=== PATIENT | female | born 1935 | race Caucasian/White ===

== ENCOUNTER 2017-01-16 12:17 | Inpatient (IN) | payer MEDICARE, BC ==
[2017-01-16] MEDS ORDERED: Ondansetron 4 MG/2 ML SDV IV PRN (15:19)
[2017-01-16] MEDS ORDERED: Magnesium Hydroxide 400 MG/5 ML Susp 30 ML Cup PO PRN (15:19)
[2017-01-16] MEDS ORDERED: Sennosides 8.6 MG Tab PO PRN (15:41)
[2017-01-16] MEDS ORDERED: Polyethylene Glycol 3350 Powder 17 GM Packet PO PRN (15:41)
[2017-01-16] MEDS ORDERED: Bisacodyl 10 MG Supp RECTAL PRN (16:02)
[2017-01-16] MEDS: Insulin Aspart 100 Units/ML 3 ML Pen SUBCUT SCH ×2 (17:37→20:25)
[2017-01-16] MEDS: Gabapentin 300 MG Cap PO SCH (17:37)
[2017-01-16] MEDS: Brimonidine 0.2% Ophth Soln 5 ML Bottle EYERT SCH (19:58)
[2017-01-16] MEDS: Metoprolol Tartrate 50 MG Tab PO SCH (19:59)
[2017-01-16] MEDS: Pantoprazole 40 MG Tab.CR PO SCH (19:59)
[2017-01-16] MEDS: atorvaSTATin 10 MG Tab PO SCH (20:00)
[2017-01-16] MEDS: amLODIPine 2.5 MG Tab PO SCH (20:00)
[2017-01-16] MEDS: Sertraline 25 MG Tab PO SCH (20:00)
[2017-01-16] MEDS: Latanoprost 0.005% Ophth Soln 2.5 ML Bottle EYEBOTH SCH (20:03)
[2017-01-16] MEDS: Acetaminophen 325 MG Tab PO PRN (20:34)
--- NOTE | 2017-01-16 20:50 | PCM.HP ---
H&P History of Present Illness - General Date of Service: 01/16/17 Admit Problem/Dx: Admission Diagnosis/Problem Admission Diagnosis/Problem Community acquired pneumonia Source of Information: Patient, Old records History Limitations: Reports: No limitations - History of Present Illness Initial Comments - Free Text/Narative: Patient presents swing bed from [facility] after having issues with bilateral pneumonia and pulmonary edema. She did meet criteria for sepsis. Patient did have somnolence and required high doses of oxygen initially in [facility] before being transferred to [place]. She did have confusion and left sided tremor and an MRI was done to rule out an acute stroke. Her ProB[place] 7000 [place] [address]77 before transfer. Also noted to have acute renal failure. She did respond well to diuresis with significant improvement in her renal function . She was on IV Rocephin and Zithromax for CAP. She was able to be transitioned to oral diuretics and was off oxygen but eventually did require it again prior to discharge/transfer here. Was taken off Metformin and started on insulin due to kidney function. Return here to swing bed for strengthening and mobility training. Duration of Symptoms: Reports: Week(s): Location: Reports: head, chest - Related Data Allergies/Adverse Reactions: Allergies Allergy/AdvReac Type Severity Reaction Status Date / Time codeine Allergy Severe Anaphylactic Verified 01/16/17 13:03 Shock Home Medications: Home Meds Calcium Carb &Cit/Magnesium Ox [Calmag Thins Tablet] 1 tab PO DAILY 02/13/15 [ History] Furosemide 80 mg PO DAILY 02/13/15 [History] Gabapentin [Neurontin] 900 mg PO 08,12,1730 02/13/15 [History] Insulin Detemir [Levemir] 15 unit SUBCUT DAILY 02/13/15 [History] Latanoprost [Xalatan 0.005% Ophth Soln] 1 drop EYEBOTH BEDTIME 02/13/15 [History ] Losartan [Cozaar] 100 mg PO DAILY 02/13/15 [History] Metoprolol Tartrate 50 mg PO BIDMEALS 02/13/15 [History] Multivitamin with Minerals [Multiple Vitamin] 1 tab PO DAILY 02/13/15 [History] Omeprazole 20 mg PO BEDTIME 02/13/15 [History] Timolol Maleate [Timoptic-XE 0.5% Ophth Gel] 1 drop EYEBOTH DAILY 02/13/15 [ History] amLODIPine [Norvasc] 5 mg PO BEDTIME 02/13/15 [History] Allopurinol [Zyloprim] 300 mg PO DAILY tablet 02/17/15 [Rx] Aspirin [Halfprin] 81 mg PO DAILY 09/22/15 [History] Warfarin [Coumadin] 4 mg PO DAILY 09/22/15 [History] Brimonidine [Alphagan P 0.15% Ophth Soln] 1 drop EYERT BID 02/09/16 [History] Sertraline [Zoloft] 50 mg PO BEDTIME 12/07/16 [History] Acetaminophen [Tylenol] 650 mg PO Q4H PRN 01/16/17 [History] Azithromycin 500 mg PO DAILY 01/16/17 [History] Bisacodyl 10 mg RECTAL DAILY PRN 01/16/17 [History] Insulin Aspart [NovoLOG] 3 - 11 units SQ QID 01/16/17 [History] Polyethylene Glycol 8000 [Polyethylene Glycol] 1 packet PO DAILY PRN 01/16/17 [ History] Sennosides [Senna] 1 tab PO BID PRN 01/16/17 [History] atorvaSTATin [Lipitor] 10 mg PO BEDTIME 01/16/17 [History] Past Medical History HEENT History: Reports: Cataract, Impaired vision Other HEENT History: Vertigo, recent hearing loss L ear started October 2016 Cardiovascular History: Reports: Heart Failure, Hypertension, PTCA, Stents Respiratory History: Reports: Pneumonia, recurrent Genitourinary History: Reports: Other (see below) Other Genitourinary History: kidney stent and hematoma to kidney. Musculoskeletal History: Reports: Arthritis Neurological History: Reports: Other (see below) Other Neuro History: tremors Psychiatric History: Reports: Depression Endocrine/Metabolic History: Reports: Diabetes, type II Hematologic History: Reports: Anticoagulation therapy Oncologic (Cancer) History: Reports: Colon - Past Surgical History HEENT Surgical History: Reports: Cataract surgery, Tonsillectomy GI Surgical History: Reports: Colonoscopy Female Surgical History: Reports: Oophorectomy Other Female Surgeries/Procedures: one ovary removed Social & Family History - Family History Family Medical History: Noncontributory - Tobacco Use Smoking Status *Q: Former Smoker Second Hand Smoke Exposure: No - Caffeine Use Caffeine Use: Reports: Coffee - Alcohol Use Days Per Week of Alcohol Use: 0 - Recreational Drug Use Recreational Drug Use: No - Living Situation & Occupation Living situation: Reports: , alone (Daughter lives in area), other Occupation: retired H&P Review of Systems - Review of Systems: Review Of Systems: See Below General: Reports: malaise, weakness, fatigue HEENT: Denies: ear pain, rhinitis, sinus congestion Pulmonary: Reports: shortness of breath, cough. Denies: wheezing Cardiovascular: Reports: edema. Denies: chest pain, lightheadedness Gastrointestinal: Denies: Abdominal pain, Nausea, Vomiting Genitourinary: Reports: frequency Musculoskeletal: Reports: no symptoms Skin: Reports: no symptoms Psychiatric: Reports: no symptoms Neurological: Reports: headache Exam - Exam Exam: See Below - Vital Signs Vital Signs: Last Vital Signs Temp 98.7 F 01/16/17 19:38 Pulse 82 01/16/17 19:59 Resp 18 01/16/17 19:38 BP 149/74 H 01/16/17 19:59 Pulse Ox 94 L 01/16/17 19:38 Weight: 177 lb 3.2 oz - Exam Quality Assessment: supplemental oxygen General: alert, oriented HEENT: Conjunctiva clear, Posterior pharynx clear, Rhinitis Neck: supple Lungs: Crackles (bilateral bases) Cardiovascular: irregular rhythm Abdomen: normal bowel sounds, soft. No: tenderness Extremities: edema Skin: warm, dry Neuro Extensive - Mental Status: alert, oriented x3 Psychiatric: normal affect, normal mood - Patient Data Lab Results last 24 hrs: Laboratory Results - last 24 hr 01/16/17 01/16/17 Range/Units 17:28 20:20 POC Glucose 210 H 138 H (75-105) mg/dl *Q Meaningful Use (ADM) - VTE *Q VTE Criteria *Q: - Stroke *Q Stroke Criteria *Q: - AMI *Q AMI Criteria *Q: - Problem List (1) Diabetes SNOMED Code(s): 54323423 ICD Code: E11.9 - TYPE 2 DIABETES MELLITUS WITHOUT COMPLICATIONS Status: Acute Current Visit: Yes Qualifiers: Diabetes mellitus type: type 2 Diabetes mellitus complication status: with kidney complications Diabetes mellitus complication detail: with other kidney complication (2) Comfort measures only status SNOMED Code(s): 88578103852222 ICD Code: Z51.5 - ENCOUNTER FOR PALLIATIVE CARE Status: Acute Priority: High Current Visit: Yes (3) Headache SNOMED Code(s): 88532723 ICD Code: R51 - HEADACHE Status: Acute Priority: High Current Visit: No Qualifiers: Headache type: unspecified Headache chronicity pattern: acute headache Intractability: not intractable Qualified Code(s): R51 - Headache (4) Pneumonia SNOMED Code(s): 689154178 ICD Code: J18.9 - PNEUMONIA, UNSPECIFIED ORGANISM Status: Acute Priority : High Current Visit: No Qualifiers: Pneumonia type: due to unspecified organism Laterality: bilateral Lung location: lower lobe of lung Qualified Code(s): J18.9 - Pneumonia, unspecified organism (5) Anticoagulation adequate with anticoagulant therapy SNOMED Code(s): 094094796, 109627924 ICD Code: Z79.01 - CMM TECHNICIAN (CURRENT) USE OF ANTICOAGULANTS Status: Chronic Current Visit: No Problem List Initiated/Reviewed/Updated: Yes Orders Last 24hrs: Active Orders 24 hr Category Date Time Status Patient Status [ADT] Routine ADT 01/16/17 15:19 Active Blood Glucose Check, Bedside [RC] 0730,1130,1700,2030 Care 01/16/17 15:19 Active Oxygen Therapy [RC] .PRN Care 01/16/17 15:19 Active Up With Assistance [RC] .PRN Care 01/16/17 15:19 Active Vital Signs [RC] 0800,2000 Care 01/16/17 15:19 Active Consult to Talent Consultant [CONS] Routine Cons 01/16/17 15:19 Active OT Evaluation and Treatment [CONS] Routine Cons 01/16/17 15:19 Active PT Evaluation and Treatment [CONS] Routine Cons 01/16/17 15:19 Active Consistent Carbohydrate Diet [DIET] Diet 01/16/17 Dinner Active INR,PT,PROTHROMBIN TIME [COAG] AM Lab 01/17/17 05:11 Ordered Acetaminophen [Tylenol] Med 01/16/17 15:19 Active 650 mg PO Q4H PRN Allopurinol [Zyloprim] Med 01/17/17 08:00 Active 300 mg PO DAILY Aspirin [Halfprin] Med 01/17/17 08:00 Active 81 mg PO DAILY Azithromycin [Zithromax] Med 01/17/17 08:00 Active 500 mg PO DAILY Bisacodyl [Dulcolax] Med 01/16/17 16:02 Active 10 mg RECTAL DAILY PRN Brimonidine [Alphagan 0.2% Ophth Soln] Med 01/16/17 20:00 Active 0 ml EYERT BID Calcium/Magnesium/Zinc [Calcium & Magnesium plus Zinc] Med 01/17/17 08:00 Active 1 tab PO DAILY Furosemide [Lasix] Med 01/17/17 08:00 Active 80 mg PO DAILY Gabapentin [Neurontin] Med 01/16/17 17:30 Active 900 mg PO Insulin Aspart [NovoLOG] Med 01/16/17 17:30 Active See Protocol SUBCUT WITHMEALSANDBED Insulin Detemir [Levemir] Med 01/17/17 08:00 Active 15 unit SUBCUT DAILY Latanoprost [Xalatan 0.005% Ophth Soln] Med 01/16/17 20:00 Active 0 ml EYEBOTH BEDTIME Losartan [Cozaar] Med 01/17/17 08:00 Active 100 mg PO DAILY Magnesium Hydroxide [Milk of Magnesia] Med 01/16/17 15:19 Active 30 ml PO Q12H PRN Metoprolol Tartrate [Lopressor] Med 01/16/17 20:00 Active 50 mg PO BID Multivitamins [Tab-A-Laquita] Med 01/17/17 08:00 Active 1 tab PO DAILY Ondansetron [Zofran ODT] Med 01/16/17 15:19 Active 4 mg PO Q4H PRN Ondansetron [Zofran] Med 01/16/17 15:19 Active 4 mg IV Q4H PRN Pantoprazole [Protonix] Med 01/16/17 20:00 Active 40 mg PO BEDTIME Polyethylene Glycol 3350 [MiraLAX] Med 01/16/17 15:41 Active 17 gm PO DAILY PRN Sennosides [Senna] Med 01/16/17 15:41 Active 8.6 mg PO BID PRN Sertraline [Zoloft] Med 01/16/17 20:00 Active 50 mg PO BEDTIME Temazepam [Restoril] Med 01/16/17 15:19 Active 15 mg PO BEDTIME PRN Timolol Maleate [Timoptic 0.5% Ophth Soln] Med 01/17/17 08:00 Active 0 ml EYEBOTH DAILY Warfarin [Coumadin] Med 01/17/17 12:00 Active 4 mg PO 1200 amLODIPine [Norvasc] Med 01/16/17 20:00 Active 5 mg PO BEDTIME atorvaSTATin [Lipitor] Med 01/16/17 20:00 Active 10 mg PO BEDTIME Resuscitation Status Routine Resus Stat 01/16/17 15:19 Ordered Medication Orders Acetaminophen (Tylenol) 650 mg PO Q4H PRN PRN Reason: Pain (Mild 1-3)/fever Last Admin: 01/16/17 20:34 Dose: 650 mg Allopurinol (Zyloprim) 300 mg PO DAILY [facility] Amlodipine Besylate (Norvasc) 5 mg PO BEDTIME [facility] Last Admin: 01/16/17 20:00 Dose: 5 mg Aspirin (Halfprin) 81 mg PO DAILY [facility] Atorvastatin Calcium (Lipitor) 10 mg PO BEDTIME [facility] Last Admin: 01/16/17 20:00 Dose: 10 mg Azithromycin (Zithromax) 500 mg PO DAILY [facility] Bisacodyl (Dulcolax) 10 mg RECTAL DAILY PRN PRN Reason: Constipation Brimonidine Tartrate (Alphagan 0.2% Ophth Soln) 0 ml EYERT BID [facility] Last Admin: 01/16/17 19:58 Dose: 1 drop Calcium/Magnesium/Zinc (Calcium & Magnesium Plus Zinc) 1 tab PO DAILY [facility] Furosemide (Lasix) 80 mg PO DAILY [facility] Gabapentin (Neurontin) 900 mg PO 08,12,1730 [facility] Last Admin: 01/16/17 17:37 Dose: 900 mg Insulin Aspart (Novolog) 0 unit SUBCUT WITHMEALSANDBED [facility] PRN Reason: Protocol Last Admin: 01/16/17 20:25 Dose: Admin: 01/16/17 17:37 Dose: 4 units Insulin Detemir (Levemir) 15 unit SUBCUT DAILY [facility] Latanoprost (Xalatan 0.005% Ophth Soln) 0 ml EYEBOTH BEDTIME [facility] Last Admin: 01/16/17 20:03 Dose: 1 drop Losartan Potassium (Cozaar) 100 mg PO DAILY [facility] Magnesium Hydroxide (Milk Of Magnesia) 30 ml PO Q12H PRN PRN Reason: Constipation Metoprolol Tartrate (Lopressor) 50 mg PO BID [facility] Last Admin: 01/16/17 19:59 Dose: 50 mg Multivitamins/Minerals/Vitamin C (Tab-A-Laquita) 1 tab PO DAILY [facility] Ondansetron HCl (Zofran) 4 mg IV Q4H PRN PRN Reason: Nausea/Vomiting Ondansetron HCl (Zofran Odt) 4 mg PO Q4H PRN PRN Reason: nausea, able to take PO Pantoprazole Sodium (Protonix) 40 mg PO BEDTIME [facility] Last Admin: 01/16/17 19:59 Dose: 40 mg Polyethylene Glycol (Miralax) 17 gm PO DAILY PRN PRN Reason: Constipation Senna (Senna) 8.6 mg PO BID PRN PRN Reason: Constipation Sertraline HCl (Zoloft) 50 mg PO BEDTIME [facility] Last Admin: 01/16/17 20:00 Dose: 50 mg Temazepam (Restoril) 15 mg PO BEDTIME PRN PRN Reason: Sleep Timolol Maleate (Timoptic 0.5% Ophth Soln) 0 ml EYEBOTH DAILY [facility] Warfarin Sodium (Coumadin) 4 mg PO 1200 [facility] Assessment/Plan Comment:: Admit for oxygen, strengthening with PT and OT. Will obtain an INR and a BMP in the am. Finish course of zithromax over next [address] Dukes aware of swing bed admission and agrees with plan.
[2017-01-17] MEDS: Brimonidine 0.2% Ophth Soln 5 ML Bottle EYERT SCH ×2 (07:39→20:05)
[2017-01-17] MEDS: Timolol Maleate 0.5% Ophth Soln 5 ML Bottle EYEBOTH SCH (07:41)
[2017-01-17] MEDS: Losartan 100 MG Tab PO SCH (07:42)
[2017-01-17] MEDS: Aspirin 81 MG Tab.EC PO SCH (07:42)
[2017-01-17] MEDS: Calcium Carbonate/Magnesium Oxide/Zinc Oxide Tab PO SCH (07:42)
[2017-01-17] MEDS: Metoprolol Tartrate 50 MG Tab PO SCH ×2 (07:42→20:08)
[2017-01-17] MEDS: Multivitamin Tab PO SCH (07:42)
[2017-01-17] MEDS: Furosemide 80 MG Tab PO SCH (07:42)
[2017-01-17] MEDS: Gabapentin 300 MG Cap PO SCH ×3 (07:49→18:10)
[2017-01-17] MEDS: Insulin Detemir 100 Units/ML 3 ML Pen SUBCUT SCH (07:52)
[2017-01-17] MEDS: Insulin Aspart 100 Units/ML 3 ML Pen SUBCUT SCH ×4 (07:54→20:13)
[2017-01-17] MEDS: Ondansetron 4 MG Tab.DIS PO PRN (07:59)
[2017-01-17] MEDS ORDERED: Allopurinol 300 MG Tab PO SCH (08:00)
[2017-01-17] MEDS ORDERED: Allopurinol 100 MG Tab PO SCH (08:00)
[2017-01-17] MEDS: Azithromycin 250 MG Tab PO SCH (08:37)
[2017-01-17] MEDS: Warfarin 2 MG Tab PO SCH (12:38)
[2017-01-17] MEDS: Latanoprost 0.005% Ophth Soln 2.5 ML Bottle EYEBOTH SCH (20:06)
[2017-01-17] MEDS: amLODIPine 2.5 MG Tab PO SCH (20:07)
[2017-01-17] MEDS: Sertraline 25 MG Tab PO SCH (20:07)
[2017-01-17] MEDS: atorvaSTATin 10 MG Tab PO SCH (20:07)
[2017-01-17] MEDS: Pantoprazole 40 MG Tab.CR PO SCH (20:08)
[2017-01-18] MEDS: Allopurinol 300 MG Tab PO SCH (08:22)
[2017-01-18] MEDS: Furosemide 80 MG Tab PO SCH (08:22)
[2017-01-18] MEDS: Losartan 100 MG Tab PO SCH (08:22)
[2017-01-18] MEDS: Calcium Carbonate/Magnesium Oxide/Zinc Oxide Tab PO SCH (08:22)
[2017-01-18] MEDS: Azithromycin 250 MG Tab PO SCH (08:22)
[2017-01-18] MEDS: Aspirin 81 MG Tab.EC PO SCH (08:22)
[2017-01-18] MEDS: Multivitamin Tab PO SCH (08:22)
[2017-01-18] MEDS: Brimonidine 0.2% Ophth Soln 5 ML Bottle EYERT SCH ×2 (08:23→20:19)
[2017-01-18] MEDS: Metoprolol Tartrate 50 MG Tab PO SCH ×2 (08:23→20:22)
[2017-01-18] MEDS: Insulin Detemir 100 Units/ML 3 ML Pen SUBCUT SCH (08:24)
[2017-01-18] MEDS: Timolol Maleate 0.5% Ophth Soln 5 ML Bottle EYEBOTH SCH (08:24)
[2017-01-18] MEDS: Insulin Aspart 100 Units/ML 3 ML Pen SUBCUT SCH ×4 (08:24→20:23)
[2017-01-18] MEDS: Gabapentin 300 MG Cap PO SCH ×3 (08:27→18:09)
[2017-01-18] MEDS: Warfarin 2 MG Tab PO SCH (12:07)
[2017-01-18] MEDS: atorvaSTATin 10 MG Tab PO SCH (20:22)
[2017-01-18] MEDS: amLODIPine 2.5 MG Tab PO SCH (20:22)
[2017-01-18] MEDS: Sertraline 25 MG Tab PO SCH (20:22)
[2017-01-18] MEDS: Pantoprazole 40 MG Tab.CR PO SCH (20:22)
[2017-01-18] MEDS: Latanoprost 0.005% Ophth Soln 2.5 ML Bottle EYEBOTH SCH (20:23)
[2017-01-18] MEDS: Acetaminophen 325 MG Tab PO PRN (22:21)
[2017-01-19] MEDS: Aspirin 81 MG Tab.EC PO SCH (08:41)
[2017-01-19] MEDS: Azithromycin 250 MG Tab PO SCH (08:42)
[2017-01-19] MEDS: Metoprolol Tartrate 50 MG Tab PO SCH ×2 (08:42→19:41)
[2017-01-19] MEDS: Calcium Carbonate/Magnesium Oxide/Zinc Oxide Tab PO SCH (08:43)
[2017-01-19] MEDS: Losartan 100 MG Tab PO SCH (08:43)
[2017-01-19] MEDS: Allopurinol 300 MG Tab PO SCH (08:43)
[2017-01-19] MEDS: Multivitamin Tab PO SCH (08:43)
[2017-01-19] MEDS: Furosemide 80 MG Tab PO SCH (08:43)
[2017-01-19] MEDS: Brimonidine 0.2% Ophth Soln 5 ML Bottle EYERT SCH ×2 (08:44→19:41)
[2017-01-19] MEDS: Insulin Aspart 100 Units/ML 3 ML Pen SUBCUT SCH ×5 (08:46→20:57)
[2017-01-19] MEDS: Timolol Maleate 0.5% Ophth Soln 5 ML Bottle EYEBOTH SCH (08:46)
[2017-01-19] MEDS: Insulin Detemir 100 Units/ML 3 ML Pen SUBCUT SCH (08:47)
[2017-01-19] MEDS: Gabapentin 300 MG Cap PO SCH ×3 (08:51→17:39)
[2017-01-19] MEDS: Warfarin 2 MG Tab PO SCH (11:31)
[2017-01-19] MEDS: Latanoprost 0.005% Ophth Soln 2.5 ML Bottle EYEBOTH SCH (19:41)
[2017-01-19] MEDS: Pantoprazole 40 MG Tab.CR PO SCH (19:41)
[2017-01-19] MEDS: atorvaSTATin 10 MG Tab PO SCH (19:41)
[2017-01-19] MEDS: Sertraline 25 MG Tab PO SCH (19:42)
[2017-01-19] MEDS: amLODIPine 2.5 MG Tab PO SCH (19:42)
[2017-01-20] MEDS: Allopurinol 300 MG Tab PO SCH (08:23)
[2017-01-20] MEDS: Azithromycin 250 MG Tab PO SCH (08:23)
[2017-01-20] MEDS: Calcium Carbonate/Magnesium Oxide/Zinc Oxide Tab PO SCH (08:23)
[2017-01-20] MEDS: Multivitamin Tab PO SCH (08:24)
[2017-01-20] MEDS: Furosemide 80 MG Tab PO SCH (08:24)
[2017-01-20] MEDS: Aspirin 81 MG Tab.EC PO SCH (08:24)
[2017-01-20] MEDS: Metoprolol Tartrate 50 MG Tab PO SCH ×2 (08:24→20:00)
[2017-01-20] MEDS: Losartan 100 MG Tab PO SCH (08:25)
[2017-01-20] MEDS: Brimonidine 0.2% Ophth Soln 5 ML Bottle EYERT SCH ×2 (08:26→19:59)
[2017-01-20] MEDS: Insulin Detemir 100 Units/ML 3 ML Pen SUBCUT SCH (08:27)
[2017-01-20] MEDS: Timolol Maleate 0.5% Ophth Soln 5 ML Bottle EYEBOTH SCH (08:27)
[2017-01-20] MEDS: Insulin Aspart 100 Units/ML 3 ML Pen SUBCUT SCH ×4 (08:29→20:54)
[2017-01-20] MEDS: Gabapentin 300 MG Cap PO SCH ×3 (08:33→17:36)
[2017-01-20] MEDS: Warfarin 2 MG Tab PO SCH (12:03)
[2017-01-20] MEDS: amLODIPine 2.5 MG Tab PO SCH (20:00)
[2017-01-20] MEDS: Sertraline 25 MG Tab PO SCH (20:00)
[2017-01-20] MEDS: atorvaSTATin 10 MG Tab PO SCH (20:00)
[2017-01-20] MEDS: Pantoprazole 40 MG Tab.CR PO SCH (20:00)
[2017-01-20] MEDS: Latanoprost 0.005% Ophth Soln 2.5 ML Bottle EYEBOTH SCH (20:01)
[2017-01-21] MEDS: Acetaminophen 325 MG Tab PO PRN (05:17)
[2017-01-21] MEDS: Ondansetron 4 MG Tab.DIS PO PRN (05:18)
[2017-01-21] MEDS: Azithromycin 250 MG Tab PO SCH (07:50)
[2017-01-21] MEDS: Calcium Carbonate/Magnesium Oxide/Zinc Oxide Tab PO SCH (07:50)
[2017-01-21] MEDS: Losartan 100 MG Tab PO SCH (07:51)
[2017-01-21] MEDS: Metoprolol Tartrate 50 MG Tab PO SCH ×2 (07:51→20:28)
[2017-01-21] MEDS: Multivitamin Tab PO SCH (07:51)
[2017-01-21] MEDS: Allopurinol 300 MG Tab PO SCH (07:51)
[2017-01-21] MEDS: Furosemide 80 MG Tab PO SCH (07:51)
[2017-01-21] MEDS: Aspirin 81 MG Tab.EC PO SCH (07:51)
[2017-01-21] MEDS: Insulin Aspart 100 Units/ML 3 ML Pen SUBCUT SCH ×4 (07:52→20:29)
[2017-01-21] MEDS: Insulin Detemir 100 Units/ML 3 ML Pen SUBCUT SCH (07:54)
[2017-01-21] MEDS: Brimonidine 0.2% Ophth Soln 5 ML Bottle EYERT SCH ×2 (07:55→20:26)
[2017-01-21] MEDS: Timolol Maleate 0.5% Ophth Soln 5 ML Bottle EYEBOTH SCH (07:55)
[2017-01-21] MEDS: Pantoprazole 40 MG Tab.CR PO SCH (09:44)
[2017-01-21] MEDS: Gabapentin 300 MG Cap PO SCH ×3 (09:44→17:20)
[2017-01-21] MEDS: Warfarin 2 MG Tab PO SCH (12:07)
[2017-01-21] MEDS: Latanoprost 0.005% Ophth Soln 2.5 ML Bottle EYEBOTH SCH (20:25)
[2017-01-21] MEDS: amLODIPine 2.5 MG Tab PO SCH (20:27)
[2017-01-21] MEDS: Sertraline 25 MG Tab PO SCH (20:28)
[2017-01-21] MEDS: atorvaSTATin 10 MG Tab PO SCH (20:29)
[2017-01-21] MEDS: Temazepam 15 MG Cap PO PRN (20:36)
[2017-01-22] MEDS: Pantoprazole 40 MG Tab.CR PO SCH (08:02)
[2017-01-22] MEDS: Aspirin 81 MG Tab.EC PO SCH (08:02)
[2017-01-22] MEDS: Furosemide 80 MG Tab PO SCH (08:02)
[2017-01-22] MEDS: Azithromycin 250 MG Tab PO SCH (08:02)
[2017-01-22] MEDS: Calcium Carbonate/Magnesium Oxide/Zinc Oxide Tab PO SCH (08:02)
[2017-01-22] MEDS: Multivitamin Tab PO SCH (08:03)
[2017-01-22] MEDS: Allopurinol 300 MG Tab PO SCH (08:03)
[2017-01-22] MEDS: Losartan 100 MG Tab PO SCH (08:03)
[2017-01-22] MEDS: Insulin Aspart 100 Units/ML 3 ML Pen SUBCUT SCH ×4 (08:03→20:54)
[2017-01-22] MEDS: Metoprolol Tartrate 50 MG Tab PO SCH ×2 (08:03→20:50)
[2017-01-22] MEDS: Insulin Detemir 100 Units/ML 3 ML Pen SUBCUT SCH (08:04)
[2017-01-22] MEDS: Timolol Maleate 0.5% Ophth Soln 5 ML Bottle EYEBOTH SCH (08:04)
[2017-01-22] MEDS: Brimonidine 0.2% Ophth Soln 5 ML Bottle EYERT SCH ×2 (08:04→20:52)
[2017-01-22] MEDS: Gabapentin 300 MG Cap PO SCH ×3 (08:06→17:41)
[2017-01-22] MEDS: Warfarin 2 MG Tab PO SCH (11:46)
[2017-01-22] MEDS: Sertraline 25 MG Tab PO SCH (20:49)
[2017-01-22] MEDS: amLODIPine 2.5 MG Tab PO SCH (20:50)
[2017-01-22] MEDS: Latanoprost 0.005% Ophth Soln 2.5 ML Bottle EYEBOTH SCH (20:51)
[2017-01-22] MEDS: atorvaSTATin 10 MG Tab PO SCH (20:51)
[2017-01-22] MEDS: Temazepam 15 MG Cap PO PRN (21:41)
[2017-01-23] MEDS: Pantoprazole 40 MG Tab.CR PO SCH (06:41)
[2017-01-23] MEDS: Calcium Carbonate/Magnesium Oxide/Zinc Oxide Tab PO SCH (08:07)
[2017-01-23] MEDS: Azithromycin 250 MG Tab PO SCH (08:07)
[2017-01-23] MEDS: Metoprolol Tartrate 50 MG Tab PO SCH ×2 (08:08→19:36)
[2017-01-23] MEDS: Multivitamin Tab PO SCH (08:08)
[2017-01-23] MEDS: Losartan 100 MG Tab PO SCH (08:08)
[2017-01-23] MEDS: Allopurinol 300 MG Tab PO SCH (08:09)
[2017-01-23] MEDS: Aspirin 81 MG Tab.EC PO SCH (08:09)
[2017-01-23] MEDS: Furosemide 80 MG Tab PO SCH (08:09)
[2017-01-23] MEDS: Brimonidine 0.2% Ophth Soln 5 ML Bottle EYERT SCH ×2 (08:10→19:37)
[2017-01-23] MEDS: Insulin Detemir 100 Units/ML 3 ML Pen SUBCUT SCH (08:11)
[2017-01-23] MEDS: Insulin Aspart 100 Units/ML 3 ML Pen SUBCUT SCH ×4 (08:14→21:36)
[2017-01-23] MEDS: Timolol Maleate 0.5% Ophth Soln 5 ML Bottle EYEBOTH SCH (08:19)
[2017-01-23] MEDS: Gabapentin 300 MG Cap PO SCH ×3 (08:19→17:40)
[2017-01-23] MEDS: Warfarin 2 MG Tab PO SCH (11:57)
[2017-01-23] MEDS: amLODIPine 2.5 MG Tab PO SCH (19:27)
[2017-01-23] MEDS: Sertraline 25 MG Tab PO SCH (19:36)
[2017-01-23] MEDS: atorvaSTATin 10 MG Tab PO SCH (19:36)
[2017-01-23] MEDS: Latanoprost 0.005% Ophth Soln 2.5 ML Bottle EYEBOTH SCH (19:38)
[2017-01-24] MEDS: Insulin Aspart 100 Units/ML 3 ML Pen SUBCUT SCH ×4 (08:30→20:00)
[2017-01-24] MEDS: Insulin Detemir 100 Units/ML 3 ML Pen SUBCUT SCH (08:32)
[2017-01-24] MEDS: Metoprolol Tartrate 50 MG Tab PO SCH ×2 (08:33→19:28)
[2017-01-24] MEDS: Multivitamin Tab PO SCH (08:33)
[2017-01-24] MEDS: Pantoprazole 40 MG Tab.CR PO SCH (08:33)
[2017-01-24] MEDS: Azithromycin 250 MG Tab PO SCH (08:33)
[2017-01-24] MEDS: Aspirin 81 MG Tab.EC PO SCH (08:33)
[2017-01-24] MEDS: Calcium Carbonate/Magnesium Oxide/Zinc Oxide Tab PO SCH (08:33)
[2017-01-24] MEDS: Furosemide 80 MG Tab PO SCH (08:33)
[2017-01-24] MEDS: Allopurinol 300 MG Tab PO SCH (08:33)
[2017-01-24] MEDS: Losartan 100 MG Tab PO SCH (08:34)
[2017-01-24] MEDS: Brimonidine 0.2% Ophth Soln 5 ML Bottle EYERT SCH ×2 (08:37→19:28)
[2017-01-24] MEDS: Timolol Maleate 0.5% Ophth Soln 5 ML Bottle EYEBOTH SCH (08:37)
[2017-01-24] MEDS: Gabapentin 300 MG Cap PO SCH ×3 (08:40→17:15)
[2017-01-24] MEDS: Warfarin 2 MG Tab PO SCH (11:36)
[2017-01-24] MEDS: atorvaSTATin 10 MG Tab PO SCH (19:28)
[2017-01-24] MEDS: Latanoprost 0.005% Ophth Soln 2.5 ML Bottle EYEBOTH SCH (19:28)
[2017-01-24] MEDS: amLODIPine 2.5 MG Tab PO SCH (19:29)
[2017-01-24] MEDS: Sertraline 25 MG Tab PO SCH (19:29)
[2017-01-24] MEDS: Acetaminophen 325 MG Tab PO PRN (23:50)
[2017-01-25] MEDS: Furosemide 80 MG Tab PO SCH (07:57)
[2017-01-25] MEDS: Losartan 100 MG Tab PO SCH (07:57)
[2017-01-25] MEDS: Multivitamin Tab PO SCH (07:58)
[2017-01-25] MEDS: Pantoprazole 40 MG Tab.CR PO SCH (07:58)
[2017-01-25] MEDS: Aspirin 81 MG Tab.EC PO SCH (07:58)
[2017-01-25] MEDS: Allopurinol 300 MG Tab PO SCH (07:58)
[2017-01-25] MEDS: Metoprolol Tartrate 50 MG Tab PO SCH ×2 (07:58→20:07)
[2017-01-25] MEDS: Calcium Carbonate/Magnesium Oxide/Zinc Oxide Tab PO SCH (07:58)
[2017-01-25] MEDS: Timolol Maleate 0.5% Ophth Soln 5 ML Bottle EYEBOTH SCH (08:00)
[2017-01-25] MEDS: Insulin Aspart 100 Units/ML 3 ML Pen SUBCUT SCH ×4 (08:01→20:11)
[2017-01-25] MEDS: Insulin Detemir 100 Units/ML 3 ML Pen SUBCUT SCH (08:01)
[2017-01-25] MEDS: Brimonidine 0.2% Ophth Soln 5 ML Bottle EYERT SCH ×2 (08:03→20:07)
[2017-01-25] MEDS: Gabapentin 300 MG Cap PO SCH ×3 (08:08→17:18)
[2017-01-25] MEDS: Azithromycin 250 MG Tab PO SCH (08:08)
[2017-01-25] MEDS: Warfarin 2 MG Tab PO SCH (11:27)
[2017-01-25] MEDS: Latanoprost 0.005% Ophth Soln 2.5 ML Bottle EYEBOTH SCH (20:07)
[2017-01-25] MEDS: Sertraline 25 MG Tab PO SCH (20:07)
[2017-01-25] MEDS: atorvaSTATin 10 MG Tab PO SCH (20:08)
[2017-01-25] MEDS: amLODIPine 2.5 MG Tab PO SCH (20:08)
[2017-01-25] MEDS: Acetaminophen 325 MG Tab PO PRN (22:05)
[2017-01-26] MEDS: Pantoprazole 40 MG Tab.CR PO SCH (08:11)
[2017-01-26] MEDS: Aspirin 81 MG Tab.EC PO SCH (08:12)
[2017-01-26] MEDS: Losartan 100 MG Tab PO SCH (08:12)
[2017-01-26] MEDS: Calcium Carbonate/Magnesium Oxide/Zinc Oxide Tab PO SCH (08:12)
[2017-01-26] MEDS: Metoprolol Tartrate 50 MG Tab PO SCH ×2 (08:13→19:36)
[2017-01-26] MEDS: Furosemide 80 MG Tab PO SCH (08:13)
[2017-01-26] MEDS: Multivitamin Tab PO SCH (08:13)
[2017-01-26] MEDS: Azithromycin 250 MG Tab PO SCH (08:14)
[2017-01-26] MEDS: Allopurinol 300 MG Tab PO SCH (08:14)
[2017-01-26] MEDS: Insulin Aspart 100 Units/ML 3 ML Pen SUBCUT SCH ×4 (08:14→20:46)
[2017-01-26] MEDS: Timolol Maleate 0.5% Ophth Soln 5 ML Bottle EYEBOTH SCH (08:15)
[2017-01-26] MEDS: Brimonidine 0.2% Ophth Soln 5 ML Bottle EYERT SCH ×2 (08:15→19:37)
[2017-01-26] MEDS: Insulin Detemir 100 Units/ML 3 ML Pen SUBCUT SCH (08:16)
[2017-01-26 08:18] LABS: CHLORIDE,CL 103 mEq/L (98-106); SODIUM,NA 144 mEq/L (136-145)
[2017-01-26] MEDS: Gabapentin 300 MG Cap PO SCH ×3 (08:21→17:51)
--- NOTE | 2017-01-26 08:43 | PCM.SN ---
- Free Text/Narrative Note: ESTHELA Quick informed me this morning patient had mild crackels lower lung base on exam. Patient did not complain of any shortness of breath or any other concerns. She does not have fever. I ordered labs and CXR. CXR is improved from previous 2 weeks ago. There is cardiac enlargement, no pulmonary edema, no infiltrates. Labs are unremarkable. BNP is over 5,000. This is improved from previous BNPs.
[2017-01-26] MEDS: Warfarin 2 MG Tab PO SCH (12:46)
[2017-01-26] MEDS: atorvaSTATin 10 MG Tab PO SCH (19:35)
[2017-01-26] MEDS: amLODIPine 2.5 MG Tab PO SCH (19:35)
[2017-01-26] MEDS: Sertraline 25 MG Tab PO SCH (19:36)
[2017-01-26] MEDS: Latanoprost 0.005% Ophth Soln 2.5 ML Bottle EYEBOTH SCH (19:38)
[2017-01-27] MEDS: Pantoprazole 40 MG Tab.CR PO SCH (07:09)
[2017-01-27] MEDS: Azithromycin 250 MG Tab PO SCH (07:47)
[2017-01-27] MEDS: Losartan 100 MG Tab PO SCH (07:48)
[2017-01-27] MEDS: Multivitamin Tab PO SCH (07:48)
[2017-01-27] MEDS: Calcium Carbonate/Magnesium Oxide/Zinc Oxide Tab PO SCH (07:49)
[2017-01-27] MEDS: Aspirin 81 MG Tab.EC PO SCH (07:49)
[2017-01-27] MEDS: Metoprolol Tartrate 50 MG Tab PO SCH ×2 (07:49→19:31)
[2017-01-27] MEDS: Furosemide 80 MG Tab PO SCH (07:50)
[2017-01-27] MEDS: Allopurinol 300 MG Tab PO SCH (07:50)
[2017-01-27] MEDS: Brimonidine 0.2% Ophth Soln 5 ML Bottle EYERT SCH ×2 (07:51→19:30)
[2017-01-27] MEDS: Insulin Detemir 100 Units/ML 3 ML Pen SUBCUT SCH (07:52)
[2017-01-27] MEDS: Timolol Maleate 0.5% Ophth Soln 5 ML Bottle EYEBOTH SCH (07:53)
[2017-01-27] MEDS: Insulin Aspart 100 Units/ML 3 ML Pen SUBCUT SCH ×4 (07:54→20:03)
[2017-01-27] MEDS: Gabapentin 300 MG Cap PO SCH ×3 (07:59→17:57)
[2017-01-27] MEDS: Warfarin 2 MG Tab PO SCH (11:59)
[2017-01-27] MEDS: atorvaSTATin 10 MG Tab PO SCH (19:30)
[2017-01-27] MEDS: Sertraline 25 MG Tab PO SCH (19:31)
[2017-01-27] MEDS: amLODIPine 2.5 MG Tab PO SCH (19:31)
[2017-01-27] MEDS: Latanoprost 0.005% Ophth Soln 2.5 ML Bottle EYEBOTH SCH (20:03)
[2017-01-27] MEDS: Acetaminophen 325 MG Tab PO PRN (22:12)
[2017-01-28] MEDS: Pantoprazole 40 MG Tab.CR PO SCH (07:00)
[2017-01-28] MEDS: Insulin Aspart 100 Units/ML 3 ML Pen SUBCUT SCH ×4 (07:47→20:28)
[2017-01-28] MEDS: Brimonidine 0.2% Ophth Soln 5 ML Bottle EYERT SCH ×2 (07:48→20:01)
[2017-01-28] MEDS: Furosemide 80 MG Tab PO SCH (07:49)
[2017-01-28] MEDS: Calcium Carbonate/Magnesium Oxide/Zinc Oxide Tab PO SCH (07:49)
[2017-01-28] MEDS: Aspirin 81 MG Tab.EC PO SCH (07:49)
[2017-01-28] MEDS: Metoprolol Tartrate 50 MG Tab PO SCH ×2 (07:49→20:02)
[2017-01-28] MEDS: Azithromycin 250 MG Tab PO SCH (07:49)
[2017-01-28] MEDS: Allopurinol 300 MG Tab PO SCH (07:49)
[2017-01-28] MEDS: Losartan 100 MG Tab PO SCH (07:50)
[2017-01-28] MEDS: Multivitamin Tab PO SCH (07:50)
[2017-01-28] MEDS: Timolol Maleate 0.5% Ophth Soln 5 ML Bottle EYEBOTH SCH (07:51)
[2017-01-28] MEDS: Insulin Detemir 100 Units/ML 3 ML Pen SUBCUT SCH (07:52)
[2017-01-28] MEDS: Gabapentin 300 MG Cap PO SCH ×3 (08:02→17:49)
[2017-01-28] MEDS: Warfarin 2 MG Tab PO SCH (12:27)
[2017-01-28] MEDS: amLODIPine 2.5 MG Tab PO SCH (20:02)
[2017-01-28] MEDS: Sertraline 25 MG Tab PO SCH (20:02)
[2017-01-28] MEDS: atorvaSTATin 10 MG Tab PO SCH (20:02)
[2017-01-28] MEDS: Latanoprost 0.005% Ophth Soln 2.5 ML Bottle EYEBOTH SCH (20:30)
[2017-01-29] MEDS: Pantoprazole 40 MG Tab.CR PO SCH (07:02)
[2017-01-29] MEDS: Brimonidine 0.2% Ophth Soln 5 ML Bottle EYERT SCH ×2 (07:28→20:21)
[2017-01-29] MEDS: Timolol Maleate 0.5% Ophth Soln 5 ML Bottle EYEBOTH SCH (07:28)
[2017-01-29] MEDS: Allopurinol 300 MG Tab PO SCH (07:29)
[2017-01-29] MEDS: Losartan 100 MG Tab PO SCH (07:29)
[2017-01-29] MEDS: Aspirin 81 MG Tab.EC PO SCH (07:29)
[2017-01-29] MEDS: Gabapentin 300 MG Cap PO SCH ×3 (07:29→17:07)
[2017-01-29] MEDS: Multivitamin Tab PO SCH (07:29)
[2017-01-29] MEDS: Calcium Carbonate/Magnesium Oxide/Zinc Oxide Tab PO SCH (07:29)
[2017-01-29] MEDS: Azithromycin 250 MG Tab PO SCH (07:29)
[2017-01-29] MEDS: Furosemide 80 MG Tab PO SCH (07:30)
[2017-01-29] MEDS: Metoprolol Tartrate 50 MG Tab PO SCH ×2 (07:30→20:24)
[2017-01-29] MEDS: Insulin Aspart 100 Units/ML 3 ML Pen SUBCUT SCH ×4 (07:35→20:25)
[2017-01-29] MEDS: Insulin Detemir 100 Units/ML 3 ML Pen SUBCUT SCH (07:36)
[2017-01-29] MEDS: Warfarin 2 MG Tab PO SCH (11:55)
[2017-01-29] MEDS: Sertraline 25 MG Tab PO SCH (20:22)
[2017-01-29] MEDS: amLODIPine 2.5 MG Tab PO SCH (20:22)
[2017-01-29] MEDS: Latanoprost 0.005% Ophth Soln 2.5 ML Bottle EYEBOTH SCH (20:24)
[2017-01-29] MEDS: atorvaSTATin 10 MG Tab PO SCH (20:24)
[2017-01-30 07:32] VITALS: BP 195/89
[2017-01-30] MEDS: Pantoprazole 40 MG Tab.CR PO SCH (08:28)
[2017-01-30] MEDS: Furosemide 80 MG Tab PO SCH (08:28)
[2017-01-30] MEDS: Azithromycin 250 MG Tab PO SCH (08:28)
[2017-01-30] MEDS: Losartan 100 MG Tab PO SCH (08:28)
[2017-01-30] MEDS: Metoprolol Tartrate 50 MG Tab PO SCH (08:28)
[2017-01-30] MEDS: Allopurinol 300 MG Tab PO SCH (08:29)
[2017-01-30] MEDS: Insulin Detemir 100 Units/ML 3 ML Pen SUBCUT SCH (08:29)
[2017-01-30] MEDS: Multivitamin Tab PO SCH (08:29)
[2017-01-30] MEDS: Gabapentin 300 MG Cap PO SCH ×2 (08:29→11:36)
[2017-01-30] MEDS: Calcium Carbonate/Magnesium Oxide/Zinc Oxide Tab PO SCH (08:29)
[2017-01-30] MEDS: Aspirin 81 MG Tab.EC PO SCH (08:29)
[2017-01-30] MEDS: Brimonidine 0.2% Ophth Soln 5 ML Bottle EYERT SCH (08:30)
[2017-01-30] MEDS: Timolol Maleate 0.5% Ophth Soln 5 ML Bottle EYEBOTH SCH (08:30)
[2017-01-30] MEDS: Insulin Aspart 100 Units/ML 3 ML Pen SUBCUT SCH ×2 (08:31→12:03)
[2017-01-30] MEDS: Warfarin 2 MG Tab PO SCH (11:36)
--- NOTE | 2017-01-30 11:59 | PCM.DCSUM1 ---
Discharge Summary - Hospital Course Free Text/Narrative:: Patient admitted to swing bed on the 26 of January after a stay in [place] for pneumonia with pulmonary edema. She had criteria for being septic. Initially required high doses of oxygen. Was having issues with confusion and a tremor and MRI was done to rule out an acute stroke. [place] [address] and was diuresed in [place]. She did receive Rocephin and Zithromax for CAP and was able to be weaned off oxygen and switched to oral diuretics. Was taken off Metformin and started on insulin due to kidney infection. Patient returned here for strengthening and mobility training. - Discharge Data Discharge Date: 01/30/17 Discharge Disposition: Home, Home Health Agency 06 Condition: Fair - Discharge Diagnosis/Problem(s) (1) Diabetes SNOMED Code(s): 24182570 ICD Code: E11.9 - TYPE 2 DIABETES MELLITUS WITHOUT COMPLICATIONS Status: Acute Current Visit: Yes Qualifiers: Diabetes mellitus type: type 2 Diabetes mellitus complication status: with kidney complications Diabetes mellitus complication detail: with other kidney complication (2) Comfort measures only status SNOMED Code(s): 40507808989334 ICD Code: Z51.5 - ENCOUNTER FOR PALLIATIVE CARE Status: Acute Priority: High Current Visit: Yes (3) Headache SNOMED Code(s): 56278254 ICD Code: R51 - HEADACHE Status: Acute Priority: High Current Visit: No Qualifiers: Headache type: unspecified Headache chronicity pattern: acute headache Intractability: not intractable Qualified Code(s): R51 - Headache (4) Pneumonia SNOMED Code(s): 111159888 ICD Code: J18.9 - PNEUMONIA, UNSPECIFIED ORGANISM Status: Acute Priority : High Current Visit: No Qualifiers: Pneumonia type: due to unspecified organism Laterality: bilateral Lung location: lower lobe of lung Qualified Code(s): J18.9 - Pneumonia, unspecified organism (5) Anticoagulation adequate with anticoagulant therapy SNOMED Code(s): 322672729, 366635827 ICD Code: Z79.01 - JAIL (CURRENT) USE OF ANTICOAGULANTS Status: Chronic Current Visit: No - Patient Summary/Data Complications: none Consults: Consultations 01/16/17 15:19 Consult to Fashion Consultant Sales [CONS] Routine OT Evaluation and Treatment [CONS] Routine PT Evaluation and Treatment [CONS] Routine Hospital Course: Patient has slowly improved with PT and OT. Not on oxygen. Mobility has improved. Is ambulating in the halls with her walker. Tolerating her diet. Less cough. Patient doing well. Family has decided patient unable to further live alone in her big house as she was struggling with this even prior to this admission. [facility] and will have home health for PT and OT for ongoing strengthening. Will increase her Levemir to 20 units and stop her Novolog. Stop the daily Zithromax. - Patient Instructions Diet: Usual Diet as Tolerated Activity: As Tolerated Other/Special Instructions: Home Health for PT/OT - Discharge Plan Prescriptions/Med Rec: Insulin Detemir [Levemir] 20 unit SUBCUT DAILY #1 pen Home Medications: Home Meds Calcium Carb &Cit/Magnesium Ox [Calmag Thins Tablet] 1 tab PO DAILY 02/13/15 [ History] Furosemide 80 mg PO DAILY 02/13/15 [History] Gabapentin [Neurontin] 900 mg PO 08,12,1730 02/13/15 [History] Latanoprost [Xalatan 0.005% Ophth Soln] 1 drop EYEBOTH BEDTIME 02/13/15 [History ] Losartan [Cozaar] 100 mg PO DAILY 02/13/15 [History] Metoprolol Tartrate 50 mg PO BIDMEALS 02/13/15 [History] Multivitamin with Minerals [Multiple Vitamin] 1 tab PO DAILY 02/13/15 [History] Omeprazole 20 mg PO BEDTIME 02/13/15 [History] Timolol Maleate [Timoptic-XE 0.5% Ophth Gel] 1 drop EYEBOTH DAILY 02/13/15 [ History] amLODIPine [Norvasc] 5 mg PO BEDTIME 02/13/15 [History] Allopurinol [Zyloprim] 300 mg PO DAILY tablet 02/17/15 [Rx] Aspirin [Halfprin] 81 mg PO DAILY 09/22/15 [History] Warfarin [Coumadin] 4 mg PO DAILY 09/22/15 [History] Brimonidine [Alphagan P 0.15% Ophth Soln] 1 drop EYERT BID 02/09/16 [History] Sertraline [Zoloft] 50 mg PO BEDTIME 12/07/16 [History] Acetaminophen [Tylenol] 650 mg PO Q4H PRN 01/16/17 [History] Azithromycin 500 mg PO DAILY 01/16/17 [History] Bisacodyl 10 mg RECTAL DAILY PRN 01/16/17 [History] Insulin Aspart [NovoLOG] 3 - 11 units SQ QID 01/16/17 [History] Polyethylene Glycol 8000 [Polyethylene Glycol] 1 packet PO DAILY PRN 01/16/17 [ History] Sennosides [Senna] 1 tab PO BID PRN 01/16/17 [History] atorvaSTATin [Lipitor] 10 mg PO BEDTIME 01/16/17 [History] Insulin Detemir [Levemir] 20 unit SUBCUT DAILY #1 pen 01/30/17 [Rx] - Discharge Summary/Plan Comment DC Time >30 min.: No Discharge Summary/Plan Comment: [facility] Increase her Levemir to 20 units to replace extra need here per sliding scale. She Will have PT and OT per home health for ongoing strengthening. Dr. Dukes will oversee this care. - General Info Date of Service: 01/30/17 Admission Dx/Problem (Free Text: Admission Diagnosis/Problem Admission Diagnosis/Problem Community acquired pneumonia Functional Status: Reports: pain controlled, tolerating diet, ambulating - Review of Systems General: Reports: weakness. Denies: fever, fatigue, malaise HEENT: Denies: ear pain, sinus congestion, rhinitis Pulmonary: Denies: shortness of breath, cough, wheezing Cardiovascular: Denies: chest pain, palpitations, orthopnea, edema Gastrointestinal: Denies: Abdominal pain, Diarrhea, Nausea, Vomiting Genitourinary: Reports: no symptoms Musculoskeletal: Reports: no symptoms Skin: Reports: no symptoms Neurological: Reports: no symptoms - Patient Data Vitals - Most Recent: Last Vital Signs Temp 98.9 F 01/30/17 07:31 Pulse 68 01/30/17 08:28 Resp 18 01/30/17 07:31 BP 195/89 H 01/30/17 08:28 Pulse Ox 92 L 01/30/17 07:31 Weight - Most Recent: 174 lb 8 oz I&O - Last 24 hours: Intake & Output 01/29/17 01/30/17 01/30/17 22:59 06:59 14:59 Output Total 1 Balance -1 Lab Results - Last 24 hrs: Laboratory Results - last 24 hr 01/29/17 01/29/1701/29/17 Range/Units 11:50 17:10 19:49 POC Glucose 210 H 152 H 223 H (75-105) mg/dl 01/30/17 Range/Units 07:30 POC Glucose 122 H (75-105) mg/dl Med Orders - Current: Current Medications Acetaminophen (Tylenol) 650 mg PO Q4H PRN PRN Reason: Pain (Mild 1-3)/fever Last Admin: 01/27/17 22:12 Dose: 650 mg Allopurinol (Zyloprim) 300 mg PO DAILY [facility] Last Admin: 01/30/17 08:29 Dose: 300 mg Amlodipine Besylate (Norvasc) 5 mg PO BEDTIME [facility] Last Admin: 01/29/17 20:22 Dose: 5 mg Aspirin (Halfprin) 81 mg PO DAILY [facility] Last Admin: 01/30/17 08:29 Dose: 81 mg Atorvastatin Calcium (Lipitor) 10 mg PO BEDTIME [facility] Last Admin: 01/29/17 20:24 Dose: 10 mg Azithromycin (Zithromax) 500 mg PO DAILY [facility] Last Admin: 01/30/17 08:28 Dose: 500 mg Bisacodyl (Dulcolax) 10 mg RECTAL DAILY PRN PRN Reason: Constipation Brimonidine Tartrate (Alphagan 0.2% Ophth Soln) 0 ml EYERT BID [facility] Last Admin: 01/30/17 08:30 Dose: 1 drop Calcium/Magnesium/Zinc (Calcium & Magnesium Plus Zinc) 1 tab PO DAILY [facility] Last Admin: 01/30/17 08:29 Dose: 1 tab Furosemide (Lasix) 80 mg PO DAILY [facility] Last Admin: 01/30/17 08:28 Dose: 80 mg Gabapentin (Neurontin) 900 mg PO 08 [facility] Last Admin: 01/30/17 11:36 Dose: 900 mg Insulin Aspart (Novolog) 0 unit SUBCUT WITHMEALSANDBED [facility] PRN Reason: Protocol Last Admin: 01/30/17 08:31 Dose: Not Given Insulin Detemir (Levemir) 15 unit SUBCUT DAILY [facility] Last Admin: 01/30/17 08:29 Dose: 15 units Latanoprost (Xalatan 0.005% Ophth Soln) 0 ml EYEBOTH BEDTIME [facility] Last Admin: 01/29/17 20:24 Dose: 1 drop Losartan Potassium (Cozaar) 100 mg PO DAILY [facility] Last Admin: 01/30/17 08:28 Dose: 100 mg Magnesium Hydroxide (Milk Of Magnesia) 30 ml PO Q12H PRN PRN Reason: Constipation Metoprolol Tartrate (Lopressor) 50 mg PO BID [facility] Last Admin: 01/30/17 08:28 Dose: 50 mg Multivitamins/Minerals/Vitamin C (Tab-A-Laquita) 1 tab PO DAILY [facility] Last Admin: 01/30/17 08:29 Dose: 1 tab Ondansetron HCl (Zofran Odt) 4 mg PO Q4H PRN PRN Reason: nausea, able to take PO Last Admin: 01/21/17 05:18 Dose: 4 mg Pantoprazole Sodium (Protonix) 40 mg PO DAILY@0700 [facility] Last Admin: 01/30/17 08:28 Dose: 40 mg Polyethylene Glycol (Miralax) 17 gm PO DAILY PRN PRN Reason: Constipation Senna (Senna) 8.6 mg PO BID PRN PRN Reason: Constipation Sertraline HCl (Zoloft) 50 mg PO BEDTIME [facility] Last Admin: 01/29/17 20:22 Dose: 50 mg Temazepam (Restoril) 15 mg PO BEDTIME PRN PRN Reason: Sleep Last Admin: 01/22/17 21:41 Dose: 15 mg Timolol Maleate (Timoptic 0.5% Ophth Soln) 0 ml EYEBOTH DAILY [facility] Last Admin: 01/30/17 08:30 Dose: 1 drop Warfarin Sodium (Coumadin) 4 mg PO 1200 [facility] Last Admin: 01/30/17 11:36 Dose: 4 mg Discontinued Medications Allopurinol (Zyloprim) 300 mg PO DAILY [facility] Last Admin: 01/17/17 07:43 Dose: 300 mg Ondansetron HCl (Zofran) 4 mg IV Q4H PRN PRN Reason: Nausea/Vomiting Stop: 01/16/17 20:30 Pantoprazole Sodium (Protonix) 40 mg PO BEDTIME [facility] Last Admin: 01/20/17 20:00 Dose: 40 mg - Exam General: Reports: alert, oriented HEENT: Reports: Mucous membr. moist/pink Neck: Reports: supple Lungs: Reports: Decreased breath sounds Cardiovascular: Reports: regular rate, regular rhythm Abdomen: Reports: bowel sounds present, soft, no tenderness *Q Meaningful Use (DIS) - VTE *Q VTE Criteria *Q: - Stroke *Q Stroke Criteria *Q: - AMI *Q AMI Criteria *Q:
== END 2017-01-30 12:05 | disposition home health service (06) | DRG 195 ==
LOC: CC.MS 15:19
PROVIDERS: ADMIT Family Medicine; ATTEND Family Medicine
DX: J18.9 Pneumonia, unspecified organism (principal); I50.9 Heart failure, unspecified; I10 Essential (primary) hypertension; M19.90 Unspecified osteoarthritis, unspecified site; Z79.82 Long term (current) use of aspirin; Z79.01 Long term (current) use of anticoagulants; F32.9 Major depressive disorder, single episode, unspecified; Z87.891 Personal history of nicotine dependence; Z51.5 Encounter for palliative care; R51 Headache; Z79.4 Long term (current) use of insulin; E11.29 Type 2 diabetes mellitus with other diabetic kidney complication
CPT/HCPCS: 36415; 71020; 80048; 80053; 82962; 83880; 85025; 85610; 94760; 97110-GO; 97110-GP; 97112-GP; 97162-GP; 97165-GO; A9270-GY; J1815-GY

== ENCOUNTER 2017-03-03 13:46 | Observation (INO) | payer MEDICARE, BC ==
[2017-03-03] MEDS ORDERED: Sodium Chloride 0.9% 10 ML Syringe FLUSH PRN (14:23)
[2017-03-03] MEDS: Isosorbide Mononitrate 30 MG Tab.ER PO SCH (15:41)
[2017-03-03] MEDS: Acetaminophen 325 MG Tab PO PRN (16:08)
[2017-03-03] MEDS ORDERED: Acetaminophen 325 MG Tab PO PRN (17:22)
[2017-03-03] MEDS ORDERED: Polyethylene Glycol 3350 Powder 17 GM Packet PO PRN (17:22)
[2017-03-03] MEDS ORDERED: Bisacodyl 10 MG Supp RECTAL PRN (17:22)
[2017-03-03] MEDS ORDERED: Sennosides 8.6 MG Tab PO PRN (17:22)
[2017-03-03] MEDS: PTOM-Metoprolol Tartrate 50 MG Tab PO SCH (17:54)
[2017-03-03] MEDS: Gabapentin 300 MG Cap PO SCH (17:55)
[2017-03-03] MEDS ORDERED: Warfarin 2 MG Tab PO SCH (19:00)
[2017-03-03] MEDS: BRIMONIDINE 0.2% EYERT SCH (19:34)
[2017-03-03] MEDS: CEFUROXIME 250 MG PO SCH (19:35)
[2017-03-03] MEDS: LATANOPROST 0.005% EYEBOTH SCH (19:36)
[2017-03-03] MEDS: atorvaSTATin 10 MG Tab PO SCH (19:51)
[2017-03-03] MEDS ORDERED: Pantoprazole 40 MG Tab.CR PO SCH (20:00)
[2017-03-03] MEDS ORDERED: Furosemide 40 MG Tab PO SCH (20:00)
[2017-03-03] MEDS ORDERED: Furosemide 40 MG/4 ML VIAL IVPUSH SCH (20:00)
[2017-03-03] MEDS ORDERED: Insulin Aspart 100 Units/ML 3 ML Pen SUBCUT SCH ×2 (20:00→20:30)
[2017-03-03] MEDS ORDERED: Sertraline 25 MG Tab PO SCH (20:00)
[2017-03-03] MEDS ORDERED: AMLODIPINE 2.5 MG PO SCH (20:00)
[2017-03-03] MEDS: Insulin Aspart 100 Units/ML 3 ML Pen SUBCUT SCH (20:57)
[2017-03-04] MEDS ORDERED: Insulin Aspart 100 Units/ML 3 ML Pen SUBCUT SCH (07:30)
[2017-03-04] MEDS: Insulin Aspart 100 Units/ML 3 ML Pen SUBCUT SCH ×4 (08:04→20:47)
[2017-03-04] MEDS: LOSARTAN 100 MG PO SCH (08:33)
[2017-03-04] MEDS: PTOM-Metoprolol Tartrate 50 MG Tab PO SCH ×2 (08:33→17:34)
[2017-03-04] MEDS: CEFUROXIME 250 MG PO SCH ×2 (08:34→19:34)
[2017-03-04] MEDS: GABAPENTIN 600 MG PO SCH ×3 (08:34→17:34)
[2017-03-04] MEDS: ALLOPURINOL 300 MG PO SCH (08:34)
[2017-03-04] MEDS: BRIMONIDINE 0.2% EYERT SCH ×2 (08:36→19:32)
[2017-03-04] MEDS: TIMOLOL MALEATE 0.5% EYEBOTH SCH (08:36)
[2017-03-04] MEDS: Insulin Detemir 100 Units/ML 3 ML Pen SUBCUT SCH (08:36)
[2017-03-04] MEDS: Aspirin 81 MG Tab.EC PO SCH (08:37)
[2017-03-04] MEDS: Furosemide 40 MG/4 ML VIAL IVPUSH SCH ×2 (08:39→15:43)
[2017-03-04] MEDS: Isosorbide Mononitrate 30 MG Tab.ER PO SCH (08:39)
[2017-03-04] MEDS: Gabapentin 300 MG Cap PO SCH (08:54)
--- NOTE | 2017-03-04 09:25 | PCM.PN ---
- General Info Date of Service: 03/04/17 Admission Dx/Problem (Free Text): Hypertension Dizziness Functional Status: Reports: pain controlled, tolerating diet, ambulating (with walker) - Review of Systems General: Reports: Weakness, Fatigue. Denies: Fever HEENT: Denies: ear pain, sinus congestion, rhinitis, visual changes Pulmonary: Denies: shortness of breath, cough, wheezing Cardiovascular: Denies: Chest Pain, Edema, Lightheadedness Gastrointestinal: Denies: Abdominal pain, Nausea, Vomiting Genitourinary: Reports: frequency Musculoskeletal: Reports: no symptoms Neurological: Reports: Dizziness (No dizziness this am but did much of the day yesterday with getting up from the chair and ambulating) Psychiatric: Reports: anxiety - Patient Data Vitals - most recent: Last Vital Signs Temp 99.0 F 03/04/17 07:44 Pulse 68 03/04/17 08:33 Resp 18 03/04/17 07:44 BP 142/75 H 03/04/17 08:39 Pulse Ox 91 L 03/04/17 07:44 Weight - most recent: 175 lb 9.6 oz I&O - last 24 hours: Intake & Output 03/03/17 03/04/17 03/04/17 22:59 06:59 14:59 Intake Total 400 Balance 400 Lab Results last 24 hrs: Laboratory Results - last 24 hr 03/03/17 03/03/17 03/03/17 Range/Units 14:23 14:23 14:26 WBC 8.8 (5.0-10.0) 10^3/uL RBC 4.79 (4.00-5.50) 10^6/uL Hgb 12.5 (12.0-16.0) g/dL Hct 39.8 (37.0-47.0) % MCV 83.1 (82.0-94.0) fL MCH 26.1 L (27.0-32.0) pg MCHC 31.4 L (33.0-38.0) g/dL RDW Coeff of Shahzad 17.2 H (11.0-15.0) % Plt Count 540 H (150-400) 10^3/uL Neut % (Auto) 70.6 (35-85) % Lymph % (Auto) 18.3 (10-55) % [place] % (Auto) 9.4 (0-16) % Eos % (Auto) 1.4 (0-5) % Baso % (Auto) 0.3 (0-3) % Neut # (Auto) 6.19 (1.80-7.00) 10^3/uL Lymph # (Auto) 1.60 (1.00-4.80) 10^3/uL [place] # (Auto) 0.82 H (0.00-0.80) 10^3/uL Eos # (Auto) 0.12 (0.00-0.45) 10^3/uL Baso # (Auto) 0.03 10^3/uL PT 30.1 H (9.7-12.3) SEC INR 2.70 H (0.92-1.18) Sodium 141 (136-145) mEq/L Potassium 3.5 (3.5-5.0) mEq/L Chloride 101 (98-106) mEq/L Carbon Dioxide 32 (21-32) mmol/L BUN 17 (7-18) mg/dL Creatinine 1.0 (0.6-1.0) mg/dL Est Cr Clr Drug Dosing 37.12 mL/min Estimated GFR (MDRD) 53 L (>=60) mL/min Glucose 187 H (75-99) mg/dL POC Glucose (75-105) mg/dl Calcium 8.7 (8.4-10.1) mg/dL Urr-S-Llzyfdjqtru Pept 6765 H (0-1000) pg/nL 03/03/17 03/03/17 03/04/17 Range/Units 17:42 20:41 07:40 WBC (5.0-10.0) 10^3/uL RBC (4.00-5.50) 10^6/uL Hgb (12.0-16.0) g/dL Hct (37.0-47.0) % MCV (82.0-94.0) fL MCH (27.0-32.0) pg MCHC (33.0-38.0) g/dL RDW Coeff of Shahzad (11.0-15.0) % Plt Count (150-400) 10^3/uL Neut % (Auto) (35-85) % Lymph % (Auto) (10-55) % [place] % (Auto) (0-16) % Eos % (Auto) (0-5) % Baso % (Auto) (0-3) % Neut # (Auto) (1.80-7.00) 10^3/uL Lymph # (Auto) (1.00-4.80) 10^3/uL [place] # (Auto) (0.00-0.80) 10^3/uL Eos # (Auto) (0.00-0.45) 10^3/uL Baso # (Auto) 10^3/uL PT (9.7-12.3) SEC INR (0.92-1.18) Sodium (136-145) mEq/L Potassium (3.5-5.0) mEq/L Chloride (98-106) mEq/L Carbon Dioxide (21-32) mmol/L BUN (7-18) mg/dL Creatinine (0.6-1.0) mg/dL Est Cr Clr Drug Dosing mL/min Estimated GFR (MDRD) (>=60) mL/min Glucose (75-99) mg/dL POC Glucose 220 H 250 H 181 H (75-105) mg/dl Calcium (8.4-10.1) mg/dL Dmg-H-Nzugvjcgrfq Pept (0-1000) pg/nL Med Orders - Current: Current Medications Acetaminophen (Tylenol) 650 mg PO Q4H PRN PRN Reason: Pain (Mild 1-3)/fever Last Admin: 03/03/17 16:08 Dose: 650 mg Allopurinol (Zyloprim) 300 mg PO DAILY [facility] Last Admin: 03/04/17 08:34 Dose: 300 mg Aspirin (Halfprin) 81 mg PO DAILY [facility] Last Admin: 03/04/17 08:37 Dose: 81 mg Atorvastatin Calcium (Lipitor) 10 mg PO BEDTIME [facility] Last Admin: 03/03/17 19:51 Dose: Not Given Bisacodyl (Dulcolax) 10 mg RECTAL DAILY PRN PRN Reason: Constipation Brimonidine Tartrate (Alphagan 0.2% Ophth Soln) 0 ml EYERT BID [facility] Last Admin: 03/04/17 08:36 Dose: 1 drop Cefuroxime Axetil (Ceftin) 250 mg PO BID [facility] Last Admin: 03/04/17 08:34 Dose: 250 mg Furosemide (Lasix) 40 mg IVPUSH BIDDIURETIC [facility] Last Admin: 03/04/17 08:39 Dose: 40 mg Insulin Aspart (Novolog) 0 unit SUBCUT WITHMEALSANDBED [facility] PRN Reason: Protocol Last Admin: 03/04/17 08:04 Dose: 1 units Insulin Detemir (Levemir) 20 unit SUBCUT DAILY [facility] Last Admin: 03/04/17 08:36 Dose: 20 units Isosorbide Mononitrate (Imdur) 30 mg PO DAILY [facility] Last Admin: 03/04/17 08:39 Dose: 30 mg Latanoprost (Xalatan 0.005% Ophth Soln) 0 ml EYEBOTH BEDTIME [facility] Last Admin: 03/03/17 19:36 Dose: 1 drop Losartan Potassium (Cozaar) 100 mg PO DAILY [facility] Last Admin: 03/04/17 08:33 Dose: 100 mg Metoprolol Tartrate (Lopressor) 50 mg PO BIDMEALS [facility] Last Admin: 03/04/17 08:33 Dose: 50 mg Ptom-Warfarin 4mg (Tab) 1 each PO 1200 ROG[facility] Ptom-Omeprazole 20mg 1 each PO BEDTIME [facility] Ptom-Sertraline 50mg (Tab) 1 each PO BEDTIME [facility] Ptom--Gabapentin (600mg Tab) 1.5 each PO 0800,1200,1730 [facility] Last Admin: 03/04/17 08:34 Dose: 1.5 each Ptom-Amlodipine 5mg (Tab) 1 each PO BEDTIME [facility] Polyethylene Glycol (Miralax) 17 gm PO DAILY PRN PRN Reason: Constipation Senna (Senna) 8.6 mg PO BID PRN PRN Reason: Constipation Sodium Chloride (Saline Flush) 10 ml FLUSH ASDIRECTED PRN PRN Reason: Keep Vein Open Timolol Maleate (Timoptic 0.5% Ophth Soln) 0 ml EYEBOTH DAILY [facility] Last Admin: 03/04/17 08:36 Dose: 1 drop Discontinued Medications Acetaminophen (Tylenol) 650 mg PO Q4H PRN PRN Reason: Pain/Fever Amlodipine Besylate (Norvasc) 5 mg PO BEDTIME [facility] Last Admin: 03/03/17 19:51 Dose: 5 mg Furosemide (Lasix) 80 mg PO BID [facility] Furosemide (Lasix) 40 mg IVPUSH BID [facility] Last Admin: 03/03/17 19:52 Dose: 40 mg Gabapentin (Neurontin) 900 mg PO DAILY@0800,1200,1730 [facility] Last Admin: 03/04/17 08:54 Dose: Not Given Insulin Aspart (Novolog) 3 - 11 unit SUBCUT QID [facility] Insulin Aspart (Novolog) 3 - 11 unit SUBCUT DAILY@0730,1130,1700 [facility] Insulin Aspart (Novolog) 3 - 11 unit SUBCUT DAILY@2030 [facility] Pantoprazole Sodium (Protonix) 40 mg PO BEDTIME [facility] Last Admin: 03/03/17 19:51 Dose: Not Given Sertraline HCl (Zoloft) 50 mg PO BEDTIME [facility] Last Admin: 03/03/17 19:51 Dose: 50 mg Warfarin Sodium (Coumadin) 4 mg PO DAILY@1200 [facility] Warfarin Sodium (Coumadin) 4 mg PO DAILY@1200 [facility] Last Admin: 03/03/17 19:13 Dose: 4 mg - Exam General: alert, oriented HEENT: Mucous membr. moist/pink Neck: supple Lungs: Clear to auscultation, Normal respiratory effort Cardiovascular: Regular Rate, Regular Rhythm, Murmurs Abdomen: bowel sounds present, soft, no tenderness Skin: warm, dry Neurological: no new focal deficit - Problem List & Annotations (1) Dizziness SNOMED Code(s): 524100315, 341925989 Code(s): R42 - DIZZINESS AND GIDDINESS Status: Acute Current Visit: Yes (2) Hypertension SNOMED Code(s): 21488679 Code(s): I10 - ESSENTIAL (PRIMARY) HYPERTENSION Status: Acute Current Visit: No - Problem List Review Problem List Initiated/Reviewed/Updated: Yes - Assessment Assessment:: hypertension Dizziness - Plan Plan:: Patient doing well today. Not having any dizziness yet today but admits that it usually occurs about 11 or so every day after she takes her meds. She mostly notices it after she gets up from a chair or bends over. Patient's blood pressure is improved today. Did start ImDur yesterday on admit. Patient tolerating well. Ambulating short distances with walker and staff. Does express concerns about falling and being unstable. Will reevaluate discharge potential in am. Continue to monitor blood pressure. PT and OT eval.
[2017-03-04] MEDS ORDERED: Warfarin 2 MG Tab PO SCH (12:00)
[2017-03-04] MEDS: WARFARIN 4 MG PO SCH (12:25)
[2017-03-04] MEDS: Acetaminophen 325 MG Tab PO PRN (15:42)
[2017-03-04] MEDS: atorvaSTATin 10 MG Tab PO SCH (19:34)
[2017-03-04] MEDS: LATANOPROST 0.005% EYEBOTH SCH (19:34)
[2017-03-04] MEDS ORDERED: SERTRALINE 50 MG PO SCH (20:00)
[2017-03-04] MEDS ORDERED: PTOM-AMLODIPINE 5MG TAB PO SCH (20:00)
[2017-03-04] MEDS ORDERED: OMEPRAZOLE 20 MG PO SCH (20:00)
[2017-03-05] MEDS: Furosemide 40 MG/4 ML VIAL IVPUSH SCH (07:32)
[2017-03-05] MEDS: Insulin Detemir 100 Units/ML 3 ML Pen SUBCUT SCH (07:32)
[2017-03-05] MEDS: Aspirin 81 MG Tab.EC PO SCH (07:32)
[2017-03-05] MEDS: Isosorbide Mononitrate 30 MG Tab.ER PO SCH (07:32)
[2017-03-05] MEDS: Insulin Aspart 100 Units/ML 3 ML Pen SUBCUT SCH ×2 (07:33→11:54)
[2017-03-05] MEDS: TIMOLOL MALEATE 0.5% EYEBOTH SCH (07:33)
[2017-03-05] MEDS: BRIMONIDINE 0.2% EYERT SCH (07:33)
[2017-03-05] MEDS: CEFUROXIME 250 MG PO SCH (07:38)
[2017-03-05] MEDS: LOSARTAN 100 MG PO SCH (08:02)
[2017-03-05] MEDS: PTOM-Metoprolol Tartrate 50 MG Tab PO SCH (08:02)
[2017-03-05] MEDS: ALLOPURINOL 300 MG PO SCH (08:02)
[2017-03-05] MEDS: GABAPENTIN 600 MG PO SCH ×2 (08:03→11:38)
[2017-03-05] MEDS: WARFARIN 4 MG PO SCH (11:38)
[2017-03-05 12:54] VITALS: BP 124/59
--- NOTE | 2017-03-06 08:59 | DISCH ---
ADMISSION DIAGNOSES: 1. Hypertension. 2. Dizziness. 3. Congestive heart failure. DISCHARGE DIAGNOSIS: 1. HYPERTENSION. 2. DIZZINESS. 3. CONGESTIVE HEART FAILURE. HISTORY: The patient is an 81-year-old female, very fragile, she has had multiple chronic issues, exacerbated over the last month. She has recently been having elevated blood pressures, headaches, and some increased shortness of breath and peripheral edema. Santi Arnold evaluated, her blood pressure was rough, and she was in some degree of heart failure, elected to put her in the hospital for diuresis and initiation of treatment for her blood pressure. HOSPITAL COURSE: The patient has done fine since here. She has been afebrile. Her blood pressures have been markedly improved with the addition of Imdur. She is diuresed with Lasix and is having marked improvement in her peripheral edema. I do not have a weight in front of me. She is feeling better, less dizzy, no headaches and her blood pressures are improved. We are going to send her back to [facility] with the addition of Imdur to her regimen and a slightly increased dose of her diuretic. I will see her back next week in the clinic for followup. COMPLICATIONS: During her stay were none. CONSULTATIONS: None. DISPOSITION: Discharged home. UMAIR /[id number]
== END 2017-03-05 15:30 | disposition home or self-care (01) ==
LOC: CC.MS 13:46 → UNDOADMOB 13:46 → CC.MS 14:23
PROVIDERS: ADMIT Physician Assistant Medical; ATTEND Family Medicine
DX: I10 Essential (primary) hypertension (principal); R42 Dizziness and giddiness; I50.9 Heart failure, unspecified; F41.8 Other specified anxiety disorders; E11.9 Type 2 diabetes mellitus without complications; Z88.8 Allergy status to other drugs, medicaments and biological substances; Z79.82 Long term (current) use of aspirin; Z79.01 Long term (current) use of anticoagulants; Z79.899 Other long term (current) drug therapy; Z79.4 Long term (current) use of insulin; Z90.721 Acquired absence of ovaries, unilateral; Z98.890 Other specified postprocedural states
CPT/HCPCS: 36415; 80048; 82962; 83880; 85025; 85610; 96374; 96376; A9270; G0378; J1815; J1940; 99217; 99220; 99225

== ENCOUNTER 2017-04-04 13:46 | Inpatient (IN) | payer MEDICARE, BC ==
[2017-04-04] MEDS ORDERED: Temazepam 15 MG Cap PO PRN (13:48)
[2017-04-04] MEDS ORDERED: Sodium Chloride 0.9% 10 ML Syringe FLUSH PRN (13:48)
[2017-04-04] MEDS ORDERED: Docusate Sodium 100 MG Cap PO PRN (13:48)
[2017-04-04] MEDS: Furosemide 100 MG/10 ML SDV IVPUSH SCH (15:24)
[2017-04-04] MEDS ORDERED: Polyethylene Glycol 3350 Powder 17 GM Packet PO PRN (18:30)
[2017-04-04] MEDS ORDERED: Bisacodyl 10 MG Supp RECTAL PRN (18:30)
[2017-04-04] MEDS ORDERED: Sennosides 8.6 MG Tab PO PRN (18:30)
[2017-04-04] MEDS: Sertraline 25 MG Tab PO SCH (20:12)
[2017-04-04] MEDS: Pantoprazole 40 MG Tab.CR PO SCH (20:12)
[2017-04-04] MEDS: Metoprolol Tartrate 50 MG Tab PO SCH (20:13)
[2017-04-04] MEDS: Furosemide 80 MG Tab PO SCH (20:13)
[2017-04-04] MEDS: amLODIPine 2.5 MG Tab PO SCH (20:13)
[2017-04-04] MEDS: Brimonidine 0.2% Ophth Soln 5 ML Bottle EYERT SCH (20:14)
[2017-04-04] MEDS: Latanoprost 0.005% Ophth Soln 2.5 ML Bottle EYEBOTH SCH (20:15)
[2017-04-05] MEDS: Acetaminophen 325 MG Tab PO PRN ×2 (00:13→19:50)
[2017-04-05] MEDS: Aspirin 81 MG Tab.EC PO SCH (08:16)
[2017-04-05] MEDS: Multivitamin Tab PO SCH (08:16)
[2017-04-05] MEDS: Isosorbide Mononitrate 30 MG Tab.ER PO SCH (08:17)
[2017-04-05] MEDS: Allopurinol 300 MG Tab PO SCH (08:17)
[2017-04-05] MEDS: Gabapentin 300 MG Cap PO SCH ×3 (08:17→16:34)
[2017-04-05] MEDS: Losartan 100 MG Tab PO SCH (08:18)
[2017-04-05] MEDS: Furosemide 100 MG/10 ML SDV IVPUSH SCH ×2 (08:18→16:37)
[2017-04-05] MEDS: Metoprolol Tartrate 50 MG Tab PO SCH ×2 (08:18→19:51)
[2017-04-05] MEDS: Brimonidine 0.2% Ophth Soln 5 ML Bottle EYERT SCH ×2 (08:21→19:51)
[2017-04-05] MEDS: Furosemide 80 MG Tab PO SCH (08:21)
[2017-04-05] MEDS: Timolol Maleate 0.5% Ophth Soln 5 ML Bottle EYEBOTH SCH (08:22)
[2017-04-05] MEDS: Insulin Detemir 100 Units/ML 3 ML Pen SUBCUT SCH (08:40)
--- NOTE | 2017-04-05 09:00 | PCM.PN ---
- General Info Date of Service: 04/05/17 Functional Status: Reports: pain controlled - Review of Systems General: Reports: Weakness (general) HEENT: Reports: no symptoms Pulmonary: Reports: shortness of breath (mild, improving.) Cardiovascular: Reports: Edema (BLE) Gastrointestinal: Reports: No symptoms Genitourinary: Reports: no symptoms Musculoskeletal: Reports: no symptoms Skin: Reports: no symptoms Neurological: Reports: No Symptoms Psychiatric: Reports: no symptoms - Patient Data Vitals - most recent: Last Vital Signs Temp 97.9 F 04/05/17 07:41 Pulse 61 04/05/17 08:18 Resp 20 04/05/17 07:41 BP 166/69 H 04/05/17 08:18 Pulse Ox 93 L 04/05/17 07:41 Weight - most recent: 182 lb 14.4 oz I&O - last 24 hours: Intake & Output 04/04/17 04/05/17 04/05/17 22:59 06:59 14:59 Intake Total 200 350 Output Total 700 1150 200 Balance -500 -800 -200 Lab Results last 24 hrs: Laboratory Results - last 24 hr 04/04/17 04/04/17 04/04/17 Range/Units 14:05 14:05 17:27 WBC 10.9 H (5.0-10.0) 10^3/uL RBC 4.93 (4.00-5.50) 10^6/uL Hgb 12.4 (12.0-16.0) g/dL Hct 39.5 (37.0-47.0) % MCV 80.1 L (82.0-94.0) fL MCH 25.2 L (27.0-32.0) pg MCHC 31.4 L (33.0-38.0) g/dL RDW Coeff of Shahzad 17.3 H (11.0-15.0) % Plt Count 562 H (150-400) 10^3/uL Neut % (Auto) 73.8 (35-85) % Lymph % (Auto) 16.3 (10-55) % [place] % (Auto) 8.1 (0-16) % Eos % (Auto) 1.5 (0-5) % Baso % (Auto) 0.3 (0-3) % Neut # (Auto) 8.02 H (1.80-7.00) 10^3/uL Lymph # (Auto) 1.77 (1.00-4.80) 10^3/uL [place] # (Auto) 0.88 H (0.00-0.80) 10^3/uL Eos # (Auto) 0.16 (0.00-0.45) 10^3/uL Baso # (Auto) 0.03 10^3/uL Sodium 140 (136-145) mEq/L Potassium 3.8 (3.5-5.0) mEq/L Chloride 101 (98-106) mEq/L Carbon Dioxide 30 (21-32) mmol/L BUN 22 H (7-18) mg/dL Creatinine 1.3 H (0.6-1.0) mg/dL Est Cr Clr Drug Dosing 28.07 mL/min Estimated GFR (MDRD) 39 L (>=60) mL/min Glucose 302 H* (75-99) mg/dL POC Glucose 184 H (75-105) mg/dl Calcium 8.1 L (8.4-10.1) mg/dL Total Bilirubin 0.4 (0.0-1.0) mg/dL AST 19 (15-37) U/L ALT 24 (12-78) U/L Alkaline Phosphatase 112 (46-116) U/L Fnh-O-Nfdxtahxpri Pept 3944 H (0-1000) pg/nL Total Protein 7.2 (6.4-8.2) g/dL Albumin 3.0 L (3.4-5.0) g/dL 04/04/17 04/05/17 Range/Units 20:30 07:38 WBC (5.0-10.0) 10^3/uL RBC (4.00-5.50) 10^6/uL Hgb (12.0-16.0) g/dL Hct (37.0-47.0) % MCV (82.0-94.0) fL MCH (27.0-32.0) pg MCHC (33.0-38.0) g/dL RDW Coeff of Shahzad (11.0-15.0) % Plt Count (150-400) 10^3/uL Neut % (Auto) (35-85) % Lymph % (Auto) (10-55) % [place] % (Auto) (0-16) % Eos % (Auto) (0-5) % Baso % (Auto) (0-3) % Neut # (Auto) (1.80-7.00) 10^3/uL Lymph # (Auto) (1.00-4.80) 10^3/uL [place] # (Auto) (0.00-0.80) 10^3/uL Eos # (Auto) (0.00-0.45) 10^3/uL Baso # (Auto) 10^3/uL Sodium (136-145) mEq/L Potassium (3.5-5.0) mEq/L Chloride (98-106) mEq/L Carbon Dioxide (21-32) mmol/L BUN (7-18) mg/dL Creatinine (0.6-1.0) mg/dL Est Cr Clr Drug Dosing mL/min Estimated GFR (MDRD) (>=60) mL/min Glucose (75-99) mg/dL POC Glucose 184 H 188 H (75-105) mg/dl Calcium (8.4-10.1) mg/dL Total Bilirubin (0.0-1.0) mg/dL AST (15-37) U/L ALT (12-78) U/L Alkaline Phosphatase (46-116) U/L [id number]-Z-Fomkbccxqme Pept (0-1000) pg/nL Total Protein (6.4-8.2) g/dL Albumin (3.4-5.0) g/dL Med Orders - Current: Current Medications Acetaminophen (Tylenol) 650 mg PO Q4H PRN PRN Reason: Pain/Fever Last Admin: 04/05/17 00:13 Dose: 650 mg Allopurinol (Zyloprim) 300 mg PO DAILY [facility] Last Admin: 04/05/17 08:17 Dose: 300 mg Amlodipine Besylate (Norvasc) 5 mg PO BEDTIME [facility] Last Admin: 04/04/17 20:13 Dose: 5 mg Aspirin (Halfprin) 81 mg PO DAILY [facility] Last Admin: 04/05/17 08:16 Dose: 81 mg Bisacodyl (Dulcolax) 10 mg RECTAL DAILY PRN PRN Reason: Constipation Brimonidine Tartrate (Alphagan 0.2% Ophth Soln) 0 ml EYERT BID [facility] Last Admin: 04/05/17 08:21 Dose: 1 drop Docusate Sodium (Colace) 100 mg PO BID PRN PRN Reason: Constipation Furosemide (Lasix) 60 mg IVPUSH BIDDIURETIC [facility] Last Admin: 04/05/17 08:18 Dose: 60 mg Furosemide (Lasix) 80 mg PO BIDDIURETIC [facility] Last Admin: 04/05/17 08:21 Dose: Not Given Gabapentin (Neurontin) 900 mg PO TID@0800,1200,1730 [facility] Last Admin: 04/05/17 08:17 Dose: 900 mg Insulin Detemir (Levemir) 20 unit SUBCUT QAM [facility] Last Admin: 04/05/17 08:40 Dose: 20 units Isosorbide Mononitrate (Imdur) 30 mg PO DAILY [facility] Last Admin: 04/05/17 08:17 Dose: 30 mg Latanoprost (Xalatan 0.005% Ophth Soln) 0 ml EYEBOTH BEDTIME [facility] Last Admin: 04/04/17 20:15 Dose: 1 drop Losartan Potassium (Cozaar) 100 mg PO DAILY [facility] Last Admin: 04/05/17 08:18 Dose: 100 mg Metoprolol Tartrate (Lopressor) 50 mg PO BID [facility] Last Admin: 04/05/17 08:18 Dose: 50 mg Multivitamins/Minerals/Vitamin C (Tab-A-Laquita) 1 tab PO DAILY [facility] Last Admin: 04/05/17 08:16 Dose: 1 tab Pantoprazole Sodium (Protonix) 40 mg PO BEDTIME [facility] Last Admin: 04/04/17 20:12 Dose: 40 mg Polyethylene Glycol (Miralax) 17 gm PO DAILY PRN PRN Reason: Constipation Senna (Senna) 8.6 mg PO BID PRN PRN Reason: Constipation Sertraline HCl (Zoloft) 50 mg PO BEDTIME [facility] Last Admin: 04/04/17 20:12 Dose: 50 mg Sodium Chloride (Saline Flush) 10 ml FLUSH ASDIRECTED PRN PRN Reason: Keep Vein Open Temazepam (Restoril) 15 mg PO BEDTIME PRN PRN Reason: Sleep Timolol Maleate (Timoptic 0.5% Ophth Soln) 0 ml EYEBOTH DAILY [facility] Last Admin: 04/05/17 08:22 Dose: 1 drop Warfarin Sodium (Coumadin) 4 mg PO DAILY@1200 ROGELIO - Exam General: alert, oriented, cooperative, no acute distress HEENT: Pupils equal, Pupils reactive Neck: supple Lungs: Clear to auscultation, Normal respiratory effort Cardiovascular: Regular Rate, Regular Rhythm Abdomen: soft, no tenderness Back Exam: normal inspection, full range of motion Extremities: normal pulses, no clubbing, no cyanosis, edema (+2 BLE) Peripheral Pulses: 2+: radial (L), radial (R), posterior tibial (L), posterior tibial (R), dorsalis pedis (L), dorsalis pedis (R) Skin: warm, dry, intact Neurological: no new focal deficit Psy/Mental Status: alert, normal affect, normal mood - Problem List Review Problem List Initiated/Reviewed/Updated: Yes - My Orders Last 24 Hours: My Active Orders 04/04/17 18:30 Acetaminophen [Tylenol] 650 mg PO Q4H PRN Bisacodyl [Dulcolax] 10 mg RECTAL DAILY PRN Polyethylene Glycol 3350 [MiraLAX] 17 gm PO DAILY PRN Sennosides [Senna] 8.6 mg PO BID PRN 04/04/17 20:00 Brimonidine [Alphagan 0.2% Ophth Soln] 0 ml EYERT BID Furosemide [Lasix] 80 mg PO BIDDIURETIC Latanoprost [Xalatan 0.005% Ophth Soln] 0 ml EYEBOTH BEDTIME Metoprolol Tartrate [Lopressor] 50 mg PO BID Pantoprazole [ProTONIX] 40 mg PO BEDTIME Sertraline [Zoloft] 50 mg PO BEDTIME amLODIPine [Norvasc] 5 mg PO BEDTIME 04/05/17 05:00 BASIC METABOLIC PANEL,BMP [CHEM] DAILY CBC WITH AUTO DIFF [HEME] DAILY PRO B-TYPE NATRIUR PEPT,BNPPRO [CHEM] DAILY 04/05/17 08:00 Allopurinol [Zyloprim] 300 mg PO DAILY Aspirin [Halfprin] 81 mg PO DAILY Gabapentin [Neurontin] 900 mg PO TID@0800,1200,1730 Insulin Detemir [Levemir] 20 unit SUBCUT QAM Isosorbide Mononitrate [Imdur] 30 mg PO DAILY Losartan [Cozaar] 100 mg PO DAILY Multivitamins [Tab-A-Laquita] 1 tab PO DAILY Timolol Maleate [Timoptic 0.5% Ophth Soln] 0 ml EYEBOTH DAILY 04/05/17 12:00 Warfarin [Coumadin] 4 mg PO DAILY@1200 04/06/17 05:00 BASIC METABOLIC PANEL,BMP [CHEM] DAILY CBC WITH AUTO DIFF [HEME] DAILY PRO B-TYPE NATRIUR PEPT,BNPPRO [CHEM] DAILY 04/07/17 06:00 [facility] [employer] [US] Routine - Plan Plan:: This patient was admitted yesterday for her CHF exacerbation. Patient reports that she has a history of CHF. Patient reports that she gained about 8lbs at home over th past 1 week and had some mild shortness of breath. The patient reports that today she is feeling less short of breath. She is down 3lbs today. Patient is alert and oriented and sitting on the edge of the bed. Patient had not had labs drawn yet this morning, I ordered them and will review tomorrow at rounding. Patient does not appear to be in any acute distress.
[2017-04-05] MEDS: Warfarin 2 MG Tab PO SCH (12:29)
--- NOTE | 2017-04-05 19:50 | PCM.SN ---
- Free Text/Narrative Note: I was informed by RN that she just noticed redness to the right anterior goldsmith of patient with heat. This was not there this morning during evaluation. Patient reports she just noticed about 6pm tonight. Patient denies n, v, d, f. There is not circumferential. No streaking. About [id number] circular. warm to touch. No open wound is seen. Will start on Rocephin.
[2017-04-05] MEDS: Sertraline 25 MG Tab PO SCH (19:51)
[2017-04-05] MEDS: Pantoprazole 40 MG Tab.CR PO SCH (19:51)
[2017-04-05] MEDS: amLODIPine 2.5 MG Tab PO SCH (19:51)
[2017-04-05] MEDS: Latanoprost 0.005% Ophth Soln 2.5 ML Bottle EYEBOTH SCH (19:52)
[2017-04-05] MEDS: cefTRIAXone 1 GM Vial IVPUSH SCH (20:31)
[2017-04-06] MEDS: Furosemide 100 MG/10 ML SDV IVPUSH SCH ×2 (07:47→16:20)
[2017-04-06] MEDS: Metoprolol Tartrate 50 MG Tab PO SCH ×2 (07:48→19:53)
[2017-04-06] MEDS: Isosorbide Mononitrate 30 MG Tab.ER PO SCH (07:48)
[2017-04-06] MEDS: Multivitamin Tab PO SCH (07:48)
[2017-04-06] MEDS: Aspirin 81 MG Tab.EC PO SCH (07:48)
[2017-04-06] MEDS: Losartan 100 MG Tab PO SCH (07:49)
[2017-04-06] MEDS: Gabapentin 300 MG Cap PO SCH ×3 (07:49→17:33)
[2017-04-06] MEDS: Allopurinol 300 MG Tab PO SCH (07:49)
[2017-04-06] MEDS: Timolol Maleate 0.5% Ophth Soln 5 ML Bottle EYEBOTH SCH (07:50)
[2017-04-06] MEDS: Brimonidine 0.2% Ophth Soln 5 ML Bottle EYERT SCH ×2 (07:50→19:51)
[2017-04-06] MEDS: Insulin Detemir 100 Units/ML 3 ML Pen SUBCUT SCH (07:53)
[2017-04-06] MEDS ORDERED: Magnesium Citrate Solution 296 ML Bottle PO ONE (10:55)
--- NOTE | 2017-04-06 11:06 | PCM.PN ---
- General Info Date of Service: 04/06/17 Functional Status: Reports: pain controlled - Review of Systems General: Reports: No Symptoms HEENT: Reports: no symptoms Pulmonary: Reports: no symptoms Cardiovascular: Reports: Edema (BLE) Gastrointestinal: Reports: No symptoms Genitourinary: Reports: no symptoms Musculoskeletal: Reports: no symptoms Skin: Reports: other (Redness right goldsmith) Neurological: Reports: No Symptoms Psychiatric: Reports: no symptoms - Patient Data Vitals - most recent: Last Vital Signs Temp 97.2 F 04/06/17 07:42 Pulse 64 04/06/17 07:48 Resp 20 04/06/17 07:42 BP 190/72 H 04/06/17 07:49 Pulse Ox 93 L 04/06/17 07:42 Weight - most recent: 178 lb 6.4 oz I&O - last 24 hours: Intake & Output 04/05/17 04/06/17 04/06/17 22:59 06:59 14:59 Intake Total 550 400 Output Total 300 1500 Balance 250 -1100 Lab Results last 24 hrs: Laboratory Results - last 24 hr 04/05/17 04/05/17 04/05/17 Range/Units 11:47 17:19 20:25 WBC (5.0-10.0) 10^3/uL RBC (4.00-5.50) 10^6/uL Hgb (12.0-16.0) g/dL Hct (37.0-47.0) % MCV (82.0-94.0) fL MCH (27.0-32.0) pg MCHC (33.0-38.0) g/dL RDW Coeff of Shahzad (11.0-15.0) % Plt Count (150-400) 10^3/uL Neut % (Auto) (35-85) % Lymph % (Auto) (10-55) % Roberts % (Auto) (0-16) % Eos % (Auto) (0-5) % Baso % (Auto) (0-3) % Neut # (Auto) (1.80-7.00) 10^3/uL Lymph # (Auto) (1.00-4.80) 10^3/uL Roberts # (Auto) (0.00-0.80) 10^3/uL Eos # (Auto) (0.00-0.45) 10^3/uL Baso # (Auto) 10^3/uL PT (9.7-12.3) SEC INR (0.92-1.18) Sodium (136-145) mEq/L Potassium (3.5-5.0) mEq/L Chloride (98-106) mEq/L Carbon Dioxide (21-32) mmol/L BUN (7-18) mg/dL Creatinine (0.6-1.0) mg/dL Est Cr Clr Drug Dosing mL/min Estimated GFR (MDRD) (>=60) mL/min Glucose (75-99) mg/dL POC Glucose 265 H 222 H 275 H (75-105) mg/dl Calcium (8.4-10.1) mg/dL Rbi-S-Apyuvizibhe Pept (0-1000) pg/nL 04/06/17 04/06/17 04/06/17 Range/Units 07:20 07:20 07:20 WBC 8.2 (5.0-10.0) 10^3/uL RBC 4.97 (4.00-5.50) 10^6/uL Hgb 12.2 (12.0-16.0) g/dL Hct 39.6 (37.0-47.0) % MCV 79.7 L (82.0-94.0) fL MCH 24.5 L (27.0-32.0) pg MCHC 30.8 L (33.0-38.0) g/dL RDW Coeff of Shahzad 17.3 H (11.0-15.0) % Plt Count 499 H (150-400) 10^3/uL Neut % (Auto) 67.2 (35-85) % Lymph % (Auto) 21.6 (10-55) % Roberts % (Auto) 9.5 (0-16) % Eos % (Auto) 1.5 (0-5) % Baso % (Auto) 0.2 (0-3) % Neut # (Auto) 5.53 (1.80-7.00) 10^3/uL Lymph # (Auto) 1.78 (1.00-4.80) 10^3/uL Roberts # (Auto) 0.78 (0.00-0.80) 10^3/uL Eos # (Auto) 0.12 (0.00-0.45) 10^3/uL Baso # (Auto) 0.02 10^3/uL PT 24.9 H (9.7-12.3) SEC INR 2.25 H (0.92-1.18) Sodium 143 (136-145) mEq/L Potassium 3.6 (3.5-5.0) mEq/L Chloride 105 (98-106) mEq/L Carbon Dioxide 33 H (21-32) mmol/L BUN 19 H (7-18) mg/dL Creatinine 1.1 H (0.6-1.0) mg/dL Est Cr Clr Drug Dosing 33.18 mL/min Estimated GFR (MDRD) 48 L (>=60) mL/min Glucose 166 H D (75-99) mg/dL POC Glucose (75-105) mg/dl Calcium 8.4 (8.4-10.1) mg/dL Ejg-[id number]-[id number] Pept 4117 H (0-1000) pg/nL 04/06/17 Range/Units 07:36 WBC (5.0-10.0) 10^3/uL RBC (4.00-5.50) 10^6/uL Hgb (12.0-16.0) g/dL Hct (37.0-47.0) % MCV (82.0-94.0) fL MCH (27.0-32.0) pg MCHC (33.0-38.0) g/dL RDW Coeff of Shahzad (11.0-15.0) % Plt Count (150-400) 10^3/uL Neut % (Auto) (35-85) % Lymph % (Auto) (10-55) % Roberts % (Auto) (0-16) % Eos % (Auto) (0-5) % Baso % (Auto) (0-3) % Neut # (Auto) (1.80-7.00) 10^3/uL Lymph # (Auto) (1.00-4.80) 10^3/uL Roberts # (Auto) (0.00-0.80) 10^3/uL Eos # (Auto) (0.00-0.45) 10^3/uL Baso # (Auto) 10^3/uL PT (9.7-12.3) SEC INR (0.92-1.18) Sodium (136-145) mEq/L Potassium (3.5-5.0) mEq/L Chloride (98-106) mEq/L Carbon Dioxide (21-32) mmol/L BUN (7-18) mg/dL Creatinine (0.6-1.0) mg/dL Est Cr Clr Drug Dosing mL/min Estimated GFR (MDRD) (>=60) mL/min Glucose (75-99) mg/dL POC Glucose 169 H (75-105) mg/dl Calcium (8.4-10.1) mg/dL [id number]-[id number] Pept (0-1000) pg/nL Med Orders - Current: Current Medications Acetaminophen (Tylenol) 650 mg PO Q4H PRN PRN Reason: Pain/Fever Last Admin: 04/05/17 19:50 Dose: 650 mg Allopurinol (Zyloprim) 300 mg PO DAILY [facility] Last Admin: 04/06/17 07:49 Dose: 300 mg Amlodipine Besylate (Norvasc) 5 mg PO BEDTIME [facility] Last Admin: 04/05/17 19:51 Dose: 5 mg Aspirin (Halfprin) 81 mg PO DAILY [facility] Last Admin: 04/06/17 07:48 Dose: 81 mg Bisacodyl (Dulcolax) 10 mg RECTAL DAILY PRN PRN Reason: Constipation Brimonidine Tartrate (Alphagan 0.2% Ophth Soln) 0 ml EYERT BID [facility] Last Admin: 04/06/17 07:50 Dose: 1 drop Ceftriaxone Sodium (Rocephin) 1 gm IVPUSH Q24H [facility] Last Admin: 04/05/17 20:31 Dose: 1 gm Docusate Sodium (Colace) 100 mg PO BID PRN PRN Reason: Constipation Furosemide (Lasix) 60 mg IVPUSH BIDDIURETIC [facility] Last Admin: 04/06/17 07:47 Dose: 60 mg Furosemide (Lasix) 80 mg PO BIDDIURETIC [facility] Last Admin: 04/05/17 08:21 Dose: Not Given Gabapentin (Neurontin) 900 mg PO TID@0800,1200,1730 [facility] Last Admin: 04/06/17 07:49 Dose: 900 mg Insulin Detemir (Levemir) 20 unit SUBCUT QAM [facility] Last Admin: 04/06/17 07:53 Dose: 20 units Isosorbide Mononitrate (Imdur) 30 mg PO DAILY [facility] Last Admin: 04/06/17 07:48 Dose: 30 mg Latanoprost (Xalatan 0.005% Ophth Soln) 0 ml EYEBOTH BEDTIME [facility] Last Admin: 04/05/17 19:52 Dose: 1 drop Losartan Potassium (Cozaar) 100 mg PO DAILY [facility] Last Admin: 04/06/17 07:49 Dose: 100 mg Metoprolol Tartrate (Lopressor) 50 mg PO BID [facility] Last Admin: 04/06/17 07:48 Dose: 50 mg Multivitamins/Minerals/Vitamin C (Tab-A-Laquita) 1 tab PO DAILY [facility] Last Admin: 04/06/17 07:48 Dose: 1 tab Pantoprazole Sodium (Protonix) 40 mg PO BEDTIME [facility] Last Admin: 04/05/17 19:51 Dose: 40 mg Polyethylene Glycol (Miralax) 17 gm PO DAILY PRN PRN Reason: Constipation Senna (Senna) 8.6 mg PO BID PRN PRN Reason: Constipation Sertraline HCl (Zoloft) 50 mg PO BEDTIME [facility] Last Admin: 04/05/17 19:51 Dose: 50 mg Sodium Chloride (Saline Flush) 10 ml FLUSH ASDIRECTED PRN PRN Reason: Keep Vein Open Temazepam (Restoril) 15 mg PO BEDTIME PRN PRN Reason: Sleep Timolol Maleate (Timoptic 0.5% Oph Soln) 0 ml EYEBOTH DAILY [facility] Last Admin: 04/06/17 07:50 Dose: 1 drop Warfarin Sodium (Coumadin) 4 mg PO DAILY@1200 [facility] Discontinued Medications Magnesium Citrate (Citrate Of Magnesia) 150 ml PO ONETIME ONE Stop: 04/06/17 10:56 - Exam General: alert, oriented, cooperative, no acute distress HEENT: Pupils equal, Pupils reactive, Mucous membr. moist/pink Neck: supple Lungs: Clear to auscultation, Normal respiratory effort Cardiovascular: Regular Rate, Regular Rhythm Back Exam: normal inspection, full range of motion Extremities: normal pulses, no cyanosis, no calf tenderness, edema (+2 BLE), other (redness, swelling, heat to the anterior goldsmith, same as last night size. ) Peripheral Pulses: 2+: radial (L), radial (R), posterior tibial (L), posterior tibial (R), dorsalis pedis (L), dorsalis pedis (R) Skin: warm, dry, intact Neurological: no new focal deficit Psy/Mental Status: alert, normal affect, normal mood - Problem List Review Problem List Initiated/Reviewed/Updated: Yes - My Orders Last 24 Hours: My Active Orders 04/05/17 12:00 Warfarin [Coumadin] 4 mg PO DAILY@1200 04/05/17 20:00 cefTRIAXone [Rocephin] 1 gm IVPUSH Q24H 04/07/17 06:00 [employer] [[place]] Routine - Plan Plan:: This patient was admitted yesterday for her CHF exacerbation. Patient reports that she has a history of CHF. Patient reports that she gained about 8lbs at home over th past 1 week and had some mild shortness of breath. The patient reports that today she is feeling less short of breath. She is down 3lbs today. Patient is alert and oriented and sitting on the edge of the bed. Patient had not had labs drawn yet this morning, I ordered them and will review tomorrow at rounding. Patient does not appear to be in any acute distress. 04/06/17 Patent today reports she has no shortness of breath. Patient reports she has mild tenderness to the RLE anterior at cellulitis site. Patient labs yesterday were BNP 3646, bun 19, cr 1.2. Today are BNP 4117, bun 19, CR 1.1, and INR 2.25. I will continue current abx and planed treatment to remove fluid. Stable.
[2017-04-06] MEDS: Warfarin 2 MG Tab PO SCH (12:10)
[2017-04-06] MEDS: Acetaminophen 325 MG Tab PO PRN (18:30)
[2017-04-06] MEDS: amLODIPine 2.5 MG Tab PO SCH (19:52)
[2017-04-06] MEDS: Sertraline 25 MG Tab PO SCH (19:52)
[2017-04-06] MEDS: Pantoprazole 40 MG Tab.CR PO SCH (19:52)
[2017-04-06] MEDS: Latanoprost 0.005% Ophth Soln 2.5 ML Bottle EYEBOTH SCH (19:56)
[2017-04-06] MEDS: cefTRIAXone 1 GM Vial IVPUSH SCH (19:56)
[2017-04-07] MEDS: Furosemide 100 MG/10 ML SDV IVPUSH SCH ×2 (07:33→16:26)
[2017-04-07] MEDS: Insulin Detemir 100 Units/ML 3 ML Pen SUBCUT SCH (07:34)
[2017-04-07] MEDS: Brimonidine 0.2% Ophth Soln 5 ML Bottle EYERT SCH (07:37)
[2017-04-07] MEDS: Isosorbide Mononitrate 30 MG Tab.ER PO SCH (07:38)
[2017-04-07] MEDS: Losartan 100 MG Tab PO SCH (07:39)
[2017-04-07] MEDS: Metoprolol Tartrate 50 MG Tab PO SCH ×2 (07:39→20:48)
[2017-04-07] MEDS: Aspirin 81 MG Tab.EC PO SCH (07:39)
[2017-04-07] MEDS: Multivitamin Tab PO SCH (07:40)
[2017-04-07] MEDS: Timolol Maleate 0.5% Ophth Soln 5 ML Bottle EYEBOTH SCH (07:40)
[2017-04-07] MEDS: Allopurinol 300 MG Tab PO SCH (07:40)
[2017-04-07] MEDS: Gabapentin 300 MG Cap PO SCH ×3 (07:41→17:36)
--- NOTE | 2017-04-07 09:24 | PCM.PN ---
- General Info Date of Service: 04/07/17 Functional Status: Reports: pain controlled, tolerating diet, ambulating - Review of Systems General: Reports: Weakness, Fatigue. Denies: Fever HEENT: Denies: ear pain, sinus congestion, rhinitis Pulmonary: Reports: shortness of breath. Denies: cough, wheezing Cardiovascular: Reports: Edema. Denies: Chest Pain, Lightheadedness Gastrointestinal: Denies: Abdominal pain, Nausea, Vomiting Genitourinary: Reports: no symptoms Musculoskeletal: Reports: leg pain Skin: Reports: other (redness to right leg) Neurological: Reports: No Symptoms Psychiatric: Reports: no symptoms - Patient Data Vitals - most recent: Last Vital Signs Temp 97.1 F 04/07/17 07:38 Pulse 60 04/07/17 07:39 Resp 16 04/07/17 07:38 BP 158/74 H 04/07/17 07:39 Pulse Ox 95 04/07/17 07:38 Weight - most recent: 175 lb I&O - last 24 hours: Intake & Output 04/06/17 04/07/17 04/07/17 22:59 06:59 14:59 Intake Total 1000 400 240 Output Total 900 300 Balance 100 100 240 Lab Results last 24 hrs: Laboratory Results - last 24 hr 04/06/17 04/06/17 04/06/17 Range/Units 11:55 17:28 20:31 POC Glucose 255 H 188 H 278 H (75-105) mg/dl 04/07/17 Range/Units 07:13 POC Glucose 201 H (75-105) mg/dl Med Orders - Current: Current Medications Acetaminophen (Tylenol) 650 mg PO Q4H PRN PRN Reason: Pain/Fever Last Admin: 04/06/17 18:30 Dose: 650 mg Allopurinol (Zyloprim) 300 mg PO DAILY [facility] Last Admin: 04/07/17 07:40 Dose: 300 mg Amlodipine Besylate (Norvasc) 5 mg PO BEDTIME [facility] Last Admin: 04/06/17 19:52 Dose: 5 mg Aspirin (Halfprin) 81 mg PO DAILY [facility] Last Admin: 04/07/17 07:39 Dose: 81 mg Bisacodyl (Dulcolax) 10 mg RECTAL DAILY PRN PRN Reason: Constipation Brimonidine Tartrate (Alphagan 0.2% Ophth Soln) 0 ml EYERT BID [facility] Last Admin: 04/07/17 07:37 Dose: 1 drop Ceftriaxone Sodium (Rocephin) 1 gm IVPUSH Q24H [facility] Last Admin: 04/06/17 19:56 Dose: 1 gm Docusate Sodium (Colace) 100 mg PO BID PRN PRN Reason: Constipation Furosemide (Lasix) 60 mg IVPUSH BIDDIURETIC [facility] Last Admin: 04/07/17 07:33 Dose: 60 mg Furosemide (Lasix) 80 mg PO BIDDIURETIC [facility] Last Admin: 04/05/17 08:21 Dose: Not Given Gabapentin (Neurontin) 900 mg PO TID@0800,1200,1730 [facility] Last Admin: 04/07/17 07:41 Dose: 900 mg Insulin Detemir (Levemir) 20 unit SUBCUT QAM [facility] Last Admin: 04/07/17 07:34 Dose: 20 units Isosorbide Mononitrate (Imdur) 30 mg PO DAILY [facility] Last Admin: 04/07/17 07:38 Dose: 30 mg Latanoprost (Xalatan 0.005% Ophth Soln) 0 ml EYEBOTH BEDTIME [facility] Last Admin: 04/06/17 19:56 Dose: 1 drop Losartan Potassium (Cozaar) 100 mg PO DAILY [facility] Last Admin: 04/07/17 07:39 Dose: 100 mg Metoprolol Tartrate (Lopressor) 50 mg PO BID [facility] Last Admin: 04/07/17 07:39 Dose: 50 mg Multivitamins/Minerals/Vitamin C (Tab-A-Laquita) 1 tab PO DAILY [facility] Last Admin: 04/07/17 07:40 Dose: 1 tab Pantoprazole Sodium (Protonix) 40 mg PO BEDTIME [facility] Last Admin: 04/06/17 19:52 Dose: 40 mg Polyethylene Glycol (Miralax) 17 gm PO DAILY PRN PRN Reason: Constipation Senna (Senna) 8.6 mg PO BID PRN PRN Reason: Constipation Sertraline HCl (Zoloft) 50 mg PO BEDTIME [facility] Last Admin: 04/06/17 19:52 Dose: 50 mg Sodium Chloride (Saline Flush) 10 ml FLUSH ASDIRECTED PRN PRN Reason: Keep Vein Open Temazepam (Restoril) 15 mg PO BEDTIME PRN PRN Reason: Sleep Timolol Maleate (Timoptic 0.5% Ophth Soln) 0 ml EYEBOTH DAILY [facility] Last Admin: 04/07/17 07:40 Dose: 1 drop Warfarin Sodium (Coumadin) 4 mg PO DAILY@1200 [facility] Last Admin: 04/06/17 12:10 Dose: 4 mg - Exam General: alert, oriented HEENT: Mucous membr. moist/pink Neck: supple Lungs: Decreased breath sounds, Crackles (right lower lobe) Cardiovascular: Regular Rate, Regular Rhythm Abdomen: bowel sounds present, soft, no tenderness Extremities: edema Skin: warm, dry, other (mild redness noted to right lower extremity, no warmth, mild swelling) Neurological: no new focal deficit Psy/Mental Status: alert, normal affect, normal mood - Problem List & Annotations (1) CHF (congestive heart failure) SNOMED Code(s): 04249140 Code(s): I50.9 - HEART FAILURE, UNSPECIFIED Status: Acute Priority: High Current Visit: Yes Qualifiers: Congestive heart failure chronicity: acute on chronic - Problem List Review Problem List Initiated/Reviewed/Updated: Yes - My Orders Last 24 Hours: My Active Orders 04/07/17 09:00 Chest 2V [CR] Stat 04/08/17 05:11 BASIC METABOLIC PANEL,BMP [CHEM] AM C-REACTIVE PROTEIN [CHEM] AM CBC WITH AUTO DIFF [HEME] AM - Plan Plan:: This patient was admitted yesterday for her CHF exacerbation. Patient reports that she has a history of CHF. Patient reports that she gained about 8lbs at home over th past 1 week and had some mild shortness of breath. The patient reports that today she is feeling less short of breath. She is down 3lbs today. Patient is alert and oriented and sitting on the edge of the bed. Patient had not had labs drawn yet this morning, I ordered them [facility] Patient does not appear to be in any acute distress. 04/06/17 Patent today reports she has no shortness of breath. Patient reports she has mild tenderness to the RLE anterior at cellulitis site. Patient labs yesterday were BNP 3646, bun 19, cr 1.2. Today are BNP 4117, bun 19, CR 1.1, and INR 2.25. I will continue current abx and planed treatment to remove fluid. Stable. 04-07-2017 Patient stable. Less tenderness in leg, redness improved per patient. She does have mild shortness of breath with ambulation but states was able to go a fair distance last night. Lung sounds noted to have crackles in Right base so will obtain chest xray this am to rule out any infiltrate. Vital signs stable Will continue with IV antibiotics, reevaluate lab in the am. Consider either swing bed or [place] [facility] [place] pending status.
[2017-04-07] MEDS: Warfarin 2 MG Tab PO SCH (11:17)
[2017-04-07] MEDS: Insulin Aspart 100 Units/ML 3 ML Pen SUBCUT SCH ×2 (17:35→20:49)
[2017-04-07] MEDS: amLODIPine 2.5 MG Tab PO SCH (20:48)
[2017-04-07] MEDS: Pantoprazole 40 MG Tab.CR PO SCH (20:48)
[2017-04-07] MEDS: Sertraline 25 MG Tab PO SCH (20:48)
[2017-04-07] MEDS: cefTRIAXone 1 GM Vial IVPUSH SCH (20:48)
[2017-04-07] MEDS: ALPHAGAN P 0.1% EYERT SCH (20:49)
[2017-04-07] MEDS: Latanoprost 0.005% Ophth Soln 2.5 ML Bottle EYEBOTH SCH (20:49)
[2017-04-08 07:25] LABS: CHLORIDE,CL 105 mEq/L (98-106); SODIUM,NA 143 mEq/L (136-145)
[2017-04-08] MEDS: Gabapentin 300 MG Cap PO SCH ×2 (07:37→11:33)
[2017-04-08] MEDS: Aspirin 81 MG Tab.EC PO SCH (07:37)
[2017-04-08] MEDS: Isosorbide Mononitrate 30 MG Tab.ER PO SCH (07:39)
[2017-04-08] MEDS: Losartan 100 MG Tab PO SCH (07:39)
[2017-04-08] MEDS: Metoprolol Tartrate 50 MG Tab PO SCH (07:39)
[2017-04-08] MEDS: Allopurinol 300 MG Tab PO SCH (07:40)
[2017-04-08] MEDS: Multivitamin Tab PO SCH (07:40)
[2017-04-08] MEDS: ALPHAGAN P 0.1% EYERT SCH (07:42)
[2017-04-08] MEDS: Timolol Maleate 0.5% Ophth Soln 5 ML Bottle EYEBOTH SCH (07:43)
[2017-04-08] MEDS: Insulin Detemir 100 Units/ML 3 ML Pen SUBCUT SCH (08:10)
[2017-04-08] MEDS: Insulin Aspart 100 Units/ML 3 ML Pen SUBCUT SCH ×2 (08:11→11:59)
[2017-04-08] MEDS: Furosemide 80 MG Tab PO SCH (10:23)
[2017-04-08] MEDS: Furosemide 100 MG/10 ML SDV IVPUSH SCH (10:23)
[2017-04-08] MEDS: Warfarin 2 MG Tab PO SCH (11:32)
[2017-04-08 13:00] VITALS: BP 160/78
--- NOTE | 2017-04-08 19:18 | PCM.DCSUM1 ---
Discharge Summary - Hospital Course Free Text/Narrative:: Patient admitted to acute care per Brandon Arnold on Friday with concerns that she had gained 5# over 8 days, increased shortness of breath and edema. Patient had been compliant with her meds. Admitted for work up for CHF. ProBNP 4117. WBC 8.2. INR was therapeutic at 2.25. Was admitted and started on IV Lasix 60 mg BID. Oxygen as needed. - Discharge Data Discharge Date: 04/08/17 Discharge Disposition: Home, Self-Care 01 Condition: Fair - Discharge Diagnosis/Problem(s) (1) CHF (congestive heart failure) SNOMED Code(s): 24334664 ICD Code: I50.9 - HEART FAILURE, UNSPECIFIED Status: Acute Priority: High Qualifiers: Congestive heart failure chronicity: acute on chronic - Patient Summary/Data Complications: none Hospital Course: Patient has had slow improvement of her shortness of breath and edema during stay. She is down 2# from admission with IV Lasix. States only winded after exertion. Ambulating in the halls without oxygen. Sats 93% on room air. Lung sounds do have mild crackles in right base but chest xray repeated yesterday did not show any increased effusion or infiltrate. RLE did have a fair amount of redness and swelling so was treated with IV Rocephin and leg much improved by discharge. Blood sugars were elevated to high 200/300 at times so did increase her Lantus to 25 units. Labs stable. WBC remains 8.4. CRP negative. Creatinine 1.3. Patient feels she is at her normal state. Will continue with Home Health on discharge. Continue Ceftin. Follow up with Dr. Dukes in one week. - Patient Instructions Diet: Usual Diet as Tolerated Activity: As Tolerated - Discharge Plan Prescriptions/Med Rec: Cefuroxime [Ceftin] 250 mg PO BID #14 tablet Home Medications: Home Meds Furosemide 80 mg PO BID 02/13/15 [History] Gabapentin [Neurontin] 900 mg PO 1730 02/13/15 [History] Latanoprost [Xalatan 0.005% Ophth Soln] 1 drop EYEBOTH BEDTIME 02/13/15 [History ] Losartan [Cozaar] 100 mg PO DAILY 02/13/15 [History] Metoprolol Tartrate 50 mg PO BID 02/13/15 [History] Multivitamin with Minerals [Multiple Vitamin] 1 tab PO DAILY 02/13/15 [History] Omeprazole 20 mg PO BEDTIME 02/13/15 [History] amLODIPine [Norvasc] 5 mg PO BEDTIME 02/13/15 [History] Allopurinol [Zyloprim] 300 mg PO DAILY tablet 02/17/15 [Rx] Aspirin [Halfprin] 81 mg PO DAILY 09/22/15 [History] Warfarin [Coumadin] 4 mg PO DAILY 09/22/15 [History] Sertraline [Zoloft] 50 mg PO BEDTIME 12/07/16 [History] Acetaminophen [Tylenol] 650 mg PO Q4H PRN 01/16/17 [History] Bisacodyl 10 mg RECTAL DAILY PRN 01/16/17 [History] Polyethylene Glycol 8000 [Polyethylene Glycol] 1 packet PO DAILY PRN 01/16/17 [ History] Sennosides [Senna] 1 tab PO BID PRN 01/16/17 [History] Isosorbide Mononitrate [Imdur] 30 mg PO DAILY #30 tab.er 03/05/17 [Rx] Brimonidine Tartrate [Alphagan P 0.1% Ophth Soln] 1 drop EYERT BID 04/04/17 [ History] Timolol Maleate [Timoptic 0.5% Ophth Soln] 1 drop EYEBOTH DAILY 04/04/17 [ History] Cefuroxime [Ceftin] 250 mg PO BID #14 tablet 04/08/17 [Rx] Insulin Detemir [Levemir] 25 unit SUBCUT QAM #0 04/08/17 [Rx] Referrals: Samuel Dukes MD [Primary Care Provider] - (Follow up with Dr. Dukes on Friday for recheck and labs.) - Discharge Summary/Plan Comment DC Time >30 min.: No Discharge Summary/Plan Comment: Discharge home. Continue Ceftin for 7 days for RLE. Home Health. See Dr. Dukes next week. - General Info Date of Service: 04/08/17 Admission Dx/Problem (Free Text: CHF Functional Status: Reports: pain controlled, tolerating diet, ambulating - Review of Systems General: Reports: Fatigue, Malaise. Denies: Fever, Weakness HEENT: Reports: no symptoms Pulmonary: Reports: shortness of breath. Denies: cough, wheezing Cardiovascular: Reports: Edema. Denies: Chest Pain, Lightheadedness Gastrointestinal: Denies: Abdominal pain, Nausea, Vomiting Genitourinary: Reports: no symptoms Musculoskeletal: Reports: no symptoms Skin: Reports: other (mild redness to RLE) Neurological: Reports: No Symptoms - Patient Data Vitals - Most Recent: Last Vital Signs Temp 97.2 F 04/08/17 12:00 Pulse 66 04/08/17 12:00 Resp 20 04/08/17 12:00 BP 160/78 H 04/08/17 12:00 Pulse Ox 93 L 04/08/17 12:00 Weight - Most Recent: 175 lb I&O - Last 24 hours: Intake & Output 04/08/17 04/08/17 04/08/17 06:59 14:59 22:59 Intake Total 200 565 Output Total 600 800 Balance -400 -235 Lab Results - Last 24 hrs: Laboratory Results - last 24 hr 04/07/17 04/08/17 04/08/17 Range/Units 20:20 06:50 06:50 WBC 8.4 (5.0-10.0) 10^3/uL RBC 4.89 (4.00-5.50) 10^6/uL Hgb 12.2 (12.0-16.0) g/dL Hct 39.6 (37.0-47.0) % MCV 81.0 L (82.0-94.0) fL MCH 24.9 L (27.0-32.0) pg MCHC 30.8 L (33.0-38.0) g/dL RDW Coeff of Shahzad 17.7 H (11.0-15.0) % Plt Count 517 H (150-400) 10^3/uL Neut % (Auto) 69.3 (35-85) % Lymph % (Auto) 19.7 (10-55) % Dawes % (Auto) 8.7 (0-16) % Eos % (Auto) 1.9 (0-5) % Baso % (Auto) 0.4 (0-3) % Neut # (Auto) 5.82 (1.80-7.00) 10^3/uL Lymph # (Auto) 1.65 (1.00-4.80) 10^3/uL Dawes # (Auto) 0.73 (0.00-0.80) 10^3/uL Eos # (Auto) 0.16 (0.00-0.45) 10^3/uL Baso # (Auto) 0.03 10^3/uL Sodium 143 (136-145) mEq/L Potassium 3.5 (3.5-5.0) mEq/L Chloride 105 (98-106) mEq/L Carbon Dioxide 32 (21-32) mmol/L BUN 26 H (7-18) mg/dL Creatinine 1.3 H (0.6-1.0) mg/dL Est Cr Clr Drug Dosing 28.07 mL/min Estimated GFR (MDRD) 39 L (>=60) mL/min Glucose 171 H (75-99) mg/dL POC Glucose 229 H (75-105) mg/dl Calcium 8.2 L (8.4-10.1) mg/dL C-Reactive Protein < 0.2 L (0.2-0.8) mg/dL 04/08/17 Range/Units 07:41 WBC (5.0-10.0) 10^3/uL RBC (4.00-5.50) 10^6/uL Hgb (12.0-16.0) g/dL Hct (37.0-47.0) % MCV (82.0-94.0) fL MCH (27.0-32.0) pg MCHC (33.0-38.0) g/dL RDW Coeff of Shahzad (11.0-15.0) % Plt Count (150-400) 10^3/uL Neut % (Auto) (35-85) % Lymph % (Auto) (10-55) % Dawes % (Auto) (0-16) % Eos % (Auto) (0-5) % Baso % (Auto) (0-3) % Neut # (Auto) (1.80-7.00) 10^3/uL Lymph # (Auto) (1.00-4.80) 10^3/uL Dawes # (Auto) (0.00-0.80) 10^3/uL Eos # (Auto) (0.00-0.45) 10^3/uL Baso # (Auto) 10^3/uL Sodium (136-145) mEq/L Potassium (3.5-5.0) mEq/L Chloride (98-106) mEq/L Carbon Dioxide (21-32) mmol/L BUN (7-18) mg/dL Creatinine (0.6-1.0) mg/dL Est Cr Clr Drug Dosing mL/min Estimated GFR (MDRD) (>=60) mL/min Glucose (75-99) mg/dL POC Glucose 182 H (75-105) mg/dl Calcium (8.4-10.1) mg/dL C-Reactive Protein (0.2-0.8) mg/dL Med Orders - Current: Current Medications Discontinued Medications Acetaminophen (Tylenol) 650 mg PO Q4H PRN PRN Reason: Pain/Fever Last Admin: 04/06/17 18:30 Dose: 650 mg Allopurinol (Zyloprim) 300 mg PO DAILY [facility] Last Admin: 04/08/17 07:40 Dose: 300 mg Amlodipine Besylate (Norvasc) 5 mg PO BEDTIME [facility] Last Admin: 04/07/17 20:48 Dose: 5 mg Aspirin (Halfprin) 81 mg PO DAILY [facility] Last Admin: 04/08/17 07:37 Dose: 81 mg Bisacodyl (Dulcolax) 10 mg RECTAL DAILY PRN PRN Reason: Constipation Brimonidine Tartrate (Alphagan 0.2% [facility] Sol) 0 ml EYERT BID [facility] Last Admin: 04/07/17 07:37 Dose: 1 drop Ceftriaxone Sodium (Rocephin) 1 gm IVPUSH Q24H [facility] Last Admin: 04/07/17 20:48 Dose: 1 gm Docusate Sodium (Colace) 100 mg PO BID PRN PRN Reason: Constipation Furosemide (Lasix) 60 mg IVPUSH BIDDIURETIC [facility] Last Admin: 04/08/17 10:23 Dose: 60 mg Furosemide (Lasix) 80 mg PO BIDDIURETIC [facility] Last Admin: 04/08/17 10:23 Dose: Not Given Gabapentin (Neurontin) 900 mg PO TID@0800,1200,1730 [facility] Last Admin: 04/08/17 11:33 Dose: 900 mg Insulin Aspart (Novolog) 0 unit SUBCUT WITHMEALSANDBED [facility] PRN Reason: Protocol Last Admin: 04/08/17 11:59 Dose: 3 unit [facility]ulin [facility]) [facility] [place] [place] Admin: 04/08/17 08:10 Dose: 20 units Insulin Detemir (Levemir) [facility] [place] Isosorbide Mononitrate (Imdur) 30 mg PO DAILY [facility] Last Admin: 04/08/17 07:39 Dose: 30 mg Latanoprost (Xalatan 0.005% Ophth Soln) 0 ml EYEBOTH BEDTIME [facility] Last Admin: 04/07/17 20:49 Dose: 1 drop Losartan Potassium (Cozaar) 100 mg PO DAILY [facility] Last Admin: 04/08/17 07:39 Dose: 100 mg Metoprolol Tartrate (Lopressor) 50 mg PO BID [facility] Last Admin: 04/08/17 07:39 Dose: 50 mg Multivitamins/Minerals/Vitamin C (Tab-A-Laquita) 1 tab PO DAILY [facility] Last Admin: 04/08/17 07:40 Dose: 1 tab Ptom-Alphagan P 0.1% 0 each EYERT BID [facility] Last Admin: 04/08/17 07:42 Dose: 1 each Pantoprazole Sodium (Protonix) 40 mg PO BEDTIME [facility] Last Admin: 04/07/17 20:48 Dose: 40 mg Polyethylene Glycol (Miralax) 17 gm PO DAILY PRN PRN Reason: Constipation Senna (Senna) 8.6 mg PO BID PRN PRN Reason: Constipation Sertraline HCl (Zoloft) 50 mg PO BEDTIME [facility] Last Admin: 04/07/17 20:48 Dose: 50 mg Sodium Chloride (Saline Flush) 10 ml FLUSH ASDIRECTED PRN PRN Reason: Keep Vein Open Temazepam (Restoril) 15 mg PO BEDTIME PRN PRN Reason: Sleep Timolol Maleate (Timoptic 0.5% Ophth Soln) 0 ml EYEBOTH DAILY [facility] Last Admin: 04/08/17 07:43 Dose: 1 drop Warfarin Sodium (Coumadin) 4 mg PO DAILY@1200 [facility] Last Admin: 04/08/17 11:32 Dose: 4 mg - Exam General: Reports: alert, oriented HEENT: Reports: Mucous membr. moist/pink Neck: Reports: supple Lungs: Reports: Crackles (RLE) Cardiovascular: Reports: Regular Rate, Regular Rhythm Abdomen: Reports: bowel sounds present, soft, no tenderness Extremities: Reports: edema (1+), other (mild erythema) Skin: Reports: warm, dry Neurological: Reports: no new focal deficit *Q Meaningful Use (DIS) - VTE *Q VTE Criteria *Q: - Stroke *Q Stroke Criteria *Q: - AMI *Q AMI Criteria *Q:
[2017-04-09] MEDS ORDERED: Insulin Detemir 100 Units/ML 3 ML Pen SUBCUT SCH (08:00)
== END 2017-04-08 15:30 | disposition home or self-care (01) | DRG 292 ==
LOC: UNDOADMIN 13:46 → CC.MS 13:46
PROVIDERS: ADMIT Physician Assistant Medical; ATTEND Family Medicine
DX: I50.9 Heart failure, unspecified (principal); L03.115 Cellulitis of right lower limb; I48.91 Unspecified atrial fibrillation; F41.8 Other specified anxiety disorders; K21.9 Gastro-esophageal reflux disease without esophagitis; Z86.711 Personal history of pulmonary embolism; E78.5 Hyperlipidemia, unspecified; I10 Essential (primary) hypertension; E11.9 Type 2 diabetes mellitus without complications; Z79.4 Long term (current) use of insulin; Z79.01 Long term (current) use of anticoagulants; Z79.899 Other long term (current) drug therapy; Z79.82 Long term (current) use of aspirin
CPT/HCPCS: 36415; 71020; 80048; 80053; 82962; 83880; 85025; 85610; 86140; A9270-GY; J0696; J1815-GY; J1940

== ENCOUNTER 2017-05-10 20:20 | Emergency (ER) | payer MEDICARE, BC ==
[2017-05-10 21:00] VITALS: BP 178/76
[2017-05-10] MEDS ORDERED: Ondansetron 4 MG Tab.DIS PO ONE (21:09)
[2017-05-10] MEDS ORDERED: HYDROmorphone 1 MG/ML Syringe IM ONE ×2 (21:09→22:11)
[2017-05-10] MEDS ORDERED: LORazepam 2 MG/ML Syringe IM ONE ×2 (21:09→22:11)
--- NOTE | 2017-05-10 21:22 | EDM.PDOC ---
ED HPI GENERAL MEDICAL PROBLEM - General Chief Complaint: General Stated Complaint: not feeling well Time Seen by Provider: 05/10/17 21:06 Source of Information: Reports: Patient History Limitations: Reports: No Limitations - History of Present Illness INITIAL COMMENTS - FREE TEXT/NARRATIVE: This patient is an 82 year old female that presents to the ER. Patient reports that for the last 1 week she has had neck pain. She reports the pain is worsening. Patient reports that she also has a frontal headache, but reports this is chronic unchanged and has had a headache for years. Patient denies any injury. Daughter is also at bedside and denies the patient having any injury. She does report that she has arthritis. Patient reports the pain is made worse with ROM of the neck or moving her shoulders makes her neck pain worse. When I palpate the neck the patient cries. Patient denies n, v, d, f, chest pain, shortness of breath, abd pain, urinary/bowel changes, rash, vision changes. She denies neck stiffness. She has full ROM of the neck with pain. No nuchal rigidity. Pain is easily manipulated with palpation and ROM of the neck. The patient also appears anxious. Pulses +2, cap refill <2 sec, sensory/motor function intact. Neurovascular intact. Onset Date: 05/03/17 Duration: Week(s): (1) Location: Reports: Neck Front/Back Body Image: 1 - pain, tednerness. Quality: Reports: Ache Severity: Moderate Improves with: Reports: Immobilization Worsens with: Reports: Movement Associated Symptoms: Reports: Headaches (chronic per patient. Had for years. ). Denies: Confusion, Chest Pain, Cough, cough w sputum, Diaphoresis, Fever/ Chills, Loss of Appetite, Malaise, Nausea/Vomiting, Rash, Seizure, Shortness of Breath, Syncope, Weakness Neck Pain Score (Numeric/FACES): 10 Bilateral Shoulder Pain Score (Numeric/FACES): 10 Headache Pain Score (Numeric/FACES): 10 - Related Data Allergies Allergy/AdvReac Type Severity Reaction Status Date / Time codeine Allergy Severe Anaphylactic Verified 05/12/17 14:35 Shock Home Meds: Home Meds Furosemide 80 mg PO BID 02/13/15 [History] Gabapentin [Neurontin] 900 mg PO 08,12,1730 02/13/15 [History] Latanoprost [Xalatan 0.005% Ophth Soln] 1 drop EYEBOTH BEDTIME 02/13/15 [History ] Losartan [Cozaar] 100 mg PO DAILY 02/13/15 [History] Metoprolol Tartrate 50 mg PO BID 02/13/15 [History] Multivitamin with Minerals [Multiple Vitamin] 1 tab PO DAILY 02/13/15 [History] Omeprazole 20 mg PO BEDTIME 02/13/15 [History] amLODIPine [Norvasc] 5 mg PO BEDTIME 02/13/15 [History] Allopurinol [Zyloprim] 300 mg PO DAILY tablet 02/17/15 [Rx] Aspirin [Halfprin] 81 mg PO DAILY 09/22/15 [History] Warfarin [Coumadin] 4 mg PO DAILY 09/22/15 [History] Sertraline [Zoloft] 50 mg PO BEDTIME 12/07/16 [History] Acetaminophen [Tylenol] 650 mg PO Q4H PRN 01/16/17 [History] Bisacodyl 10 mg RECTAL DAILY PRN 01/16/17 [History] Isosorbide Mononitrate [Imdur] 30 mg PO DAILY #30 tab.er 03/05/17 [Rx] Brimonidine Tartrate [Alphagan P 0.1% Ophth Soln] 1 drop EYERT BID 04/04/17 [ History] Timolol Maleate [Timoptic 0.5% Ophth Soln] 1 drop EYEBOTH DAILY 04/04/17 [ History] Insulin Detemir [Levemir] 30 unit SUBCUT QAM 05/12/17 [History] Past Medical History HEENT History: Reports: Cataract, Impaired Vision Other HEENT History: Vertigo, recent hearing loss L ear started October 2016 Cardiovascular History: Reports: Heart Failure, Hypertension, PTCA, Stents Respiratory History: Reports: Pneumonia, Recurrent Genitourinary History: Reports: Other (See Below) Other Genitourinary History: kidney stent and hematoma to kidney. Musculoskeletal History: Reports: Arthritis Neurological History: Reports: Other (See Below) Other Neuro History: tremors Psychiatric History: Reports: Depression Endocrine/Metabolic History: Reports: Diabetes, Type II Hematologic History: Reports: Anticoagulation Therapy Oncologic (Cancer) History: Reports: Colon - Past Surgical History HEENT Surgical History: Reports: Cataract Surgery, Tonsillectomy GI Surgical History: Reports: Colonoscopy Social & Family History - Family History Family Medical History: Noncontributory - Tobacco Use Smoking Status *Q: Never Smoker Second Hand Smoke Exposure: No - Caffeine Use Caffeine Use: Reports: Coffee - Alcohol Use Days Per Week of Alcohol Use: 0 - Recreational Drug Use Recreational Drug Use: No - Living Situation & Occupation Living situation: Reports: , Alone, Other Occupation: Retired ED ROS GENERAL - Review of Systems Review Of Systems: See Below Constitutional: Reports: No Symptoms HEENT: Reports: No Symptoms Respiratory: Reports: No Symptoms Cardiovascular: Reports: No Symptoms Endocrine: Reports: No Symptoms GI/Abdominal: Reports: No Symptoms : Reports: No Symptoms Musculoskeletal: Reports: Neck Pain. Denies: Shoulder Pain, Arm Pain, Back Pain , Hand Pain, Leg Pain, Foot Pain, Joint Pain, Joint Swelling, Muscle Stiffness Skin: Reports: No Symptoms Neurological: Reports: Headache. Denies: Confusion, Dizziness, Numbness, Pre- Existing Deficit, Seizure, Syncope, Tingling, Tremors, Difficulty Walking, Weakness, Change in Speech, Gait Disturbance Psychiatric: Reports: Anxiety Hematologic/Lymphatic: Reports: No Symptoms Immunologic: Reports: No Symptoms ED EXAM, GENERAL - Physical Exam Exam: See Below Exam Limited By: No Limitations General Appearance: Alert, WD/WN, No Apparent Distress, Anxious Eye Exam: Bilateral Eye: Normal Inspection, PERRL Ears: Normal External Exam, Normal Canal, Hearing Grossly Normal, Normal TMs Ear Exam: Bilateral Ear: Auricle Normal, Canal Normal, TM normal Nose: Normal Inspection, Normal Mucosa, No Blood Throat/Mouth: Normal Inspection, Normal Lips, Normal Gums, Normal Oropharynx, Normal Voice, No Airway Compromise Head: Atraumatic, Normocephalic Neck: Normal Inspection, Supple, Full Range of Motion (with pain), Tender Lateral (bialteral), Tender Midline. No: Lymphadenopathy (L), Lymphadenopathy ( R) Respiratory/Chest: No Respiratory Distress, Lungs Clear, Normal Breath Sounds, No Accessory Muscle Use, Chest Non-Tender Cardiovascular: Normal Peripheral Pulses, Regular Rate, Rhythm, No Edema, No Gallop, No JVD, No Murmur, No Rub Peripheral Pulses: 2+: Carotid (L), Carotid (R), Radial (L), Radial (R), Posterior Tibial (L), Posterior Tibial (R) GI/Abdominal: Soft, Non-Tender Back Exam: Normal Inspection, Full Range of Motion. No: CVA Tenderness (L), CVA Tenderness (R), Decreased Range of Motion, Muscle Spasm, Paraspinal Tenderness, Vertebral Tenderness Extremities: Normal Inspection, Normal Range of Motion, Non-Tender, No Pedal Edema, Normal Capillary Refill Neurological: Alert, Oriented, No Motor/Sensory Deficits Psychiatric: Anxious, Tearful Skin Exam: Warm, Dry, Intact, Normal Color, No Rash Lymphatic: No Adenopathy Course - Vital Signs Last Recorded V/S: Last Vital Signs Temp 99.2 F 05/10/17 20:43 Pulse 72 05/10/17 20:57 Resp 20 05/10/17 20:43 BP 178/76 H 05/10/17 20:57 Pulse Ox 96 05/10/17 20:43 - Orders/Labs/Meds Meds: Medications Discontinued Medications Generic Name Dose Route Start Last Admin Trade Name Freq PRN Reason Stop Dose Admin Hydromorphone HCl 1 mg 05/10/17 21:09 05/10/17 21:22 Dilaudid IM 05/10/17 21:10 1 mg ONETIME ONE Administration Hydromorphone HCl 1 mg 05/10/17 22:11 05/10/17 22:21 Dilaudid IM 05/10/17 22:12 1 mg ONETIME ONE Administration Lorazepam 1 mg 05/10/17 21:09 05/10/17 21:22 Ativan IM 05/10/17 21:10 1 mg ONETIME ONE Administration Lorazepam 1 mg 05/10/17 22:11 05/10/17 22:21 Ativan IM 05/10/17 22:12 1 mg ONETIME ONE Administration Ondansetron HCl 4 mg 05/10/17 21:09 05/10/17 21:16 Zofran Odt PO 05/10/17 21:10 4 mg ONETIME ONE Administration - Radiology Interpretation Free Text/Narrative:: Cervical: OA, no fx. - Re-Assessments/Exams Free Text/Narrative Re-Assessment/Exam: 05/11/17 11:59 ESTHELA Atkins informed me the daughter Grecia called about this patient. She reported the patient is still sleeping this morning. She reports the patient is able to be aroused, she opens her eyes and responds, then goes back to sleep. Milly had Grecia check a sugar on the patient, it is 190. RN informed Grecia that the sleeping this morning is more than likely due to the Ativan and Dilaudid that was given in the ER. Milly informed the daughter the patient is welcome to return to the ER if needed or if daughter is unable to arouse patient, or for a recheck. Milly reported to me that she asked the daughter to get a nurse since patient is in assited living to assess the patient. Milly reports at this time daughter will let her sleep. Milly informed me of the conversation. I informed her that if the patient has had a change in status and is difficulty to arouse, she should be evaluated in the ER again. 05/11/17 15:49 Milly PROCTOR called me about this patient. She reports that patient daughter Grecia has called back to report the patient is still resting quietly at home. She reports the patient is able to be aroused, opens her eyes, sits up, and drinks water, then goes back to sleep. I have instructed Milly that if the patient continues to be drowsy, she may need ER evaluation for other evaluation. As last night the patient left the ER stable, drowsy, but aroused. She left in a wheelchair awake with the assistance to vehicle by ESTHELA Solomon. The patient was alert, awake, oriented. Milly reports she instructed daughter to again get a nurse to assess at [facility] facility and come to the ER, but she does not know if she will have the patient come in to the ER. Milly informed me of this conversation, I informed Milly to have patient come to the ER for evaluation if she has had a change in status. 05/11/17 20:17 Milly PROCTOR has reported to me the patient daughter has again called back saying the patient is able to be aroused, but now has some slurred speech. I again, informed Milly PROCTRO to have the patient come to the ER to be seen and evaluated again. As, this is a change in condition from when patient was seen and discharged from our facility last night. The daughter reports to Milly that she may bring her to the ER. I again informed Milly to tell daughter to have patient come to the ER. 05/11/17 21:14 This patient still has not shown back up in the ER. Neha PROCTOR called the jail/assisted living to check on this patient. Neha reported to me that she spoke with nurse Kourtney. Neha reported to me that Kourtney said that this patient has been out in the common area and and still is in that area listening to music and is awake and alert. I informed Neha that if the patient has altered mental status, changes in her condition that she shoulder return to the ER. 05/12/17 11:01 I am in clinic today, Jackie informed the jail sent a fax over on this patient. The fax note reports that the patient had a fall on Friday, this was not reported to me by patient or daughter. The reported that there was no known injury. They report on the fax that the patient has been sleeping for several hours. I had Jackie call the jail. It is reported that the nurse that took the call last night was a travel nurse and may not have checked on the right patient. Jackie asked the nurse to check on the patient. The nurse at jail reports she has had the patient up and about today and she is awake. I again, now several times, informed Jackie ton inform the family of the patient and jail that the patient needs to be evaluated again if she has altered mental status or has been drowsy. Especially, now knowing the patient had a fall. As she may need head ct to check for bleed and further workup with labs. The patient Friday did report a mild frontal headache, but reports that this was chronic, no changes from chronic headache for years. She had no unilateral weaknesses, fully alert and oriented. No complaints of AMS, or neurological complaints while in ER, or at discharge from ER. During her visit, patient and family denied any injuries, all neck pain was easily manipulated. 05/12/17 11:55 I had Jackie nurse in clinic call back and talk to Heidi the nurse at the jail. Heidi has reported she checked on this patient and that the patient is up and about. She reports that the patient is awake, alert, oriented, and has no neurological deficits. She reports she is acting how the patient normally acts. I will discuss this patient case with Dr. Dukes this afternoon when he arrives at the facility because he is the patient PCP. Departure - Departure Time of Disposition: 22:23 Disposition: Home, Self-Care 01 Condition: good Clinical Impression: Neck pain - Discharge Information Instructions: Cervical Sprain, [id number], Osteoarthritis Referrals: Samuel Dukes MD [Primary Care Provider] - Forms: ED Department Discharge Additional Instructions: Followup with your primary care provider Return to the ER for worsening of condition or any emergent concerns Ice or heat to the area for pain - Assessment/Plan Plan: PLEASE SEE RN NOTE FOR PFSH. At discharge, patient sitting up in wheelchair, reports she still has pain, but has improved. I have given her some more pain medication and Ativan as she still appears mildly anxious. The daughter and patient are aware when to return to the ER. Daughter feels comfortable taking her home and reports that she will stay with her tonight. Patient is fully alert and oriented.
== END 2017-05-10 22:30 | disposition home or self-care (01) ==
LOC: CC.ED 20:20
DX: M54.2 Cervicalgia (principal); H54.7 Unspecified visual loss; E11.9 Type 2 diabetes mellitus without complications; Z98.49 Cataract extraction status, unspecified eye; I11.0 Hypertensive heart disease with heart failure; I50.9 Heart failure, unspecified; Z95.5 Presence of coronary angioplasty implant and graft; Z88.5 Allergy status to narcotic agent; Z79.899 Other long term (current) drug therapy; Z79.82 Long term (current) use of aspirin; Z79.01 Long term (current) use of anticoagulants
CPT/HCPCS: 72040; 96372; 99283; A9270; J1170; J2060

== ENCOUNTER 2017-05-12 14:15 | Emergency (ER) | payer MEDICARE, BC ==
[2017-05-12] MEDS ORDERED: Sodium Chloride 0.45% 1,000 ML IV SCH (15:00)
[2017-05-12 15:32] LABS: CHLORIDE,CL 101 mEq/L (98-106); SODIUM,NA 139 mEq/L (136-145)
--- NOTE | 2017-05-12 16:20 | EDM.PDOC ---
ED HPI GENERAL MEDICAL PROBLEM - General Chief Complaint: General Stated Complaint: OUT OF IT Time Seen by Provider: 05/12/17 14:50 Source of Information: Reports: Family History Limitations: Reports: Altered Mental Status - History of Present Illness INITIAL COMMENTS - FREE TEXT/NARRATIVE: Patient presents today per EMS with concerns of lethargy. Family that is present relate that the patient was in the ER on Friday evening with complaints of severe neck pain. Had xrays of her neck, was given Dilaudid and Ativan due to her anxiety. She was lethargic yesterday but felt it was related to the medications. They relate that she has not been drinking or eating well since that time. Started to drink some last evening with much encouragement. Per them, she has only voided x1 since Friday. Today she continued to be so sleepy that transfers are difficult. Remains lethargic. Has not voiced any further concerns of neck pain, no chest pain, shortness of breath, dysuria, abdominal pain or nausea or vomiting. Has not had a fever until today Onset: Gradual Duration: Day(s): Location: Reports: Generalized Severity: Moderate Associated Symptoms: Reports: Fever/Chills, Headaches, Malaise, Weakness. 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 - Related Data Allergies Allergy/AdvReac Type Severity Reaction Status Date / Time codeine Allergy Severe Anaphylactic Verified 05/12/17 14:35 Shock Home Meds: Home Meds Furosemide 80 mg PO BID 02/13/15 [History] Gabapentin [Neurontin] 900 mg PO [id number] 02/13/15 [History] Latanoprost [Xalatan 0.005% Ophth Soln] 1 drop EYEBOTH BEDTIME 02/13/15 [History ] Losartan [Cozaar] 100 mg PO DAILY 02/13/15 [History] Metoprolol Tartrate 50 mg PO BID 02/13/15 [History] Multivitamin with Minerals [Multiple Vitamin] 1 tab PO DAILY 02/13/15 [History] Omeprazole 20 mg PO BEDTIME 02/13/15 [History] amLODIPine [Norvasc] 5 mg PO BEDTIME 02/13/15 [History] Allopurinol [Zyloprim] 300 mg PO DAILY tablet 02/17/15 [Rx] Aspirin [Halfprin] 81 mg PO DAILY 09/22/15 [History] Warfarin [Coumadin] 4 mg PO DAILY 09/22/15 [History] Sertraline [Zoloft] 50 mg PO BEDTIME 12/07/16 [History] Acetaminophen [Tylenol] 650 mg PO Q4H PRN 01/16/17 [History] Bisacodyl 10 mg RECTAL DAILY PRN 01/16/17 [History] Isosorbide Mononitrate [Imdur] 30 mg PO DAILY #30 tab.er 03/05/17 [Rx] Brimonidine Tartrate [Alphagan P 0.1% Ophth Soln] 1 drop EYERT BID 04/04/17 [ History] Timolol Maleate [Timoptic 0.5% Ophth Soln] 1 drop EYEBOTH DAILY 04/04/17 [ History] Insulin Detemir [Levemir] 30 unit SUBCUT QAM 05/12/17 [History] Past Medical History HEENT History: Reports: Cataract, Impaired Vision Other HEENT History: Vertigo, recent hearing loss L ear started October 2016 Cardiovascular History: Reports: Heart Failure, Hypertension, PTCA, Stents Respiratory History: Reports: Pneumonia, Recurrent Genitourinary History: Reports: Other (See Below) Other Genitourinary History: kidney stent and hematoma to kidney. Musculoskeletal History: Reports: Arthritis Neurological History: Reports: Other (See Below) Other Neuro History: tremors Psychiatric History: Reports: Depression Endocrine/Metabolic History: Reports: Diabetes, Type II Hematologic History: Reports: Anticoagulation Therapy Oncologic (Cancer) History: Reports: Colon - Past Surgical History HEENT Surgical History: Reports: Cataract Surgery, Tonsillectomy GI Surgical History: Reports: Colonoscopy Social & Family History - Family History Family Medical History: Noncontributory - Tobacco Use Smoking Status *Q: Never Smoker Second Hand Smoke Exposure: No - Caffeine Use Caffeine Use: Reports: Coffee - Alcohol Use Days Per Week of Alcohol Use: 0 - Recreational Drug Use Recreational Drug Use: No - Living Situation & Occupation Living situation: Reports: , Alone, Other Occupation: Retired ED ROS GENERAL - Review of Systems Review Of Systems: See Below (obtained per family) Constitutional: Reports: Fever, Chills, Malaise, Weakness, Fatigue, Decreased Appetite HEENT: Reports: No Symptoms Respiratory: Denies: Shortness of Breath, Cough Cardiovascular: Reports: Edema. Denies: Chest Pain Endocrine: Reports: Fatigue GI/Abdominal: Reports: Anorexia, Decreased Appetite. Denies: Abdominal Pain, Nausea, Vomiting : Reports: Incontinence Musculoskeletal: Reports: Neck Pain Skin: Reports: No Symptoms Neurological: Reports: Weakness Psychiatric: Reports: No Symptoms ED EXAM, GENERAL - Physical Exam Exam: See Below General Appearance: Lethargic (opens eyes with verbal command but does not stay awake, responds to sternal rub by grimacing. offers no verbal response) Eye Exam: Bilateral Eye: Abnormal EOM (does not stay awake long enough to follow command), PERRL Ears: Normal External Exam, Normal TMs Nose: Normal Inspection, Normal Mucosa Throat/Mouth: Normal Inspection, Normal Oropharynx Head: Normocephalic Neck: Normal Inspection, Supple Respiratory/Chest: No Respiratory Distress, Decreased Breath Sounds Cardiovascular: Regular Rate, Rhythm, Systolic Murmur GI/Abdominal: Normal Bowel Sounds, Soft, Non-Tender Extremities: Pedal Edema Neurological: Slow to Respond (due to lethargy) Skin Exam: Warm, Dry Course - Vital Signs Last Recorded V/S: Last Vital Signs Temp 100.1 F 05/12/17 14:55 Pulse 74 05/12/17 14:55 Resp 18 05/12/17 14:55 BP 136/66 05/12/17 14:55 Pulse Ox 94 L 05/12/17 14:55 - Orders/Labs/Meds Orders: Active Orders 24 hr Category Date Time Status Chest 1V Frontal [CR] Stat Exams 05/12/17 14:54 Taken Head wo Cont [CT] Stat Exams 05/12/17 14:54 Taken CULTURE BLOOD [BC] Stat Lab 05/12/17 15:15 Received CULTURE BLOOD [BC] Stat Lab 05/12/17 15:15 Received CULTURE URINE [RM] Stat Lab 05/12/17 15:26 Received Sodium Chloride 0.45% 1,000 ml Med 05/12/17 15:00 Active IV ASDIRECTED cefTRIAXone [Rocephin] Med 05/12/17 18:00 Active 1 gm IVPUSH Q24H Blood Culture x2 Reflex Set [OM.PC] Stat Oth 05/12/17 14:56 Ordered Medication Orders Ceftriaxone Sodium (Rocephin) 1 gm IVPUSH Q24H [facility] Sodium Chloride (Sodium Chloride 0.45%) 1,000 mls @ 50 mls/hr IV ASDIRECTED [facility] Last Admin: 05/12/17 16:42 Dose: 50 mls/hr Labs: Laboratory Tests 05/12/17 05/12/17 05/12/17 Range/Units 15:15 15:15 15:15 WBC 16.4 H (5.0-10.0) 10^3/uL RBC 4.73 (4.00-5.50) 10^6/uL Hgb 11.3 L (12.0-16.0) g/dL Hct 36.8 L (37.0-47.0) % MCV 77.8 L (82.0-94.0) fL MCH 23.9 L (27.0-32.0) pg MCHC 30.7 L (33.0-38.0) g/dL RDW Coeff of Shahzad 18.7 H (11.0-15.0) % Plt Count 647 H (150-400) 10^3/uL Neut % (Auto) 86.0 H (35-85) % Lymph % (Auto) 7.0 L (10-55) % Real % (Auto) 6.8 (0-16) % Eos % (Auto) 0.1 (0-5) % Baso % (Auto) 0.1 (0-3) % Neut # (Auto) 14.06 H (1.80-7.00) 10^3/uL Lymph # (Auto) 1.15 (1.00-4.80) 10^3/uL Real # (Auto) 1.11 H (0.00-0.80) 10^3/uL Eos # (Auto) 0.01 (0.00-0.45) 10^3/uL Baso # (Auto) 0.02 10^3/uL PT 26.9 H (9.7-12.3) SEC INR 2.42 H (0.92-1.18) D-Dimer, Quantitative < 0.19 (0.00-0.50) Sodium 139 (136-145) mEq/L Potassium 4.1 (3.5-5.0) mEq/L Chloride 101 (98-106) mEq/L Carbon Dioxide 28 (21-32) mmol/L BUN 38 H (7-18) mg/dL Creatinine 1.4 H (0.6-1.0) mg/dL Est Cr Clr Drug Dosing TNP Estimated GFR (MDRD) 36 L (>=60) mL/min Glucose 209 H D (75-99) mg/dL Calcium 8.4 (8.4-10.1) mg/dL Total Bilirubin 0.7 (0.0-1.0) mg/dL AST 57 H (15-37) U/L ALT 39 (12-78) U/L Alkaline Phosphatase 79 (46-116) U/L Lactate Dehydrogenase 341 H (100-190) U/L Creatine Kinase 190 (21-215) U/L Troponin I 4.925 H* (0.00-0.06) ng/mL C-Reactive Protein 7.0 H (0.2-0.8) mg/dL Kel-Y-Yzsemavppjq Pept (0-1000) pg/nL Total Protein 6.9 (6.4-8.2) g/dL Albumin 2.8 L (3.4-5.0) g/dL Urine Color (YELLOW) Urine Appearance (CLEAR) Urine pH (4.5-8.0) Ur Specific [place] (1.003-1.020) Urine Protein (NEGATIVE) mg/dL Urine Glucose (UA) (NEGATIVE) mg/dL Urine Ketones (NEGATIVE) mg/dL Urine Occult Blood (NEGATIVE) Urine Nitrite (NEGATIVE) Urine Bilirubin (NEGATIVE) Urine Urobilinogen (0.2-1.0) EU/dL Ur Leukocyte Esterase (NEGATIVE) Urine RBC (0-5) /HPF Urine WBC (0-5) /HPF Urine WBC Clumps (NOT SEEN) /HPF Ur Squamous Epith Cells (NOT SEEN) /HPF Amorphous Sediment (NOT SEEN) /HPF Urine Bacteria (NOT SEEN) /HPF 05/12/17 05/12/17 Range/Units 15:26 16:21 WBC (5.0-10.0) 10^3/uL RBC (4.00-5.50) 10^6/uL Hgb (12.0-16.0) g/dL Hct (37.0-47.0) % MCV (82.0-94.0) fL MCH (27.0-32.0) pg MCHC (33.0-38.0) g/dL RDW Coeff of Shahzad (11.0-15.0) % Plt Count (150-400) 10^3/uL Neut % (Auto) (35-85) % Lymph % (Auto) (10-55) % Real % (Auto) (0-16) % Eos % (Auto) (0-5) % Baso % (Auto) (0-3) % Neut # (Auto) (1.80-7.00) 10^3/uL Lymph # (Auto) (1.00-4.80) 10^3/uL Real # (Auto) (0.00-0.80) 10^3/uL Eos # (Auto) (0.00-0.45) 10^3/uL Baso # (Auto) 10^3/uL PT (9.7-12.3) SEC INR (0.92-1.18) D-Dimer, Quantitative (0.00-0.50) Sodium (136-145) mEq/L Potassium (3.5-5.0) mEq/L Chloride (98-106) mEq/L Carbon Dioxide (21-32) mmol/L BUN (7-18) mg/dL Creatinine (0.6-1.0) mg/dL Est Cr Clr Drug Dosing Estimated GFR (MDRD) (>=60) mL/min Glucose (75-99) mg/dL Calcium (8.4-10.1) mg/dL Total Bilirubin (0.0-1.0) mg/dL AST (15-37) U/L ALT (12-78) U/L Alkaline Phosphatase (46-116) U/L Lactate Dehydrogenase (100-190) U/L Creatine Kinase (21-215) U/L Troponin I (0.00-0.06) ng/mL C-Reactive Protein (0.2-0.8) mg/dL Ult-W-Jttobwikwdh Pept 48550 H (0-1000) pg/nL Total Protein (6.4-8.2) g/dL Albumin (3.4-5.0) g/dL Urine Color Yellow (YELLOW) Urine Appearance Slightly cloudy (CLEAR) Urine pH 5.5 (4.5-8.0) Ur Specific [place] 1.009 (1.003-1.020) Urine Protein 100 H (NEGATIVE) mg/dL Urine Glucose (UA) Negative (NEGATIVE) mg/dL Urine Ketones Negative (NEGATIVE) mg/dL Urine Occult Blood Trace-intact H (NEGATIVE) Urine Nitrite Negative (NEGATIVE) Urine Bilirubin Negative (NEGATIVE) Urine Urobilinogen 0.2 (0.2-1.0) EU/dL Ur Leukocyte Esterase Moderate H (NEGATIVE) Urine RBC 0-5 (0-5) /HPF Urine WBC 40-50 H (0-5) /HPF Urine WBC Clumps Few H (NOT SEEN) /HPF Ur Squamous Epith Cells Occasional H (NOT SEEN) /HPF Amorphous Sediment Few H (NOT SEEN) /HPF Urine Bacteria Few H (NOT SEEN) /HPF Meds: Medications Generic Name Dose Route Start Last Admin Trade Name Freq PRN Reason Stop Dose Admin Ceftriaxone Sodium 1 gm 05/12/17 18:00 Rocephin IVPUSH Q24H [facility] Sodium Chloride 1,000 mls @ 50 mls/hr 05/12/17 15:00 05/12/17 16:42 Sodium Chloride 0.45% IV 50 mls/hr ASDIRECTED [facility] Administration - Re-Assessments/Exams Free Text/Narrative Re-Assessment/Exam: 05/12/17 1615- Lab results reviewed. Discussed with family and Dr. Dukes. Is a DNR but due to complexity of history, Dr. Dukes feels should be transferred and family agrees. Risks of transfer discussed with family, ie worsening status, vehicle crash, cardiac . Due want her to remain a DNR but would like treatment accordingly best offered at a tertiary care facility due to her hypoxia, heart failure, elevated troponin and most likely urosepsis. Benefit of nontransfer include keeping her at familiar environment. Agrees to transfer patient. 1645- [facility] and spoke with Dr. Hoff. Labs related. Agreed to accept the patient in transfer. 1730- Report received of CT scan as no acute changes 1740- did contact [facility] with CT report and ProBNP. Holding fluid bolus yet at this time. Awaiting any further orders from Dr. Hoff. Departure - Departure Time of Disposition: 18:06 Disposition: DC/Tfer to Acute Hospital 02 Condition: undetermined Clinical Impression: [place], Myocardial infarction, UTI, Urinary tract infectious disease CHF (congestive heart failure) Qualifiers: Congestive heart failure type: systolic Congestive heart failure chronicity: acute on chronic Qualified Code(s): I50.23 - Acute on chronic systolic ( congestive) heart failure Fever Qualifiers: Encounter type: initial encounter - Discharge Information Forms: ED Department Discharge Additional Instructions: Transfer to [facility] per [facility] services. - My Orders Last 24 Hours: My Active Orders 05/12/17 14:54 Chest 1V Frontal [CR] Stat Head wo Cont [CT] Stat 05/12/17 14:56 Blood Culture x2 Reflex Set [OM.PC] Stat 05/12/17 15:00 Sodium Chloride 0.45% 1,000 ml IV ASDIRECTED 05/12/17 15:15 CULTURE BLOOD [BC] Stat CULTURE BLOOD [BC] Stat 05/12/17 15:26 CULTURE URINE [RM] Stat 05/12/17 18:00 cefTRIAXone [Rocephin] 1 gm IVPUSH Q24H - Assessment/Plan Last 24 Hours: My Active Orders 05/12/17 14:54 Chest 1V Frontal [CR] Stat Head wo Cont [CT] Stat 05/12/17 14:56 Blood Culture x2 Reflex Set [OM.PC] Stat 05/12/17 15:00 Sodium Chloride 0.45% 1,000 ml IV ASDIRECTED 05/12/17 15:15 CULTURE BLOOD [BC] Stat CULTURE BLOOD [BC] Stat 05/12/17 15:26 CULTURE URINE [RM] Stat 05/12/17 18:00 cefTRIAXone [Rocephin] 1 gm IVPUSH Q24H
[2017-05-12] MEDS ORDERED: cefTRIAXone 1 GM Vial IVPUSH SCH (18:00)
[2017-05-12 18:08] VITALS: BP 118/66
== END 2017-05-12 18:40 ==
LOC: CC.ED 14:15
DX: I21.3 ST elevation (STEMI) myocardial infarction of unspecified site (principal); I11.0 Hypertensive heart disease with heart failure; I50.23 Acute on chronic systolic (congestive) heart failure; H54.7 Unspecified visual loss; M19.90 Unspecified osteoarthritis, unspecified site; F32.9 Major depressive disorder, single episode, unspecified; E11.9 Type 2 diabetes mellitus without complications; N39.0 Urinary tract infection, site not specified; Z88.5 Allergy status to narcotic agent; Z79.899 Other long term (current) drug therapy; Z79.01 Long term (current) use of anticoagulants; Z95.5 Presence of coronary angioplasty implant and graft; Z79.82 Long term (current) use of aspirin; Z79.4 Long term (current) use of insulin; Z87.01 Personal history of pneumonia (recurrent); Z98.49 Cataract extraction status, unspecified eye; Z98.890 Other specified postprocedural states; Z90.49 Acquired absence of other specified parts of digestive tract
CPT/HCPCS: 36415; 51702; 70450; 71010; 80053; 81001; 82550; 83615; 83880; 84484; 85025; 85379; 85610; 86140; 87040; 87086; 87088; 87186; 93005; 93010; 96361; 96374; 99285; J0696; J7030

== ENCOUNTER 2017-05-21 11:50 | Inpatient (IN) | payer MEDICARE, BC ==
--- NOTE | 2017-05-21 16:53 | PCM.HP ---
H&P History of Present Illness - General Date of Service: 05/21/17 Admit Problem/Dx: Admission Diagnosis/Problem Admission Diagnosis/Problem Sepsis due to urinary tract infection Source of Information: Patient, Family History Limitations: Reports: No Limitations - History of Present Illness Initial Comments - Free Text/Narative: Patient admitted from [facility] to swing bed after treatment for urosepsis, NonSTEMI, CHF. Patient was transferred to [place] after being seen here for lethargy, weakness and fever. Urine did test out positive for Pseudomonas. Was treated there with IV Vanco, Rocephin. Mental status has improved since admission there. 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 Did discuss using Ativan for that but thought once she was back in [place], that would improve. Daughter here and does agree with that. NonSTEMI was felt to be due to demand ischemia. Did only do medical intervention due to acute issues and felt that her ischemia work up could be addressed as an outpatient. Recommended continuing with ASA, Statin, Beta paige and ARB. Also is on ImDur and amlodipine. ImDur was increased due to hypertension as well as her amlodipine. Did add her Lasix back after being held due to increased crackles in her lungs. Patient returned here for ongoing PT and OT care for rehab with hopes to return back to her assisted living apartment. Duration of Symptoms: Reports: Day(s):, Improving Associated Symptoms: Reports: Loss of Appetite, Malaise, Nausea/Vomiting, Weakness. Denies: Confusion, Fever/Chills, Shortness of Breath - Related Data Allergies/Adverse Reactions: Allergies Allergy/AdvReac Type Severity Reaction Status Date / Time codeine Allergy Severe Anaphylactic Verified 05/21/17 11:52 Shock Home Medications: Home Meds Furosemide 40 mg PO DAILY 02/13/15 [History] Gabapentin [Neurontin] 900 mg PO [id number],[id number] 02/13/15 [History] Latanoprost [Xalatan 0.005% Ophth Soln] 1 drop EYEBOTH BEDTIME 02/13/15 [History ] Losartan [Cozaar] 100 mg PO DAILY 02/13/15 [History] Metoprolol Tartrate 50 mg PO BID 02/13/15 [History] Multivitamin with Minerals [Multiple Vitamin] 1 tab PO DAILY 02/13/15 [History] Omeprazole 20 mg PO BEDTIME 02/13/15 [History] amLODIPine [Norvasc] 10 mg PO BEDTIME 02/13/15 [History] Allopurinol [Zyloprim] 300 mg PO DAILY tablet 02/17/15 [Rx] Aspirin [Halfprin] 81 mg PO DAILY 09/22/15 [History] Warfarin [Coumadin] 4 mg PO DAILY 09/22/15 [History] Sertraline [Zoloft] 75 mg PO BEDTIME 12/07/16 [History] Acetaminophen [Tylenol] 650 mg PO Q6H PRN 01/16/17 [History] Brimonidine Tartrate [Alphagan P 0.1% Ophth Soln] 1 drop EYERT BID 04/04/17 [ History] Timolol Maleate [Timoptic 0.5% Ophth Soln] 1 drop EYEBOTH DAILY 04/04/17 [ History] Insulin Detemir [Levemir] 24 unit SUBCUT QAM 05/12/17 [History] Calcium/Magnesium/Zinc [Calcium & Magnesium plus Zinc] 1 tab PO DAILY 05/21/17 [ History] Insulin Aspart [NovoLOG] 4 - 8 unit SUBCUT QIDACANDBED 05/21/17 [History] Isosorbide Mononitrate [Imdur] 60 mg PO DAILY 05/21/17 [History] Polyethylene Glycol 3350 [MiraLAX] 17 gm PO DAILY PRN 05/21/17 [History] Promethazine [Phenergan] 25 mg TOP Q6H PRN 05/21/17 [History] Sennosides/Docusate Sodium [Senna-Docusate Sodium Tablet] 1 tab PO BID PRN 05/21 [History] Past Medical History HEENT History: Reports: Cataract, Impaired Vision Other HEENT History: Vertigo, recent hearing loss L ear started October 2016 Cardiovascular History: Reports: Heart Failure, Hypertension, NM, PTCA, Stents Respiratory History: Reports: Pneumonia, Recurrent Genitourinary History: Reports: Other (See Below) Other Genitourinary History: kidney stent and hematoma to kidney. Musculoskeletal History: Reports: Arthritis Neurological History: Reports: Other (See Below) Other Neuro History: tremors Psychiatric History: Reports: Depression Endocrine/Metabolic History: Reports: Diabetes, Type II Hematologic History: Reports: Anticoagulation Therapy Oncologic (Cancer) History: Reports: Colon - Past Surgical History HEENT Surgical History: Reports: Cataract Surgery, Tonsillectomy GI Surgical History: Reports: Colonoscopy Social & Family History - Family History Family Medical History: Noncontributory - Tobacco Use Smoking Status *Q: Never Smoker Second Hand Smoke Exposure: No - Caffeine Use Caffeine Use: Reports: Coffee - Alcohol Use Days Per Week of Alcohol Use: 0 - Recreational Drug Use Recreational Drug Use: No - Living Situation & Occupation Living situation: Reports: , Alone, Other Occupation: Retired H&P Review of Systems - Review of Systems: Review Of Systems: See Below General: Reports: Malaise, Weakness, Fatigue, Decreased Appetite. Denies: Fever , Chills HEENT: Reports: No Symptoms Pulmonary: Denies: Shortness of Breath, Wheezing, Cough Cardiovascular: Reports: Dyspnea on Exertion. Denies: Chest Pain, Lightheadedness Gastrointestinal: Reports: Nausea. Denies: Abdominal Pain, Constipation, Diarrhea Genitourinary: Reports: Incontinence Musculoskeletal: Reports: No Symptoms Skin: Reports: No Symptoms Psychiatric: Reports: Depression Neurological: Reports: Dizziness, Weakness Exam - Exam Exam: See Below - Vital Signs Vital Signs: Last Vital Signs Temp 97.4 F 05/21/17 13:43 Pulse 65 05/21/17 13:43 Resp 20 05/21/17 13:43 BP 135/71 05/21/17 13:43 Pulse Ox 94 L 05/21/17 13:43 Weight: 167 lb 11.2 oz - Exam General: Alert, Oriented Neck: Supple Lungs: Clear to Auscultation, Normal Respiratory Effort Cardiovascular: Irregular Rhythm Abdomen: Normal Bowel Sounds, Soft. No: Tenderness Extremities: No: Edema Skin: Warm, Dry Neuro Extensive - Mental Status: Alert, Oriented x3 *Q Meaningful Use (ADM) - VTE *Q VTE Criteria *Q: - Stroke *Q Stroke Criteria *Q: - AMI *Q AMI Criteria *Q: - Problem List (1) Sepsis due to urinary tract infection SNOMED Code(s): 824804713 ICD Code: A41.9 - SEPSIS, UNSPECIFIED ORGANISM; N39.0 - URINARY TRACT INFECTION, SITE NOT SPECIFIED Status: Acute Priority: High Current Visit: Yes (2) Palliative care patient SNOMED Code(s): 821527431 ICD Code: Z51.5 - ENCOUNTER FOR PALLIATIVE CARE Status: Acute Priority: High Current Visit: Yes (3) NM, Myocardial infarction SNOMED Code(s): 17338548 ICD Code: I21.3 - ST ELEVATION (STEMI) MYOCARDIAL INFARCTION OF [facility] SITE Status: Acute Priority: High Current Visit: Yes (4) CHF (congestive heart failure) SNOMED Code(s): 46509988 ICD Code: I50.9 - HEART FAILURE, UNSPECIFIED Status: Chronic Priority: High Current Visit: Yes Qualifiers: Congestive heart failure type: systolic Congestive heart failure chronicity : acute on chronic Qualified Code(s): I50.23 - Acute on chronic systolic ( congestive) heart failure (5) Diabetes SNOMED Code(s): 83952075 ICD Code: E11.9 - TYPE 2 DIABETES MELLITUS WITHOUT COMPLICATIONS Status: Chronic Priority: Medium Current Visit: Yes Qualifiers: Diabetes mellitus type: type 2 Diabetes mellitus complication status: with kidney complications Diabetes mellitus complication detail: with other kidney complication Diabetes mellitus intermediate frame tender insulin use: with intermediate frame tender use Qualified Code(s): E11.29 - Type 2 diabetes mellitus with other diabetic kidney complication; Z79.4 - long term care administrator (current) use of insulin Problem List Initiated/Reviewed/Updated: Yes Orders Last 24hrs: Active Orders 24 hr Category Date Time Status Patient Status [ADT] Routine ADT 05/21/17 14:15 Active Blood Glucose Check, Bedside [RC] WITHMEALSANDBED Care 05/21/17 14:15 Active Height and Weight [RC] Q7D Care 05/21/17 14:15 Active Oxygen Therapy [RC] .PRN Care 05/21/17 14:15 Active Up With Assistance [RC] .PRN Care 05/21/17 14:15 Active Vital Signs [RC] 0800,2000 Care 05/21/17 14:15 Active OT Evaluation and Treatment [CONS] Routine Cons 05/21/17 14:15 Active PT Evaluation and Treatment [CONS] Routine Cons 05/21/17 14:15 Active 2 Gram Sodium Diet [DIET] Diet 05/21/17 Dinner Active Consistent Carbohydrate Diet [DIET] Diet 05/21/17 Dinner Active BASIC METABOLIC PANEL,BMP [CHEM] Timed Lab 05/23/17 05:11 Ordered INR,PT,PROTHROMBIN TIME [COAG] Timed Lab 05/23/17 05:11 Ordered Acetaminophen [Tylenol] Med 05/21/17 14:21 Active 650 mg PO Q6H PRN Allopurinol [Zyloprim] Med 05/22/17 08:00 Active 300 mg PO DAILY Aspirin [Halfprin] Med 05/22/17 08:00 Active 81 mg PO DAILY Brimonidine [Alphagan 0.2% Ophth Soln] Med 05/21/17 20:00 Active 0 ml EYERT BID Calcium/Magnesium/Zinc [Calcium & Magnesium plus Zinc] Med 05/22/17 08:00 Active 1 tab PO DAILY Docusate Sodium/Sennosides [Senna Plus] Med 05/21/17 14:21 Active 1 tab PO BID PRN Furosemide [Lasix] Med 05/22/17 08:00 Active 40 mg PO DAILY Gabapentin [Neurontin] Med 05/21/17 17:30 Active 900 mg PO 08,12,1730 Insulin Aspart [NovoLOG] Med 05/21/17 17:30 Active See Protocol SUBCUT WITHMEALSANDBED Insulin Detemir [Levemir] Med 05/22/17 08:00 Active 24 unit SUBCUT QAM Isosorbide Mononitrate [Imdur] Med 05/22/17 08:00 Active 60 mg PO DAILY Latanoprost [Xalatan 0.005% Ophth Soln] Med 05/21/17 20:00 Active 0 ml EYEBOTH BEDTIME Losartan [Cozaar] Med 05/22/17 08:00 Active 100 mg PO DAILY Metoprolol Tartrate [Lopressor] Med 05/21/17 20:00 Active 50 mg PO BID Multivitamins [Tab-A-Laquita] Med 05/22/17 08:00 Active 1 tab PO DAILY Pantoprazole [ProTONIX] Med 05/21/17 20:00 Active 40 mg PO BEDTIME Polyethylene Glycol 3350 [MiraLAX] Med 05/21/17 14:21 Active 17 gm PO DAILY PRN Scopolamine [Transderm-Scop] Med 05/22/17 08:00 Active 1.5 mg TOP Q72H Sertraline [Zoloft] Med 05/21/17 20:00 Active 75 mg PO BEDTIME Timolol Maleate [Timoptic 0.5% Ophth Soln] Med 05/22/17 08:00 Active 0 ml EYEBOTH DAILY Warfarin [Coumadin] Med 05/22/17 12:00 Active 4 mg PO DAILY@1200 amLODIPine [Norvasc] Med 05/21/17 20:00 Active 10 mg PO BEDTIME Resuscitation Status Routine Resus Stat 05/21/17 14:15 Ordered Medication Orders Acetaminophen (Tylenol) 650 mg PO Q6H PRN PRN Reason: Pain/Fever Allopurinol (Zyloprim) 300 mg PO DAILY [facility] Amlodipine Besylate (Norvasc) 10 mg PO BEDTIME [facility] Aspirin (Halfprin) 81 mg PO DAILY [facility] Brimonidine Tartrate (Alphagan 0.2% Ophth Soln) 0 ml EYERT BID [facility] Calcium/Magnesium/Zinc (Calcium & Magnesium Plus Zinc) 1 tab PO DAILY [facility] Furosemide (Lasix) 40 mg PO DAILY [facility] Gabapentin (Neurontin) 900 mg PO [facility] Insulin Aspart (Novolog) 0 unit SUBCUT WITHMEALSANDBED [facility] PRN Reason: Protocol Insulin Detemir (Levemir) 24 unit SUBCUT QAM [facility] Isosorbide Mononitrate (Imdur) 60 mg PO DAILY [facility] Latanoprost (Xalatan 0.005% Ophth Soln) 0 ml EYEBOTH BEDTIME [facility] Losartan Potassium (Cozaar) 100 mg PO DAILY [facility] Metoprolol Tartrate (Lopressor) 50 mg PO BID [facility] Multivitamins/Minerals/Vitamin C (Tab-A-Laquita) 1 tab PO DAILY [facility] Pantoprazole Sodium (Protonix) 40 mg PO BEDTIME [facility] Polyethylene Glycol (Miralax) 17 gm PO DAILY PRN PRN Reason: Constipation Scopolamine (Transderm-Scop) 1.5 mg TOP Q72H [facility] Senna/Docusate Sodium (Senna Plus) 1 tab PO BID PRN PRN Reason: Constipation Sertraline HCl (Zoloft) 75 mg PO BEDTIME [facility] Timolol Maleate (Timoptic 0.5% Ophth Soln) 0 ml EYEBOTH DAILY [facility] Warfarin Sodium (Coumadin) 4 mg PO DAILY@1200 [facility] Assessment/Plan Comment:: Deconditioning due to Urosepsis with pseudomonas Palliative Care NSTEMI CHF DM Type 2 Patient admitted for strengthening related to recent hospitalization for sepsis , NSTEMI, CHF. Patient was treated with Rocephin and Vancomycin for the last week. Will continue with PT, OT. Recent changes in meds include increase in ImDur, decrease in Lasix, increase in Zoloft, decrease in Levemir.
[2017-05-21] MEDS ORDERED: Insulin Aspart 100 Units/ML 3 ML Pen SUBCUT SCH (17:00)
[2017-05-21] MEDS: Gabapentin 300 MG Cap PO SCH (17:14)
[2017-05-21] MEDS: Insulin Aspart 100 Units/ML 3 ML Pen SUBCUT SCH ×2 (17:17→20:54)
[2017-05-21] MEDS: Pantoprazole 40 MG Tab.CR PO SCH (20:01)
[2017-05-21] MEDS: Sertraline 25 MG Tab PO SCH (20:01)
[2017-05-21] MEDS: Metoprolol Tartrate 50 MG Tab PO SCH (20:01)
[2017-05-21] MEDS: amLODIPine 10 MG Tab PO SCH (20:02)
[2017-05-21] MEDS: Brimonidine 0.2% Ophth Soln 5 ML Bottle EYERT SCH (20:04)
[2017-05-21] MEDS: Latanoprost 0.005% Ophth Soln 2.5 ML Bottle EYEBOTH SCH (20:05)
[2017-05-22] MEDS: Brimonidine 0.2% Ophth Soln 5 ML Bottle EYERT SCH ×2 (07:42→19:40)
[2017-05-22] MEDS: Insulin Detemir 100 Units/ML 3 ML Pen SUBCUT SCH (07:50)
[2017-05-22] MEDS: Scopolamine 1.5 MG Transdermal Patch TOP SCH (07:52)
[2017-05-22] MEDS: Timolol Maleate 0.5% Ophth Soln 5 ML Bottle EYEBOTH SCH (07:53)
[2017-05-22] MEDS: Insulin Aspart 100 Units/ML 3 ML Pen SUBCUT SCH ×4 (07:54→20:10)
[2017-05-22] MEDS: Allopurinol 300 MG Tab PO SCH (08:00)
[2017-05-22] MEDS: Aspirin 81 MG Tab.EC PO SCH (08:00)
[2017-05-22] MEDS: Calcium Carbonate/Magnesium Oxide/Zinc Oxide Tab PO SCH (08:00)
[2017-05-22] MEDS: Furosemide 40 MG Tab PO SCH (08:00)
[2017-05-22] MEDS: Isosorbide Mononitrate 30 MG Tab.ER PO SCH (08:01)
[2017-05-22] MEDS: Metoprolol Tartrate 50 MG Tab PO SCH ×2 (08:01→19:38)
[2017-05-22] MEDS: Multivitamin Tab PO SCH (08:01)
[2017-05-22] MEDS: Losartan 100 MG Tab PO SCH (08:02)
[2017-05-22] MEDS: Gabapentin 300 MG Cap PO SCH ×3 (08:04→17:17)
[2017-05-22] MEDS: Potassium Chloride 10 MEQ Tab.ER PO SCH ×2 (09:56→17:17)
[2017-05-22] MEDS: Warfarin 2 MG Tab PO SCH (11:46)
[2017-05-22] MEDS: Sertraline 25 MG Tab PO SCH (19:37)
[2017-05-22] MEDS: Pantoprazole 40 MG Tab.CR PO SCH (19:38)
[2017-05-22] MEDS: amLODIPine 10 MG Tab PO SCH (19:38)
[2017-05-22] MEDS: Latanoprost 0.005% Ophth Soln 2.5 ML Bottle EYEBOTH SCH (19:39)
[2017-05-23] MEDS: Calcium Carbonate/Magnesium Oxide/Zinc Oxide Tab PO SCH (07:52)
[2017-05-23] MEDS: Losartan 100 MG Tab PO SCH (07:52)
[2017-05-23] MEDS: Brimonidine 0.2% Ophth Soln 5 ML Bottle EYERT SCH ×2 (07:52→19:25)
[2017-05-23] MEDS: Aspirin 81 MG Tab.EC PO SCH (07:52)
[2017-05-23] MEDS: Isosorbide Mononitrate 30 MG Tab.ER PO SCH (07:52)
[2017-05-23] MEDS: Potassium Chloride 10 MEQ Tab.ER PO SCH ×2 (07:53→17:06)
[2017-05-23] MEDS: Furosemide 40 MG Tab PO SCH (07:53)
[2017-05-23] MEDS: Insulin Detemir 100 Units/ML 3 ML Pen SUBCUT SCH (07:54)
[2017-05-23] MEDS: Metoprolol Tartrate 50 MG Tab PO SCH ×2 (07:54→19:26)
[2017-05-23] MEDS: Multivitamin Tab PO SCH (07:55)
[2017-05-23] MEDS: Insulin Aspart 100 Units/ML 3 ML Pen SUBCUT SCH ×4 (07:55→20:17)
[2017-05-23] MEDS: Timolol Maleate 0.5% Ophth Soln 5 ML Bottle EYEBOTH SCH (07:55)
[2017-05-23] MEDS: Allopurinol 300 MG Tab PO SCH (07:56)
[2017-05-23] MEDS: Gabapentin 300 MG Cap PO SCH ×3 (08:00→17:06)
[2017-05-23] MEDS: Acetaminophen 325 MG Tab PO PRN (11:54)
[2017-05-23] MEDS: Warfarin 2 MG Tab PO SCH (11:58)
[2017-05-23] MEDS: Pantoprazole 40 MG Tab.CR PO SCH (19:26)
[2017-05-23] MEDS: amLODIPine 10 MG Tab PO SCH (19:27)
[2017-05-23] MEDS: Sertraline 25 MG Tab PO SCH (19:28)
[2017-05-23] MEDS: Latanoprost 0.005% Ophth Soln 2.5 ML Bottle EYEBOTH SCH (19:29)
--- NOTE | 2017-05-24 02:55 | PCM.PN ---
- General Info Date of Service: 05/24/17 Functional Status: Reports: new symptoms - Review of Systems General: Reports: No Symptoms HEENT: Reports: no symptoms Pulmonary: Reports: no symptoms Cardiovascular: Reports: No Symptoms Gastrointestinal: Reports: No symptoms Genitourinary: Reports: no symptoms Musculoskeletal: Reports: neck pain, arm pain (right upper arm). Denies: shoulder pain, back pain, leg pain Skin: Reports: bruising (supraorbital), other (wound left forehead) Neurological: Reports: Confusion (alert, oriented x3, with periods of confusion at times. Also has hallucinations at times per Niki RN, reports this is not new post fall. ), Headache Psychiatric: Reports: depression (chronic) - Patient Data Vitals - most recent: Last Vital Signs Temp 97.5 F 05/23/17 19:44 Pulse 63 05/23/17 19:44 Resp 18 05/23/17 19:44 BP 136/63 05/23/17 19:44 Pulse Ox 93 L 05/23/17 19:44 Weight - most recent: 167 lb 11.2 oz Lab Results last 24 hrs: Laboratory Results - last 24 hr 05/22/17 05/22/17 05/23/17 Range/Units 17:04 20:09 07:15 Sodium 143 (136-145) mEq/L Potassium 3.5 D (3.5-5.0) mEq/L Chloride 105 (98-106) mEq/L Carbon Dioxide 30 (21-32) mmol/L BUN 34 H (7-18) mg/dL Creatinine 1.4 H (0.6-1.0) mg/dL Est Cr Clr Drug Dosing 26.07 mL/min Estimated GFR (MDRD) 36 L (>=60) mL/min Glucose 125 H D (75-99) mg/dL POC Glucose 203 H 189 H (75-105) mg/dl Calcium 7.7 L (8.4-10.1) mg/dL 05/23/17 05/23/17 05/23/17 Range/Units 07:36 11:40 17:04 Sodium (136-145) mEq/L Potassium (3.5-5.0) mEq/L Chloride (98-106) mEq/L Carbon Dioxide (21-32) mmol/L BUN (7-18) mg/dL Creatinine (0.6-1.0) mg/dL Est Cr Clr Drug Dosing mL/min Estimated GFR (MDRD) (>=60) mL/min Glucose (75-99) mg/dL POC Glucose 135 H 176 H 140 H (75-105) mg/dl Calcium (8.4-10.1) mg/dL Med Orders - Current: Current Medications Acetaminophen (Tylenol) 650 mg PO Q6H PRN PRN Reason: Pain/Fever Last Admin: 05/23/17 11:54 Dose: 650 mg Allopurinol (Zyloprim) 300 mg PO DAILY [facility] Last Admin: 05/23/17 07:56 Dose: 300 mg Amlodipine Besylate (Norvasc) 10 mg PO BEDTIME [facility] Last Admin: 05/23/17 19:27 Dose: 10 mg Aspirin (Halfprin) 81 mg PO DAILY [facility] Last Admin: 05/23/17 07:52 Dose: 81 mg Brimonidine Tartrate (Alphagan 0.2% Ophth Soln) 0 ml EYERT BID [facility] Last Admin: 05/23/17 19:25 Dose: 1 drop Calcium/Magnesium/Zinc (Calcium & Magnesium Plus Zinc) 1 tab PO DAILY [facility] Last Admin: 05/23/17 07:52 Dose: 1 tab Furosemide (Lasix) 40 mg PO DAILY [facility] Last Admin: 05/23/17 07:53 Dose: 40 mg Gabapentin (Neurontin) 900 mg PO 08,12,1730 [facility] Last Admin: 05/23/17 17:06 Dose: 900 mg Insulin Aspart (Novolog) 0 unit SUBCUT WITHMEALSANDBED [facility] PRN Reason: Protocol Last Admin: 05/23/17 20:17 Dose: Not Given Insulin Detemir (Levemir) 24 unit SUBCUT QAM [facility] Last Admin: 05/23/17 07:54 Dose: 24 units Isosorbide Mononitrate (Imdur) 60 mg PO DAILY [facility] Last Admin: 05/23/17 07:52 Dose: 60 mg Latanoprost (Xalatan 0.005% Ophth Soln) 0 ml EYEBOTH BEDTIME [facility] Last Admin: 05/23/17 19:29 Dose: 1 drop Losartan Potassium (Cozaar) 100 mg PO DAILY [facility] Last Admin: 05/23/17 07:52 Dose: 100 mg Metoprolol Tartrate (Lopressor) 50 mg PO BID [facility] Last Admin: 05/23/17 19:26 Dose: 50 mg Multivitamins/Minerals/Vitamin C (Tab-A-Laqiuta) 1 tab PO DAILY [facility] Last Admin: 05/23/17 07:55 Dose: 1 tab Pantoprazole Sodium (Protonix) 40 mg PO BEDTIME [facility] Last Admin: 05/23/17 19:26 Dose: 40 mg Polyethylene Glycol (Miralax) 17 gm PO DAILY PRN PRN Reason: Constipation Potassium Chloride (Klor-Con 10) 20 meq PO BIDMEALS [facility] Last Admin: 05/23/17 17:06 Dose: 20 meq Scopolamine (Transderm-Scop) 1.5 mg TOP Q72H [facility] Last Admin: 05/22/17 07:52 Dose: 1.5 mg Senna/Docusate Sodium (Senna Plus) 1 tab PO BID PRN PRN Reason: Constipation Sertraline HCl (Zoloft) 75 mg PO BEDTIME [facility] Last Admin: 05/23/17 19:28 Dose: 75 mg Timolol Maleate (Timoptic 0.5% Ophth Soln) 0 ml EYEBOTH DAILY [facility] Last Admin: 05/23/17 07:55 Dose: 1 drop Warfarin Sodium (Coumadin) 4 mg PO DAILY@1200 [facility] Last Admin: 05/23/17 11:58 Dose: 4 mg - Exam General: alert, oriented, cooperative HEENT: Pupils equal, Pupils reactive, EOMI (This is equal to the right eye. Not able to look downward bilateral eyes. ), Mucous membr. moist/pink, Other (left subconjuctival hemorrhage with left orbital swelling and ecchymsosis supraorbital. Vision is intact. Superifical abrasion to the lower lip. ) Neck: supple, trachea midline, no JVD, no thyromegaly, other (vetebral and bilateral lateral tenderness. Pain worse with ROM. No stepoffs. ) Lungs: Clear to auscultation, Normal respiratory effort. No: Decreased breath sounds Cardiovascular: Regular Rate, Regular Rhythm Abdomen: no tenderness Back Exam: Normal Inspection, Full Range of Motion. No: CVA Tenderness (L), CVA Tenderness (R), Decreased Range of Motion, Muscle Spasm, Paraspinal Tenderness, Vertebral Tenderness Extremities: no edema, normal pulses, no clubbing, no cyanosis, no calf tenderness, other (Right upper arm tenderness.pain. Full ROM intact. Neurovascular intact. ) Peripheral Pulses: 2+: Radial (L), Radial (R), Posterior Tibial (L), Posterior Tibial (R) Skin: warm, dry, ecchymosis (left supraorbital. ) Wound/Incisions: other (laceration left forhead above eyebrow. ) Neurological: no new focal deficit, strength equal bilateral, sensation intact, other (oriented x3, with periods of confusion, easily redirected. Will talk about patient mujica with her, then she starts talking about the mujica, then changes subject to talk about peanut butter cookies. RN Niki and I ask her what that has to do with her mujica, she replied nothing, she is just hungry. ) Psy/Mental Status: alert, normal affect, normal mood EKG INTERPRETATION EKG Date: 05/24/17 Time: 15:08 Rhythm: NSR Rate (Beats/Min): 63 ST-T: Normal - Problem List Review Problem List Initiated/Reviewed/Updated: Yes - My Orders Last 24 Hours: My Active Orders 05/24/17 02:26 Cervical Spine wo Cont [CT] Routine Head wo Cont [CT] Routine 05/24/17 02:30 Max Facial Sinus wo Cont [CT] Routine 05/24/17 02:43 Humerus Rt [CR] Routine - Assessment Assessment:: Xray Right Humerus: No fx, no dislocation, no effusions. CT Head, Cervical, Facial discussed with radiologist: No head bleed, no shift, no skull fx. No acute findings of cervical. Facial has left floor orbital fracture that is not displaced. Into the sinus. Inferior rectus muscle rounded, entrapment? Patient has EOMI equal to the right eye. Both not able to look downward. Vision intact. No sign of entrapment. I called and [facility] or [facility] do not have facial labor relations analyst. I called [facility] in [place] and talked to Dr. Diana about this patient case, physical exam , and ct results. He reports to have the ct scan sent to him this morning and he would view later this morning and call me back. magnetic testing technician has been notified to push the images. Laceration Procedure: Area numbed using a 27g needle and lidocaine 1% with epi, 2ml. Laceration is 1cm left forehead above eyebrow. Cleaned with hibiclens and NS. Irrigated with 10ml NS. No FB. Bleeding controlled. Nylon 5-0 2 stitches placed without complications. Wound dressed by ESTHELA Prince. - Plan Plan:: 05/24/17 0230 This patient was admitted swing bed. I received a phone call from Niki PROCTOR about this patient this morning. She reports that that patient was in bed, had bed alarm on, and went to get up on her own to use the bathroom. She reports standing out of bed with her feet tangled in blanket and falling to the floor. Niki reports the patient did not have a LOC. She reports the patient is acting how she normally acts. The patient reports headache, neck pain, right upper arm pain from the fall. The patient is alert and oriented. The patient is on coumadin. The patient does have a laceration to the left forehead with swelling and ecchymosis to the left supraorbital region. The patient struggles to open this left eye due to swelling. There is subconjuctival hemorrhage to the left eye. Patient denies loc, n, v. She denies any other symptoms other than headache , left forehead pain, right upper arm pain. Pulses +2, cap refill <2 sec, sensory/motor function intact. Neurovascular intact. I will CT her head, face, neck. I will xray her right arm. I will suture her wound. I will also order a PT /INR to be drawn. 05/24/17 1300 ESTHELA Osullivan reported to me that different family other than Grecia are now here visiting and report the patient is talking about every 3 sentences that does not make sense to the topic they are discussing. RN has made me aware. I have added labs to this patient. Patient is alert and oriented. 05/24/17 1630 I have reviewed labs, her WBC today is 11.9. Last wbc was done 05/18/17 and was 10.2. Her CR today is 1.6, last CR was 0.88 on 05/18/17. The patient is alert and oriented. Easily aroused. Family now reports patient is talking much better and making more sense. The patient head ct discussed with radiologist and shows no acute bleed. I will repeat this ct tomorrow post the 24 hour boris since on coumadin with head injury. Patient has developed racoon eyes. Patient urine is unremarkable. CXR is unremarkable. I will order fluids for rehydration. I believe she has a concussion and is dehydrated. Will repeat labs, head ct tomorrow, and have ordered a urine culture. Patient family has requested more neuro checks for the patient. I have changed them to every 2 hours.
[2017-05-24] MEDS: Acetaminophen 325 MG Tab PO PRN ×2 (03:21→11:56)
[2017-05-24] MEDS ORDERED: Lidocaine 1% with EPINEPHrine 1:100,000 20 ML MDV INJECT ONE ×2 (03:32→03:52)
[2017-05-24] MEDS: Isosorbide Mononitrate 30 MG Tab.ER PO SCH (07:39)
[2017-05-24] MEDS: Potassium Chloride 10 MEQ Tab.ER PO SCH ×2 (07:40→17:46)
[2017-05-24] MEDS: Furosemide 40 MG Tab PO SCH (07:41)
[2017-05-24] MEDS: Multivitamin Tab PO SCH (07:41)
[2017-05-24] MEDS: Allopurinol 300 MG Tab PO SCH (07:41)
[2017-05-24] MEDS: Metoprolol Tartrate 50 MG Tab PO SCH ×2 (07:42→19:37)
[2017-05-24] MEDS: Losartan 100 MG Tab PO SCH (07:42)
[2017-05-24] MEDS: Calcium Carbonate/Magnesium Oxide/Zinc Oxide Tab PO SCH (07:42)
[2017-05-24] MEDS: Aspirin 81 MG Tab.EC PO SCH (07:42)
[2017-05-24] MEDS: Insulin Detemir 100 Units/ML 3 ML Pen SUBCUT SCH (07:46)
[2017-05-24] MEDS: Brimonidine 0.2% Ophth Soln 5 ML Bottle EYERT SCH ×2 (07:48→19:40)
[2017-05-24] MEDS: Insulin Aspart 100 Units/ML 3 ML Pen SUBCUT SCH ×4 (07:49→20:34)
[2017-05-24] MEDS: Timolol Maleate 0.5% Ophth Soln 5 ML Bottle EYEBOTH SCH (07:50)
[2017-05-24] MEDS: Gabapentin 300 MG Cap PO SCH ×3 (07:52→17:46)
[2017-05-24] MEDS: Warfarin 2 MG Tab PO SCH (12:53)
[2017-05-24] MEDS: Sodium Chloride 0.9% 1,000 ML IV SCH (16:44)
[2017-05-24] MEDS: Sertraline 25 MG Tab PO SCH (19:37)
[2017-05-24] MEDS: amLODIPine 10 MG Tab PO SCH (19:37)
[2017-05-24] MEDS: Pantoprazole 40 MG Tab.CR PO SCH (19:37)
[2017-05-24] MEDS: Latanoprost 0.005% Ophth Soln 2.5 ML Bottle EYEBOTH SCH (19:38)
[2017-05-25] MEDS: Sodium Chloride 0.9% 1,000 ML IV SCH (05:54)
[2017-05-25] MEDS: Allopurinol 300 MG Tab PO SCH (07:53)
[2017-05-25] MEDS: Brimonidine 0.2% Ophth Soln 5 ML Bottle EYERT SCH ×2 (07:53→19:34)
[2017-05-25] MEDS: Calcium Carbonate/Magnesium Oxide/Zinc Oxide Tab PO SCH (07:54)
[2017-05-25] MEDS: Gabapentin 300 MG Cap PO SCH ×3 (07:54→18:25)
[2017-05-25] MEDS: Isosorbide Mononitrate 30 MG Tab.ER PO SCH (07:54)
[2017-05-25] MEDS: Furosemide 40 MG Tab PO SCH (07:54)
[2017-05-25] MEDS: Aspirin 81 MG Tab.EC PO SCH (07:54)
[2017-05-25] MEDS: Multivitamin Tab PO SCH (07:54)
[2017-05-25] MEDS: Potassium Chloride 10 MEQ Tab.ER PO SCH ×2 (07:55→18:25)
[2017-05-25] MEDS: Metoprolol Tartrate 50 MG Tab PO SCH ×2 (07:55→19:34)
[2017-05-25] MEDS: Losartan 100 MG Tab PO SCH (07:55)
[2017-05-25] MEDS: Insulin Detemir 100 Units/ML 3 ML Pen SUBCUT SCH (07:56)
[2017-05-25] MEDS: Insulin Aspart 100 Units/ML 3 ML Pen SUBCUT SCH ×4 (07:57→21:42)
[2017-05-25] MEDS: Scopolamine 1.5 MG Transdermal Patch TOP SCH (07:57)
[2017-05-25] MEDS: Timolol Maleate 0.5% Ophth Soln 5 ML Bottle EYEBOTH SCH (07:59)
[2017-05-25] MEDS: Acetaminophen 325 MG Tab PO PRN (07:59)
[2017-05-25] MEDS: Polyethylene Glycol 3350 Powder 17 GM Packet PO PRN (08:04)
--- NOTE | 2017-05-25 12:09 | PCM.PN ---
- General Info Date of Service: 05/25/17 Functional Status: Reports: pain controlled - Review of Systems General: Reports: No Symptoms HEENT: Reports: other (racoon eyes with eccyhmosis bialteral. bilateral orbital swelling, patient able to partially open both eyes. Left infraorbital tenderness.) Pulmonary: Reports: no symptoms Cardiovascular: Reports: No Symptoms Gastrointestinal: Reports: No symptoms Genitourinary: Reports: no symptoms Musculoskeletal: Reports: no symptoms Skin: Reports: bruising (racoon). Denies: cyanosis, jaundice, mottled, pallor, diaphoresis, rash Neurological: Reports: Confusion, Other (This patient has mild slurred speech at times. This is not always consistent. The patient also will be talking without any problems and having conversation, then will jump topic. This patient is easily arousable. She opens eyes in conversation, follows me with her head. She is appropriate. She does follow commands of lifting legs, arms, sitting forward. She does think she is at [facility]. She knows who she is. She does not know the year. ). Denies: Numbness, Seizure, Syncope, Tingling , Tremors, Weakness Psychiatric: Reports: no symptoms - Patient Data Vitals - most recent: Last Vital Signs Temp 97.7 F 05/25/17 07:35 Pulse 63 05/25/17 07:55 Resp 20 05/25/17 07:35 BP 164/77 H 05/25/17 07:55 Pulse Ox 92 L 05/25/17 07:35 Weight - most recent: 167 lb 11.2 oz I&O - last 24 hours: Intake & Output 05/24/17 05/25/17 05/25/17 22:59 06:59 14:59 Intake Total 988 100 Balance 988 100 Lab Results last 24 hrs: Laboratory Results - last 24 hr 05/24/17 05/24/17 05/24/17 Range/Units 11:22 14:00 14:30 WBC 11.9 H (5.0-10.0) 10^3/uL RBC 4.52 (4.00-5.50) 10^6/uL Hgb 10.9 L (12.0-16.0) g/dL Hct 35.6 L (37.0-47.0) % MCV 78.8 L (82.0-94.0) fL MCH 24.1 L (27.0-32.0) pg MCHC 30.6 L (33.0-38.0) g/dL RDW Coeff of Shahzad 20.6 H (11.0-15.0) % Plt Count 533 H (150-400) 10^3/uL Neut % (Auto) 74.5 (35-85) % Lymph % (Auto) 16.2 (10-55) % [place] % (Auto) 8.3 (0-16) % Eos % (Auto) 0.7 (0-5) % Baso % (Auto) 0.3 (0-3) % Neut # (Auto) 8.86 H (1.80-7.00) 10^3/uL Lymph # (Auto) 1.93 (1.00-4.80) 10^3/uL [place] # (Auto) 0.99 H (0.00-0.80) 10^3/uL Eos # (Auto) 0.08 (0.00-0.45) 10^3/uL Baso # (Auto) 0.03 10^3/uL PT (9.7-12.3) SEC INR (0.92-1.18) Sodium (136-145) mEq/L Potassium (3.5-5.0) mEq/L Chloride (98-106) mEq/L Carbon Dioxide (21-32) mmol/L BUN (7-18) mg/dL Creatinine (0.6-1.0) mg/dL Est Cr Clr Drug Dosing mL/min Estimated GFR (MDRD) (>=60) mL/min Glucose (75-99) mg/dL POC Glucose 126 H (75-105) mg/dl Lactic Acid (0.4-2.0) mmol/L Calcium (8.4-10.1) mg/dL Total Bilirubin (0.0-1.0) mg/dL AST (15-37) U/L ALT (12-78) U/L Alkaline Phosphatase (46-116) U/L Troponin I (0.00-0.06) ng/mL Sxm-W-Dnlrvevwlfw Pept (0-1000) pg/nL Total Protein (6.4-8.2) g/dL Albumin (3.4-5.0) g/dL Urine Color Yellow (YELLOW) Urine Appearance Slightly cloudy (CLEAR) Urine pH 6.0 (4.5-8.0) Ur Specific Thorndike 1.016 (1.003-1.020) Urine Protein >=300 H (NEGATIVE) mg/dL Urine Glucose (UA) Negative (NEGATIVE) mg/dL Urine Ketones Negative (NEGATIVE) mg/dL Urine Occult Blood Negative (NEGATIVE) Urine Nitrite Negative (NEGATIVE) Urine Bilirubin Negative (NEGATIVE) Urine Urobilinogen 0.2 (0.2-1.0) EU/dL Ur Leukocyte Esterase Negative (NEGATIVE) Urine RBC Not seen (0-5) /HPF Urine WBC 0-5 (0-5) /HPF Ur Epithelial Cells Few H (NOT SEEN) /HPF Amorphous Sediment Few H (NOT SEEN) /HPF Urine Bacteria Occasional H (NOT SEEN) /HPF 05/24/17 05/24/17 05/24/17 Range/Units 14:30 14:30 17:40 WBC (5.0-10.0) 10^3/uL RBC (4.00-5.50) 10^6/uL Hgb (12.0-16.0) g/dL Hct (37.0-47.0) % MCV (82.0-94.0) fL MCH (27.0-32.0) pg MCHC (33.0-38.0) g/dL RDW Coeff of Shahzad (11.0-15.0) % Plt Count (150-400) 10^3/uL Neut % (Auto) (35-85) % Lymph % (Auto) (10-55) % [place] % (Auto) (0-16) % Eos % (Auto) (0-5) % Baso % (Auto) (0-3) % Neut # (Auto) (1.80-7.00) 10^3/uL Lymph # (Auto) (1.00-4.80) 10^3/uL [place] # (Auto) (0.00-0.80) 10^3/uL Eos # (Auto) (0.00-0.45) 10^3/uL Baso # (Auto) 10^3/uL PT (9.7-12.3) SEC INR (0.92-1.18) Sodium 139 (136-145) mEq/L Potassium 4.7 D (3.5-5.0) mEq/L Chloride 105 (98-106) mEq/L Carbon Dioxide 28 (21-32) mmol/L BUN 35 H (7-18) mg/dL Creatinine 1.6 H (0.6-1.0) mg/dL Est Cr Clr Drug Dosing 22.81 mL/min Estimated GFR (MDRD) 31 L (>=60) mL/min Glucose 184 H D (75-99) mg/dL POC Glucose 115 H (75-105) mg/dl Lactic Acid 1.8 (0.4-2.0) mmol/L Calcium 7.8 L (8.4-10.1) mg/dL Total Bilirubin 0.3 (0.0-1.0) mg/dL AST 17 (15-37) U/L ALT 20 (12-78) U/L Alkaline Phosphatase 70 (46-116) U/L Troponin I 0.027 (0.00-0.06) ng/mL Qec-Q-Bcwherpfhto Pept (0-1000) pg/nL Total Protein 5.9 L (6.4-8.2) g/dL Albumin 2.5 L (3.4-5.0) g/dL Urine Color (YELLOW) Urine Appearance (CLEAR) Urine pH (4.5-8.0) Ur Specific Thorndike (1.003-1.020) Urine Protein (NEGATIVE) mg/dL Urine Glucose (UA) (NEGATIVE) mg/dL Urine Ketones (NEGATIVE) mg/dL Urine Occult Blood (NEGATIVE) Urine Nitrite (NEGATIVE) Urine Bilirubin (NEGATIVE) Urine Urobilinogen (0.2-1.0) EU/dL Ur Leukocyte Esterase (NEGATIVE) Urine RBC (0-5) /HPF Urine WBC (0-5) /HPF Ur Epithelial Cells (NOT SEEN) /HPF Amorphous Sediment (NOT SEEN) /HPF Urine Bacteria (NOT SEEN) /HPF 05/24/17 05/25/17 05/25/17 Range/Units 20:32 07:25 07:40 WBC 10.1 H (5.0-10.0) 10^3/uL RBC 4.88 (4.00-5.50) 10^6/uL Hgb 11.7 L (12.0-16.0) g/dL Hct 38.5 (37.0-47.0) % MCV 78.9 L (82.0-94.0) fL MCH 24.0 L (27.0-32.0) pg MCHC 30.4 L (33.0-38.0) g/dL RDW Coeff of Shahzad 20.7 H (11.0-15.0) % Plt Count 551 H (150-400) 10^3/uL Neut % (Auto) 74.5 (35-85) % Lymph % (Auto) 15.6 (10-55) % [place] % (Auto) 8.5 (0-16) % Eos % (Auto) 1.1 (0-5) % Baso % (Auto) 0.3 (0-3) % Neut # (Auto) 7.53 H (1.80-7.00) 10^3/uL Lymph # (Auto) 1.58 (1.00-4.80) 10^3/uL [place] # (Auto) 0.86 H (0.00-0.80) 10^3/uL Eos # (Auto) 0.11 (0.00-0.45) 10^3/uL Baso # (Auto) 0.03 10^3/uL PT (9.7-12.3) SEC INR (0.92-1.18) Sodium (136-145) mEq/L Potassium (3.5-5.0) mEq/L Chloride (98-106) mEq/L Carbon Dioxide (21-32) mmol/L BUN (7-18) mg/dL Creatinine (0.6-1.0) mg/dL Est Cr Clr Drug Dosing mL/min Estimated GFR (MDRD) (>=60) mL/min Glucose (75-99) mg/dL POC Glucose 145 H 100 (75-105) mg/dl Lactic Acid (0.4-2.0) mmol/L Calcium (8.4-10.1) mg/dL Total Bilirubin (0.0-1.0) mg/dL AST (15-37) U/L ALT (12-78) U/L Alkaline Phosphatase (46-116) U/L Troponin I (0.00-0.06) ng/mL Lks-M-Ntnpsyirrbw Pept (0-1000) pg/nL Total Protein (6.4-8.2) g/dL Albumin (3.4-5.0) g/dL Urine Color (YELLOW) Urine Appearance (CLEAR) Urine pH (4.5-8.0) Ur Specific Thorndike (1.003-1.020) Urine Protein (NEGATIVE) mg/dL Urine Glucose (UA) (NEGATIVE) mg/dL Urine Ketones (NEGATIVE) mg/dL Urine Occult Blood (NEGATIVE) Urine Nitrite (NEGATIVE) Urine Bilirubin (NEGATIVE) Urine Urobilinogen (0.2-1.0) EU/dL Ur Leukocyte Esterase (NEGATIVE) Urine RBC (0-5) /HPF Urine WBC (0-5) /HPF Ur Epithelial Cells (NOT SEEN) /HPF Amorphous Sediment (NOT SEEN) /HPF Urine Bacteria (NOT SEEN) /HPF 05/25/17 05/25/17 05/25/17 Range/Units 07:40 07:45 11:28 WBC (5.0-10.0) 10^3/uL RBC (4.00-5.50) 10^6/uL Hgb (12.0-16.0) g/dL Hct (37.0-47.0) % MCV (82.0-94.0) fL MCH (27.0-32.0) pg MCHC (33.0-38.0) g/dL RDW Coeff of Shahzad (11.0-15.0) % Plt Count (150-400) 10^3/uL Neut % (Auto) (35-85) % Lymph % (Auto) (10-55) % [place] % (Auto) (0-16) % Eos % (Auto) (0-5) % Baso % (Auto) (0-3) % Neut # (Auto) (1.80-7.00) 10^3/uL Lymph # (Auto) (1.00-4.80) 10^3/uL [place] # (Auto) (0.00-0.80) 10^3/uL Eos # (Auto) (0.00-0.45) 10^3/uL Baso # (Auto) 10^3/uL PT 28.5 H (9.7-12.3) SEC INR 2.56 H (0.92-1.18) Sodium 143 (136-145) mEq/L Potassium 4.6 (3.5-5.0) mEq/L Chloride 108 H (98-106) mEq/L Carbon Dioxide 29 (21-32) mmol/L BUN 24 H (7-18) mg/dL Creatinine 1.1 H (0.6-1.0) mg/dL Est Cr Clr Drug Dosing 33.18 mL/min Estimated GFR (MDRD) 48 L (>=60) mL/min Glucose 102 H D (75-99) mg/dL POC Glucose 99 (75-105) mg/dl Lactic Acid (0.4-2.0) mmol/L Calcium 8.1 L (8.4-10.1) mg/dL Total Bilirubin (0.0-1.0) mg/dL AST (15-37) U/L ALT (12-78) U/L Alkaline Phosphatase (46-116) U/L Troponin I (0.00-0.06) ng/mL Lzj-L-Nbmkziguqxs Pept 2829 H (0-1000) pg/nL Total Protein (6.4-8.2) g/dL Albumin (3.4-5.0) g/dL Urine Color (YELLOW) Urine Appearance (CLEAR) Urine pH (4.5-8.0) Ur Specific Thorndike (1.003-1.020) Urine Protein (NEGATIVE) mg/dL Urine Glucose (UA) (NEGATIVE) mg/dL Urine Ketones (NEGATIVE) mg/dL Urine Occult Blood (NEGATIVE) Urine Nitrite (NEGATIVE) Urine Bilirubin (NEGATIVE) Urine Urobilinogen (0.2-1.0) EU/dL Ur Leukocyte Esterase (NEGATIVE) Urine RBC (0-5) /HPF Urine WBC (0-5) /HPF Ur Epithelial Cells (NOT SEEN) /HPF Amorphous Sediment (NOT SEEN) /HPF Urine Bacteria (NOT SEEN) /HPF Mj Results last 24 hrs: Microbiology 05/24/17 14:30 Urine Culture - Preliminary Urine, Catheterized NO GROWTH AFTER 1 DAY Med Orders - Current: Current Medications Acetaminophen (Tylenol) 650 mg PO Q6H PRN PRN Reason: Pain/Fever Last Admin: 05/25/17 07:59 Dose: 650 mg Allopurinol (Zyloprim) 300 mg PO DAILY [facility] Last Admin: 05/25/17 07:53 Dose: 300 mg Amlodipine Besylate (Norvasc) 10 mg PO BEDTIME [facility] Last Admin: 05/24/17 19:37 Dose: 10 mg Aspirin (Halfprin) 81 mg PO DAILY [facility] Last Admin: 05/25/17 07:54 Dose: 81 mg Brimonidine Tartrate (Alphagan 0.2% Ophth Soln) 0 ml EYERT BID [facility] Last Admin: 05/25/17 07:53 Dose: 1 drop Calcium/Magnesium/Zinc (Calcium & Magnesium Plus Zinc) 1 tab PO DAILY [facility] Last Admin: 05/25/17 07:54 Dose: 1 tab Furosemide (Lasix) 40 mg PO DAILY [facility] Last Admin: 05/25/17 07:54 Dose: 40 mg Gabapentin (Neurontin) 900 mg PO [facility] Last Admin: 05/25/17 07:54 Dose: 900 mg Insulin Aspart (Novolog) 0 unit SUBCUT WITHMEALSANDBED [facility] PRN Reason: Protocol Last Admin: 05/25/17 07:57 Dose: Not Given Insulin Detemir (Levemir) 24 unit SUBCUT QAM [facility] Last Admin: 05/25/17 07:56 Dose: 24 units Isosorbide Mononitrate (Imdur) 60 mg PO DAILY [facility] Last Admin: 05/25/17 07:54 Dose: 60 mg Latanoprost (Xalatan 0.005% Ophth Soln) 0 ml EYEBOTH BEDTIME [facility] Last Admin: 05/24/17 19:38 Dose: 1 drop Losartan Potassium (Cozaar) 100 mg PO DAILY [facility] Last Admin: 05/25/17 07:55 Dose: 100 mg Metoprolol Tartrate (Lopressor) 50 mg PO BID [facility] Last Admin: 05/25/17 07:55 Dose: 50 mg Multivitamins/Minerals/Vitamin C (Tab-A-Laquita) 1 tab PO DAILY [facility] Last Admin: 05/25/17 07:54 Dose: 1 tab Pantoprazole Sodium (Protonix) 40 mg PO BEDTIME [facility] Last Admin: 05/24/17 19:37 Dose: 40 mg Polyethylene Glycol (Miralax) 17 gm PO DAILY PRN PRN Reason: Constipation Last Admin: 05/25/17 08:04 Dose: 17 gm Potassium Chloride (Klor-Con 10) 20 meq PO BIDMEALS [facility] Last Admin: 05/25/17 07:55 Dose: 20 meq Scopolamine (Transderm-Scop) 1.5 mg TOP Q72H [facility] Last Admin: 05/25/17 07:57 Dose: 1.5 mg Senna/Docusate Sodium (Senna Plus) 1 tab PO BID PRN PRN Reason: Constipation Sertraline HCl (Zoloft) 75 mg PO BEDTIME [facility] Last Admin: 05/24/17 19:37 Dose: 75 mg Timolol Maleate (Timoptic 0.5% Ophth Soln) 0 ml EYEBOTH DAILY [facility] Last Admin: 05/25/17 07:59 Dose: 1 drop Warfarin Sodium (Coumadin) 4 mg PO DAILY@1200 [facility] Last Admin: 05/24/17 12:53 Dose: Not Given Discontinued Medications Sodium Chloride (Normal Saline) 1,000 mls @ 75 mls/hr IV ASDIRECTED [facility] Stop: 05/25/17 08:00 Last Admin: 05/25/17 05:54 Dose: 75 mls/hr Lidocaine/Epinephrine (Xylocaine 1% With Epinephrine 1:100,000) 5 ml INJECT ONETIME ONE Stop: 05/24/17 03:33 Last Admin: 05/24/17 04:00 Dose: 5 ml Lidocaine/Epinephrine (Xylocaine 1% With Epinephrine 1:100,000) 20 ml INJECT ONETIME ONE Stop: 05/24/17 03:53 Last Admin: 05/24/17 05:22 Dose: Not Given - Exam General: alert, cooperative, no acute distress Neck: supple Lungs: Clear to auscultation (on my examination: Fluids were stopped earlier this morning. ), Normal respiratory effort. No: Decreased breath sounds Cardiovascular: Regular Rate, Regular Rhythm Abdomen: soft, no tenderness, no distension Back Exam: Normal Inspection, Full Range of Motion. No: CVA Tenderness (L), CVA Tenderness (R) Extremities: no edema, normal pulses, no tenderness/swelling, no clubbing, no cyanosis, no calf tenderness Peripheral Pulses: 2+: Radial (L), Radial (R), Posterior Tibial (L), Posterior Tibial (R), Dorsalis Pedis (L), Dorsalis Pedis (R) Skin: warm, dry, intact (sutures forehead left healing well) Wound/Incisions: healing well (left forehead healing well with sutures. ) Neurological: other (This patient has mild slurred speech at times. This is not always consistent. The patient also will be talking without any problems and having conversation, then will jump topic. This patient is easily arousable. She opens eyes in conversation, follows me with her head. She is appropriate. She does follow commands of lifting legs, arms, sitting forward. She does think she is at [facility]. She knows who she is. She does not know the year. ) Psy/Mental Status: alert, normal affect, normal mood - Problem List Review Problem List Initiated/Reviewed/Updated: Yes - My Orders Last 24 Hours: My Active Orders 05/24/17 13:48 Chest 1V Frontal [CR] Stat 05/24/17 13:52 Blood Culture x2 Reflex Set [OM.PC] Stat 05/24/17 13:55 Head wo Cont [CT] Stat 05/24/17 14:30 CULTURE BLOOD [BC] Stat CULTURE URINE [RM] Stat 05/24/17 14:40 CULTURE BLOOD [BC] Stat 05/25/17 10:00 Head wo Cont [CT] Routine 05/26/17 05:00 BASIC METABOLIC PANEL,BMP [CHEM] DAILY CBC WITH AUTO DIFF [HEME] DAILY INR,PT,PROTHROMBIN TIME [COAG] DAILY PRO B-TYPE NATRIUR PEPT,BNPPRO [CHEM] DAILY 05/27/17 05:00 CBC WITH AUTO DIFF [HEME] DAILY - Assessment Assessment:: Xray Right Humerus: No fx, no dislocation, no effusions. CT Head, Cervical, Facial discussed with radiologist: No head bleed, no shift, no skull fx. No acute findings of cervical. Facial has left floor orbital fracture that is not displaced. Into the sinus. Inferior rectus muscle rounded, entrapment? Patient has EOMI equal to the right eye. Both not able to look downward. Vision intact. No sign of entrapment. I called and [facility] or [facility] do not have facial correspondence school instructor. I called [facility] in [place] and talked to Dr. Diana about this patient case, physical exam , and ct results. He reports to have the ct scan sent to him this morning and he would view later this morning and call me back. radio tower technician has been notified to push the images. Laceration Procedure: Area numbed using a 27g needle and lidocaine 1% with epi, 2ml. Laceration is 1cm left forehead above eyebrow. Cleaned with hibiclens and NS. Irrigated with 10ml NS. No FB. Bleeding controlled. Nylon 5-0 2 stitches placed without complications. Wound dressed by ESTHELA Prince. - Plan Plan:: 05/24/17 0230 This patient was admitted swing bed. I received a phone call from Niki PROCTOR about this patient this morning. She reports that that patient was in bed, had bed alarm on, and went to get up on her own to use the bathroom. She reports standing out of bed with her feet tangled in blanket and falling to the floor. Niki reports the patient did not have a LOC. She reports the patient is acting how she normally acts. The patient reports headache, neck pain, right upper arm pain from the fall. The patient is alert and oriented. The patient is on coumadin. The patient does have a laceration to the left forehead with swelling and ecchymosis to the left supraorbital region. The patient struggles to open this left eye due to swelling. There is subconjuctival hemorrhage to the left eye. Patient denies loc, n, v. She denies any other symptoms other than headache , left forehead pain, right upper arm pain. Pulses +2, cap refill <2 sec, sensory/motor function intact. Neurovascular intact. I will CT her head, face, neck. I will xray her right arm. I will suture her wound. I will also order a PT /INR to be drawn. 05/24/17 1300 ESTHELA Osullivan reported to me that different family other than Grecia are now here visiting and report the patient is talking about every 3 sentences that does not make sense to the topic they are discussing. RN has made me aware. I have added labs to this patient. Patient is alert and oriented. 05/24/17 1630 I have reviewed labs, her WBC today is 11.9. Last wbc was done 05/18/17 and was 10.2. Her CR today is 1.6, last CR was 0.88 on 05/18/17. The patient is alert and oriented. Easily aroused. Family now reports patient is talking much better and making more sense. The patient head ct discussed with radiologist and shows no acute bleed. I will repeat this ct tomorrow post the 24 hour boris since on coumadin with head injury. Patient has developed racoon eyes. Patient urine is unremarkable. CXR is unremarkable. I will order fluids for rehydration. I believe she has a concussion and is dehydrated. Will repeat labs, head ct tomorrow, and have ordered a urine culture. Patient family has requested more neuro checks for the patient. I have changed them to every 2 hours. 05/25/17 1200 Family is concerned about the intermittent periods of confusion of this patient. I have talked to the patient family. I have educated Grecia of the tests that have been done and Findings. Educated about dehydration and possible patient delirium. She has asked several questions related to when her confusion will go away. I have educated her that I do not have this answer. The patient is scheduled for a repeat head ct now. The patient CR yesterday was 16, today is 1.1. The RN reported that early this morning they heard rales in patient lungs, so fluids were stopped. The lugs are clear now on exam. I will order an ekg. Urine culture shows no growth. I will await the head ct results and call for consultation assistance at [facility] about this patient to see if they have any further recommendations. I will order an MRI on Friday for this patient, this is next available. 05/25/17 1350 The patient repeat head is negative, discussed with radiologist. Patient EKG shows unchanged prolong q waves. CXR shows no iniltrate, no edema, improved from previous. I called and spoke with Dr. Hoff hospitalist at [facility] where the patient was discharged from on the . I have discussed with him the entire patient case, current presentation of the patient with intermittent confusion, labs, every test performed and results, patient fall. He reports that is seems like we have done everything that we are able to do at this time for this patient as far as testing. He reports that this is nothing more at this time that he would order differently. He reports that it sounds like the patient is having delirium. He reports we could taper the dose of gabapentin of this patient. He reports that if she continues to have delirium, Haldol could be given. However, because of her current Q wave prolongation on EKG, this should be held right now. Would have to recheck an EKG later if wanted to give this drug. He reports at this time he would just continue with the Carotid US as ordered, MRI as ordered, and redirect the patient. He reports that holding the coumadin today and yesterday is fine, and giving the patient IV fluids at rehydrated her CR. He reports at this time he would just redirect the patient. I have lowered the dose of the next dose of Gabapentin. We will continue to redirect the patient. 05/25/[id number] I have talked to Grecia the patient daughter. She reports to me the patient thought she was a different daughter that is . I did educate her on the patient condition of delirium. I educated her of future tests of US of carotids and MRA of the brain. Grecia asks again when her mother will be alert and oriented. I again educated her about delirium and unpredictability associated with her mothers confusion. I did tell the daughter that the patients PCP would be seeing her tomorrow. I explained to the daughter of the consult I called and their recommendation. At this time the patient remains a Full Code.
[2017-05-25] MEDS: Warfarin 2 MG Tab PO SCH (12:39)
[2017-05-25] MEDS: Pantoprazole 40 MG Tab.CR PO SCH (19:29)
[2017-05-25] MEDS: amLODIPine 10 MG Tab PO SCH (19:29)
[2017-05-25] MEDS: Sertraline 25 MG Tab PO SCH (19:30)
[2017-05-25] MEDS: Latanoprost 0.005% Ophth Soln 2.5 ML Bottle EYEBOTH SCH (19:34)
[2017-05-26] MEDS: Acetaminophen 325 MG Tab PO PRN ×2 (07:25→18:17)
[2017-05-26] MEDS: Calcium Carbonate/Magnesium Oxide/Zinc Oxide Tab PO SCH (07:25)
[2017-05-26] MEDS: Losartan 100 MG Tab PO SCH (07:26)
[2017-05-26] MEDS: Isosorbide Mononitrate 30 MG Tab.ER PO SCH (07:26)
[2017-05-26] MEDS: Furosemide 40 MG Tab PO SCH (07:26)
[2017-05-26] MEDS: Aspirin 81 MG Tab.EC PO SCH (07:27)
[2017-05-26] MEDS: Allopurinol 300 MG Tab PO SCH (07:27)
[2017-05-26] MEDS: Multivitamin Tab PO SCH (07:27)
[2017-05-26] MEDS: Metoprolol Tartrate 50 MG Tab PO SCH ×2 (07:28→20:10)
[2017-05-26] MEDS: Potassium Chloride 10 MEQ Tab.ER PO SCH ×2 (07:28→17:31)
[2017-05-26] MEDS: Gabapentin 300 MG Cap PO SCH ×3 (07:30→17:32)
[2017-05-26] MEDS: Timolol Maleate 0.5% Ophth Soln 5 ML Bottle EYEBOTH SCH (07:30)
[2017-05-26] MEDS: Insulin Detemir 100 Units/ML 3 ML Pen SUBCUT SCH (07:30)
[2017-05-26] MEDS: Insulin Aspart 100 Units/ML 3 ML Pen SUBCUT SCH ×4 (07:34→20:45)
[2017-05-26] MEDS: Brimonidine 0.2% Ophth Soln 5 ML Bottle EYERT SCH ×2 (08:52→20:06)
[2017-05-26] MEDS: Warfarin 2 MG Tab PO SCH (13:04)
[2017-05-26] MEDS: amLODIPine 10 MG Tab PO SCH (20:08)
[2017-05-26] MEDS: Pantoprazole 40 MG Tab.CR PO SCH (20:08)
[2017-05-26] MEDS: Sertraline 25 MG Tab PO SCH (20:09)
[2017-05-26] MEDS: Latanoprost 0.005% Ophth Soln 2.5 ML Bottle EYEBOTH SCH (20:11)
--- NOTE | 2017-05-26 20:17 | PCM.PN ---
- General Info Date of Service: 05/26/17 Admission Dx/Problem (Free Text): Admission Diagnosis/Problem Admission Diagnosis/Problem Sepsis due to urinary tract infection Functional Status: Reports: pain controlled, tolerating diet. Denies: ambulating - Review of Systems General: Reports: Weakness, Fatigue. Denies: Fever HEENT: Reports: eye pain Pulmonary: Denies: shortness of breath Cardiovascular: Denies: Chest Pain, Edema Gastrointestinal: Reports: No symptoms Genitourinary: Reports: frequency Neurological: Reports: Headache. Denies: Dizziness Psychiatric: Reports: confusion - Patient Data Vitals - most recent: Last Vital Signs Temp 98.2 F 05/26/17 20:00 Pulse 63 05/26/17 20:00 Resp 20 05/26/17 20:00 BP 157/64 H 05/26/17 20:00 Pulse Ox 93 L 05/26/17 20:00 Weight - most recent: 167 lb 11.2 oz Lab Results last 24 hrs: Laboratory Results - last 24 hr 05/26/17 05/26/17 05/26/17 Range/Units 07:21 07:21 07:21 WBC 11.2 H (5.0-10.0) 10^3/uL RBC 5.25 (4.00-5.50) 10^6/uL Hgb 12.7 (12.0-16.0) g/dL Hct 41.5 (37.0-47.0) % MCV 79.0 L (82.0-94.0) fL MCH 24.2 L (27.0-32.0) pg MCHC 30.6 L (33.0-38.0) g/dL RDW Coeff of Shahzad 21.7 H (11.0-15.0) % Plt Count 641 H (150-400) 10^3/uL Neut % (Auto) 75.7 (35-85) % Lymph % (Auto) 16.1 (10-55) % [place] % (Auto) 7.0 (0-16) % Eos % (Auto) 0.9 (0-5) % Baso % (Auto) 0.3 (0-3) % Neut # (Auto) 8.46 H (1.80-7.00) 10^3/uL Lymph # (Auto) 1.80 (1.00-4.80) 10^3/uL [place] # (Auto) 0.78 (0.00-0.80) 10^3/uL Eos # (Auto) 0.10 (0.00-0.45) 10^3/uL Baso # (Auto) 0.03 10^3/uL PT 22.3 H (9.7-12.3) SEC INR 2.02 H (0.92-1.18) Sodium 142 (136-145) mEq/L Potassium 4.8 (3.5-5.0) mEq/L Chloride 107 H (98-106) mEq/L Carbon Dioxide 27 (21-32) mmol/L BUN 19 H (7-18) mg/dL Creatinine 1.1 H (0.6-1.0) mg/dL Est Cr Clr Drug Dosing 33.18 mL/min Estimated GFR (MDRD) 48 L (>=60) mL/min Glucose 87 (75-99) mg/dL POC Glucose (75-105) mg/dl Calcium 8.7 (8.4-10.1) mg/dL Tkx-F-Avcipfxymvc Pept 3874 H (0-1000) pg/nL 05/26/17 05/26/17 05/26/17 Range/Units 07:31 11:30 17:19 WBC (5.0-10.0) 10^3/uL RBC (4.00-5.50) 10^6/uL Hgb (12.0-16.0) g/dL Hct (37.0-47.0) % MCV (82.0-94.0) fL MCH (27.0-32.0) pg MCHC (33.0-38.0) g/dL RDW Coeff of Shahzad (11.0-15.0) % Plt Count (150-400) 10^3/uL Neut % (Auto) (35-85) % Lymph % (Auto) (10-55) % [place] % (Auto) (0-16) % Eos % (Auto) (0-5) % Baso % (Auto) (0-3) % Neut # (Auto) (1.80-7.00) 10^3/uL Lymph # (Auto) (1.00-4.80) 10^3/uL [place] # (Auto) (0.00-0.80) 10^3/uL Eos # (Auto) (0.00-0.45) 10^3/uL Baso # (Auto) 10^3/uL PT (9.7-12.3) SEC INR (0.92-1.18) Sodium (136-145) mEq/L Potassium (3.5-5.0) mEq/L Chloride (98-106) mEq/L Carbon Dioxide (21-32) mmol/L BUN (7-18) mg/dL Creatinine (0.6-1.0) mg/dL Est Cr Clr Drug Dosing mL/min Estimated GFR (MDRD) (>=60) mL/min Glucose (75-99) mg/dL POC Glucose 84 141 H 111 H (75-105) mg/dl Calcium (8.4-10.1) mg/dL Bcl-S-Kcyzrefkxrh Pept (0-1000) pg/nL Mj Results last 24 hrs: Microbiology 05/24/17 14:40 Aerobic Blood Culture - Preliminary Blood - Venous - Lab Draw NO GROWTH AFTER 2 DAYS Anaerobic Blood Culture - Preliminary NO GROWTH AFTER 2 DAYS 05/24/17 14:30 Aerobic Blood Culture - Preliminary Blood - Venous NO GROWTH AFTER 2 DAYS Anaerobic Blood Culture - Preliminary NO GROWTH AFTER 2 DAYS 05/24/17 14:30 Urine Culture - Final Urine, Catheterized NO GROWTH AFTER 2 DAYS Med Orders - Current: Current Medications Acetaminophen (Tylenol) 650 mg PO Q6H PRN PRN Reason: Pain/Fever Last Admin: 05/26/17 18:17 Dose: 650 mg Allopurinol (Zyloprim) 300 mg PO DAILY [facility] Last Admin: 05/26/17 07:27 Dose: 300 mg Amlodipine Besylate (Norvasc) 10 mg PO BEDTIME [facility] Last Admin: 05/25/17 19:29 Dose: 10 mg Aspirin (Halfprin) 81 mg PO DAILY [facility] Last Admin: 05/26/17 07:27 Dose: 81 mg Brimonidine Tartrate (Alphagan 0.2% Oph Soln) 0 ml EYERT BID [facility] Last Admin: 05/26/17 08:52 Dose: 1 drop Calcium/Magnesium/Zinc (Calcium & Magnesium Plus Zinc) 1 tab PO DAILY [facility] Last Admin: 05/26/17 07:25 Dose: 1 tab Furosemide (Lasix) 40 mg PO DAILY [facility] Last Admin: 05/26/17 07:26 Dose: 40 mg Gabapentin (Neurontin) 600 mg PO DAILY@1730 [facility] Last Admin: 05/26/17 17:32 Dose: 600 mg Gabapentin (Neurontin) 100 mg PO BID@0800,1200 [facility] Insulin Aspart (Novolog) 0 unit SUBCUT WITHMEALSANDBED [facility] PRN Reason: Protocol Last Admin: 05/26/17 17:33 Dose: Not Given Insulin Detemir (Levemir) 24 unit SUBCUT QAM [facility] Last Admin: 05/26/17 07:30 Dose: 24 units Isosorbide Mononitrate (Imdur) 60 mg PO DAILY [facility] Last Admin: 05/26/17 07:26 Dose: 60 mg Latanoprost (Xalatan 0.005% Ophth Soln) 0 ml EYEBOTH BEDTIME [facility] Last Admin: 05/25/17 19:34 Dose: 1 drop Losartan Potassium (Cozaar) 100 mg PO DAILY [facility] Last Admin: 05/26/17 07:26 Dose: 100 mg Metoprolol Tartrate (Lopressor) 50 mg PO BID [facility] Last Admin: 05/26/17 07:28 Dose: 50 mg Multivitamins/Minerals/Vitamin C (Tab-A-Laquita) 1 tab PO DAILY [facility] Last Admin: 05/26/17 07:27 Dose: 1 tab Pantoprazole Sodium (Protonix) 40 mg PO BEDTIME [facility] Last Admin: 05/25/17 19:29 Dose: 40 mg Polyethylene Glycol (Miralax) 17 gm PO DAILY PRN PRN Reason: Constipation Last Admin: 05/25/17 08:04 Dose: 17 gm Potassium Chloride (Klor-Con 10) 20 meq PO BIDMEALS [facility] Last Admin: 05/26/17 17:31 Dose: 20 meq Senna/Docusate Sodium (Senna Plus) 1 tab PO BID PRN PRN Reason: Constipation Sertraline HCl (Zoloft) 75 mg PO BEDTIME [facility] Last Admin: 05/25/17 19:30 Dose: 75 mg Timolol Maleate (Timoptic 0.5% Ophth Soln) 0 ml EYEBOTH DAILY [facility] Last Admin: 05/26/17 07:30 Dose: 1 drop Warfarin Sodium (Coumadin) 4 mg PO DAILY@1200 [facility] Last Admin: 05/26/17 13:04 Dose: 4 mg Discontinued Medications Gabapentin (Neurontin) 900 mg PO 08,12,1730 [facility] Last Admin: 05/25/17 12:38 Dose: 900 mg Gabapentin (Neurontin) 900 mg PO BID@0800,1200 [facility] Last Admin: 05/26/17 12:13 Dose: 900 mg Sodium Chloride (Normal Saline) 1,000 mls @ 75 mls/hr IV ASDIRECTED [facility] Stop: 05/25/17 08:00 Last Admin: 05/25/17 05:54 Dose: 75 mls/hr Lidocaine/Epinephrine (Xylocaine 1% With Epinephrine 1:100,000) 5 ml INJECT ONETIME ONE Stop: 05/24/17 03:33 Last Admin: 05/24/17 04:00 Dose: 5 ml Lidocaine/Epinephrine (Xylocaine 1% With Epinephrine 1:100,000) 20 ml INJECT ONETIME ONE Stop: 05/24/17 03:53 Last Admin: 05/24/17 05:22 Dose: Not Given Scopolamine (Transderm-Scop) 1.5 mg TOP Q72H [facility] Last Admin: 05/25/17 07:57 Dose: 1.5 mg - Exam General: alert, oriented (to person) HEENT: Other (significant bruising noted to face/eyes) Neck: supple Lungs: Clear to auscultation Cardiovascular: Irregular Rhythm Abdomen: bowel sounds present, soft, no tenderness Extremities: no edema Skin: ecchymosis Psy/Mental Status: alert - Problem List & Annotations (1) Sepsis due to urinary tract infection SNOMED Code(s): 064688491 Code(s): A41.9 - SEPSIS, UNSPECIFIED ORGANISM; N39.0 - URINARY TRACT INFECTION, SITE NOT SPECIFIED Status: Acute Priority: High Current Visit: Yes (2) Palliative care patient SNOMED Code(s): 825429161 Code(s): Z51.5 - ENCOUNTER FOR PALLIATIVE CARE Status: Acute Priority: High Current Visit: Yes (3) CO, Myocardial infarction SNOMED Code(s): 10483923 Code(s): I21.3 - ST ELEVATION (STEMI) MYOCARDIAL INFARCTION OF [facility] SITE Status: Acute Priority: High Current Visit: Yes (4) CHF (congestive heart failure) SNOMED Code(s): 05349490 Code(s): I50.9 - HEART FAILURE, UNSPECIFIED Status: Chronic Priority: High Current Visit: Yes Qualifiers: Congestive heart failure type: systolic Congestive heart failure chronicity : acute on chronic Qualified Code(s): I50.23 - Acute on chronic systolic ( congestive) heart failure (5) Diabetes SNOMED Code(s): 88690531 Code(s): E11.9 - TYPE 2 DIABETES MELLITUS WITHOUT COMPLICATIONS Status: Chronic Priority: Medium Current Visit: Yes Qualifiers: Diabetes mellitus type: type 2 Diabetes mellitus complication status: with kidney complications Diabetes mellitus complication detail: with other kidney complication Diabetes mellitus ferry terminal supervisor insulin use: with ferry terminal supervisor use Qualified Code(s): E11.29 - Type 2 diabetes mellitus with other diabetic kidney complication; Z79.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 CT Head, Cervical, Facial discussed with radiologist: No head bleed, no shift, no skull fx. No acute findings of cervical. Facial has left floor orbital fracture that is not displaced. Into the sinus. Inferior rectus muscle rounded, entrapment? Patient has EOMI equal to the right eye. Both not able to look downward. Vision intact. No sign of entrapment. I called and [facility] or [place] do not have facial business control manager. I called [facility] in [place] and talked to Dr. Diana about this patient case, physical exam , and ct results. He reports to have the ct scan sent to him this morning and he would view later this morning and call me back. commercial kitchen service technician has been notified to push the images. Laceration Procedure: Area numbed using a 27g needle and lidocaine 1% with epi, 2ml. Laceration is 1cm left forehead above eyebrow. Cleaned with hibiclens and NS. Irrigated with 10ml NS. No FB. Bleeding controlled. Nylon 5-0 2 stitches placed without complications. Wound dressed by ESTHELA Prince. - Plan Plan:: 05/24/17 0230 This patient was admitted swing bed. I received a phone call from Niki PROCTOR about this patient this morning. She reports that that patient was in bed, had bed alarm on, and went to get up on her own to use the bathroom. She reports standing out of bed with her feet tangled in blanket and falling to the floor. Niki reports the patient did not have a LOC. She reports the patient is acting how she normally acts. The patient reports headache, neck pain, right upper arm pain from the fall. The patient is alert and oriented. The patient is on coumadin. The patient does have a laceration to the left forehead with swelling and ecchymosis to the left supraorbital region. The patient struggles to open this left eye due to swelling. There is subconjuctival hemorrhage to the left eye. Patient denies loc, n, v. She denies any other symptoms other than headache , left forehead pain, right upper arm pain. Pulses +2, cap refill <2 sec, sensory/motor function intact. Neurovascular intact. I will CT her head, face, neck. I will xray her right arm. I will suture her wound. I will also order a PT /INR to be drawn. 05/24/17 1300 ESTHELA Osullivan reported to me that different family other than Grecia are now here visiting and report the patient is talking about every 3 sentences that does not make sense to the topic they are discussing. RN has made me aware. I have added labs to this patient. Patient is alert and oriented. 05/24/17 1630 I have reviewed labs, her WBC today is 11.9. Last wbc was done 05/18/17 and was 10.2. Her CR today is 1.6, last CR was 0.88 on 05/18/17. The patient is alert and oriented. Easily aroused. Family now reports patient is talking much better and making more sense. The patient head ct discussed with radiologist and shows no acute bleed. I will repeat this ct tomorrow post the 24 hour boris since on coumadin with head injury. Patient has developed racoon eyes. Patient urine is unremarkable. CXR is unremarkable. I will order fluids for rehydration. I believe she has a concussion and is dehydrated. Will repeat labs, head ct tomorrow, and have ordered a urine culture. Patient family has requested more neuro checks for the patient. I have changed them to every 2 hours. 05/25/17 1200 Family is concerned about the intermittent periods of confusion of this patient. I have talked to the patient family. I have educated Grecia of the tests that have been done and Findings. Educated about dehydration and possible patient delirium. She has asked several questions related to when her confusion will go away. I have educated her that I do not have this answer. The patient is scheduled for a repeat head ct now. The patient CR yesterday was 16, today is 1.1. The RN reported that early this morning they heard rales in patient lungs, so fluids were stopped. The lugs are clear now on exam. I will order an ekg. Urine culture shows no growth. I will await the head ct results and call for consultation assistance at [facility] about this patient to see if they have any further recommendations. I will order an MRI on Friday for this patient, this is next available. 05/25/17 1350 The patient repeat head is negative, discussed with radiologist. Patient EKG shows unchanged prolong q waves. CXR shows no iniltrate, no edema, improved from previous. I called and spoke with Dr. Hoff hospitalist at [facility] where the patient was discharged from on the . I have discussed with him the entire patient case, current presentation of the patient with intermittent confusion, labs, every test performed and results, patient fall. He reports that is seems like we have done everything that we are able to do at this time for this patient as far as testing. He reports that this is nothing more at this time that he would order differently. He reports that it sounds like the patient is having delirium. He reports we could taper the dose of gabapentin of this patient. He reports that if she continues to have delirium, Haldol could be given. However, because of her current Q wave prolongation on EKG, this should be held right now. Would have to recheck an EKG later if wanted to give this drug. He reports at this time he would just continue with the Carotid US as ordered, MRI as ordered, and redirect the patient. He reports that holding the coumadin today and yesterday is fine, and giving the patient IV fluids at rehydrated her CR. He reports at this time he would just redirect the patient. I have lowered the dose of the next dose of Gabapentin. We will continue to redirect the patient. 05/25/17 1795 I have talked to Grecia the patient daughter. She reports to me the patient thought she was a different daughter that is . I did educate her on the patient condition of delirium. I educated her of future tests of US of carotids and MRA of the brain. Grecia asks again when her mother will be alert and oriented. I again educated her about delirium and unpredictability associated with her mothers confusion. I did tell the daughter that the patients PCP would be seeing her tomorrow. I explained to the daughter of the consult I called and their recommendation. At this time the patient remains a Full Code. 05-26-2017 see notes above. Did have extensive work up this weekend to look for a source of delirium after her fall. She is more clear this afternoon. Answering questions, aware of concerns this weekend. She is more alert even than this am. FAmily concerned about why developed delirium. She did have CT scans and labs of which were negative. Did review chart with DR. Dukes. Urine clear, WBC normal in comparison to previous. Was started on Scopolamine and large doses of gabapentin in [place]. Will hold the scopolamine and reduce the gabapentin to 100 mg TID and see if she continues to improve as other sources have been ruled out at this point. Family in agreement with this plan. Continue with PT and OT for strengthening.
[2017-05-27] MEDS: Calcium Carbonate/Magnesium Oxide/Zinc Oxide Tab PO SCH (08:27)
[2017-05-27] MEDS: Allopurinol 300 MG Tab PO SCH (08:27)
[2017-05-27] MEDS: Isosorbide Mononitrate 30 MG Tab.ER PO SCH (08:27)
[2017-05-27] MEDS: Gabapentin 100 MG Cap PO SCH ×2 (08:27→11:30)
[2017-05-27] MEDS: Metoprolol Tartrate 50 MG Tab PO SCH ×2 (08:28→19:34)
[2017-05-27] MEDS: Potassium Chloride 10 MEQ Tab.ER PO SCH ×2 (08:29→17:34)
[2017-05-27] MEDS: Aspirin 81 MG Tab.EC PO SCH (08:29)
[2017-05-27] MEDS: Losartan 100 MG Tab PO SCH (08:29)
[2017-05-27] MEDS: Furosemide 40 MG Tab PO SCH (08:29)
[2017-05-27] MEDS: Multivitamin Tab PO SCH (08:30)
[2017-05-27] MEDS: Insulin Aspart 100 Units/ML 3 ML Pen SUBCUT SCH ×4 (08:31→20:32)
[2017-05-27] MEDS: Brimonidine 0.2% Ophth Soln 5 ML Bottle EYERT SCH ×2 (08:32→19:26)
[2017-05-27] MEDS: Timolol Maleate 0.5% Ophth Soln 5 ML Bottle EYEBOTH SCH (08:34)
[2017-05-27] MEDS: Insulin Detemir 100 Units/ML 3 ML Pen SUBCUT SCH (08:35)
[2017-05-27] MEDS: Warfarin 2 MG Tab PO SCH (11:30)
[2017-05-27] MEDS: Gabapentin 300 MG Cap PO SCH (17:33)
[2017-05-27] MEDS: Acetaminophen 325 MG Tab PO PRN (19:31)
[2017-05-27] MEDS: amLODIPine 10 MG Tab PO SCH (19:33)
[2017-05-27] MEDS: Pantoprazole 40 MG Tab.CR PO SCH (19:33)
[2017-05-27] MEDS: Sertraline 25 MG Tab PO SCH (19:34)
[2017-05-27] MEDS: Latanoprost 0.005% Ophth Soln 2.5 ML Bottle EYEBOTH SCH (19:35)
[2017-05-28] MEDS: Insulin Aspart 100 Units/ML 3 ML Pen SUBCUT SCH ×4 (10:27→20:43)
[2017-05-28] MEDS: Allopurinol 300 MG Tab PO SCH (10:39)
[2017-05-28] MEDS: Furosemide 40 MG Tab PO SCH (10:40)
[2017-05-28] MEDS: Multivitamin Tab PO SCH (10:40)
[2017-05-28] MEDS: Calcium Carbonate/Magnesium Oxide/Zinc Oxide Tab PO SCH (10:40)
[2017-05-28] MEDS: Aspirin 81 MG Tab.EC PO SCH (10:40)
[2017-05-28] MEDS: Losartan 100 MG Tab PO SCH (10:40)
[2017-05-28] MEDS: Isosorbide Mononitrate 30 MG Tab.ER PO SCH (10:49)
[2017-05-28] MEDS: Metoprolol Tartrate 50 MG Tab PO SCH ×2 (10:55→19:47)
[2017-05-28] MEDS: Gabapentin 100 MG Cap PO SCH ×2 (10:57→11:03)
[2017-05-28] MEDS: Insulin Detemir 100 Units/ML 3 ML Pen SUBCUT SCH (11:00)
[2017-05-28] MEDS: Brimonidine 0.2% Ophth Soln 5 ML Bottle EYERT SCH ×2 (11:02→19:42)
[2017-05-28] MEDS: Timolol Maleate 0.5% Ophth Soln 5 ML Bottle EYEBOTH SCH (11:02)
[2017-05-28] MEDS: Potassium Chloride 10 MEQ Tab.ER PO SCH ×2 (11:04→17:54)
[2017-05-28] MEDS: Warfarin 2 MG Tab PO SCH (12:09)
[2017-05-28] MEDS: Gabapentin 300 MG Cap PO SCH (17:54)
[2017-05-28] MEDS: amLODIPine 10 MG Tab PO SCH (19:45)
[2017-05-28] MEDS: Pantoprazole 40 MG Tab.CR PO SCH (19:45)
[2017-05-28] MEDS: Sertraline 25 MG Tab PO SCH (19:46)
[2017-05-28] MEDS: Acetaminophen 325 MG Tab PO PRN (19:47)
[2017-05-28] MEDS: Latanoprost 0.005% Ophth Soln 2.5 ML Bottle EYEBOTH SCH (19:49)
[2017-05-29] MEDS: Calcium Carbonate/Magnesium Oxide/Zinc Oxide Tab PO SCH (08:33)
[2017-05-29] MEDS: Metoprolol Tartrate 50 MG Tab PO SCH ×2 (08:33→19:31)
[2017-05-29] MEDS: Furosemide 40 MG Tab PO SCH (08:34)
[2017-05-29] MEDS: Potassium Chloride 10 MEQ Tab.ER PO SCH ×2 (08:35→17:54)
[2017-05-29] MEDS: Allopurinol 300 MG Tab PO SCH (08:35)
[2017-05-29] MEDS: Multivitamin Tab PO SCH (08:38)
[2017-05-29] MEDS: Losartan 100 MG Tab PO SCH (08:38)
[2017-05-29] MEDS: Aspirin 81 MG Tab.EC PO SCH (08:38)
[2017-05-29] MEDS: Timolol Maleate 0.5% Ophth Soln 5 ML Bottle EYEBOTH SCH (08:38)
[2017-05-29] MEDS: Gabapentin 100 MG Cap PO SCH ×2 (08:38→12:44)
[2017-05-29] MEDS: Isosorbide Mononitrate 30 MG Tab.ER PO SCH (08:38)
[2017-05-29] MEDS: Brimonidine 0.2% Ophth Soln 5 ML Bottle EYERT SCH ×2 (08:39→19:38)
[2017-05-29] MEDS: Insulin Detemir 100 Units/ML 3 ML Pen SUBCUT SCH (08:40)
[2017-05-29] MEDS: Insulin Aspart 100 Units/ML 3 ML Pen SUBCUT SCH ×4 (09:59→20:21)
[2017-05-29] MEDS: Warfarin 2 MG Tab PO SCH (12:44)
[2017-05-29] MEDS: Acetaminophen 325 MG Tab PO PRN (16:08)
[2017-05-29] MEDS: Gabapentin 300 MG Cap PO SCH (17:53)
[2017-05-29] MEDS: Sertraline 25 MG Tab PO SCH (19:31)
[2017-05-29] MEDS: amLODIPine 10 MG Tab PO SCH (19:31)
[2017-05-29] MEDS: Pantoprazole 40 MG Tab.CR PO SCH (19:32)
[2017-05-29] MEDS: Latanoprost 0.005% Ophth Soln 2.5 ML Bottle EYEBOTH SCH (19:38)
[2017-05-30] MEDS: Potassium Chloride 10 MEQ Tab.ER PO SCH ×2 (08:06→18:07)
[2017-05-30] MEDS: Allopurinol 300 MG Tab PO SCH (08:06)
[2017-05-30] MEDS: Metoprolol Tartrate 50 MG Tab PO SCH ×2 (08:06→19:45)
[2017-05-30] MEDS: Calcium Carbonate/Magnesium Oxide/Zinc Oxide Tab PO SCH (08:07)
[2017-05-30] MEDS: Isosorbide Mononitrate 30 MG Tab.ER PO SCH (08:07)
[2017-05-30] MEDS: Losartan 100 MG Tab PO SCH (08:07)
[2017-05-30] MEDS: Gabapentin 100 MG Cap PO SCH ×2 (08:07→12:07)
[2017-05-30] MEDS: Multivitamin Tab PO SCH (08:07)
[2017-05-30] MEDS: Furosemide 40 MG Tab PO SCH (08:07)
[2017-05-30] MEDS: Aspirin 81 MG Tab.EC PO SCH (08:07)
[2017-05-30] MEDS: Brimonidine 0.2% Ophth Soln 5 ML Bottle EYERT SCH ×2 (08:21→19:46)
[2017-05-30] MEDS: Timolol Maleate 0.5% Ophth Soln 5 ML Bottle EYEBOTH SCH (08:22)
[2017-05-30] MEDS: Insulin Detemir 100 Units/ML 3 ML Pen SUBCUT SCH (08:22)
[2017-05-30] MEDS: Insulin Aspart 100 Units/ML 3 ML Pen SUBCUT SCH ×4 (08:22→20:20)
[2017-05-30] MEDS: Warfarin 2 MG Tab PO SCH (12:07)
[2017-05-30] MEDS: Gabapentin 300 MG Cap PO SCH (18:06)
[2017-05-30] MEDS: Sertraline 25 MG Tab PO SCH (19:44)
[2017-05-30] MEDS: amLODIPine 10 MG Tab PO SCH (19:44)
[2017-05-30] MEDS: Pantoprazole 40 MG Tab.CR PO SCH (19:45)
[2017-05-30] MEDS: Latanoprost 0.005% Ophth Soln 2.5 ML Bottle EYEBOTH SCH (19:46)
[2017-05-31] MEDS: Brimonidine 0.2% Ophth Soln 5 ML Bottle EYERT SCH ×2 (08:12→19:59)
[2017-05-31] MEDS: Aspirin 81 MG Tab.EC PO SCH (08:13)
[2017-05-31] MEDS: Gabapentin 100 MG Cap PO SCH ×2 (08:13→12:00)
[2017-05-31] MEDS: Metoprolol Tartrate 50 MG Tab PO SCH ×2 (08:14→19:57)
[2017-05-31] MEDS: Calcium Carbonate/Magnesium Oxide/Zinc Oxide Tab PO SCH (08:18)
[2017-05-31] MEDS: Potassium Chloride 10 MEQ Tab.ER PO SCH ×2 (08:18→17:05)
[2017-05-31] MEDS: Furosemide 40 MG Tab PO SCH (08:18)
[2017-05-31] MEDS: Losartan 100 MG Tab PO SCH (08:18)
[2017-05-31] MEDS: Isosorbide Mononitrate 30 MG Tab.ER PO SCH (08:19)
[2017-05-31] MEDS: Allopurinol 300 MG Tab PO SCH (08:19)
[2017-05-31] MEDS: Multivitamin Tab PO SCH (08:19)
[2017-05-31] MEDS: Timolol Maleate 0.5% Ophth Soln 5 ML Bottle EYEBOTH SCH (08:20)
[2017-05-31] MEDS: Insulin Detemir 100 Units/ML 3 ML Pen SUBCUT SCH (08:33)
[2017-05-31] MEDS: Insulin Aspart 100 Units/ML 3 ML Pen SUBCUT SCH ×4 (08:36→20:10)
[2017-05-31] MEDS: Warfarin 2 MG Tab PO SCH (12:00)
[2017-05-31] MEDS: Gabapentin 300 MG Cap PO SCH (17:06)
[2017-05-31] MEDS: Acetaminophen 325 MG Tab PO PRN (18:49)
[2017-05-31] MEDS: amLODIPine 10 MG Tab PO SCH (19:57)
[2017-05-31] MEDS: Pantoprazole 40 MG Tab.CR PO SCH (19:57)
[2017-05-31] MEDS: Sertraline 25 MG Tab PO SCH (19:58)
[2017-05-31] MEDS: Latanoprost 0.005% Ophth Soln 2.5 ML Bottle EYEBOTH SCH (20:00)
[2017-06-01] MEDS: Losartan 100 MG Tab PO SCH (08:02)
[2017-06-01] MEDS: Calcium Carbonate/Magnesium Oxide/Zinc Oxide Tab PO SCH (08:02)
[2017-06-01] MEDS: Isosorbide Mononitrate 30 MG Tab.ER PO SCH (08:03)
[2017-06-01] MEDS: Aspirin 81 MG Tab.EC PO SCH (08:03)
[2017-06-01] MEDS: Furosemide 40 MG Tab PO SCH (08:04)
[2017-06-01] MEDS: Potassium Chloride 10 MEQ Tab.ER PO SCH ×2 (08:04→17:03)
[2017-06-01] MEDS: Multivitamin Tab PO SCH (08:05)
[2017-06-01] MEDS: Metoprolol Tartrate 50 MG Tab PO SCH ×2 (08:05→19:11)
[2017-06-01] MEDS: Gabapentin 100 MG Cap PO SCH ×2 (08:05→12:37)
[2017-06-01] MEDS: Allopurinol 300 MG Tab PO SCH (08:05)
[2017-06-01] MEDS: Insulin Aspart 100 Units/ML 3 ML Pen SUBCUT SCH ×4 (08:06→20:35)
[2017-06-01] MEDS: Insulin Detemir 100 Units/ML 3 ML Pen SUBCUT SCH (08:08)
[2017-06-01] MEDS: Timolol Maleate 0.5% Ophth Soln 5 ML Bottle EYEBOTH SCH (08:10)
[2017-06-01] MEDS: Brimonidine 0.2% Ophth Soln 5 ML Bottle EYERT SCH ×2 (08:10→19:13)
[2017-06-01] MEDS: Warfarin 2 MG Tab PO SCH (12:36)
[2017-06-01] MEDS: Gabapentin 300 MG Cap PO SCH (17:03)
[2017-06-01] MEDS: Sertraline 25 MG Tab PO SCH (19:10)
[2017-06-01] MEDS: Pantoprazole 40 MG Tab.CR PO SCH (19:11)
[2017-06-01] MEDS: amLODIPine 10 MG Tab PO SCH (19:11)
[2017-06-01] MEDS: Latanoprost 0.005% Ophth Soln 2.5 ML Bottle EYEBOTH SCH (19:14)
[2017-06-02] MEDS: Potassium Chloride 10 MEQ Tab.ER PO SCH ×2 (07:43→17:39)
[2017-06-02] MEDS: Brimonidine 0.2% Ophth Soln 5 ML Bottle EYERT SCH ×2 (07:43→20:07)
[2017-06-02] MEDS: Losartan 100 MG Tab PO SCH (07:43)
[2017-06-02] MEDS: Aspirin 81 MG Tab.EC PO SCH (07:44)
[2017-06-02] MEDS: Furosemide 40 MG Tab PO SCH (07:44)
[2017-06-02] MEDS: Multivitamin Tab PO SCH (07:44)
[2017-06-02] MEDS: Isosorbide Mononitrate 30 MG Tab.ER PO SCH (07:44)
[2017-06-02] MEDS: Gabapentin 100 MG Cap PO SCH ×2 (07:44→12:22)
[2017-06-02] MEDS: Calcium Carbonate/Magnesium Oxide/Zinc Oxide Tab PO SCH (07:44)
[2017-06-02] MEDS: Allopurinol 300 MG Tab PO SCH (07:44)
[2017-06-02] MEDS: Metoprolol Tartrate 50 MG Tab PO SCH ×2 (07:44→20:04)
[2017-06-02] MEDS: Insulin Aspart 100 Units/ML 3 ML Pen SUBCUT SCH ×4 (07:46→20:45)
[2017-06-02] MEDS: Timolol Maleate 0.5% Ophth Soln 5 ML Bottle EYEBOTH SCH (07:47)
[2017-06-02] MEDS: Insulin Detemir 100 Units/ML 3 ML Pen SUBCUT SCH (07:49)
[2017-06-02] MEDS: Warfarin 2 MG Tab PO SCH (12:22)
[2017-06-02] MEDS: Gabapentin 300 MG Cap PO SCH (17:39)
[2017-06-02] MEDS: amLODIPine 10 MG Tab PO SCH (20:03)
[2017-06-02] MEDS: Sertraline 25 MG Tab PO SCH (20:04)
[2017-06-02] MEDS: Pantoprazole 40 MG Tab.CR PO SCH (20:04)
[2017-06-02] MEDS: Latanoprost 0.005% Ophth Soln 2.5 ML Bottle EYEBOTH SCH (20:05)
[2017-06-03] MEDS: Brimonidine 0.2% Ophth Soln 5 ML Bottle EYERT SCH ×2 (07:21→19:26)
[2017-06-03] MEDS: Isosorbide Mononitrate 30 MG Tab.ER PO SCH (07:22)
[2017-06-03] MEDS: Metoprolol Tartrate 50 MG Tab PO SCH ×2 (07:23→19:32)
[2017-06-03] MEDS: Furosemide 40 MG Tab PO SCH (07:23)
[2017-06-03] MEDS: Calcium Carbonate/Magnesium Oxide/Zinc Oxide Tab PO SCH (07:25)
[2017-06-03] MEDS: Losartan 100 MG Tab PO SCH (07:25)
[2017-06-03] MEDS: Gabapentin 100 MG Cap PO SCH ×2 (07:26→12:17)
[2017-06-03] MEDS: Aspirin 81 MG Tab.EC PO SCH (07:26)
[2017-06-03] MEDS: Allopurinol 300 MG Tab PO SCH (07:27)
[2017-06-03] MEDS: Potassium Chloride 10 MEQ Tab.ER PO SCH ×2 (07:27→17:25)
[2017-06-03] MEDS: Multivitamin Tab PO SCH (07:27)
[2017-06-03] MEDS: Timolol Maleate 0.5% Ophth Soln 5 ML Bottle EYEBOTH SCH (07:28)
[2017-06-03] MEDS: Insulin Aspart 100 Units/ML 3 ML Pen SUBCUT SCH ×4 (08:08→21:56)
[2017-06-03] MEDS: Insulin Detemir 100 Units/ML 3 ML Pen SUBCUT SCH (08:08)
[2017-06-03] MEDS: Warfarin 2 MG Tab PO SCH (12:16)
[2017-06-03] MEDS: Gabapentin 300 MG Cap PO SCH (17:25)
[2017-06-03] MEDS: Latanoprost 0.005% Ophth Soln 2.5 ML Bottle EYEBOTH SCH (19:26)
[2017-06-03] MEDS: Sertraline 25 MG Tab PO SCH (19:26)
[2017-06-03] MEDS: Pantoprazole 40 MG Tab.CR PO SCH (19:27)
[2017-06-03] MEDS: amLODIPine 10 MG Tab PO SCH (19:32)
[2017-06-04] MEDS: Isosorbide Mononitrate 30 MG Tab.ER PO SCH (08:10)
[2017-06-04] MEDS: Aspirin 81 MG Tab.EC PO SCH (08:12)
[2017-06-04] MEDS: Potassium Chloride 10 MEQ Tab.ER PO SCH ×2 (08:12→18:19)
[2017-06-04] MEDS: Calcium Carbonate/Magnesium Oxide/Zinc Oxide Tab PO SCH (08:12)
[2017-06-04] MEDS: Gabapentin 100 MG Cap PO SCH ×2 (08:12→12:25)
[2017-06-04] MEDS: Multivitamin Tab PO SCH (08:13)
[2017-06-04] MEDS: Metoprolol Tartrate 50 MG Tab PO SCH ×2 (08:13→19:51)
[2017-06-04] MEDS: Brimonidine 0.2% Ophth Soln 5 ML Bottle EYERT SCH ×2 (08:14→19:47)
[2017-06-04] MEDS: Allopurinol 300 MG Tab PO SCH (08:14)
[2017-06-04] MEDS: Furosemide 40 MG Tab PO SCH (08:14)
[2017-06-04] MEDS: Timolol Maleate 0.5% Ophth Soln 5 ML Bottle EYEBOTH SCH (08:15)
[2017-06-04] MEDS: Insulin Detemir 100 Units/ML 3 ML Pen SUBCUT SCH (08:16)
[2017-06-04] MEDS: Losartan 100 MG Tab PO SCH (08:25)
[2017-06-04] MEDS: Insulin Aspart 100 Units/ML 3 ML Pen SUBCUT SCH ×4 (08:26→20:46)
[2017-06-04] MEDS: Polyethylene Glycol 3350 Powder 17 GM Packet PO PRN (08:27)
[2017-06-04] MEDS: Warfarin 2 MG Tab PO SCH (12:25)
--- NOTE | 2017-06-04 16:36 | PCM.PN ---
- General Info Date of Service: 06/04/17 Admission Dx/Problem (Free Text): Admission Diagnosis/Problem Admission Diagnosis/Problem Sepsis due to urinary tract infection Functional Status: Reports: pain controlled, tolerating diet, ambulating - Review of Systems General: Reports: Weakness, Fatigue. Denies: Fever HEENT: Denies: ear pain, sinus congestion, rhinitis Pulmonary: Denies: shortness of breath, cough, wheezing Cardiovascular: Denies: Chest Pain, Lightheadedness Gastrointestinal: Denies: Abdominal pain, Nausea, Vomiting Genitourinary: Reports: no symptoms Skin: Reports: bruising Neurological: Reports: Confusion - Patient Data Vitals - most recent: Last Vital Signs Temp 96.7 F 06/04/17 08:00 Pulse 65 06/04/17 08:13 Resp 20 06/04/17 08:00 BP 157/77 H 06/04/17 08:25 Pulse Ox 94 L 06/04/17 08:00 Weight - most recent: 166 lb 6.4 oz Lab Results last 24 hrs: Laboratory Results - last 24 hr 06/03/17 06/03/17 06/04/17 Range/Units 17:12 20:17 07:59 POC Glucose 269 H 194 H 153 H (75-105) mg/dl 06/04/17 Range/Units 11:39 POC Glucose 215 H (75-105) mg/dl Med Orders - Current: Current Medications Acetaminophen (Tylenol) 650 mg PO Q6H PRN PRN Reason: Pain/Fever Last Admin: 05/31/17 18:49 Dose: 650 mg Allopurinol (Zyloprim) 300 mg PO DAILY [facility] Last Admin: 06/04/17 08:14 Dose: 300 mg Amlodipine Besylate (Norvasc) 10 mg PO BEDTIME [facility] Last Admin: 06/03/17 19:32 Dose: 10 mg Aspirin (Halfprin) 81 mg PO DAILY [facility] Last Admin: 06/04/17 08:12 Dose: 81 mg Brimonidine Tartrate (Alphagan 0.2% Oph Soln) 0 ml EYERT BID [facility] Last Admin: 06/04/17 08:14 Dose: 1 drop Calcium/Magnesium/Zinc (Calcium & Magnesium Plus Zinc) 1 tab PO DAILY [facility] Last Admin: 06/04/17 08:12 Dose: 1 tab Furosemide (Lasix) 40 mg PO DAILY [facility] Last Admin: 06/04/17 08:14 Dose: 40 mg Gabapentin (Neurontin) 600 mg PO DAILY@1730 [facility] Last Admin: 06/03/17 17:25 Dose: 600 mg Gabapentin (Neurontin) 100 mg PO BID@0800,1200 [facility] Last Admin: 06/04/17 12:25 Dose: 100 mg Insulin Aspart (Novolog) 0 unit SUBCUT WITHMEALSANDBED [facility] PRN Reason: Protocol Last Admin: 06/04/17 13:20 Dose: Not Given Insulin Detemir (Levemir) 30 unit SUBCUT QAM [facility] Isosorbide Mononitrate (Imdur) 60 mg PO DAILY [facility] Last Admin: 06/04/17 08:10 Dose: 60 mg Latanoprost (Xalatan 0.005% Ophth Soln) 0 ml EYEBOTH BEDTIME [facility] Last Admin: 06/03/17 19:26 Dose: 1 drop Losartan Potassium (Cozaar) 100 mg PO DAILY [facility] Last Admin: 06/04/17 08:25 Dose: 100 mg Metoprolol Tartrate (Lopressor) 50 mg PO BID [facility] Last Admin: 06/04/17 08:13 Dose: 50 mg Multivitamins/Minerals/Vitamin C (Tab-A-Laquita) 1 tab PO DAILY [facility] Last Admin: 06/04/17 08:13 Dose: 1 tab Pantoprazole Sodium (Protonix) 40 mg PO BEDTIME [facility] Last Admin: 06/03/17 19:27 Dose: 40 mg Polyethylene Glycol (Miralax) 17 gm PO DAILY PRN PRN Reason: Constipation Last Admin: 06/04/17 08:27 Dose: 17 gm Potassium Chloride (Klor-Con 10) 20 meq PO BIDMEALS [facility] Last Admin: 06/04/17 08:12 Dose: 20 meq Senna/Docusate Sodium (Senna Plus) 1 tab PO BID PRN PRN Reason: Constipation Sertraline HCl (Zoloft) 75 mg PO BEDTIME [facility] Last Admin: 06/03/17 19:26 Dose: 75 mg Timolol Maleate (Timoptic 0.5% Ophth Soln) 0 ml EYEBOTH DAILY [facility] Last Admin: 06/04/17 08:15 Dose: 1 drop Warfarin Sodium (Coumadin) 4 mg PO DAILY@1200 [facility] Last Admin: 06/04/17 12:25 Dose: 4 mg Discontinued Medications Gabapentin (Neurontin) 900 mg PO 08,12,1730 [facility] Last Admin: 05/25/17 12:38 Dose: 900 mg Gabapentin (Neurontin) 900 mg PO BID@0800,1200 [facility] Last Admin: 05/26/17 12:13 Dose: 900 mg Sodium Chloride (Normal Saline) 1,000 mls @ 75 mls/hr IV ASDIRECTED [facility] Stop: 05/25/17 08:00 Last Admin: 05/25/17 05:54 Dose: 75 mls/hr Insulin Detemir (Levemir) 24 unit SUBCUT QAM [facility] Last Admin: 06/04/17 08:16 Dose: 24 units Lidocaine/Epinephrine (Xylocaine 1% With Epinephrine 1:100,000) 5 ml INJECT ONETIME ONE Stop: 05/24/17 03:33 Last Admin: 05/24/17 04:00 Dose: 5 ml Lidocaine/Epinephrine (Xylocaine 1% With Epinephrine 1:100,000) 20 ml INJECT ONETIME ONE Stop: 05/24/17 03:53 Last Admin: 05/24/17 05:22 Dose: Not Given Scopolamine (Transderm-Scop) 1.5 mg TOP Q72H [facility] Last Admin: 05/25/17 07:57 Dose: 1.5 mg - Exam General: alert, oriented (oriented today; does have periods of confusion and inappropriate answers to questions but that is improving. She is more clear today and yesterday than has been.) HEENT: Mucous membr. moist/pink Neck: supple Lungs: Clear to auscultation Cardiovascular: Regular Rate, Regular Rhythm Abdomen: bowel sounds present, soft, no tenderness - Problem List & Annotations (1) Sepsis due to urinary tract infection SNOMED Code(s): 041965862 Code(s): A41.9 - SEPSIS, UNSPECIFIED ORGANISM; N39.0 - URINARY TRACT INFECTION, SITE NOT SPECIFIED Status: Acute Priority: High Current Visit: Yes (2) Palliative care patient SNOMED Code(s): 446808082 Code(s): Z51.5 - ENCOUNTER FOR PALLIATIVE CARE Status: Acute Priority: High Current Visit: Yes (3) NH, Myocardial infarction SNOMED Code(s): 15779818 Code(s): I21.3 - ST ELEVATION (STEMI) MYOCARDIAL INFARCTION OF [facility] SITE Status: Acute Priority: High Current Visit: Yes (4) CHF (congestive heart failure) SNOMED Code(s): 84363908 Code(s): I50.9 - HEART FAILURE, UNSPECIFIED Status: Chronic Priority: High Current Visit: Yes Qualifiers: Congestive heart failure type: systolic Congestive heart failure chronicity : acute on chronic Qualified Code(s): I50.23 - Acute on chronic systolic ( congestive) heart failure (5) Diabetes SNOMED Code(s): 51233906 Code(s): E11.9 - TYPE 2 DIABETES MELLITUS WITHOUT COMPLICATIONS Status: Chronic Priority: Medium Current Visit: Yes Qualifiers: Diabetes mellitus type: type 2 Diabetes mellitus complication status: with kidney complications Diabetes mellitus complication detail: with other kidney complication Diabetes mellitus exterminator helper insulin use: with long-term use Qualified Code(s): E11.29 - Type 2 diabetes mellitus with other diabetic kidney complication; Z79.4 - long term acute care registered nurse (current) use of insulin - Problem List Review Problem List Initiated/Reviewed/Updated: Yes - My Orders Last 24 Hours: My Active Orders 06/05/17 08:00 Insulin Detemir [Levemir] 30 unit SUBCUT QAM - Assessment Assessment:: Weakness Palliative Care CHF DM type 2 Recent fall - Plan Plan:: 05/24/17 0230 This patient was admitted swing bed. I received a phone call from Niki PROCTOR about this patient this morning. She reports that that patient was in bed, had bed alarm on, and went to get up on her own to use the bathroom. She reports standing out of bed with her feet tangled in blanket and falling to the floor. Niki reports the patient did not have a LOC. She reports the patient is acting how she normally acts. The patient reports headache, neck pain, right upper arm pain from the fall. The patient is alert and oriented. The patient is on coumadin. The patient does have a laceration to the left forehead with swelling and ecchymosis to the left supraorbital region. The patient struggles to open this left eye due to swelling. There is subconjuctival hemorrhage to the left eye. Patient denies loc, n, v. She denies any other symptoms other than headache , left forehead pain, right upper arm pain. Pulses +2, cap refill <2 sec, sensory/motor function intact. Neurovascular intact. I will CT her head, face, neck. I will xray her right arm. I will suture her wound. I will also order a PT /INR to be drawn. 05/24/17 1300 RN Shi reported to me that different family other than Grecia are now here visiting and report the patient is talking about every 3 sentences that does not make sense to the topic they are discussing. RN has made me aware. I have added labs to this patient. Patient is alert and oriented. 05/24/17 1630 I have reviewed labs, her WBC today is 11.9. Last wbc was done 05/18/17 and was 10.2. Her CR today is 1.6, last CR was 0.88 on 05/18/17. The patient is alert and oriented. Easily aroused. Family now reports patient is talking much better and making more sense. The patient head ct discussed with radiologist and shows no acute bleed. I will repeat this ct tomorrow post the 24 hour boris since on coumadin with head injury. Patient has developed racoon eyes. Patient urine is unremarkable. CXR is unremarkable. I will order fluids for rehydration. I believe she has a concussion and is dehydrated. Will repeat labs, head ct tomorrow, and have ordered a urine culture. Patient family has requested more neuro checks for the patient. I have changed them to every 2 hours. 05/25/17 1200 Family is concerned about the intermittent periods of confusion of this patient. I have talked to the patient family. I have educated Grecia of the tests that have been done and Findings. Educated about dehydration and possible patient delirium. She has asked several questions related to when her confusion will go away. I have educated her that I do not have this answer. The patient is scheduled for a repeat head ct now. The patient CR yesterday was 16, today is 1.1. The RN reported that early this morning they heard rales in patient lungs, so fluids were stopped. The lugs are clear now on exam. I will order an ekg. Urine culture shows no growth. I will await the head ct results and call for consultation assistance at [facility] about this patient to see if they have any further recommendations. I will order an MRI on Friday for this patient, this is next available. 05/25/17 1350 The patient repeat head is negative, discussed with radiologist. Patient EKG shows unchanged prolong q waves. CXR shows no iniltrate, no edema, improved from previous. I called and spoke with Dr. Hoff hospitalist at [facility] where the patient was discharged from on the . I have discussed with him the entire patient case, current presentation of the patient with intermittent confusion, labs, every test performed and results, patient fall. He reports that is seems like we have done everything that we are able to do at this time for this patient as far as testing. He reports that this is nothing more at this time that he would order differently. He reports that it sounds like the patient is having delirium. He reports we could taper the dose of gabapentin of this patient. He reports that if she continues to have delirium, Haldol could be given. However, because of her current Q wave prolongation on EKG, this should be held right now. Would have to recheck an EKG later if wanted to give this drug. He reports at this time he would just continue with the Carotid US as ordered, MRI as ordered, and redirect the patient. He reports that holding the coumadin today and yesterday is fine, and giving the patient IV fluids at rehydrated her CR. He reports at this time he would just redirect the patient. I have lowered the dose of the next dose of Gabapentin. We will continue to redirect the patient. 05/25/17 6045 I have talked to Grecia the patient daughter. She reports to me the patient thought she was a different daughter that is . I did educate her on the patient condition of delirium. I educated her of future tests of US of carotids and MRA of the brain. Grecia asks again when her mother will be alert and oriented. I again educated her about delirium and unpredictability associated with her mothers confusion. I did tell the daughter that the patients PCP would be seeing her tomorrow. I explained to the daughter of the consult I called and their recommendation. At this time the patient remains a Full Code. 05-26-2017 see notes above. Did have extensive work up this weekend to look for a source of delirium after her fall. She is more clear this afternoon. Answering questions, aware of concerns this weekend. She is more alert even than this am. FAmily concerned about why developed delirium. She did have CT scans and labs of which were negative. Did review chart with DR. Dukes. Urine clear, WBC normal in comparison to previous. Was started on Scopolamine and large doses of gabapentin in [place]. Will hold the scopolamine and reduce the gabapentin to 100 mg TID and see if she continues to improve as other sources have been ruled out at this point. Family in agreement with this plan. Continue with PT and OT for strengthening. 06-04-2017 Patient slowly improving. Is up and ambulatory with standby assist and walker, strength is improving. Had issues with balance, seems better over the last 2 days. Periods of confusion are less now over the last 2 days, conversation has remained appropriate. Blood sugars have risen some in the afternoons, requiring some additional use of sliding scale. Bruising to face improving. Will increase Levemir to 30 units every day. Continue monitor blood sugars and give additional per sliding scale as needed. Continue with PT. Reassessment done later this week per PT and [place] about [place] ability to return back there. She is ambulating better but does continue to have issues with incontinence. Continue all other orders yet at this time.
[2017-06-04] MEDS: Gabapentin 300 MG Cap PO SCH (18:19)
[2017-06-04] MEDS: amLODIPine 10 MG Tab PO SCH (19:51)
[2017-06-04] MEDS: Pantoprazole 40 MG Tab.CR PO SCH (19:51)
[2017-06-04] MEDS: Sertraline 25 MG Tab PO SCH (19:51)
[2017-06-04] MEDS: Latanoprost 0.005% Ophth Soln 2.5 ML Bottle EYEBOTH SCH (19:52)
[2017-06-05] MEDS: Timolol Maleate 0.5% Ophth Soln 5 ML Bottle EYEBOTH SCH (07:59)
[2017-06-05] MEDS: Calcium Carbonate/Magnesium Oxide/Zinc Oxide Tab PO SCH (08:00)
[2017-06-05] MEDS: Isosorbide Mononitrate 30 MG Tab.ER PO SCH (08:00)
[2017-06-05] MEDS: Aspirin 81 MG Tab.EC PO SCH (08:01)
[2017-06-05] MEDS: Losartan 100 MG Tab PO SCH (08:01)
[2017-06-05] MEDS: Multivitamin Tab PO SCH (08:01)
[2017-06-05] MEDS: Furosemide 40 MG Tab PO SCH (08:02)
[2017-06-05] MEDS: Allopurinol 300 MG Tab PO SCH (08:02)
[2017-06-05] MEDS: Potassium Chloride 10 MEQ Tab.ER PO SCH ×2 (08:02→17:18)
[2017-06-05] MEDS: Gabapentin 100 MG Cap PO SCH ×2 (08:02→11:53)
[2017-06-05] MEDS: Metoprolol Tartrate 50 MG Tab PO SCH ×2 (08:03→19:29)
[2017-06-05] MEDS: Insulin Detemir 100 Units/ML 3 ML Pen SUBCUT SCH (08:04)
[2017-06-05] MEDS: Insulin Aspart 100 Units/ML 3 ML Pen SUBCUT SCH ×4 (08:05→21:07)
[2017-06-05] MEDS: Brimonidine 0.2% Ophth Soln 5 ML Bottle EYERT SCH ×2 (08:05→19:37)
[2017-06-05] MEDS: Warfarin 2 MG Tab PO SCH (11:53)
[2017-06-05] MEDS: Gabapentin 300 MG Cap PO SCH (17:18)
[2017-06-05] MEDS: Acetaminophen 325 MG Tab PO PRN (18:44)
[2017-06-05] MEDS: Pantoprazole 40 MG Tab.CR PO SCH (19:27)
[2017-06-05] MEDS: amLODIPine 10 MG Tab PO SCH (19:27)
[2017-06-05] MEDS: Sertraline 25 MG Tab PO SCH (19:28)
[2017-06-05] MEDS: Latanoprost 0.005% Ophth Soln 2.5 ML Bottle EYEBOTH SCH (19:35)
[2017-06-06] MEDS: Losartan 100 MG Tab PO SCH (07:37)
[2017-06-06] MEDS: Allopurinol 300 MG Tab PO SCH (07:37)
[2017-06-06] MEDS: Brimonidine 0.2% Ophth Soln 5 ML Bottle EYERT SCH ×2 (07:37→20:32)
[2017-06-06] MEDS: Gabapentin 100 MG Cap PO SCH ×2 (07:37→12:06)
[2017-06-06] MEDS: Calcium Carbonate/Magnesium Oxide/Zinc Oxide Tab PO SCH (07:37)
[2017-06-06] MEDS: Potassium Chloride 10 MEQ Tab.ER PO SCH ×2 (07:38→17:31)
[2017-06-06] MEDS: Isosorbide Mononitrate 30 MG Tab.ER PO SCH (07:38)
[2017-06-06] MEDS: Multivitamin Tab PO SCH (07:38)
[2017-06-06] MEDS: Aspirin 81 MG Tab.EC PO SCH (07:38)
[2017-06-06] MEDS: Furosemide 40 MG Tab PO SCH (07:39)
[2017-06-06] MEDS: Insulin Detemir 100 Units/ML 3 ML Pen SUBCUT SCH (07:39)
[2017-06-06] MEDS: Metoprolol Tartrate 50 MG Tab PO SCH ×2 (07:39→20:35)
[2017-06-06] MEDS: Insulin Aspart 100 Units/ML 3 ML Pen SUBCUT SCH ×4 (07:41→20:35)
[2017-06-06] MEDS: Timolol Maleate 0.5% Ophth Soln 5 ML Bottle EYEBOTH SCH (07:42)
[2017-06-06] MEDS: Warfarin 2 MG Tab PO SCH (12:06)
[2017-06-06] MEDS: Gabapentin 300 MG Cap PO SCH (17:32)
[2017-06-06] MEDS: Acetaminophen 325 MG Tab PO PRN (18:35)
[2017-06-06] MEDS: Latanoprost 0.005% Ophth Soln 2.5 ML Bottle EYEBOTH SCH (20:32)
[2017-06-06] MEDS: Sertraline 25 MG Tab PO SCH (20:34)
[2017-06-06] MEDS: amLODIPine 10 MG Tab PO SCH (20:34)
[2017-06-06] MEDS: Pantoprazole 40 MG Tab.CR PO SCH (20:35)
[2017-06-07] MEDS: Calcium Carbonate/Magnesium Oxide/Zinc Oxide Tab PO SCH (08:20)
[2017-06-07] MEDS: Aspirin 81 MG Tab.EC PO SCH (08:20)
[2017-06-07] MEDS: Brimonidine 0.2% Ophth Soln 5 ML Bottle EYERT SCH ×2 (08:20→21:16)
[2017-06-07] MEDS: Allopurinol 300 MG Tab PO SCH (08:21)
[2017-06-07] MEDS: Gabapentin 100 MG Cap PO SCH ×2 (08:21→11:48)
[2017-06-07] MEDS: Furosemide 40 MG Tab PO SCH (08:21)
[2017-06-07] MEDS: Isosorbide Mononitrate 30 MG Tab.ER PO SCH (08:21)
[2017-06-07] MEDS: Multivitamin Tab PO SCH (08:21)
[2017-06-07] MEDS: Metoprolol Tartrate 50 MG Tab PO SCH ×2 (08:21→21:13)
[2017-06-07] MEDS: Losartan 100 MG Tab PO SCH (08:22)
[2017-06-07] MEDS: Potassium Chloride 10 MEQ Tab.ER PO SCH ×2 (08:22→17:29)
[2017-06-07] MEDS: Insulin Aspart 100 Units/ML 3 ML Pen SUBCUT SCH ×4 (08:23→21:23)
[2017-06-07] MEDS: Insulin Detemir 100 Units/ML 3 ML Pen SUBCUT SCH (08:24)
[2017-06-07] MEDS: Timolol Maleate 0.5% Ophth Soln 5 ML Bottle EYEBOTH SCH (08:24)
[2017-06-07] MEDS: Warfarin 2 MG Tab PO SCH (11:48)
[2017-06-07] MEDS: Gabapentin 300 MG Cap PO SCH (17:29)
[2017-06-07] MEDS: Acetaminophen 325 MG Tab PO PRN (18:52)
[2017-06-07] MEDS: Pantoprazole 40 MG Tab.CR PO SCH (21:12)
[2017-06-07] MEDS: amLODIPine 10 MG Tab PO SCH (21:12)
[2017-06-07] MEDS: Latanoprost 0.005% Ophth Soln 2.5 ML Bottle EYEBOTH SCH (21:13)
[2017-06-07] MEDS: Sertraline 25 MG Tab PO SCH (21:13)
[2017-06-08] MEDS: Allopurinol 300 MG Tab PO SCH (08:21)
[2017-06-08] MEDS: Furosemide 40 MG Tab PO SCH (08:21)
[2017-06-08] MEDS: Calcium Carbonate/Magnesium Oxide/Zinc Oxide Tab PO SCH (08:21)
[2017-06-08] MEDS: Aspirin 81 MG Tab.EC PO SCH (08:21)
[2017-06-08] MEDS: Multivitamin Tab PO SCH (08:21)
[2017-06-08] MEDS: Gabapentin 100 MG Cap PO SCH ×2 (08:21→11:00)
[2017-06-08] MEDS: Isosorbide Mononitrate 30 MG Tab.ER PO SCH (08:22)
[2017-06-08] MEDS: Losartan 100 MG Tab PO SCH (08:22)
[2017-06-08] MEDS: Brimonidine 0.2% Ophth Soln 5 ML Bottle EYERT SCH ×2 (08:22→20:14)
[2017-06-08] MEDS: Potassium Chloride 10 MEQ Tab.ER PO SCH ×2 (08:22→17:36)
[2017-06-08] MEDS: Insulin Aspart 100 Units/ML 3 ML Pen SUBCUT SCH ×4 (08:23→20:47)
[2017-06-08] MEDS: Metoprolol Tartrate 50 MG Tab PO SCH ×2 (08:23→20:16)
[2017-06-08] MEDS: Timolol Maleate 0.5% Ophth Soln 5 ML Bottle EYEBOTH SCH (08:28)
[2017-06-08] MEDS: Insulin Detemir 100 Units/ML 3 ML Pen SUBCUT SCH (08:28)
[2017-06-08] MEDS: Ciprofloxacin 500 MG Tab PO SCH ×2 (10:57→18:28)
[2017-06-08] MEDS: Warfarin 2 MG Tab PO SCH (11:00)
[2017-06-08] MEDS: Gabapentin 300 MG Cap PO SCH (17:36)
[2017-06-08] MEDS: Acetaminophen 325 MG Tab PO PRN (18:28)
[2017-06-08] MEDS: Latanoprost 0.005% Ophth Soln 2.5 ML Bottle EYEBOTH SCH (20:14)
[2017-06-08] MEDS: amLODIPine 10 MG Tab PO SCH (20:16)
[2017-06-08] MEDS: Pantoprazole 40 MG Tab.CR PO SCH (20:16)
[2017-06-08] MEDS: Sertraline 25 MG Tab PO SCH (20:17)
[2017-06-09] MEDS: Ciprofloxacin 500 MG Tab PO SCH (06:43)
[2017-06-09] MEDS: Calcium Carbonate/Magnesium Oxide/Zinc Oxide Tab PO SCH (08:21)
[2017-06-09] MEDS: Allopurinol 300 MG Tab PO SCH (08:21)
[2017-06-09] MEDS: Isosorbide Mononitrate 30 MG Tab.ER PO SCH (08:21)
[2017-06-09] MEDS: Potassium Chloride 10 MEQ Tab.ER PO SCH ×2 (08:22→17:30)
[2017-06-09] MEDS: Gabapentin 100 MG Cap PO SCH ×2 (08:22→12:11)
[2017-06-09] MEDS: Furosemide 40 MG Tab PO SCH (08:22)
[2017-06-09] MEDS: Metoprolol Tartrate 50 MG Tab PO SCH ×2 (08:22→19:47)
[2017-06-09] MEDS: Aspirin 81 MG Tab.EC PO SCH (08:22)
[2017-06-09] MEDS: Multivitamin Tab PO SCH (08:22)
[2017-06-09] MEDS: Losartan 100 MG Tab PO SCH (08:22)
[2017-06-09] MEDS: Timolol Maleate 0.5% Ophth Soln 5 ML Bottle EYEBOTH SCH (08:24)
[2017-06-09] MEDS: Brimonidine 0.2% Ophth Soln 5 ML Bottle EYERT SCH ×2 (08:25→19:45)
[2017-06-09] MEDS: Insulin Detemir 100 Units/ML 3 ML Pen SUBCUT SCH (08:25)
[2017-06-09] MEDS: Insulin Aspart 100 Units/ML 3 ML Pen SUBCUT SCH ×4 (08:25→20:32)
[2017-06-09] MEDS ORDERED: Sodium Chloride 0.9% 10 ML Syringe FLUSH PRN (10:31)
[2017-06-09] MEDS: cefTRIAXone 1 GM Vial IVPUSH SCH (10:47)
[2017-06-09] MEDS: Gabapentin 300 MG Cap PO SCH (17:30)
[2017-06-09] MEDS: Sertraline 25 MG Tab PO SCH (19:45)
[2017-06-09] MEDS: Latanoprost 0.005% Ophth Soln 2.5 ML Bottle EYEBOTH SCH (19:45)
[2017-06-09] MEDS: Pantoprazole 40 MG Tab.CR PO SCH (19:46)
[2017-06-09] MEDS: Acetaminophen 325 MG Tab PO PRN (19:46)
[2017-06-09] MEDS: amLODIPine 10 MG Tab PO SCH (19:46)
[2017-06-10] MEDS: cefTRIAXone 1 GM Vial IVPUSH SCH (07:58)
[2017-06-10] MEDS: Brimonidine 0.2% Ophth Soln 5 ML Bottle EYERT SCH ×2 (08:07→19:58)
[2017-06-10] MEDS: Insulin Detemir 100 Units/ML 3 ML Pen SUBCUT SCH (08:08)
[2017-06-10] MEDS: Multivitamin Tab PO SCH (08:10)
[2017-06-10] MEDS: Potassium Chloride 10 MEQ Tab.ER PO SCH ×2 (08:10→17:43)
[2017-06-10] MEDS: Furosemide 40 MG Tab PO SCH (08:10)
[2017-06-10] MEDS: Gabapentin 100 MG Cap PO SCH ×2 (08:11→12:09)
[2017-06-10] MEDS: Aspirin 81 MG Tab.EC PO SCH (08:11)
[2017-06-10] MEDS: Calcium Carbonate/Magnesium Oxide/Zinc Oxide Tab PO SCH (08:12)
[2017-06-10] MEDS: Losartan 100 MG Tab PO SCH (08:12)
[2017-06-10] MEDS: Isosorbide Mononitrate 30 MG Tab.ER PO SCH (08:12)
[2017-06-10] MEDS: Metoprolol Tartrate 50 MG Tab PO SCH ×2 (08:12→20:02)
[2017-06-10] MEDS: Insulin Aspart 100 Units/ML 3 ML Pen SUBCUT SCH ×4 (08:13→20:44)
[2017-06-10] MEDS: Allopurinol 300 MG Tab PO SCH (08:13)
[2017-06-10] MEDS: Timolol Maleate 0.5% Ophth Soln 5 ML Bottle EYEBOTH SCH (09:15)
[2017-06-10] MEDS: Gabapentin 300 MG Cap PO SCH (17:44)
[2017-06-10] MEDS: Latanoprost 0.005% Ophth Soln 2.5 ML Bottle EYEBOTH SCH (19:58)
[2017-06-10] MEDS: Pantoprazole 40 MG Tab.CR PO SCH (20:00)
[2017-06-10] MEDS: Sertraline 25 MG Tab PO SCH (20:00)
[2017-06-10] MEDS: amLODIPine 10 MG Tab PO SCH (20:00)
[2017-06-11] MEDS: Acetaminophen 325 MG Tab PO PRN (04:00)
[2017-06-11] MEDS: Aspirin 81 MG Tab.EC PO SCH (08:26)
[2017-06-11] MEDS: Losartan 100 MG Tab PO SCH (08:26)
[2017-06-11] MEDS: Calcium Carbonate/Magnesium Oxide/Zinc Oxide Tab PO SCH (08:26)
[2017-06-11] MEDS: Isosorbide Mononitrate 30 MG Tab.ER PO SCH (08:26)
[2017-06-11] MEDS: Potassium Chloride 10 MEQ Tab.ER PO SCH ×2 (08:27→17:14)
[2017-06-11] MEDS: Furosemide 40 MG Tab PO SCH (08:27)
[2017-06-11] MEDS: Gabapentin 100 MG Cap PO SCH ×2 (08:28→11:44)
[2017-06-11] MEDS: Metoprolol Tartrate 50 MG Tab PO SCH ×2 (08:28→20:32)
[2017-06-11] MEDS: Allopurinol 300 MG Tab PO SCH (08:28)
[2017-06-11] MEDS: Multivitamin Tab PO SCH (08:28)
[2017-06-11] MEDS: cefTRIAXone 1 GM Vial IVPUSH SCH (08:29)
[2017-06-11] MEDS: Timolol Maleate 0.5% Ophth Soln 5 ML Bottle EYEBOTH SCH (08:35)
[2017-06-11] MEDS: Brimonidine 0.2% Ophth Soln 5 ML Bottle EYERT SCH ×2 (08:35→20:31)
[2017-06-11] MEDS: Insulin Aspart 100 Units/ML 3 ML Pen SUBCUT SCH ×4 (08:36→21:39)
[2017-06-11] MEDS: Insulin Detemir 100 Units/ML 3 ML Pen SUBCUT SCH (08:37)
[2017-06-11] MEDS: Gabapentin 300 MG Cap PO SCH (17:14)
[2017-06-11] MEDS: Sertraline 25 MG Tab PO SCH (20:31)
[2017-06-11] MEDS: Pantoprazole 40 MG Tab.CR PO SCH (20:32)
[2017-06-11] MEDS: amLODIPine 10 MG Tab PO SCH (20:32)
[2017-06-11] MEDS: Latanoprost 0.005% Ophth Soln 2.5 ML Bottle EYEBOTH SCH (20:33)
[2017-06-12] MEDS: Brimonidine 0.2% Ophth Soln 5 ML Bottle EYERT SCH ×2 (08:19→19:27)
[2017-06-12] MEDS: cefTRIAXone 1 GM Vial IVPUSH SCH (08:21)
[2017-06-12] MEDS: Insulin Detemir 100 Units/ML 3 ML Pen SUBCUT SCH (08:30)
[2017-06-12] MEDS: Losartan 100 MG Tab PO SCH (08:32)
[2017-06-12] MEDS: Gabapentin 100 MG Cap PO SCH ×2 (08:33→11:54)
[2017-06-12] MEDS: Multivitamin Tab PO SCH (08:33)
[2017-06-12] MEDS: Allopurinol 300 MG Tab PO SCH (08:33)
[2017-06-12] MEDS: Potassium Chloride 10 MEQ Tab.ER PO SCH ×2 (08:33→17:39)
[2017-06-12] MEDS: Aspirin 81 MG Tab.EC PO SCH (08:33)
[2017-06-12] MEDS: Calcium Carbonate/Magnesium Oxide/Zinc Oxide Tab PO SCH (08:34)
[2017-06-12] MEDS: Isosorbide Mononitrate 30 MG Tab.ER PO SCH (08:34)
[2017-06-12] MEDS: Metoprolol Tartrate 50 MG Tab PO SCH ×2 (08:34→19:27)
[2017-06-12] MEDS: Furosemide 40 MG Tab PO SCH (08:35)
[2017-06-12] MEDS: Timolol Maleate 0.5% Ophth Soln 5 ML Bottle EYEBOTH SCH (08:35)
[2017-06-12] MEDS: Insulin Aspart 100 Units/ML 3 ML Pen SUBCUT SCH ×4 (08:38→20:09)
[2017-06-12] MEDS: Gabapentin 300 MG Cap PO SCH (17:40)
[2017-06-12] MEDS: Pantoprazole 40 MG Tab.CR PO SCH (19:27)
[2017-06-12] MEDS: amLODIPine 10 MG Tab PO SCH (19:27)
[2017-06-12] MEDS: Sertraline 25 MG Tab PO SCH (19:28)
[2017-06-12] MEDS: Latanoprost 0.005% Ophth Soln 2.5 ML Bottle EYEBOTH SCH (19:42)
[2017-06-13] MEDS: cefTRIAXone 1 GM Vial IVPUSH SCH (09:26)
[2017-06-13] MEDS: Potassium Chloride 10 MEQ Tab.ER PO SCH ×2 (09:30→17:13)
[2017-06-13] MEDS: Calcium Carbonate/Magnesium Oxide/Zinc Oxide Tab PO SCH (09:30)
[2017-06-13] MEDS: Aspirin 81 MG Tab.EC PO SCH (09:31)
[2017-06-13] MEDS: Furosemide 40 MG Tab PO SCH (09:31)
[2017-06-13] MEDS: Gabapentin 100 MG Cap PO SCH ×2 (09:31→12:09)
[2017-06-13] MEDS: Multivitamin Tab PO SCH (09:32)
[2017-06-13] MEDS: Allopurinol 300 MG Tab PO SCH (09:32)
[2017-06-13] MEDS: Losartan 100 MG Tab PO SCH (09:35)
[2017-06-13] MEDS: Isosorbide Mononitrate 30 MG Tab.ER PO SCH (09:35)
[2017-06-13] MEDS: Metoprolol Tartrate 50 MG Tab PO SCH ×3 (09:36→20:29)
[2017-06-13] MEDS: Brimonidine 0.2% Ophth Soln 5 ML Bottle EYERT SCH ×3 (09:40→20:14)
[2017-06-13] MEDS: Insulin Aspart 100 Units/ML 3 ML Pen SUBCUT SCH ×4 (09:41→20:28)
[2017-06-13] MEDS: Insulin Detemir 100 Units/ML 3 ML Pen SUBCUT SCH (09:42)
[2017-06-13] MEDS: Timolol Maleate 0.5% Ophth Soln 5 ML Bottle EYEBOTH SCH (09:42)
[2017-06-13] MEDS: Gabapentin 300 MG Cap PO SCH (17:14)
[2017-06-13] MEDS: Acetaminophen 325 MG Tab PO PRN (19:04)
[2017-06-13] MEDS: Sertraline 25 MG Tab PO SCH ×2 (20:07→20:30)
[2017-06-13] MEDS: Pantoprazole 40 MG Tab.CR PO SCH ×2 (20:08→20:30)
[2017-06-13] MEDS: Latanoprost 0.005% Ophth Soln 2.5 ML Bottle EYEBOTH SCH ×3 (20:09→20:30)
[2017-06-13] MEDS: amLODIPine 10 MG Tab PO SCH ×2 (20:17→20:30)
[2017-06-14] MEDS: cefTRIAXone 1 GM Vial IVPUSH SCH (08:57)
[2017-06-14] MEDS: Acetaminophen 325 MG Tab PO PRN (08:57)
[2017-06-14] MEDS: Calcium Carbonate/Magnesium Oxide/Zinc Oxide Tab PO SCH (09:07)
[2017-06-14] MEDS: Multivitamin Tab PO SCH (09:07)
[2017-06-14] MEDS: Timolol Maleate 0.5% Ophth Soln 5 ML Bottle EYEBOTH SCH (09:08)
[2017-06-14] MEDS: Brimonidine 0.2% Ophth Soln 5 ML Bottle EYERT SCH ×2 (09:08→19:27)
[2017-06-14] MEDS: Potassium Chloride 10 MEQ Tab.ER PO SCH ×2 (09:09→17:19)
[2017-06-14] MEDS: Isosorbide Mononitrate 30 MG Tab.ER PO SCH (09:09)
[2017-06-14] MEDS: Aspirin 81 MG Tab.EC PO SCH (09:09)
[2017-06-14] MEDS: Metoprolol Tartrate 50 MG Tab PO SCH ×2 (09:09→22:11)
[2017-06-14] MEDS: Gabapentin 100 MG Cap PO SCH ×2 (09:09→11:56)
[2017-06-14] MEDS: Furosemide 40 MG Tab PO SCH (09:10)
[2017-06-14] MEDS: Losartan 100 MG Tab PO SCH (09:10)
[2017-06-14] MEDS: Allopurinol 300 MG Tab PO SCH (09:10)
[2017-06-14] MEDS: Insulin Aspart 100 Units/ML 3 ML Pen SUBCUT SCH ×4 (09:13→22:11)
[2017-06-14] MEDS: Insulin Detemir 100 Units/ML 3 ML Pen SUBCUT SCH (09:14)
[2017-06-14] MEDS: Gabapentin 300 MG Cap PO SCH (17:19)
[2017-06-14] MEDS: Pantoprazole 40 MG Tab.CR PO SCH (22:11)
[2017-06-14] MEDS: amLODIPine 10 MG Tab PO SCH (22:11)
[2017-06-14] MEDS: Sertraline 25 MG Tab PO SCH (22:11)
[2017-06-14] MEDS: Latanoprost 0.005% Ophth Soln 2.5 ML Bottle EYEBOTH SCH (22:11)
[2017-06-15] MEDS: Brimonidine 0.2% Ophth Soln 5 ML Bottle EYERT SCH ×2 (08:11→20:07)
[2017-06-15] MEDS: Timolol Maleate 0.5% Ophth Soln 5 ML Bottle EYEBOTH SCH (08:11)
[2017-06-15] MEDS: Insulin Detemir 100 Units/ML 3 ML Pen SUBCUT SCH (08:13)
[2017-06-15] MEDS: cefTRIAXone 1 GM Vial IVPUSH SCH (08:20)
[2017-06-15] MEDS: Multivitamin Tab PO SCH (08:30)
[2017-06-15] MEDS: Gabapentin 100 MG Cap PO SCH ×2 (08:30→12:17)
[2017-06-15] MEDS: Calcium Carbonate/Magnesium Oxide/Zinc Oxide Tab PO SCH (08:30)
[2017-06-15] MEDS: Furosemide 40 MG Tab PO SCH (08:30)
[2017-06-15] MEDS: Metoprolol Tartrate 50 MG Tab PO SCH ×2 (08:30→20:10)
[2017-06-15] MEDS: Losartan 100 MG Tab PO SCH (08:30)
[2017-06-15] MEDS: Isosorbide Mononitrate 30 MG Tab.ER PO SCH (08:30)
[2017-06-15] MEDS: Allopurinol 300 MG Tab PO SCH (08:30)
[2017-06-15] MEDS: Aspirin 81 MG Tab.EC PO SCH (08:30)
[2017-06-15] MEDS: Potassium Chloride 10 MEQ Tab.ER PO SCH ×2 (08:31→17:37)
[2017-06-15] MEDS: Insulin Aspart 100 Units/ML 3 ML Pen SUBCUT SCH ×4 (08:32→20:21)
[2017-06-15] MEDS: Gabapentin 300 MG Cap PO SCH (17:37)
[2017-06-15] MEDS: amLODIPine 10 MG Tab PO SCH (20:08)
[2017-06-15] MEDS: Sertraline 25 MG Tab PO SCH (20:09)
[2017-06-15] MEDS: Pantoprazole 40 MG Tab.CR PO SCH (20:09)
[2017-06-15] MEDS: Latanoprost 0.005% Ophth Soln 2.5 ML Bottle EYEBOTH SCH (20:11)
[2017-06-16] MEDS: Losartan 100 MG Tab PO SCH (08:26)
[2017-06-16] MEDS: Calcium Carbonate/Magnesium Oxide/Zinc Oxide Tab PO SCH (08:26)
[2017-06-16] MEDS: Metoprolol Tartrate 50 MG Tab PO SCH (08:26)
[2017-06-16] MEDS: Allopurinol 300 MG Tab PO SCH (08:27)
[2017-06-16] MEDS: Isosorbide Mononitrate 30 MG Tab.ER PO SCH (08:27)
[2017-06-16] MEDS: cefTRIAXone 1 GM Vial IVPUSH SCH (08:27)
[2017-06-16] MEDS: Aspirin 81 MG Tab.EC PO SCH (08:27)
[2017-06-16] MEDS: Multivitamin Tab PO SCH (08:27)
[2017-06-16] MEDS: Gabapentin 100 MG Cap PO SCH ×2 (08:27→11:53)
[2017-06-16] MEDS: Potassium Chloride 10 MEQ Tab.ER PO SCH (08:27)
[2017-06-16] MEDS: Furosemide 40 MG Tab PO SCH (08:27)
[2017-06-16 08:28] VITALS: BP 171/71
[2017-06-16] MEDS: Insulin Detemir 100 Units/ML 3 ML Pen SUBCUT SCH (08:31)
[2017-06-16] MEDS: Insulin Aspart 100 Units/ML 3 ML Pen SUBCUT SCH ×2 (08:32→11:53)
[2017-06-16] MEDS: Brimonidine 0.2% Ophth Soln 5 ML Bottle EYERT SCH (08:32)
[2017-06-16] MEDS: Timolol Maleate 0.5% Ophth Soln 5 ML Bottle EYEBOTH SCH (09:21)
--- NOTE | 2017-06-16 21:31 | PCM.DCSUM1 ---
Discharge Summary - Hospital Course Free Text/Narrative:: Patient initially admitted to swing bed after inpatient stay in [place] for a urosepsis, AR, CHF, altered mental status. She was treated in [place] with IV Vanco and Rocephin. Urine did grow out pseudomonas. Patient was medically followed for the AR, no surgical intervention. They did increase her ImDur due to hypertension. Had held her Lasix initially due to dehydration but was added back as she did develop crackles. 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 [place] her mental status was due somewhat due to her depression. Her mental status did improve over her time there. Staff and family there did feel that would improve after returning back to [place]. Transferred back here for ongoing medical monitoring, PT. - Discharge Data Discharge Date: 06/16/17 Discharge Disposition: Home, Home Health Agency 06 Condition: Fair - Discharge Diagnosis/Problem(s) (1) Sepsis due to urinary tract infection SNOMED Code(s): 785551070 ICD Code: A41.9 - SEPSIS, UNSPECIFIED ORGANISM; N39.0 - URINARY TRACT INFECTION, SITE NOT SPECIFIED Status: Acute Priority: High (2) Palliative care patient SNOMED Code(s): 608088280 ICD Code: Z51.5 - ENCOUNTER FOR PALLIATIVE CARE Status: Acute Priority: High (3) AR, Myocardial infarction SNOMED Code(s): 83183267 ICD Code: I21.3 - ST ELEVATION (STEMI) MYOCARDIAL INFARCTION OF [facility] SITE Status: Acute Priority: High (4) CHF (congestive heart failure) SNOMED Code(s): 25806641 ICD Code: I50.9 - HEART FAILURE, UNSPECIFIED Status: Chronic Priority: High Qualifiers: Qualified Code(s): I50.23 - Acute on chronic systolic (congestive) heart failure (5) Diabetes SNOMED Code(s): 50931387 ICD Code: E11.9 - TYPE 2 DIABETES MELLITUS WITHOUT COMPLICATIONS Status: Chronic Priority: Medium Qualifiers: Qualified Code(s): E11.29 - Type 2 diabetes mellitus with other diabetic kidney complication; 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 Had significant bruising to her face. CT scans were negative for any bleeding or changes. MRI negative as well. Continues to have ongoing issues with confusion at times but reorients easily. Consults: Consultations 05/21/17 14:15 OT Evaluation and Treatment [CONS] Routine PT Evaluation and Treatment [CONS] Routine Hospital Course: Had slow improvement of overall status from admission. Initially required 2 for any transfers with walker. Did fall, suffered a concussion and did have more issues with mental status changes. CT scans and MRI have ruled out CVA or bleed. Also was found to have a UTI, was started on Rocephin and did improve. Progress with ambulation has been slow but did steadily improve to the point where she is able to ambulate in the room and halls with walker per self. Doing own cares. Has been refusing much of sliding scale insulin. Levemir dose increased to 30 units and blood sugars more in control. Later in her stay , was again found to have a UTI as was checked due to change in mental status. She was initially started on Cipro but switched to Rocephin. INR increased so Coumadin was held. Coumadin dose restarted at 3 mg, is yet to be therapeutic after being held. Will recheck this per home health on . Repeat urine was done and leukocytes were negative, occasional bacteria but will do a culture as has been on antibiotics for 9 days. Was started on potassium during her stay here. K+ 4.5. Will continue and recheck panel [address] Dukes next week. - Patient Instructions Diet: Diabetic Diet Activity: As Tolerated Other/Special Instructions: Home Health to follow for PT and OT, nursing to monitor tremors, weakness, and mental status due to falls, CAD. Dr. Dukes to oversee home health care. Patient is homebound due to weakness. - Discharge Plan Prescriptions/Med Rec: Gabapentin [Neurontin] 100 mg PO BID@0800,1200 #60 cap Gabapentin [Neurontin] 300 mg PO 1730 #30 cap Insulin Detemir [Levemir] 30 unit SUBCUT QAM #1 pen Potassium Chloride [Klor-Con 10] 20 meq PO BIDMEALS #60 tab.er Warfarin Sodium 3 mg PO DAILY #30 tablet Home Medications: Home Meds Furosemide 40 mg PO DAILY 02/13/15 [History] Latanoprost [Xalatan 0.005% Ophth Soln] 1 drop EYEBOTH BEDTIME 02/13/15 [History ] Losartan [Cozaar] 100 mg PO DAILY 02/13/15 [History] Metoprolol Tartrate 50 mg PO BID 02/13/15 [History] Multivitamin with Minerals [Multiple Vitamin] 1 tab PO DAILY 02/13/15 [History] Omeprazole 20 mg PO BEDTIME 02/13/15 [History] amLODIPine [Norvasc] 10 mg PO BEDTIME 02/13/15 [History] Allopurinol [Zyloprim] 300 mg PO DAILY tablet 02/17/15 [Rx] Aspirin [Halfprin] 81 mg PO DAILY 09/22/15 [History] Sertraline [Zoloft] 75 mg PO BEDTIME 12/07/16 [History] Acetaminophen [Tylenol] 650 mg PO Q6H PRN 01/16/17 [History] Brimonidine Tartrate [Alphagan P 0.1% Ophth Soln] 1 drop EYERT BID 04/04/17 [ History] Timolol Maleate [Timoptic 0.5% Ophth Soln] 1 drop EYEBOTH DAILY 04/04/17 [ History] Calcium/Magnesium/Zinc [Calcium & Magnesium plus Zinc] 1 tab PO DAILY 05/21/17 [ History] Insulin Aspart [NovoLOG] 4 - 8 unit SUBCUT QIDACANDBED 05/21/17 [History] Isosorbide Mononitrate [Imdur] 60 mg PO DAILY 05/21/17 [History] Polyethylene Glycol 3350 [MiraLAX] 17 gm PO DAILY PRN 05/21/17 [History] Sennosides/Docusate Sodium [Senna-Docusate Sodium Tablet] 1 tab PO BID PRN 05/21 [History] Gabapentin [Neurontin] 100 mg PO BID@0800,1200 #60 cap 06/16/17 [Rx] Gabapentin [Neurontin] 300 mg PO 1730 #30 cap 06/16/17 [Rx] Insulin Detemir [Levemir] 30 unit SUBCUT QAM #1 pen 06/16/17 [Rx] Potassium Chloride [Klor-Con 10] 20 meq PO BIDMEALS #60 tab.er 06/16/17 [Rx] Warfarin Sodium 3 mg PO DAILY #30 tablet 06/16/17 [Rx] Referrals: Samuel Dukes MD [Primary Care Provider] - (Follow up in one week with Dr. Dukes ) - General Info Date of Service: 06/16/17 Admission Dx/Problem (Free Text: Admission Diagnosis/Problem Admission Diagnosis/Problem Sepsis due to urinary tract infection Functional Status: Reports: pain controlled, tolerating diet, ambulating - Review of Systems General: Reports: Weakness. Denies: Fever, Fatigue HEENT: Reports: no symptoms Pulmonary: Denies: shortness of breath Cardiovascular: Denies: Chest Pain, Edema, Lightheadedness Gastrointestinal: Denies: Abdominal pain, Nausea, Vomiting Genitourinary: Reports: frequency, incontinence Musculoskeletal: Reports: no symptoms Skin: Reports: bruising (improving) Neurological: Reports: No Symptoms Psychiatric: Reports: confusion (at times) - Patient Data Vitals - Most Recent: Last Vital Signs Temp 99.0 F 06/16/17 08:00 Pulse 72 06/16/17 08:26 Resp 18 06/16/17 08:00 BP 171/71 H 06/16/17 08:27 Pulse Ox 94 L 06/16/17 08:00 Weight - Most Recent: 177 lb 1.6 oz Lab Results - Last 24 hrs: Laboratory Results - last 24 hr 06/16/17 06/16/17 06/16/17 Range/Units 06:50 06:50 07:46 PT 16.1 H (9.7-12.3) SEC INR 1.47 H (0.92-1.18) Sodium 141 (136-145) mEq/L Potassium 4.5 (3.5-5.0) mEq/L Chloride 107 H (98-106) mEq/L Carbon Dioxide 27 (21-32) mmol/L BUN 26 H (7-18) mg/dL Creatinine 1.1 H (0.6-1.0) mg/dL Est Cr Clr Drug Dosing 33.18 mL/min Estimated GFR (MDRD) 48 L (>=60) mL/min Glucose 79 (75-99) mg/dL POC Glucose 93 (75-105) mg/dl Calcium 8.8 (8.4-10.1) mg/dL Urine Color (YELLOW) Urine Appearance (CLEAR) Urine pH (4.5-8.0) Ur Specific [place] (1.003-1.020) Urine Protein (NEGATIVE) mg/dL Urine Glucose (UA) (NEGATIVE) mg/dL Urine Ketones (NEGATIVE) mg/dL Urine Occult Blood (NEGATIVE) Urine Nitrite (NEGATIVE) Urine Bilirubin (NEGATIVE) Urine Urobilinogen (0.2-1.0) EU/dL Ur Leukocyte Esterase (NEGATIVE) Urine RBC (0-5) /HPF Urine WBC (0-5) /HPF Ur Epithelial Cells (NOT SEEN) /HPF Urine Bacteria (NOT SEEN) /HPF 06/16/17 06/16/17 Range/Units 10:35 11:36 PT (9.7-12.3) SEC INR (0.92-1.18) Sodium (136-145) mEq/L Potassium (3.5-5.0) mEq/L Chloride (98-106) mEq/L Carbon Dioxide (21-32) mmol/L BUN (7-18) mg/dL Creatinine (0.6-1.0) mg/dL Est Cr Clr Drug Dosing mL/min Estimated GFR (MDRD) (>=60) mL/min Glucose (75-99) mg/dL POC Glucose 192 H (75-105) mg/dl Calcium (8.4-10.1) mg/dL Urine Color Yellow (YELLOW) Urine Appearance Clear (CLEAR) Urine pH 7.0 (4.5-8.0) Ur Specific [place] 1.013 (1.003-1.020) Urine Protein >=300 H (NEGATIVE) mg/dL Urine Glucose (UA) Negative (NEGATIVE) mg/dL Urine Ketones Negative (NEGATIVE) mg/dL Urine Occult Blood Trace-intact H (NEGATIVE) Urine Nitrite Negative (NEGATIVE) Urine Bilirubin Negative (NEGATIVE) Urine Urobilinogen 0.2 (0.2-1.0) EU/dL Ur Leukocyte Esterase Negative (NEGATIVE) Urine RBC Not seen (0-5) /HPF Urine WBC 10-20 H (0-5) /HPF Ur Epithelial Cells Few H (NOT SEEN) /HPF Urine Bacteria Moderate H (NOT SEEN) /HPF Med Orders - Current: Current Medications Discontinued Medications Acetaminophen (Tylenol) 650 mg PO Q6H PRN PRN Reason: Pain/Fever Last Admin: 06/14/17 08:57 Dose: 650 mg Allopurinol (Zyloprim) 300 mg PO DAILY [facility] Last Admin: 06/16/17 08:27 Dose: 300 mg Amlodipine Besylate (Norvasc) 10 mg PO BEDTIME [facility] Last Admin: 06/15/17 20:08 Dose: 10 mg Aspirin (Halfprin) 81 mg PO DAILY [facility] Last Admin: 06/16/17 08:27 Dose: 81 mg Brimonidine Tartrate (Alphagan 0.2% Ophth Soln) 0 ml EYERT BID [facility] Last Admin: 06/16/17 08:32 Dose: 1 drop Calcium/Magnesium/Zinc (Calcium & Magnesium Plus Zinc) 1 tab PO DAILY [facility] Last Admin: 06/16/17 08:26 Dose: 1 tab Ceftriaxone Sodium (Rocephin) 1 gm IVPUSH Q24H [facility] Last Admin: 06/16/17 08:27 Dose: 1 gm Ciprofloxacin (Ciprofloxacin Hcl) 500 mg PO BID@0700,1900 [facility] Stop: 06/15/17 08:00 Last Admin: 06/09/17 06:43 Dose: 500 mg Furosemide (Lasix) 40 mg PO DAILY [facility] Last Admin: 06/16/17 08:27 Dose: 40 mg Gabapentin (Neurontin) 900 mg PO 08,12,1730 [facility] Last Admin: 05/25/17 12:38 Dose: 900 mg Gabapentin (Neurontin) 600 mg PO DAILY@1730 [facility] Last Admin: 06/11/17 17:14 Dose: 600 mg Gabapentin (Neurontin) 900 mg PO BID@0800,1200 [facility] Last Admin: 05/26/17 12:13 Dose: 900 mg Gabapentin (Neurontin) 100 mg PO BID@0800,1200 [facility] Last Admin: 06/16/17 11:53 Dose: 100 mg Gabapentin (Neurontin) 300 mg PO 1730 [facility] Last Admin: 06/15/17 17:37 Dose: 300 mg Sodium Chloride (Normal Saline) 1,000 mls @ 75 mls/hr IV ASDIRECTED [facility] Stop: 05/25/17 08:00 Last Admin: 05/25/17 05:54 Dose: 75 mls/hr Insulin Aspart (Novolog) 0 unit SUBCUT WITHMEALSANDBED [facility] PRN Reason: Protocol Last Admin: 06/16/17 11:53 Dose: Not Given Insulin [facility]em[facility] ([facility]) [facility] Last Admin: 06/04/17 08:16 Dose: 24 units Insulin Detemir (Levemir) [facility] Last Admin: 06/16/17 08:31 Dose: 30 unit Isosorbide Mononitrate (Imdur) 60 mg PO DAILY [facility] Last Admin: 06/16/17 08:27 Dose: 60 mg Latanoprost (Xalatan 0.005% Ophth Soln) 0 ml EYEBOTH BEDTIME [facility] Last Admin: 06/15/17 20:11 Dose: 1 drop Lidocaine/Epinephrine (Xylocaine 1% With Epinephrine 1:100,000) 5 ml INJECT ONETIME ONE Stop: 05/24/17 03:33 Last Admin: 05/24/17 04:00 Dose: 5 ml Lidocaine/Epinephrine (Xylocaine 1% With Epinephrine 1:100,000) 20 ml INJECT ONETIME ONE Stop: 05/24/17 03:53 Last Admin: 05/24/17 05:22 Dose: Not Given Losartan Potassium (Cozaar) 100 mg PO DAILY [facility] Last Admin: 06/16/17 08:26 Dose: 100 mg Metoprolol Tartrate (Lopressor) 50 mg PO BID [facility] Last Admin: 06/16/17 08:26 Dose: 50 mg Multivitamins/Minerals/Vitamin C (Tab-A-Laquita) 1 tab PO DAILY [facility] Last Admin: 06/16/17 08:27 Dose: 1 tab Pantoprazole Sodium (Protonix) 40 mg PO BEDTIME [facility] Last Admin: 06/15/17 20:09 Dose: 40 mg Polyethylene Glycol (Miralax) 17 gm PO DAILY PRN PRN Reason: Constipation Last Admin: 06/04/17 08:27 Dose: 17 gm Potassium Chloride (Klor-Con 10) 20 meq PO BIDMEALS [facility] Last Admin: 06/16/17 08:27 Dose: 20 meq Scopolamine (Transderm-Scop) 1.5 mg TOP Q72H [facility] Last Admin: 05/25/17 07:57 Dose: 1.5 mg Senna/Docusate Sodium (Senna Plus) 1 tab PO BID PRN PRN Reason: Constipation Sertraline HCl (Zoloft) 75 mg PO BEDTIME [facility] Last Admin: 06/15/17 20:09 Dose: 75 mg Sodium Chloride (Saline Flush) 10 ml FLUSH ASDIRECTED PRN PRN Reason: Keep Vein Open Timolol Maleate (Timoptic 0.5% Ophth Soln) 0 ml EYEBOTH DAILY [facility] Last Admin: 06/16/17 09:21 Dose: 1 drop Warfarin Sodium (Coumadin) 4 mg PO DAILY@1200 [facility] Last Admin: 06/08/17 11:00 Dose: 4 mg Warfarin Sodium (Coumadin) 3 mg PO DAILY [facility] Last Admin: 06/16/17 08:26 Dose: 3 mg - Exam General: Reports: alert, oriented HEENT: Reports: Mucous membr. moist/pink Neck: Reports: supple Lungs: Reports: Clear to auscultation, Normal respiratory effort Cardiovascular: Reports: Regular Rate, Regular Rhythm Abdomen: Reports: bowel sounds present, soft, no tenderness Skin: Reports: warm, dry Wound/Incisions: Reports: other (abrasions and bruising much improved to face, nearly resolved) Neurological: Reports: no new focal deficit *Q Meaningful Use (DIS) - VTE *Q VTE Criteria *Q: - Stroke *Q Stroke Criteria *Q: - AMI *Q AMI Criteria *Q:
== END 2017-06-16 13:30 | disposition home health service (06) | DRG 947 ==
LOC: CC.MS 13:31 → UNDOADMIN 13:31 → CC.MS 14:15
PROVIDERS: ADMIT Family Medicine; ATTEND Family Medicine
DX: R53.1 Weakness (principal); I21.3 ST elevation (STEMI) myocardial infarction of unspecified site; I50.23 Acute on chronic systolic (congestive) heart failure; N39.0 Urinary tract infection, site not specified; S06.0X9A Concussion with loss of consciousness of unspecified duration, initial encounter; W19.XXXA Unspecified fall, initial encounter; Y92.239 Unspecified place in hospital as the place of occurrence of the external cause; R79.1 Abnormal coagulation profile; Z91.81 History of falling; I25.10 Atherosclerotic heart disease of native coronary artery without angina pectoris; I11.0 Hypertensive heart disease with heart failure; I25.2 Old myocardial infarction; Z95.5 Presence of coronary angioplasty implant and graft; M19.90 Unspecified osteoarthritis, unspecified site; F32.9 Major depressive disorder, single episode, unspecified; E11.29 Type 2 diabetes mellitus with other diabetic kidney complication; Z79.4 Long term (current) use of insulin; Z79.01 Long term (current) use of anticoagulants; Z79.82 Long term (current) use of aspirin; Z79.899 Other long term (current) drug therapy; Z88.8 Allergy status to other drugs, medicaments and biological substances; Z51.5 Encounter for palliative care
CPT/HCPCS: 36415; 70450; 70486; 70544; 71010; 72125; 73060-RT; 80048; 80053; 81001; 82962; 83605; 83880; 84484; 85025; 85610; 87040; 87086; 87186; 93005; 93880; 97110-GP; 97161-GP; 97530-GP; A9270-GY; J0696; J1815-GY; J7030

== ENCOUNTER 2017-10-06 14:17 | Inpatient (IN) | payer MEDICARE, BC ==
[2017-10-06 14:50] LABS: CHLORIDE,CL 103 mEq/L (98-106); SODIUM,NA 138 mEq/L (136-145)
[2017-10-06] MEDS ORDERED: Enoxaparin 30 MG/0.3 ML Syringe SUBCUT SCH (16:00)
[2017-10-06] MEDS ORDERED: cefTRIAXone 1 GM Vial IVPUSH SCH (16:00)
[2017-10-06] MEDS ORDERED: Furosemide 40 MG/4 ML VIAL IVPUSH ONE (16:01)
[2017-10-06] MEDS ORDERED: Sodium Chloride 0.9% 10 ML Syringe FLUSH PRN (16:01)
[2017-10-06] MEDS ORDERED: Ondansetron 4 MG Tab.DIS PO PRN (16:01)
[2017-10-06] MEDS ORDERED: Temazepam 15 MG Cap PO PRN (16:01)
[2017-10-06] MEDS: Albuterol/Ipratropium 3.0-0.5 MG/3 ML Neb Soln NEB SCH ×2 (17:11→19:32)
[2017-10-06] MEDS ORDERED: Acetaminophen 500 MG Tab PO SCH (17:15)
[2017-10-06] MEDS: Gabapentin 300 MG Cap PO SCH (18:27)
[2017-10-06] MEDS: ALPHAGAN P 0.1% EYEBOTH SCH (19:32)
[2017-10-06] MEDS: [UNRECOGNIZED DRUG - OTHER] EYERT SCH ×2 (19:32→19:48)
[2017-10-06] MEDS: Latanoprost 0.005% Ophth Soln 2.5 ML Bottle EYEBOTH SCH (19:32)
[2017-10-06] MEDS: Metoprolol Tartrate 50 MG Tab PO SCH (19:32)
[2017-10-06] MEDS: amLODIPine 10 MG Tab PO SCH (19:33)
[2017-10-06] MEDS ORDERED: Pantoprazole 40 MG Tab.CR PO SCH (20:00)
[2017-10-06] MEDS ORDERED: Sertraline 25 MG Tab PO SCH (20:00)
[2017-10-06] MEDS ORDERED: OMEPRAZOLE 20MG CAP PO SCH (20:00)
[2017-10-06] MEDS ORDERED: SERTRALINE 50 MG PO SCH (20:00)
[2017-10-07] MEDS: Acetaminophen 500 MG Tab PO PRN ×2 (03:21→21:11)
[2017-10-07] MEDS: [UNRECOGNIZED DRUG - OTHER] EYERT SCH (07:50)
[2017-10-07] MEDS: TIMOLOL MALEAT EYERT SCH (07:50)
[2017-10-07] MEDS: DORZOLAMIDE HCL EYERT SCH (07:50)
[2017-10-07] MEDS: TIMOLOL MALEATE 0.5% EYELF SCH (07:51)
[2017-10-07] MEDS: ALPHAGAN P 0.1% EYEBOTH SCH ×2 (07:53→20:01)
[2017-10-07] MEDS: Losartan 100 MG Tab PO SCH (07:54)
[2017-10-07] MEDS: Potassium Chloride 10 MEQ Tab.ER PO SCH (07:55)
[2017-10-07] MEDS: Aspirin 81 MG Tab.EC PO SCH (07:55)
[2017-10-07] MEDS ORDERED: Isosorbide Mononitrate 30 MG Tab.ER PO SCH (08:00)
[2017-10-07] MEDS ORDERED: Furosemide 40 MG Tab PO SCH (08:00)
[2017-10-07] MEDS ORDERED: ISOSORBIDE MONO 60 MG PO SCH (08:00)
[2017-10-07] MEDS ORDERED: FUROSEMIDE 80 MG PO SCH (08:00)
[2017-10-07] MEDS: Gabapentin 100 MG Cap PO SCH ×2 (08:01→12:22)
[2017-10-07] MEDS: Metoprolol Tartrate 50 MG Tab PO SCH ×2 (08:01→20:02)
[2017-10-07] MEDS: Allopurinol 300 MG Tab PO SCH (08:02)
[2017-10-07] MEDS: Insulin Detemir 100 Units/ML 3 ML Pen SUBCUT SCH (08:03)
[2017-10-07] MEDS: Albuterol/Ipratropium 3.0-0.5 MG/3 ML Neb Soln NEB SCH ×4 (08:06→20:02)
[2017-10-07] MEDS: methylPREDNISolone Sodium Succinate 125 MG/2 ML SDV IVPUSH SCH ×2 (09:50→20:03)
[2017-10-07] MEDS: Azithromycin 250 MG Tab PO SCH (09:51)
[2017-10-07] MEDS ORDERED: WARFARIN 3 MG PO SCH (12:00)
[2017-10-07] MEDS: Insulin Aspart 100 Units/ML 3 ML Pen SUBCUT SCH ×2 (12:22→17:34)
[2017-10-07] MEDS: cefTRIAXone 1 GM Vial IVPUSH SCH (12:23)
[2017-10-07] MEDS: Gabapentin 300 MG Cap PO SCH (17:34)
--- NOTE | 2017-10-07 18:54 | PCM.PN ---
- General Info Date of Service: 10/07/17 Admission Dx/Problem (Free Text): Weakness UTI URI Functional Status: Reports: Pain Controlled, Tolerating Diet, Urinating. Denies : Ambulating - Review of Systems General: Reports: Fever, Weakness, Fatigue HEENT: Reports: Sinus Congestion, Rhinitis Pulmonary: Reports: Shortness of Breath, Cough, Wheezing Cardiovascular: Reports: Edema. Denies: Chest Pain, Lightheadedness Gastrointestinal: Denies: Abdominal Pain, Nausea, Vomiting Genitourinary: Reports: Other (voiding frequently now) Musculoskeletal: Reports: No Symptoms Skin: Reports: No Symptoms Neurological: Reports: No Symptoms - Patient Data Vitals - Most Recent: Last Vital Signs Temp 99.3 F 10/07/17 16:00 Pulse 70 10/07/17 16:00 Resp 18 10/07/17 16:00 BP 134/51 L 10/07/17 16:00 Pulse Ox 91 L 10/07/17 16:00 Weight - Most Recent: 175 lb 14.862 oz I&O - Last 24 Hours: Intake & Output 10/07/17 10/07/17 10/07/17 06:59 14:59 22:59 Output Total 300 Balance -300 Lab Results Last 24 Hours: Laboratory Results - last 24 hr 10/06/17 10/06/17 10/07/17 Range/Units 17:02 20:49 07:00 WBC 9.6 (5.0-10.0) 10^3/uL RBC 4.47 (4.00-5.50) 10^6/uL Hgb 10.8 L (12.0-16.0) g/dL Hct 36.1 L (37.0-47.0) % MCV 80.8 L (82.0-94.0) fL MCH 24.2 L (27.0-32.0) pg MCHC 29.9 L (33.0-38.0) g/dL RDW Coeff of Shahzad 18.4 H (11.0-15.0) % Plt Count 527 H (150-400) 10^3/uL Neut % (Auto) 72.1 (35-85) % Lymph % (Auto) 14.9 (10-55) % [place] % (Auto) 9.1 (0-16) % Eos % (Auto) 3.6 (0-5) % Baso % (Auto) 0.3 (0-3) % Neut # (Auto) 6.94 (1.80-7.00) 10^3/uL Lymph # (Auto) 1.44 (1.00-4.80) 10^3/uL [place] # (Auto) 0.88 H (0.00-0.80) 10^3/uL Eos # (Auto) 0.35 (0.00-0.45) 10^3/uL Baso # (Auto) 0.03 10^3/uL PT (9.7-12.3) SEC INR (0.92-1.18) D-Dimer, Quantitative (0.00-0.50) Sodium (136-145) mEq/L Potassium (3.5-5.0) mEq/L Chloride (98-106) mEq/L Carbon Dioxide (21-32) mmol/L BUN (7-18) mg/dL Creatinine (0.6-1.0) mg/dL Est Cr Clr Drug Dosing mL/min Estimated GFR (MDRD) (>=60) mL/min Glucose (75-99) mg/dL POC Glucose 112 H 196 H (75-105) mg/dl Calcium (8.4-10.1) mg/dL C-Reactive Protein (0.2-0.8) mg/dL 10/07/17 10/07/17 10/07/17 Range/Units 07:00 07:41 09:15 WBC (5.0-10.0) 10^3/uL RBC (4.00-5.50) 10^6/uL Hgb (12.0-16.0) g/dL Hct (37.0-47.0) % MCV (82.0-94.0) fL MCH (27.0-32.0) pg MCHC (33.0-38.0) g/dL RDW Coeff of Shahzad (11.0-15.0) % Plt Count (150-400) 10^3/uL Neut % (Auto) (35-85) % Lymph % (Auto) (10-55) % [place] % (Auto) (0-16) % Eos % (Auto) (0-5) % Baso % (Auto) (0-3) % Neut # (Auto) (1.80-7.00) 10^3/uL Lymph # (Auto) (1.00-4.80) 10^3/uL [place] # (Auto) (0.00-0.80) 10^3/uL Eos # (Auto) (0.00-0.45) 10^3/uL Baso # (Auto) 10^3/uL PT 18.9 H (9.7-12.3) SEC INR 1.72 H (0.92-1.18) D-Dimer, Quantitative < 0.19 (0.00-0.50) Sodium 141 (136-145) mEq/L Potassium 4.4 (3.5-5.0) mEq/L Chloride 105 (98-106) mEq/L Carbon Dioxide 28 (21-32) mmol/L BUN 32 H (7-18) mg/dL Creatinine 1.5 H (0.6-1.0) mg/dL Est Cr Clr Drug Dosing 24.33 mL/min Estimated GFR (MDRD) 33 L (>=60) mL/min Glucose 126 H (75-99) mg/dL POC Glucose 113 H (75-105) mg/dl Calcium 8.3 L (8.4-10.1) mg/dL C-Reactive Protein 3.0 H (0.2-0.8) mg/dL 10/07/17 10/07/17 Range/Units 11:37 16:54 WBC (5.0-10.0) 10^3/uL RBC (4.00-5.50) 10^6/uL Hgb (12.0-16.0) g/dL Hct (37.0-47.0) % MCV (82.0-94.0) fL MCH (27.0-32.0) pg MCHC (33.0-38.0) g/dL RDW Coeff of Shahzad (11.0-15.0) % Plt Count (150-400) 10^3/uL Neut % (Auto) (35-85) % Lymph % (Auto) (10-55) % [place] % (Auto) (0-16) % Eos % (Auto) (0-5) % Baso % (Auto) (0-3) % Neut # (Auto) (1.80-7.00) 10^3/uL Lymph # (Auto) (1.00-4.80) 10^3/uL [place] # (Auto) (0.00-0.80) 10^3/uL Eos # (Auto) (0.00-0.45) 10^3/uL Baso # (Auto) 10^3/uL PT (9.7-12.3) SEC INR (0.92-1.18) D-Dimer, Quantitative (0.00-0.50) Sodium (136-145) mEq/L Potassium (3.5-5.0) mEq/L Chloride (98-106) mEq/L Carbon Dioxide (21-32) mmol/L BUN (7-18) mg/dL Creatinine (0.6-1.0) mg/dL Est Cr Clr Drug Dosing mL/min Estimated GFR (MDRD) (>=60) mL/min Glucose (75-99) mg/dL POC Glucose 231 H 295 H (75-105) mg/dl Calcium (8.4-10.1) mg/dL C-Reactive Protein (0.2-0.8) mg/dL Mj Results Last 24 Hours: Microbiology 10/06/17 14:24 Urine Culture - Preliminary Urine, Voided Gram Negative Rods Med Orders - Current: Current Medications Acetaminophen (Tylenol Extra Strength) 500 mg PO Q6H PRN PRN Reason: Pain Last Admin: 10/07/17 03:21 Dose: 500 mg Albuterol/Ipratropium (Duoneb 3.0-0.5 Mg/3 Ml) 3 ml NEB QIDRT [facility] Last Admin: 10/07/17 16:27 Dose: 3 ml Allopurinol (Zyloprim) 300 mg PO DAILY [facility] Last Admin: 10/07/17 08:02 Dose: 300 mg Amlodipine Besylate (Norvasc) 10 mg PO BEDTIME [facility] Last Admin: 10/06/17 19:33 Dose: 10 mg Aspirin (Halfprin) 81 mg PO DAILY [facility] Last Admin: 10/07/17 07:55 Dose: 81 mg Azithromycin (Zithromax) 250 mg PO DAILY [facility] Last Admin: 10/07/17 09:51 Dose: 250 mg Ceftriaxone Sodium (Rocephin) 1 gm IVPUSH Q24H [facility] Last Admin: 10/07/17 12:23 Dose: 1 gm Furosemide (Lasix) 80 mg PO DAILY [facility] Gabapentin (Neurontin) 100 mg PO 0800,1200 [facility] Last Admin: 10/07/17 12:22 Dose: 100 mg Gabapentin (Neurontin) 300 mg PO 1730 [facility] Last Admin: 10/07/17 17:34 Dose: 300 mg Insulin Aspart (Novolog) 0 unit SUBCUT TIDMEALS [facility] PRN Reason: Protocol Last Admin: 10/07/17 17:34 Dose: 6 units Insulin Detemir (Levemir) 30 unit SUBCUT QAM [facility] Last Admin: 10/07/17 08:03 Dose: 30 units Isosorbide Mononitrate (Imdur) 60 mg PO DAILY [facility] Latanoprost (Xalatan 0.005% [facility] Sol) 0 ml EYEBOTH BEDTIME [facility] Last Admin: 10/06/17 19:32 Dose: 1 drop Losartan Potassium (Cozaar) 100 mg PO DAILY [facility] Last Admin: 10/07/17 07:54 Dose: 100 mg Methylprednisolone Sodium Succinate (Solu-Medrol) 62.5 mg IVPUSH Q12H [facility] Last Admin: 10/07/17 09:50 Dose: 62.5 mg Metoprolol Tartrate (Lopressor) 50 mg PO BID [facility] Last Admin: 10/07/17 08:01 Dose: 50 mg Ptom[Alphagan P 0.1% (Oph Soln] 1 Drop)) 1 drop EYEBOTH BID [facility] Last Admin: 10/07/17 07:53 Dose: 1 drop Non-Formulary Medication (Dorzolamide Hcl/Timolol Maleat [Dorzolamide-Timolol Eye Drops]) 1 drop EYERT DAILY [facility] Last Admin: 10/07/17 07:50 Dose: 1 drop Ondansetron HCl (Zofran Odt) 4 mg PO Q4H PRN PRN Reason: nausea, able to take PO Pantoprazole Sodium (Protonix) 40 mg PO BEDTIME [facility] Potassium Chloride (Klor-Con 10) 20 meq PO DAILY [facility] Last Admin: 10/07/17 07:55 Dose: 20 meq Sertraline HCl (Zoloft) 75 mg PO BEDTIME [facility] Sodium Chloride (Saline Flush) 10 ml FLUSH ASDIRECTED PRN PRN Reason: Keep Vein Open Temazepam (Restoril) 15 mg PO BEDTIME PRN PRN Reason: Sleep Timolol Maleate (Timoptic 0.5% Ophth Soln) 0 ml EYELF QAM [facility] Last Admin: 10/07/17 07:51 Dose: 1 drop Warfarin Sodium (Coumadin) 3 mg PO 1200 [facility] Last Admin: 10/07/17 12:22 Dose: 3 mg Discontinued Medications Acetaminophen (Tylenol Extra Strength) 500 mg PO Q6H [facility] Ceftriaxone Sodium (Rocephin) 1 gm IVPUSH Q24H [facility] Last Admin: 10/06/17 17:13 Dose: 1 gm Enoxaparin Sodium (Lovenox) 30 mg SUBCUT Q24H [facility] Last Admin: 10/06/17 17:10 Dose: 30 mg Furosemide (Lasix) 40 mg IVPUSH ONETIME ONE Stop: 10/06/17 16:02 Last Admin: 10/06/17 17:06 Dose: 40 mg Furosemide (Lasix) 80 mg PO DAILY [facility] Isosorbide Mononitrate (Imdur) 60 mg PO DAILY [facility] Ptom [Dorzolamide- (Timolol Eye D) 1 drop EYERT BID [facility] Last Admin: 10/06/17 19:48 Dose: Not Given Ptom-Sertraline 50mg (Tab) 1.5 each PO BEDTIME [facility] Last Admin: 10/06/17 19:33 Dose: 1.5 each Omeprazole 20mg Cap 1 each PO BEDTIME [facility] Last Admin: 10/06/17 19:33 Dose: 1 each Ptom-Isosorbide [place] (Er 60mg Tab) 1 each PO DAILY [facility] Last Admin: 10/07/17 08:02 Dose: 1 each Ptom-Warfarin 3mg (Tab) 1 each PO 1200 [facility] Ptom-Furosemide 80mg (Tab) 1 each PO DAILY [facility] Last Admin: 10/07/17 08:02 Dose: 1 each Pantoprazole Sodium (Protonix) 40 mg PO BEDTIME [facility] Sertraline HCl (Zoloft) 75 mg PO BEDTIME [facility] Warfarin Sodium (Coumadin) 3 mg PO DAILY@1200 [facility] - Exam General: Alert, Oriented HEENT: Mucous Membr. Moist/[place] Neck: Supple Lungs: Decreased Breath Sounds, Wheezing Cardiovascular: Regular Rate, Regular Rhythm GI/Abdominal Exam: Normal Bowel Sounds, Soft, Non-Tender Extremities: Normal Inspection, Pedal Edema Skin: Warm, Dry Neurological: No New Focal Deficit - Problem List & Annotations (1) Palliative care patient SNOMED Code(s): 837450098 Code(s): Z51.5 - ENCOUNTER FOR PALLIATIVE CARE Status: Acute Priority: High Current Visit: Yes (2) UTI, Urinary tract infectious disease SNOMED Code(s): 12078024 Code(s): N39.0 - URINARY TRACT INFECTION, SITE NOT SPECIFIED Status: Acute Priority: High Current Visit: Yes (3) Weakness SNOMED Code(s): 17004102 Code(s): R53.1 - WEAKNESS Status: Acute Priority: High Current Visit: Yes (4) URI (upper respiratory infection) SNOMED Code(s): 59964977 Code(s): J06.9 - ACUTE UPPER RESPIRATORY INFECTION, UNSPECIFIED Status: Acute Priority: High Current Visit: Yes - Problem List Review Problem List Initiated/Reviewed/Updated: Yes - My Orders Last 24 Hours: My Active Orders 10/06/17 20:00 Brimonidine Tartrate [Alphagan P 0.1% Ophth Soln] 1 drop EYEBOTH BID Latanoprost [Xalatan 0.005% Ophth Soln] 0 ml EYEBOTH BEDTIME Metoprolol Tartrate [Lopressor] 50 mg PO BID amLODIPine [Norvasc] 10 mg PO BEDTIME 10/06/17 Dinner Consistent Carbohydrate Diet [DIET] 10/07/17 08:00 Allopurinol [Zyloprim] 300 mg PO DAILY Aspirin [Halfprin] 81 mg PO DAILY Dorzolamide HCl/Timolol Maleat [Dorzolamide-Timolol Eye Drops] 1 drop EYERT DAILY Gabapentin [Neurontin] 100 mg PO 0800,1200 Insulin Detemir [Levemir] 30 unit SUBCUT QAM Losartan [Cozaar] 100 mg PO DAILY Potassium Chloride [Klor-Con 10] 20 meq PO DAILY Timolol Maleate [Timoptic 0.5% Ophth Soln] 0 ml EYELF QAM methylPREDNISolone Sod Succ [Solu-MEDROL] 62.5 mg IVPUSH Q12H 10/07/17 08:45 Azithromycin [Zithromax] 250 mg PO DAILY 10/07/17 12:00 Insulin Aspart [NovoLOG] See Protocol SUBCUT TIDMEALS Warfarin [Coumadin] 3 mg PO 1200 cefTRIAXone [Rocephin] 1 gm IVPUSH Q24H 10/07/17 20:00 Pantoprazole [ProTONIX] 40 mg PO BEDTIME Sertraline [Zoloft] 75 mg PO BEDTIME 10/08/17 05:11 BASIC METABOLIC PANEL,BMP [CHEM] AM C-REACTIVE PROTEIN [CHEM] AM CBC WITH AUTO DIFF [HEME] AM 10/08/17 08:00 Furosemide [Lasix] 80 mg PO DAILY Isosorbide Mononitrate [Imdur] 60 mg PO DAILY 10/08/17 09:00 INR,PT,PROTHROMBIN TIME [COAG] DAILY 10/09/17 09:00 INR,PT,PROTHROMBIN TIME [COAG] DAILY - Assessment Assessment:: UTI Weakness URI Palliative care patient - Plan Plan:: Patient continues to feel weak and short of breath. Ongoing wheezing. Does admit that is voiding better now, more frequently. Was given IV Lasix on admit and states that "helped". Edema improved. Oxygen sats 93% in room air. Low grade fevers. Labs show WBC 9.6, CRP 3.0. Creatinine better at 1.5 today. D- Dimer negative. Will add Zithromax and Solu Medrol to regimen. Add Novolog per sliding scale. Monitor daily INR. Transferred to acute care.
[2017-10-07] MEDS: amLODIPine 10 MG Tab PO SCH (20:03)
[2017-10-07] MEDS: Pantoprazole 40 MG Tab.CR PO SCH (20:03)
[2017-10-07] MEDS: Sertraline 25 MG Tab PO SCH (20:04)
[2017-10-07] MEDS: Latanoprost 0.005% Ophth Soln 2.5 ML Bottle EYEBOTH SCH (20:04)
[2017-10-08] MEDS: TIMOLOL MALEATE 0.5% EYELF SCH (08:28)
[2017-10-08] MEDS: Insulin Detemir 100 Units/ML 3 ML Pen SUBCUT SCH (08:29)
[2017-10-08] MEDS: Insulin Aspart 100 Units/ML 3 ML Pen SUBCUT SCH ×4 (08:31→20:46)
[2017-10-08] MEDS: Albuterol/Ipratropium 3.0-0.5 MG/3 ML Neb Soln NEB SCH ×4 (08:32→20:17)
[2017-10-08] MEDS: ALPHAGAN P 0.1% EYEBOTH SCH ×2 (08:32→20:19)
[2017-10-08] MEDS: Allopurinol 300 MG Tab PO SCH (08:32)
[2017-10-08] MEDS: Isosorbide Mononitrate 30 MG Tab.ER PO SCH (08:33)
[2017-10-08] MEDS: Potassium Chloride 10 MEQ Tab.ER PO SCH (08:35)
[2017-10-08] MEDS: Metoprolol Tartrate 50 MG Tab PO SCH ×2 (08:36→20:16)
[2017-10-08] MEDS: Azithromycin 250 MG Tab PO SCH (08:36)
[2017-10-08] MEDS: Furosemide 80 MG Tab PO SCH (08:38)
[2017-10-08] MEDS: Losartan 100 MG Tab PO SCH (08:39)
[2017-10-08] MEDS: Aspirin 81 MG Tab.EC PO SCH (08:39)
[2017-10-08] MEDS: DORZOLAMIDE HCL EYERT SCH (08:40)
[2017-10-08] MEDS: TIMOLOL MALEAT EYERT SCH (08:40)
[2017-10-08] MEDS: [UNRECOGNIZED DRUG - OTHER] EYERT SCH (08:40)
[2017-10-08] MEDS: Gabapentin 100 MG Cap PO SCH ×2 (08:41→12:31)
[2017-10-08] MEDS: methylPREDNISolone Sodium Succinate 125 MG/2 ML SDV IVPUSH SCH ×2 (08:42→20:09)
[2017-10-08] MEDS: cefTRIAXone 1 GM Vial IVPUSH SCH (12:32)
--- NOTE | 2017-10-08 15:38 | PCM.PN ---
- General Info Date of Service: 10/08/17 Admission Dx/Problem (Free Text): Weakness UTI URI Functional Status: Reports: Pain Controlled, Tolerating Diet, Urinating. Denies : Ambulating - Review of Systems General: Reports: Fever, Weakness, Fatigue HEENT: Reports: Sinus Congestion. Denies: Sore Throat Pulmonary: Reports: Shortness of Breath, Cough, Sputum, Wheezing Cardiovascular: Reports: Edema. Denies: Chest Pain, Lightheadedness Gastrointestinal: Denies: Abdominal Pain, Decreased Appetite, Diarrhea, Nausea, Vomiting Genitourinary: Reports: No Symptoms Musculoskeletal: Reports: No Symptoms Skin: Reports: No Symptoms Neurological: Reports: No Symptoms - Patient Data Vitals - Most Recent: Last Vital Signs Temp 99 F 10/08/17 08:00 Pulse 79 10/08/17 08:36 Resp 20 10/08/17 08:00 BP 137/57 L 10/08/17 08:39 Pulse Ox 90 L 10/08/17 08:00 Weight - Most Recent: 175 lb 14.862 oz Lab Results Last 24 Hours: Laboratory Results - last 24 hr 10/07/17 10/07/17 10/07/17 Range/Units 11:37 16:54 20:18 WBC (5.0-10.0) 10^3/uL RBC (4.00-5.50) 10^6/uL Hgb (12.0-16.0) g/dL Hct (37.0-47.0) % MCV (82.0-94.0) fL MCH (27.0-32.0) pg MCHC (33.0-38.0) g/dL RDW Coeff of Shahzad (11.0-15.0) % Plt Count (150-400) 10^3/uL Neut % (Auto) (35-85) % Lymph % (Auto) (10-55) % [place] % (Auto) (0-16) % Eos % (Auto) (0-5) % Baso % (Auto) (0-3) % Neut # (Auto) (1.80-7.00) 10^3/uL Lymph # (Auto) (1.00-4.80) 10^3/uL [place] # (Auto) (0.00-0.80) 10^3/uL Eos # (Auto) (0.00-0.45) 10^3/uL Baso # (Auto) 10^3/uL PT (9.7-12.3) SEC INR (0.92-1.18) Sodium (136-145) mEq/L Potassium (3.5-5.0) mEq/L Chloride (98-106) mEq/L Carbon Dioxide (21-32) mmol/L BUN (7-18) mg/dL Creatinine (0.6-1.0) mg/dL Est Cr Clr Drug Dosing mL/min Estimated GFR (MDRD) (>=60) mL/min Glucose (75-99) mg/dL POC Glucose 231 H 295 H 307 H (75-105) mg/dl Calcium (8.4-10.1) mg/dL C-Reactive Protein (0.2-0.8) mg/dL 10/08/17 10/08/17 10/08/17 Range/Units 07:00 07:00 07:00 WBC 14.7 H (5.0-10.0) 10^3/uL RBC 4.53 (4.00-5.50) 10^6/uL Hgb 11.1 L (12.0-16.0) g/dL Hct 36.1 L (37.0-47.0) % MCV 79.7 L (82.0-94.0) fL MCH 24.5 L (27.0-32.0) pg MCHC 30.7 L (33.0-38.0) g/dL RDW Coeff of Shahzad 18.5 H (11.0-15.0) % Plt Count 565 H (150-400) 10^3/uL Neut % (Auto) 92.2 H (35-85) % Lymph % (Auto) 5.1 L (10-55) % [place] % (Auto) 2.6 (0-16) % Eos % (Auto) 0 (0-5) % Baso % (Auto) 0.1 (0-3) % Neut # (Auto) 13.58 H (1.80-7.00) 10^3/uL Lymph # (Auto) 0.75 L (1.00-4.80) 10^3/uL [place] # (Auto) 0.38 (0.00-0.80) 10^3/uL Eos # (Auto) 0.00 (0.00-0.45) 10^3/uL Baso # (Auto) 0.01 10^3/uL PT 15.9 H (9.7-12.3) SEC INR 1.46 H (0.92-1.18) Sodium 137 (136-145) mEq/L Potassium 4.8 (3.5-5.0) mEq/L Chloride 103 (98-106) mEq/L Carbon Dioxide 26 (21-32) mmol/L BUN 41 H (7-18) mg/dL Creatinine 1.7 H (0.6-1.0) mg/dL Est Cr Clr Drug Dosing 21.47 mL/min Estimated GFR (MDRD) 29 L (>=60) mL/min Glucose 286 H D (75-99) mg/dL POC Glucose (75-105) mg/dl Calcium 8.6 (8.4-10.1) mg/dL C-Reactive Protein 2.8 H (0.2-0.8) mg/dL Mj Results Last 24 Hours: Microbiology 10/06/17 14:24 Urine Culture - Final Urine, Voided Proteus Mirabilis Med Orders - Current: Current Medications Acetaminophen (Tylenol Extra Strength) 500 mg PO Q6H PRN PRN Reason: Pain Last Admin: 10/07/17 21:11 Dose: 500 mg Albuterol/Ipratropium (Duoneb 3.0-0.5 Mg/3 Ml) 3 ml NEB QIDRT [facility] Last Admin: 10/08/17 12:31 Dose: 3 ml Allopurinol (Zyloprim) 300 mg PO DAILY [facility] Last Admin: 10/08/17 08:32 Dose: 300 mg Amlodipine Besylate (Norvasc) 10 mg PO BEDTIME [facility] Last Admin: 10/07/17 20:03 Dose: 10 mg Aspirin (Halfprin) 81 mg PO DAILY [facility] Last Admin: 10/08/17 08:39 Dose: 81 mg Azithromycin (Zithromax) 250 mg PO DAILY [facility] Last Admin: 10/08/17 08:36 Dose: 250 mg Ceftriaxone Sodium (Rocephin) 1 gm IVPUSH Q24H [facility] Last Admin: 10/08/17 12:32 Dose: 1 gm Furosemide (Lasix) 80 mg PO DAILY [facility] Last Admin: 10/08/17 08:38 Dose: 80 mg Gabapentin (Neurontin) 100 mg PO 0800,1200 [facility] Last Admin: 10/08/17 12:31 Dose: 100 mg Gabapentin (Neurontin) 300 mg PO 1730 [facility] Last Admin: 10/07/17 17:34 Dose: 300 mg Insulin Aspart (Novolog) 0 unit SUBCUT WITHMEALSANDBED [facility] PRN Reason: Protocol Last Admin: 10/08/17 12:31 Dose: 6 units Insulin Detemir (Levemir) 30 unit SUBCUT QAM [facility] Last Admin: 10/08/17 08:29 Dose: 30 units Isosorbide Mononitrate (Imdur) 60 mg PO DAILY [facility] Last Admin: 10/08/17 08:33 Dose: 60 mg Latanoprost (Xalatan 0.005% Oph Soln) 0 ml EYEBOTH BEDTIME [facility] Last Admin: 10/07/17 20:04 Dose: 1 drop Losartan Potassium (Cozaar) 100 mg PO DAILY [facility] Last Admin: 10/08/17 08:39 Dose: 100 mg Methylprednisolone Sodium Succinate (Solu-Medrol) 62.5 mg IVPUSH Q12H [facility] Last Admin: 10/08/17 08:42 Dose: 62.5 mg Metoprolol Tartrate (Lopressor) 50 mg PO BID [facility] Last Admin: 10/08/17 08:36 Dose: 50 mg Ptom[Alphagan P 0.1% (Ophth Soln] 1 Drop)) 1 drop EYEBOTH BID [facility] Last Admin: 10/08/17 08:32 Dose: 1 drop Non-Formulary Medication (Dorzolamide Hcl/Timolol Maleat [Dorzolamide-Timolol Eye Drops]) 1 drop EYERT DAILY [facility] Last Admin: 10/08/17 08:40 Dose: 1 drop Ondansetron HCl (Zofran Odt) 4 mg PO Q4H PRN PRN Reason: nausea, able to take PO Pantoprazole Sodium (Protonix) 40 mg PO BEDTIME [facility] Last Admin: 10/07/17 20:03 Dose: 40 mg Potassium Chloride (Klor-Con 10) 20 meq PO DAILY [facility] Last Admin: 10/08/17 08:35 Dose: 20 meq Sertraline HCl (Zoloft) 75 mg PO BEDTIME [facility] Last Admin: 10/07/17 20:04 Dose: 75 mg Sodium Chloride (Saline Flush) 10 ml FLUSH ASDIRECTED PRN PRN Reason: Keep Vein Open Temazepam (Restoril) 15 mg PO BEDTIME PRN PRN Reason: Sleep Timolol Maleate (Timoptic 0.5% Ophth Soln) 0 ml EYELF QAM [facility] Last Admin: 10/08/17 08:28 Dose: 1 drop Warfarin Sodium (Coumadin) 3 mg PO 1200 [facility] Last Admin: 10/08/17 12:30 Dose: 3 mg Discontinued Medications Acetaminophen (Tylenol Extra Strength) 500 mg PO Q6H [facility] Ceftriaxone Sodium (Rocephin) 1 gm IVPUSH Q24H [facility] Last Admin: 10/06/17 17:13 Dose: 1 gm Enoxaparin Sodium (Lovenox) 30 mg SUBCUT Q24H [facility] Last Admin: 10/06/17 17:10 Dose: 30 mg Furosemide (Lasix) 40 mg IVPUSH ONETIME ONE Stop: 10/06/17 16:02 Last Admin: 10/06/17 17:06 Dose: 40 mg Furosemide (Lasix) 80 mg PO DAILY [facility] Insulin Aspart (Novolog) 0 unit SUBCUT TIDMEALS [facility] PRN Reason: Protocol Last Admin: 10/08/17 08:31 Dose: 4 units Isosorbide Mononitrate (Imdur) 60 mg PO DAILY [facility] Ptom [Dorzolamide- (Timolol Eye D) 1 drop EYERT BID [facility] Last Admin: 10/06/17 19:48 Dose: Not Given Ptom-Sertraline 50mg (Tab) 1.5 each PO BEDTIME [facility] Last Admin: 10/06/17 19:33 Dose: 1.5 each Omeprazole 20mg Cap 1 each PO BEDTIME [facility] Last Admin: 10/06/17 19:33 Dose: 1 each Ptom-Isosorbide [place] (Er 60mg Tab) 1 each PO DAILY [facility] Last Admin: 10/07/17 08:02 Dose: 1 each Ptom-Warfarin 3mg (Tab) 1 each PO 1200 [facility] Ptom-Furosemide 80mg (Tab) 1 each PO DAILY [facility] Last Admin: 10/07/17 08:02 Dose: 1 each Pantoprazole Sodium (Protonix) 40 mg PO BEDTIME [facility] Sertraline HCl (Zoloft) 75 mg PO BEDTIME [facility] Warfarin Sodium (Coumadin) 3 mg PO DAILY@1200 [facility] - Exam General: Alert, Oriented HEENT: Mucous Membr. Moist/[place] Neck: Supple Lungs: Decreased Breath Sounds, Wheezing Cardiovascular: Regular Rate, Regular Rhythm GI/Abdominal Exam: Normal Bowel Sounds, Soft, Non-Tender Extremities: Normal Inspection, Pedal Edema Skin: Warm, Dry Neurological: No New Focal Deficit - Problem List & Annotations (1) Palliative care patient SNOMED Code(s): 618650682 Code(s): Z51.5 - ENCOUNTER FOR PALLIATIVE CARE Status: Acute Priority: High Current Visit: Yes (2) UTI, Urinary tract infectious disease SNOMED Code(s): 82167218 Code(s): N39.0 - URINARY TRACT INFECTION, SITE NOT SPECIFIED Status: Acute Priority: High Current Visit: Yes (3) Weakness SNOMED Code(s): 13429083 Code(s): R53.1 - WEAKNESS Status: Acute Priority: High Current Visit: Yes (4) URI (upper respiratory infection) SNOMED Code(s): 60167587 Code(s): J06.9 - ACUTE UPPER RESPIRATORY INFECTION, UNSPECIFIED Status: Acute Priority: High Current Visit: Yes - Problem List Review Problem List Initiated/Reviewed/Updated: Yes - My Orders Last 24 Hours: My Active Orders 10/07/17 20:00 Pantoprazole [ProTONIX] 40 mg PO BEDTIME Sertraline [Zoloft] 75 mg PO BEDTIME 10/08/17 08:00 Furosemide [Lasix] 80 mg PO DAILY Isosorbide Mononitrate [Imdur] 60 mg PO DAILY 10/08/17 12:00 Insulin Aspart [NovoLOG] See Protocol SUBCUT WITHMEALSANDBED 10/09/17 09:00 INR,PT,PROTHROMBIN TIME [COAG] DAILY - Assessment Assessment:: UTI Weakness URI Palliative care patient - Plan Plan:: Patient continues to feel weak and short of breath. Ongoing wheezing. Does admit that is voiding better now, more frequently. Was given IV Lasix on admit and states that "helped". Edema improved. Oxygen sats 93% in room air. Low grade fevers. Labs show WBC 9.6, CRP 3.0. Creatinine better at 1.5 today. D- Dimer negative. Will add Zithromax and Solu Medrol to regimen. Add Novolog per sliding scale. Monitor daily INR. Transferred to acute care. 10-08-2017 Patient continues to feel short of breath, having significant coughing spells. Appetite is good. Voiding without difficulty. Blood sugars have been much higher over the last 12 hours most likely from the Solu Medrol. Sats good on room air. Low grade fevers. Labs noted to have increased WBC most likely from steroids as CRP slightly improved to 2.8. Lung sounds improved, less wheezing, better air exchange. Continue novolog but add evening dose. Continue current IV antibiotics and neb treatments.
[2017-10-08] MEDS: Gabapentin 300 MG Cap PO SCH (17:38)
[2017-10-08] MEDS: Latanoprost 0.005% Ophth Soln 2.5 ML Bottle EYEBOTH SCH (20:08)
[2017-10-08] MEDS: Sertraline 25 MG Tab PO SCH (20:16)
[2017-10-08] MEDS: amLODIPine 10 MG Tab PO SCH (20:16)
[2017-10-08] MEDS: Acetaminophen 500 MG Tab PO PRN (20:16)
[2017-10-08] MEDS: Pantoprazole 40 MG Tab.CR PO SCH (20:17)
[2017-10-09] MEDS: Metoprolol Tartrate 50 MG Tab PO SCH ×2 (08:19→19:50)
[2017-10-09] MEDS: methylPREDNISolone Sodium Succinate 125 MG/2 ML SDV IVPUSH SCH ×2 (08:19→19:50)
[2017-10-09] MEDS: Allopurinol 300 MG Tab PO SCH (08:19)
[2017-10-09] MEDS: Isosorbide Mononitrate 30 MG Tab.ER PO SCH (08:20)
[2017-10-09] MEDS: Potassium Chloride 10 MEQ Tab.ER PO SCH (08:20)
[2017-10-09] MEDS: Aspirin 81 MG Tab.EC PO SCH (08:20)
[2017-10-09] MEDS: Azithromycin 250 MG Tab PO SCH (08:20)
[2017-10-09] MEDS: Furosemide 80 MG Tab PO SCH (08:20)
[2017-10-09] MEDS: Losartan 100 MG Tab PO SCH (08:20)
[2017-10-09] MEDS: ALPHAGAN P 0.1% EYEBOTH SCH ×2 (08:21→19:49)
[2017-10-09] MEDS: TIMOLOL MALEAT EYERT SCH (08:21)
[2017-10-09] MEDS: DORZOLAMIDE HCL EYERT SCH (08:21)
[2017-10-09] MEDS: [UNRECOGNIZED DRUG - OTHER] EYERT SCH (08:21)
[2017-10-09] MEDS: Albuterol/Ipratropium 3.0-0.5 MG/3 ML Neb Soln NEB SCH ×4 (08:21→19:50)
[2017-10-09] MEDS: TIMOLOL MALEATE 0.5% EYELF SCH (08:22)
[2017-10-09] MEDS: Insulin Aspart 100 Units/ML 3 ML Pen SUBCUT SCH ×6 (08:23→20:53)
[2017-10-09] MEDS: Insulin Detemir 100 Units/ML 3 ML Pen SUBCUT SCH (08:24)
[2017-10-09] MEDS: Gabapentin 100 MG Cap PO SCH ×2 (08:26→12:01)
--- NOTE | 2017-10-09 09:27 | PCM.PN ---
- General Info Date of Service: 10/09/17 Admission Dx/Problem (Free Text): Weakness UTI URI Functional Status: Reports: Pain Controlled, Tolerating Diet, Urinating. Denies : Ambulating - Review of Systems General: Reports: Weakness, Fatigue HEENT: Reports: Rhinitis Pulmonary: Reports: Shortness of Breath, Cough, Sputum, Wheezing Cardiovascular: Denies: Chest Pain, Edema, Lightheadedness Gastrointestinal: Denies: Abdominal Pain, Nausea, Vomiting Genitourinary: Reports: No Symptoms Musculoskeletal: Reports: No Symptoms Skin: Reports: No Symptoms Neurological: Reports: No Symptoms - Patient Data Vitals - Most Recent: Last Vital Signs Temp 99.1 F 10/09/17 08:00 Pulse 69 10/09/17 08:19 Resp 20 10/09/17 08:00 BP 143/58 H 10/09/17 08:19 Pulse Ox 91 L 10/09/17 08:00 Weight - Most Recent: 175 lb 14.862 oz Lab Results Last 24 Hours: Laboratory Results - last 24 hr 10/08/17 10/08/17 10/08/17 Range/Units 07:56 11:27 17:41 PT (9.7-12.3) SEC INR (0.92-1.18) POC Glucose 244 H 268 H 307 H (75-105) mg/dl 10/08/17 10/09/17 10/09/17 Range/Units 20:39 07:00 08:13 PT 17.3 H (9.7-12.3) SEC INR 1.58 H (0.92-1.18) POC Glucose 308 H 255 H (75-105) mg/dl Mj Results Last 24 Hours: Microbiology 10/06/17 14:24 Urine Culture - Final Urine, Voided Proteus Mirabilis Med Orders - Current: Current Medications Acetaminophen (Tylenol Extra Strength) 500 mg PO Q6H PRN PRN Reason: Pain Last Admin: 10/08/17 20:16 Dose: 500 mg Albuterol/Ipratropium (Duoneb 3.0-0.5 Mg/3 Ml) 3 ml NEB QIDRT [facility] Last Admin: 10/09/17 08:21 Dose: 3 ml Allopurinol (Zyloprim) 300 mg PO DAILY [facility] Last Admin: 10/09/17 08:19 Dose: 300 mg Amlodipine Besylate (Norvasc) 10 mg PO BEDTIME [facility] Last Admin: 10/08/17 20:16 Dose: 10 mg Aspirin (Halfprin) 81 mg PO DAILY [facility] Last Admin: 10/09/17 08:20 Dose: 81 mg Azithromycin (Zithromax) 250 mg PO DAILY [facility] Last Admin: 10/09/17 08:20 Dose: 250 mg Ceftriaxone Sodium (Rocephin) 1 gm IVPUSH Q24H [facility] Last Admin: 10/08/17 12:32 Dose: 1 gm Furosemide (Lasix) 80 mg PO DAILY [facility] Last Admin: 10/09/17 08:20 Dose: 80 mg Gabapentin (Neurontin) 100 mg PO 0800,1200 [facility] Last Admin: 10/09/17 08:26 Dose: 100 mg Gabapentin (Neurontin) 300 mg PO 1730 [facility] Last Admin: 10/08/17 17:38 Dose: 300 mg Insulin Aspart (Novolog) 0 unit SUBCUT WITHMEALSANDBED [facility] PRN Reason: Protocol Last Admin: 10/09/17 08:23 Dose: 6 units Insulin Aspart (Novolog) 5 unit SUBCUT TIDMEALS [facility] Insulin Detemir (Levemir) 30 unit SUBCUT QAM [facility] Last Admin: 10/09/17 08:24 Dose: 30 units Isosorbide Mononitrate (Imdur) 60 mg PO DAILY [facility] Last Admin: 10/09/17 08:20 Dose: 60 mg Latanoprost (Xalatan 0.005% Ophth Soln) 0 ml EYEBOTH BEDTIME [facility] Last Admin: 10/08/17 20:08 Dose: 1 drop Losartan Potassium (Cozaar) 100 mg PO DAILY [facility] Last Admin: 10/09/17 08:20 Dose: 100 mg Methylprednisolone Sodium Succinate (Solu-Medrol) 62.5 mg IVPUSH Q12H [facility] Last Admin: 10/09/17 08:19 Dose: 62.5 mg Metoprolol Tartrate (Lopressor) 50 mg PO BID [facility] Last Admin: 10/09/17 08:19 Dose: 50 mg Ptom[Alphagan P 0.1% (Ophth Soln] 1 Drop)) 1 drop EYEBOTH BID [facility] Last Admin: 10/09/17 08:21 Dose: 1 drop Non-Formulary Medication (Dorzolamide Hcl/Timolol Maleat [Dorzolamide-Timolol Eye Drops]) 1 drop EYERT DAILY [facility] Last Admin: 10/09/17 08:21 Dose: 1 drop Ondansetron HCl (Zofran Odt) 4 mg PO Q4H PRN PRN Reason: nausea, able to take PO Pantoprazole Sodium (Protonix) 40 mg PO BEDTIME [facility] Last Admin: 10/08/17 20:17 Dose: 40 mg Potassium Chloride (Klor-Con 10) 20 meq PO DAILY [facility] Last Admin: 10/09/17 08:20 Dose: 20 meq Sertraline HCl (Zoloft) 75 mg PO BEDTIME [facility] Last Admin: 10/08/17 20:16 Dose: 75 mg Sodium Chloride (Saline Flush) 10 ml FLUSH ASDIRECTED PRN PRN Reason: Keep Vein Open Temazepam (Restoril) 15 mg PO BEDTIME PRN PRN Reason: Sleep Timolol Maleate (Timoptic 0.5% Ophth Soln) 0 ml EYELF QAM [facility] Last Admin: 10/09/17 08:22 Dose: 1 drop Warfarin Sodium (Coumadin) 3 mg PO SuMoWeFr [facility] Warfarin Sodium (Coumadin) 2 mg PO TuThSa [facility] Warfarin Sodium (Coumadin) 2.5 mg PO TuThSa [facility] Discontinued Medications Acetaminophen (Tylenol Extra Strength) 500 mg PO Q6H [facility] Ceftriaxone Sodium (Rocephin) 1 gm IVPUSH Q24H [facility] Last Admin: 10/06/17 17:13 Dose: 1 gm Enoxaparin Sodium (Lovenox) 30 mg SUBCUT Q24H [facility] Last Admin: 10/06/17 17:10 Dose: 30 mg Furosemide (Lasix) 40 mg IVPUSH ONETIME ONE Stop: 10/06/17 16:02 Last Admin: 10/06/17 17:06 Dose: 40 mg Furosemide (Lasix) 80 mg PO DAILY [facility] Insulin Aspart (Novolog) 0 unit SUBCUT TIDMEALS [facility] PRN Reason: Protocol Last Admin: 10/08/17 08:31 Dose: 4 units Isosorbide Mononitrate (Imdur) 60 mg PO DAILY [facility] Ptom [Dorzolamide- (Timolol Eye D) 1 drop EYERT BID [facility] Last Admin: 10/06/17 19:48 Dose: Not Given Ptom-Sertraline 50mg (Tab) 1.5 each PO BEDTIME [facility] Last Admin: 10/06/17 19:33 Dose: 1.5 each Omeprazole 20mg Cap 1 each PO BEDTIME [facility] Last Admin: 10/06/17 19:33 Dose: 1 each Ptom-Isosorbide [place] (Er 60mg Tab) 1 each PO DAILY [facility] Last Admin: 10/07/17 08:02 Dose: 1 each Ptom-Warfarin 3mg (Tab) 1 each PO 1200 [facility] Ptom-Furosemide 80mg (Tab) 1 each PO DAILY [facility] Last Admin: 10/07/17 08:02 Dose: 1 each Pantoprazole Sodium (Protonix) 40 mg PO BEDTIME [facility] Sertraline HCl (Zoloft) 75 mg PO BEDTIME [facility] Warfarin Sodium (Coumadin) 3 mg PO DAILY@1200 [facility] Warfarin Sodium (Coumadin) 3 mg PO 1200 [facility] Last Admin: 10/08/17 12:30 Dose: 3 mg - Exam General: Alert, Oriented HEENT: Mucous Membr. Moist/[place] Neck: Supple Lungs: Decreased Breath Sounds Cardiovascular: Regular Rate, Regular Rhythm, Murmurs GI/Abdominal Exam: Normal Bowel Sounds, Soft, Non-Tender Extremities: Pedal Edema (trace of edema bilaterally) Skin: Warm, Dry Neurological: No New Focal Deficit - Problem List & Annotations (1) Palliative care patient SNOMED Code(s): 947928200 Code(s): Z51.5 - ENCOUNTER FOR PALLIATIVE CARE Status: Acute Priority: High Current Visit: Yes (2) UTI, Urinary tract infectious disease SNOMED Code(s): 08420795 Code(s): N39.0 - URINARY TRACT INFECTION, SITE NOT SPECIFIED Status: Acute Priority: High Current Visit: Yes (3) Weakness SNOMED Code(s): 29325593 Code(s): R53.1 - WEAKNESS Status: Acute Priority: High Current Visit: Yes (4) URI (upper respiratory infection) SNOMED Code(s): 99688875 Code(s): J06.9 - ACUTE UPPER RESPIRATORY INFECTION, UNSPECIFIED Status: Acute Priority: High Current Visit: Yes - Problem List Review Problem List Initiated/Reviewed/Updated: Yes - My Orders Last 24 Hours: My Active Orders 10/08/17 12:00 Insulin Aspart [NovoLOG] See Protocol SUBCUT WITHMEALSANDBED 10/08/17 18:44 PT Evaluation and Treatment [CONS] Routine 10/09/17 12:00 Insulin Aspart [NovoLOG] 5 unit SUBCUT TIDMEALS Warfarin [Coumadin] 2 mg PO TuThSa Warfarin [Coumadin] 2.5 mg PO TuThSa 10/10/17 12:00 Warfarin [Coumadin] 3 mg PO SuMoWeFr - Assessment Assessment:: UTI Weakness URI Palliative care patient - Plan Plan:: Patient continues to feel weak and short of breath. Ongoing wheezing. Does admit that is voiding better now, more frequently. Was given IV Lasix on admit and states that "helped". Edema improved. Oxygen sats 93% in room air. Low grade fevers. Labs show WBC 9.6, CRP 3.0. Creatinine better at 1.5 today. D- Dimer negative. Will add Zithromax and Solu Medrol to regimen. Add Novolog per sliding scale. Monitor daily INR. Transferred to acute care. 10-08-2017 Patient continues to feel short of breath, having significant coughing spells. Appetite is good. Voiding without difficulty. Blood sugars have been much higher over the last 12 hours most likely from the Solu Medrol. Sats good on room air. Low grade fevers. Labs noted to have increased WBC most likely from steroids as CRP slightly improved to 2.8. Lung sounds improved, less wheezing, better air exchange. Continue novolog but add evening dose. Continue current IV antibiotics and neb treatments. 10-09-2017 Patient feels short of breath. Less wheezing noted per staff. Is ambulating short distances to bathroom and tolerates with mild dyspnea. Still coughing, states chest feels tight. Maintaining oxygen sats. Blood sugars continue to be high despite sliding scale, will add mealtime insulin as well as continue sliding scale and Levemir. Urine culture did show Proteus but covered with Rocephin. Continue same medication with addition of mealtime insulin. Physical therapy eval today. Probable swing bed transfer tomorrow due to weakness, dyspnea and need for PT and antibiotics.
[2017-10-09] MEDS ORDERED: Warfarin 2.5 MG Tab PO SCH (12:00)
[2017-10-09] MEDS ORDERED: Warfarin 2 MG Tab PO SCH (12:00)
[2017-10-09] MEDS: cefTRIAXone 1 GM Vial IVPUSH SCH (12:04)
[2017-10-09] MEDS: Gabapentin 300 MG Cap PO SCH (17:12)
[2017-10-09] MEDS: Latanoprost 0.005% Ophth Soln 2.5 ML Bottle EYEBOTH SCH (19:49)
[2017-10-09] MEDS: amLODIPine 10 MG Tab PO SCH (19:50)
[2017-10-09] MEDS: Pantoprazole 40 MG Tab.CR PO SCH (19:51)
[2017-10-09] MEDS: Sertraline 25 MG Tab PO SCH (19:51)
[2017-10-10] MEDS: Aspirin 81 MG Tab.EC PO SCH (07:53)
[2017-10-10] MEDS: Albuterol/Ipratropium 3.0-0.5 MG/3 ML Neb Soln NEB SCH (07:53)
[2017-10-10] MEDS: Furosemide 80 MG Tab PO SCH (07:53)
[2017-10-10] MEDS: methylPREDNISolone Sodium Succinate 125 MG/2 ML SDV IVPUSH SCH (07:53)
[2017-10-10] MEDS: Potassium Chloride 10 MEQ Tab.ER PO SCH (07:54)
[2017-10-10] MEDS: Allopurinol 300 MG Tab PO SCH (07:56)
[2017-10-10] MEDS: Azithromycin 250 MG Tab PO SCH (07:57)
[2017-10-10] MEDS: TIMOLOL MALEATE 0.5% EYELF SCH (07:59)
[2017-10-10] MEDS: [UNRECOGNIZED DRUG - OTHER] EYERT SCH (08:01)
[2017-10-10] MEDS: DORZOLAMIDE HCL EYERT SCH (08:01)
[2017-10-10] MEDS: TIMOLOL MALEAT EYERT SCH (08:01)
[2017-10-10] MEDS: ALPHAGAN P 0.1% EYEBOTH SCH (08:02)
[2017-10-10 08:12] VITALS: BP 154/52
[2017-10-10] MEDS: Gabapentin 100 MG Cap PO SCH (08:21)
[2017-10-10] MEDS: Isosorbide Mononitrate 30 MG Tab.ER PO SCH (08:21)
[2017-10-10] MEDS: Metoprolol Tartrate 50 MG Tab PO SCH (08:22)
[2017-10-10] MEDS: Losartan 100 MG Tab PO SCH (08:22)
[2017-10-10] MEDS: Insulin Detemir 100 Units/ML 3 ML Pen SUBCUT SCH (08:23)
[2017-10-10] MEDS: Insulin Aspart 100 Units/ML 3 ML Pen SUBCUT SCH ×2 (08:24→08:25)
--- NOTE | 2017-10-12 14:29 | PCM.DCSUM1 ---
Discharge Summary - Hospital Course Free Text/Narrative:: Patient admitted to acute care after presented to clinic with UTI, weakness and cough. Patient had been experiencing cough and sinus congestion for 3 days prior to arrival. Had not voided much at all for 24 hours. She was feeling more short of breath as well. Had not noted an increase in peripheral edema. Initial labs showed a UTI. Chest xray was unremarkable. ProBNP elevated at 3537. CRP 2.6 with WBC at 12.4. INR therapeutic. Admitted acute inpatient for UTI, URI and weakness. Started IV Rocephin and Zithromax. Given Lasix 40 mg IV push. IV fluids for dehydration. - Discharge Data Discharge Date: 10/10/17 Discharge Disposition: DC/Tfer W/I Hosp To Swing 61 Condition: Good - Discharge Diagnosis/Problem(s) (1) Palliative care patient SNOMED Code(s): 963653829 ICD Code: Z51.5 - ENCOUNTER FOR PALLIATIVE CARE Status: Acute Priority: High (2) UTI, Urinary tract infectious disease SNOMED Code(s): 09559820 ICD Code: N39.0 - URINARY TRACT INFECTION, SITE NOT SPECIFIED Status: Acute Priority: High (3) Weakness SNOMED Code(s): 83473327 ICD Code: R53.1 - WEAKNESS Status: Acute Priority: High (4) URI (upper respiratory infection) SNOMED Code(s): 84571064 ICD Code: J06.9 - ACUTE UPPER RESPIRATORY INFECTION, UNSPECIFIED Status: Acute Priority: High - Patient Summary/Data Complications: none Consults: Consultations 10/08/17 18:44 PT Evaluation and Treatment [CONS] Routine Hospital Course: Patient has had slow improvement of overall status. Breathing much improved, better air exchange, less wheezing. Patient has had increase in blood sugars due to steroids so sliding scale insulin added. Now afebrile. Oxygen sats have improved. INR was not therapeutic during stay so Coumadin dose was adjusted. Is up and ambulating now, mild short of breath with exertion but improved. Was given IV Lasix x1 after admission and voiding improved with that and IV fluids, now voiding without incident. WBC did increase to 14.7 with steroid use but CRP relatively stable. - Discharge Plan Home Medications: Home Meds Furosemide 80 mg PO DAILY 02/13/15 [History] Latanoprost [Xalatan 0.005% Ophth Soln] 1 drop EYEBOTH BEDTIME 02/13/15 [History ] Losartan [Cozaar] 100 mg PO DAILY 02/13/15 [History] Metoprolol Tartrate 50 mg PO BID 02/13/15 [History] Omeprazole 20 mg PO BEDTIME 02/13/15 [History] amLODIPine [Norvasc] 10 mg PO BEDTIME 02/13/15 [History] Allopurinol [Zyloprim] 300 mg PO DAILY tablet 02/17/15 [Rx] Aspirin [Halfprin] 81 mg PO DAILY 09/22/15 [History] Sertraline [Zoloft] 75 mg PO BEDTIME 12/07/16 [History] Brimonidine Tartrate [Alphagan P 0.1% Ophth Soln] 1 drop EYEBOTH BID 04/04/17 [ History] Timolol Maleate [Timoptic 0.5% Ophth Soln] 1 drop EYELF QAM 04/04/17 [History] Isosorbide Mononitrate [Imdur] 60 mg PO DAILY 05/21/17 [History] Gabapentin [Neurontin] 100 mg PO BID@0800,1200 #60 cap 06/16/17 [Rx] Gabapentin [Neurontin] 300 mg PO 1730 #30 cap 06/16/17 [Rx] Insulin Detemir [Levemir] 30 unit SUBCUT QAM #1 pen 06/16/17 [Rx] Warfarin Sodium 3 mg PO DAILY #30 tablet 06/16/17 [Rx] Acetaminophen 500 mg PO Q6H PRN 10/06/17 [History] Dorzolamide HCl/Timolol Maleat [Dorzolamide-Timolol Eye Drops] 1 drop EYERT BID 10/06/17 [History] Potassium Chloride [Klor-Con 10] 20 meq PO DAILY 10/06/17 [History] - Discharge Summary/Plan Comment DC Time >30 min.: Yes Discharge Summary/Plan Comment: Discharge to swing bed for ongoing IV antibiotics, steroids, monitoring blood sugars, and continuing PT. Time with patient 15 minutes Discharge orders 10 minutes Time for documentation 10 minutes - General Info Date of Service: 10/10/17 Admission Dx/Problem (Free Text: Weakness UTI URI Functional Status: Reports: Pain Controlled, Tolerating Diet, Ambulating - Review of Systems General: Reports: Weakness, Fatigue. Denies: Fever HEENT: Reports: Sinus Congestion, Rhinitis Pulmonary: Reports: Shortness of Breath, Cough. Denies: Wheezing Cardiovascular: Denies: Chest Pain, Lightheadedness Gastrointestinal: Reports: No Symptoms Neurological: Reports: No Symptoms - Patient Data Vitals - Most Recent: Last Vital Signs Temp 98.7 F 10/10/17 08:00 Pulse 66 10/10/17 08:22 Resp 20 10/10/17 08:00 BP 154/52 H 10/10/17 08:22 Pulse Ox 96 10/10/17 08:00 Weight - Most Recent: 175 lb 14.862 oz Med Orders - Current: Current Medications Discontinued Medications Acetaminophen (Tylenol Extra Strength) 500 mg PO Q6H [facility] Acetaminophen (Tylenol Extra Strength) 500 mg PO Q6H PRN PRN Reason: Pain Last Admin: 10/08/17 20:16 Dose: 500 mg Albuterol/Ipratropium (Duoneb 3.0-0.5 Mg/3 Ml) 3 ml NEB QIDRT [facility] Last Admin: 10/10/17 07:53 Dose: 3 ml Allopurinol (Zyloprim) 300 mg PO DAILY [facility] Last Admin: 10/10/17 07:56 Dose: 300 mg Amlodipine Besylate (Norvasc) 10 mg PO BEDTIME [facility] Last Admin: 10/09/17 19:50 Dose: 10 mg Aspirin (Halfprin) 81 mg PO DAILY [facility] Last Admin: 10/10/17 07:53 Dose: 81 mg Azithromycin (Zithromax) 250 mg PO DAILY [facility] Last Admin: 10/10/17 07:57 Dose: 250 mg Ceftriaxone Sodium (Rocephin) 1 gm IVPUSH Q24H [facility] Last Admin: 10/06/17 17:13 Dose: 1 gm Ceftriaxone Sodium (Rocephin) 1 gm IVPUSH Q24H [facility] Last Admin: 10/09/17 12:04 Dose: 1 gm Enoxaparin Sodium (Lovenox) 30 mg SUBCUT Q24H [facility] Last Admin: 10/06/17 17:10 Dose: 30 mg Furosemide (Lasix) 40 mg IVPUSH ONETIME ONE Stop: 10/06/17 16:02 Last Admin: 10/06/17 17:06 Dose: 40 mg Furosemide (Lasix) 80 mg PO DAILY [facility] Furosemide (Lasix) 80 mg PO DAILY [facility] Last Admin: 10/10/17 07:53 Dose: 80 mg Gabapentin (Neurontin) 100 mg PO 0800,1200 [facility] Last Admin: 10/10/17 08:21 Dose: 100 mg Gabapentin (Neurontin) 300 mg PO 1730 [facility] Last Admin: 10/09/17 17:12 Dose: 300 mg Insulin Aspart (Novolog) 0 unit SUBCUT TIDMEALS [facility] PRN Reason: Protocol Last Admin: 10/08/17 08:31 Dose: 4 units Insulin Aspart (Novolog) 0 unit SUBCUT WITHMEALSANDBED [facility] PRN Reason: Protocol Last Admin: 10/10/17 08:24 Dose: 2 units Insulin Aspart (Novolog) 5 unit SUBCUT TIDMEALS [facility] Last Admin: 10/10/17 08:25 Dose: 5 units Insulin Detemir (Levemir) 30 unit SUBCUT QAM [facility] Last Admin: 10/10/17 08:23 Dose: 30 units Isosorbide Mononitrate (Imdur) 60 mg PO DAILY [facility] Isosorbide Mononitrate (Imdur) 60 mg PO DAILY [facility] Last Admin: 10/10/17 08:21 Dose: 60 mg Latanoprost (Xalatan 0.005% Ophth Soln) 0 ml EYEBOTH BEDTIME [facility] Last Admin: 10/09/17 19:49 Dose: 1 drop Losartan Potassium (Cozaar) 100 mg PO DAILY [facility] Last Admin: 10/10/17 08:22 Dose: 100 mg Methylprednisolone Sodium Succinate (Solu-Medrol) 62.5 mg IVPUSH Q12H [facility] Last Admin: 10/10/17 07:53 Dose: 62.5 mg Metoprolol Tartrate (Lopressor) 50 mg PO BID [facility] Last Admin: 10/10/17 08:22 Dose: 50 mg Ptom[Alphagan P 0.1% (Ophth Soln] 1 Drop)) 1 drop EYEBOTH BID [facility] Last Admin: 10/10/17 08:02 Dose: 1 drop Ptom [Dorzolamide- (Timolol Eye D) 1 drop EYERT BID [facility] Last Admin: 10/06/17 19:48 Dose: Not Given Ptom-Sertraline 50mg (Tab) 1.5 each PO BEDTIME [facility] Last Admin: 10/06/17 19:33 Dose: 1.5 each Omeprazole 20mg Cap 1 each PO BEDTIME [facility] Last Admin: 10/06/17 19:33 Dose: 1 each Ptom-Isosorbide [place] (Er 60mg Tab) 1 each PO DAILY [facility] Last Admin: 10/07/17 08:02 Dose: 1 each Ptom-Warfarin 3mg (Tab) 1 each PO 1200 [facility] Ptom-Furosemide 80mg (Tab) 1 each PO DAILY [facility] Last Admin: 10/07/17 08:02 Dose: 1 each Non-Formulary Medication (Dorzolamide Hcl/Timolol Maleat [Dorzolamide-Timolol Eye Drops]) 1 drop EYERT DAILY [facility] Last Admin: 10/10/17 08:01 Dose: 1 drop Ondansetron HCl (Zofran Odt) 4 mg PO Q4H PRN PRN Reason: nausea, able to take PO Pantoprazole Sodium (Protonix) 40 mg PO BEDTIME [facility] Pantoprazole Sodium (Protonix) 40 mg PO BEDTIME [facility] Last Admin: 10/09/17 19:51 Dose: 40 mg Potassium Chloride (Klor-Con 10) 20 meq PO DAILY [facility] Last Admin: 10/10/17 07:54 Dose: 20 meq Sertraline HCl (Zoloft) 75 mg PO BEDTIME [facility] Sertraline HCl (Zoloft) 75 mg PO BEDTIME [facility] Last Admin: 10/09/17 19:51 Dose: 75 mg Sodium Chloride (Saline Flush) 10 ml FLUSH ASDIRECTED PRN PRN Reason: Keep Vein Open Temazepam (Restoril) 15 mg PO BEDTIME PRN PRN Reason: Sleep Timolol Maleate (Timoptic 0.5% Oph Soln) 0 ml EYELF QAM [facility] Last Admin: 10/10/17 07:59 Dose: 1 drop Warfarin Sodium (Coumadin) 3 mg PO DAILY@1200 [facility] Warfarin Sodium (Coumadin) 3 mg PO 1200 [facility] Last Admin: 10/08/17 12:30 Dose: 3 mg Warfarin Sodium (Coumadin) 3 mg PO SuMoWeFr [facility] Warfarin Sodium (Coumadin) 2 mg PO TuThSa [facility] Last Admin: 10/09/17 12:01 Dose: 2 mg Warfarin Sodium (Coumadin) 2.5 mg PO TuThSa [facility] Last Admin: 10/09/17 12:01 Dose: 2.5 mg - Exam General: Reports: Alert, Oriented HEENT: Reports: Mucous Membr. Moist/[place] Neck: Reports: Supple Lungs: Reports: Decreased Breath Sounds Cardiovascular: Reports: Regular Rate, Regular Rhythm GI/Abdominal Exam: Normal Bowel Sounds, Soft, Non-Tender *Q Meaningful Use (DIS) - VTE *Q VTE Criteria *Q: - Stroke *Q Stroke Criteria *Q: - AMI *Q AMI Criteria *Q:
== END 2017-10-10 08:59 | disposition swing bed (61) | DRG 690 ==
LOC: CC.FCMC 14:17 → CC.MS 14:17 → UNDOADMOB 15:12 → CC.MS 15:12 → OBSVTOIN 10-07 08:37
PROVIDERS: ADMIT Physician Assistant Medical; ATTEND Family Medicine
DX: N39.0 Urinary tract infection, site not specified (principal); M10.9 Gout, unspecified; R53.1 Weakness; J06.9 Acute upper respiratory infection, unspecified; J98.11 Atelectasis; R06.02 Shortness of breath; Z51.5 Encounter for palliative care; R60.9 Edema, unspecified; Z88.5 Allergy status to narcotic agent; E86.0 Dehydration; Z79.01 Long term (current) use of anticoagulants; Z79.82 Long term (current) use of aspirin; Z79.899 Other long term (current) drug therapy
CPT/HCPCS: 36415 ×2; 71020; 80048; 80053; 81001; 82962 ×3; 83880; 84484; 85025 ×2; 85610; 86140 ×2; 87086; 94640 ×2; A9270 ×11; J0696; J1650; J1815; J1940; 85379; 87088; 87186; 96372; 96374; 96375; 97110-GP; 97162-GP; 99220; G0378; J2930

== ENCOUNTER 2017-10-10 09:12 | Inpatient (IN) | payer MEDICARE, BC ==
[2017-10-10] MEDS ORDERED: Acetaminophen 500 MG Tab PO PRN (09:47)
[2017-10-10] MEDS ORDERED: Temazepam 15 MG Cap PO PRN (09:47)
[2017-10-10] MEDS ORDERED: Sodium Chloride 0.9% 10 ML Syringe FLUSH PRN ×2 (09:47)
[2017-10-10] MEDS ORDERED: Ondansetron 4 MG Tab.DIS PO PRN (09:47)
[2017-10-10] MEDS: Insulin Aspart 100 Units/ML 3 ML Pen SUBCUT SCH ×5 (12:04→20:33)
[2017-10-10] MEDS: Gabapentin 100 MG Cap PO SCH (12:05)
[2017-10-10] MEDS: cefTRIAXone 1 GM Vial IVPUSH SCH (12:52)
[2017-10-10] MEDS: Albuterol/Ipratropium 3.0-0.5 MG/3 ML Neb Soln NEB SCH ×3 (12:52→20:16)
[2017-10-10] MEDS: Gabapentin 300 MG Cap PO SCH (17:13)
[2017-10-10] MEDS: ALPHAGAN P 0.1% EYEBOTH SCH (20:04)
[2017-10-10] MEDS: methylPREDNISolone Sodium Succinate 125 MG/2 ML SDV IVPUSH SCH (20:05)
[2017-10-10] MEDS: amLODIPine 10 MG Tab PO SCH (20:13)
[2017-10-10] MEDS: Pantoprazole 40 MG Tab.CR PO SCH (20:14)
[2017-10-10] MEDS: Sertraline 25 MG Tab PO SCH (20:14)
[2017-10-10] MEDS: Latanoprost 0.005% Ophth Soln 2.5 ML Bottle EYEBOTH SCH (20:15)
[2017-10-10] MEDS: Metoprolol Tartrate 50 MG Tab PO SCH (20:18)
[2017-10-11] MEDS ORDERED: [UNRECOGNIZED DRUG - OTHER] EYERT SCH (08:00)
[2017-10-11] MEDS: Allopurinol 300 MG Tab PO SCH (08:10)
[2017-10-11] MEDS: Metoprolol Tartrate 50 MG Tab PO SCH ×2 (08:10→20:08)
[2017-10-11] MEDS: methylPREDNISolone Sodium Succinate 125 MG/2 ML SDV IVPUSH SCH ×2 (08:10→20:03)
[2017-10-11] MEDS: Potassium Chloride 10 MEQ Tab.ER PO SCH (08:11)
[2017-10-11] MEDS: Furosemide 80 MG Tab PO SCH (08:11)
[2017-10-11] MEDS: Isosorbide Mononitrate 30 MG Tab.ER PO SCH (08:11)
[2017-10-11] MEDS: Losartan 100 MG Tab PO SCH (08:12)
[2017-10-11] MEDS: Azithromycin 250 MG Tab PO SCH (08:12)
[2017-10-11] MEDS: Gabapentin 100 MG Cap PO SCH ×2 (08:15→11:42)
[2017-10-11] MEDS: Aspirin 81 MG Tab.EC PO SCH (08:16)
[2017-10-11] MEDS: Insulin Detemir 100 Units/ML 3 ML Pen SUBCUT SCH (08:16)
[2017-10-11] MEDS: Insulin Aspart 100 Units/ML 3 ML Pen SUBCUT SCH ×7 (08:17→20:10)
[2017-10-11] MEDS: Timolol Maleate 0.5% Ophth Soln 5 ML Bottle EYELF SCH (08:37)
[2017-10-11] MEDS: ALPHAGAN P 0.1% EYEBOTH SCH ×2 (08:38→20:09)
[2017-10-11] MEDS: Albuterol/Ipratropium 3.0-0.5 MG/3 ML Neb Soln NEB SCH ×4 (08:39→20:12)
[2017-10-11] MEDS: cefTRIAXone 1 GM Vial IVPUSH SCH (11:45)
[2017-10-11] MEDS ORDERED: Warfarin 2.5 MG Tab PO SCH (12:00)
[2017-10-11] MEDS ORDERED: Warfarin 2 MG Tab PO SCH (12:00)
[2017-10-11] MEDS: Gabapentin 300 MG Cap PO SCH (17:30)
[2017-10-11] MEDS: Latanoprost 0.005% Ophth Soln 2.5 ML Bottle EYEBOTH SCH (19:58)
[2017-10-11] MEDS: amLODIPine 10 MG Tab PO SCH (20:07)
[2017-10-11] MEDS: Pantoprazole 40 MG Tab.CR PO SCH (20:07)
[2017-10-11] MEDS: Sertraline 25 MG Tab PO SCH (20:08)
[2017-10-11] MEDS: TIMOLOL MALEAT EYERT SCH (20:22)
[2017-10-11] MEDS: DORZOLAMIDE HCL EYERT SCH (20:22)
[2017-10-12] MEDS: Albuterol/Ipratropium 3.0-0.5 MG/3 ML Neb Soln NEB SCH ×4 (07:37→20:10)
[2017-10-12] MEDS: methylPREDNISolone Sodium Succinate 125 MG/2 ML SDV IVPUSH SCH (07:40)
[2017-10-12] MEDS: TIMOLOL MALEAT EYERT SCH ×2 (07:41→20:22)
[2017-10-12] MEDS: DORZOLAMIDE HCL EYERT SCH ×2 (07:41→20:22)
[2017-10-12] MEDS: Timolol Maleate 0.5% Ophth Soln 5 ML Bottle EYELF SCH (07:42)
[2017-10-12] MEDS: Insulin Detemir 100 Units/ML 3 ML Pen SUBCUT SCH (07:44)
[2017-10-12] MEDS: Insulin Aspart 100 Units/ML 3 ML Pen SUBCUT SCH ×7 (07:45→20:08)
[2017-10-12] MEDS: Isosorbide Mononitrate 30 MG Tab.ER PO SCH (07:48)
[2017-10-12] MEDS: Metoprolol Tartrate 50 MG Tab PO SCH ×2 (07:48→20:07)
[2017-10-12] MEDS: Aspirin 81 MG Tab.EC PO SCH (07:49)
[2017-10-12] MEDS: Furosemide 80 MG Tab PO SCH (07:49)
[2017-10-12] MEDS: Potassium Chloride 10 MEQ Tab.ER PO SCH (07:52)
[2017-10-12] MEDS: ALPHAGAN P 0.1% EYEBOTH SCH ×2 (07:52→19:47)
[2017-10-12] MEDS: Allopurinol 300 MG Tab PO SCH (07:53)
[2017-10-12] MEDS: Azithromycin 250 MG Tab PO SCH (07:53)
[2017-10-12] MEDS: Losartan 100 MG Tab PO SCH (07:53)
[2017-10-12] MEDS: Gabapentin 100 MG Cap PO SCH ×2 (07:55→12:01)
[2017-10-12] MEDS: cefTRIAXone 1 GM Vial IVPUSH SCH ×2 (12:57→14:38)
[2017-10-12] MEDS ORDERED: Codeine/Promethazine 10-6.25 MG/5 ML Syrup 5 ML UD Cup PO PRN (15:01)
[2017-10-12] MEDS: Cefuroxime 250 MG Tab PO SCH (17:20)
[2017-10-12] MEDS: Gabapentin 300 MG Cap PO SCH (17:20)
[2017-10-12] MEDS: Latanoprost 0.005% Ophth Soln 2.5 ML Bottle EYEBOTH SCH (20:04)
[2017-10-12] MEDS: Pantoprazole 40 MG Tab.CR PO SCH (20:06)
[2017-10-12] MEDS: Sertraline 25 MG Tab PO SCH (20:06)
[2017-10-12] MEDS: amLODIPine 10 MG Tab PO SCH (20:07)
[2017-10-13] MEDS: Allopurinol 300 MG Tab PO SCH (09:06)
[2017-10-13] MEDS: Albuterol/Ipratropium 3.0-0.5 MG/3 ML Neb Soln NEB SCH ×2 (09:06→11:58)
[2017-10-13] MEDS: Metoprolol Tartrate 50 MG Tab PO SCH (09:06)
[2017-10-13] MEDS: Potassium Chloride 10 MEQ Tab.ER PO SCH (09:07)
[2017-10-13] MEDS: Losartan 100 MG Tab PO SCH (09:07)
[2017-10-13] MEDS: Cefuroxime 250 MG Tab PO SCH (09:08)
[2017-10-13] MEDS: Isosorbide Mononitrate 30 MG Tab.ER PO SCH (09:09)
[2017-10-13] MEDS: Azithromycin 250 MG Tab PO SCH (09:09)
[2017-10-13] MEDS: Furosemide 80 MG Tab PO SCH (09:09)
[2017-10-13] MEDS: Aspirin 81 MG Tab.EC PO SCH (09:09)
[2017-10-13] MEDS: ALPHAGAN P 0.1% EYEBOTH SCH (09:10)
[2017-10-13 09:12] VITALS: BP 148/61
[2017-10-13] MEDS: Insulin Detemir 100 Units/ML 3 ML Pen SUBCUT SCH (09:12)
[2017-10-13] MEDS: TIMOLOL MALEAT EYERT SCH (09:12)
[2017-10-13] MEDS: DORZOLAMIDE HCL EYERT SCH (09:12)
[2017-10-13] MEDS: Timolol Maleate 0.5% Ophth Soln 5 ML Bottle EYELF SCH (09:13)
[2017-10-13] MEDS: Insulin Aspart 100 Units/ML 3 ML Pen SUBCUT SCH ×4 (09:15→11:58)
[2017-10-13] MEDS: Gabapentin 100 MG Cap PO SCH ×2 (09:15→12:15)
--- NOTE | 2017-10-13 09:17 | PCM.DCSUM1 ---
Discharge Summary - Hospital Course Free Text/Narrative:: Patient initially presented to clinic for weakness, shortness of breath and decreased voiding. Work up from clinic did show a UTI, chest xray negative for pneumonia but acute respiratory concerns noted. Admitted and started on IV antibiotics, nebulizer treatments and steroids. Initial WBC 12.4, CRP 2.6, ProBNP 3537. Given Lasix 40 mg IV x1 on admit and did have improvement with voiding. - Discharge Data Discharge Date: 10/13/17 Discharge Disposition: Home, Self-Care 01 Condition: Fair - Patient Summary/Data Complications: none Consults: Consultations 10/10/17 09:47 PT Evaluation and Treatment [CONS] Routine Hospital Course: Patient had slow improvement of overall status. Strength increased to where she is ambulating with walker, dressing self and tolerating activity better. She had chest tightness and wheezing of lungs on admit, now diminished but clear. She has continued to void well after first 12 hours. Continues to have an ongoing cough but resting better. WBC did increase to 16.5 due to steroids, blood sugars high so sliding scale given to control those. Edema improved. Discharge back to [facility], continue Ceftin. - Patient Instructions Diet: Usual Diet as Tolerated Activity: As Tolerated Notify Provider of: Fever, Nausea and/or Vomiting - Discharge Plan Prescriptions/Med Rec: Cefuroxime [Ceftin] 250 mg PO BIDMEALS #14 tablet Home Medications: Home Meds Furosemide 80 mg PO DAILY 02/13/15 [History] Latanoprost [Xalatan 0.005% Ophth Soln] 1 drop EYEBOTH BEDTIME 02/13/15 [History ] Losartan [Cozaar] 100 mg PO DAILY 02/13/15 [History] Metoprolol Tartrate 50 mg PO BID 02/13/15 [History] Omeprazole 20 mg PO BEDTIME 02/13/15 [History] amLODIPine [Norvasc] 10 mg PO BEDTIME 02/13/15 [History] Allopurinol [Zyloprim] 300 mg PO DAILY tablet 02/17/15 [Rx] Aspirin [Halfprin] 81 mg PO DAILY 09/22/15 [History] Sertraline [Zoloft] 75 mg PO BEDTIME 12/07/16 [History] Brimonidine Tartrate [Alphagan P 0.1% Ophth Soln] 1 drop EYEBOTH BID 04/04/17 [ History] Isosorbide Mononitrate [Imdur] 60 mg PO DAILY 05/21/17 [History] Gabapentin [Neurontin] 100 mg PO BID@0800,1200 #60 cap 06/16/17 [Rx] Gabapentin [Neurontin] 300 mg PO 1730 #30 cap 06/16/17 [Rx] Insulin Detemir [Levemir] 30 unit SUBCUT QAM #1 pen 06/16/17 [Rx] Warfarin Sodium 3 mg PO DAILY #30 tablet 06/16/17 [Rx] Acetaminophen 500 mg PO Q6H PRN 10/06/17 [History] Dorzolamide HCl/Timolol Maleat [Dorzolamide-Timolol Eye Drops] 1 drop EYERT BID 10/06/17 [History] Potassium Chloride [Klor-Con 10] 20 meq PO DAILY 10/06/17 [History] Cefuroxime [Ceftin] 250 mg PO BIDMEALS #14 tablet 10/13/17 [Rx] Referrals: Samuel Dukes MD [Primary Care Provider] - (Dr. Dukes in one week. INR prior to visit) - Discharge Summary/Plan Comment DC Time >30 min.: No - General Info Date of Service: 10/13/17 Admission Dx/Problem (Free Text: URI UTI Weakness Functional Status: Reports: Pain Controlled, Tolerating Diet, Ambulating - Review of Systems General: Reports: Weakness, Fatigue. Denies: Fever HEENT: Reports: Rhinitis Pulmonary: Reports: Shortness of Breath, Cough. Denies: Wheezing Cardiovascular: Denies: Chest Pain, Edema, Lightheadedness Gastrointestinal: Denies: Abdominal Pain, Nausea, Vomiting Genitourinary: Reports: No Symptoms Musculoskeletal: Reports: No Symptoms Skin: Reports: No Symptoms Neurological: Reports: No Symptoms - Patient Data Vitals - Most Recent: Last Vital Signs Temp 98.1 F 10/12/17 20:00 Pulse 67 10/13/17 09:06 Resp 18 10/12/17 20:00 BP 148/61 H 10/13/17 09:09 Pulse Ox 92 L 10/12/17 20:00 Weight - Most Recent: 176 lb 11.208 oz Lab Results - Last 24 hrs: Laboratory Results - last 24 hr 10/12/17 10/12/17 10/12/17 Range/Units 11:35 17:19 20:02 PT (9.7-12.3) SEC INR (0.92-1.18) POC Glucose 336 H 287 H 327 H (75-105) mg/dl 10/13/17 10/13/17 Range/Units 07:00 07:26 PT 44.3 H (9.7-12.3) SEC INR 3.93 H (0.92-1.18) POC Glucose 151 H (75-105) mg/dl Med Orders - Current: Current Medications Acetaminophen (Tylenol Extra Strength) 500 mg PO Q6H PRN PRN Reason: Pain Last Admin: 10/10/17 20:13 Dose: 500 mg Albuterol/Ipratropium (Duoneb 3.0-0.5 Mg/3 Ml) 3 ml NEB QIDRT [facility] Last Admin: 10/13/17 09:06 Dose: 3 ml Allopurinol (Zyloprim) 300 mg PO DAILY [facility] Last Admin: 10/13/17 09:06 Dose: 300 mg Amlodipine Besylate (Norvasc) 10 mg PO BEDTIME [facility] Last Admin: 10/12/17 20:07 Dose: 10 mg Aspirin (Halfprin) 81 mg PO DAILY [facility] Last Admin: 10/13/17 09:09 Dose: 81 mg Azithromycin (Zithromax) 250 mg PO DAILY [facility] Last Admin: 10/13/17 09:09 Dose: 250 mg Cefuroxime Axetil (Ceftin) 250 mg PO BIDMEALS [facility] Last Admin: 10/13/17 09:08 Dose: 250 mg Furosemide (Lasix) 80 mg PO DAILY [facility] Last Admin: 10/13/17 09:09 Dose: 80 mg Gabapentin (Neurontin) 100 mg PO 0800,1200 [facility] Last Admin: 10/13/17 09:15 Dose: 100 mg Gabapentin (Neurontin) 300 mg PO 1730 [facility] Last Admin: 10/12/17 17:20 Dose: 300 mg Insulin Aspart (Novolog) 0 unit SUBCUT WITHMEALSANDBED [facility] PRN Reason: Protocol Last Admin: 10/13/17 09:15 Dose: 2 unit Insulin Aspart (Novolog) 5 unit SUBCUT TIDMEALS [facility] Last Admin: 10/13/17 09:16 Dose: 5 unit Insulin Detemir (Levemir) 30 unit SUBCUT QAM [facility] Last Admin: 10/13/17 09:12 Dose: 30 unit Isosorbide Mononitrate (Imdur) 60 mg PO DAILY [facility] Last Admin: 10/13/17 09:09 Dose: 60 mg Latanoprost (Xalatan 0.005% Ophth Soln) 0 ml EYEBOTH BEDTIME [facility] Last Admin: 10/12/17 20:04 Dose: 1 drop Losartan Potassium (Cozaar) 100 mg PO DAILY [facility] Last Admin: 10/13/17 09:07 Dose: 100 mg Metoprolol Tartrate (Lopressor) 50 mg PO BID [facility] Last Admin: 10/13/17 09:06 Dose: 50 mg Ptom [Alphagan P 0.1 % Ophth Soln] 1 Drop ) 1 drop EYEBOTH BID [facility] Last Admin: 10/13/17 09:10 Dose: 1 drop Patients Own Med ( Dorzolamide Hcl/Timolol Maleat [ Dorzolamide-Timolol Eye D 1 drop EYERT BID [facility] Last Admin: 10/13/17 09:12 Dose: 1 drop Ondansetron HCl (Zofran Odt) 4 mg PO Q4H PRN PRN Reason: nausea, able to take PO Pantoprazole Sodium (Protonix) 40 mg PO BEDTIME [facility] Last Admin: 10/12/17 20:06 Dose: 40 mg Potassium Chloride (Klor-Con 10) 20 meq PO DAILY [facility] Last Admin: 10/13/17 09:07 Dose: 20 meq Promethazine HCl/Codeine (Phenergan With Codeine) 10 ml PO Q6H PRN PRN Reason: Cough Last Admin: 10/13/17 00:00 Dose: 10 ml Sertraline HCl (Zoloft) 75 mg PO BEDTIME [facility] Last Admin: 10/12/17 20:06 Dose: 75 mg Sodium Chloride (Saline Flush) 10 ml FLUSH ASDIRECTED PRN PRN Reason: Keep Vein Open Temazepam (Restoril) 15 mg PO BEDTIME PRN PRN Reason: Sleep Timolol Maleate (Timoptic 0.5% Ophth Soln) 0 ml EYELF QAM [facility] Last Admin: 10/13/17 09:13 Dose: 1 drop Warfarin Sodium (Coumadin) 3 mg PO SuMoWeFr [facility] Last Admin: 10/12/17 12:01 Dose: 3 mg Warfarin Sodium (Coumadin) 2 mg PO TuThSa [facility] Last Admin: 10/11/17 11:42 Dose: 2 mg Warfarin Sodium (Coumadin) 2.5 mg PO [facility] Last Admin: 10/11/17 11:42 Dose: 2.5 mg Discontinued Medications Ceftriaxone Sodium (Rocephin) 1 gm IVPUSH Q24H [facility] Last Admin: 10/12/17 14:38 Dose: Not Given Methylprednisolone Sodium Succinate (Solu-Medrol) 62.5 mg IVPUSH Q12H [facility] Last Admin: 10/12/17 07:40 Dose: 62.5 mg Ptom [Dorzolamide- (Timolol Eye D) 1 drop EYERT DAILY [facility] Last Admin: 10/11/17 08:37 Dose: 1 drop - Exam General: Reports: Alert, Oriented HEENT: Reports: Mucous Membr. Moist/[place] Neck: Reports: Supple Lungs: Reports: Decreased Breath Sounds Cardiovascular: Reports: Regular Rate, Regular Rhythm, Murmurs GI/Abdominal Exam: Normal Bowel Sounds, Soft, Non-Tender Extremities: Normal Inspection, No Pedal Edema Skin: Reports: Warm, Dry Neurological: Reports: No New Focal Deficit *Q Meaningful Use (DIS) - VTE *Q VTE Criteria *Q: - Stroke *Q Stroke Criteria *Q: - AMI *Q AMI Criteria *Q:
== END 2017-10-13 15:20 | disposition home or self-care (01) | DRG 690 ==
LOC: CC.MS 09:12 → UNDOADMIN 09:12 → CC.MS 09:47
PROVIDERS: ADMIT Family Medicine; ATTEND Family Medicine
DX: N39.0 Urinary tract infection, site not specified (principal); J06.9 Acute upper respiratory infection, unspecified; R53.1 Weakness; R06.02 Shortness of breath; M10.9 Gout, unspecified; Z51.5 Encounter for palliative care; Z66 Do not resuscitate; R73.9 Hyperglycemia, unspecified; T38.0X5A Adverse effect of glucocorticoids and synthetic analogues, initial encounter; Z79.899 Other long term (current) drug therapy; Z79.82 Long term (current) use of aspirin; Z79.01 Long term (current) use of anticoagulants
CPT/HCPCS: 36415; 82962; 85610; 94640; 97110-GP; A9270-GY; J0696; J2930

== ENCOUNTER 2017-10-22 14:55 | Inpatient (IN) | payer MEDICARE, BC ==
--- NOTE | 2017-10-22 16:53 | EDM.PDOC ---
ED HPI GENERAL MEDICAL PROBLEM - General Chief Complaint: Neuro Symptoms/Deficits Stated Complaint: eye trauma, facial droop Time Seen by Provider: 10/22/17 14:55 Source of Information: Reports: Patient, [facility] Records History Limitations: Reports: No Limitations - History of Present Illness INITIAL COMMENTS - FREE TEXT/NARRATIVE: La is an 82 yo female who presents to the clinic initially with concerns of stroke like symptoms status post fall. She was evaluated by [facility] staff and was scheduled for evaluation in the clinic. Upon arrival to the clinic I had her sent to the ER immediately for further evaluation. She has been alert and orientated since fall. She does have a history of some right sided facial droop, which daughter who is present, confirms that she does have known right sided drooping of the lip. La states she was walking to the bathroom and has a known history of difficulty with balance. She states she ended up falling forward and hitting the ride side of her face on the toilet. She denies any loss of consciousness. States she has had a headache since. Admits to no visual disturbances. Was able to get up with assistance. [facility] did a mini neuro exam and noticed her right pupil to not be reactive. She states she can see just fine out of her right eye though. Onset: Today Location: Reports: Head, Face, Upper Extremity, Right Associated Symptoms: Reports: Headaches. 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: Reports: Acetaminophen Right Head Pain Score (Numeric/FACES): 4 - Related Data Allergies Allergy/AdvReac Type Severity Reaction Status Date / Time codeine Allergy Severe Anaphylactic Verified 10/22/17 15:03 Shock Home Meds: Home Meds Furosemide 80 mg PO DAILY 02/13/15 [History] Latanoprost [Xalatan 0.005% Ophth Soln] 1 drop EYEBOTH BEDTIME 02/13/15 [History ] Losartan [Cozaar] 100 mg PO DAILY 02/13/15 [History] Metoprolol Tartrate 50 mg PO BID 02/13/15 [History] Omeprazole 20 mg PO DAILY 02/13/15 [History] amLODIPine [Norvasc] 10 mg PO BEDTIME 02/13/15 [History] Allopurinol [Zyloprim] 300 mg PO DAILY tablet 02/17/15 [Rx] Aspirin [Halfprin] 81 mg PO DAILY 09/22/15 [History] Sertraline [Zoloft] 75 mg PO BEDTIME 12/07/16 [History] Brimonidine Tartrate [Alphagan P 0.1% Ophth Soln] 1 drop EYEBOTH BID 04/04/17 [ History] Isosorbide Mononitrate [Imdur] 60 mg PO DAILY 05/21/17 [History] Gabapentin [Neurontin] 100 mg PO BID@0800,1200 #60 cap 06/16/17 [Rx] Gabapentin [Neurontin] 300 mg PO 1730 #30 cap 06/16/17 [Rx] Insulin Detemir [Levemir] 30 unit SUBCUT QAM #1 pen 06/16/17 [Rx] Warfarin Sodium 3 mg PO DAILY #30 tablet 06/16/17 [Rx] Acetaminophen 500 mg PO Q6H PRN 10/06/17 [History] Potassium Chloride [Klor-Con 10] 20 meq PO DAILY 10/06/17 [History] Cefuroxime [Ceftin] 250 mg PO BIDMEALS #14 tablet 10/13/17 [Rx] Calcium Carb &Cit/Magnesium Ox [Calmag Thins Tablet] 1 tab PO DAILY 10/22/17 [ History] Dorzolamide HCl/Timolol Maleat [Cosopt Eye Drops] 1 drop EYERT BID 10/22/17 [ History] Metolazone 5 mg PO DAILY PRN 10/22/17 [History] Multivitamin [Multi-Day Vitamins] 1 tab PO DAILY 10/22/17 [History] Polyethylene Glycol 3350 [MiraLAX] 17 gm PO DAILY PRN 10/22/17 [History] Sennosides/Docusate Sodium [Senna-Docusate Sodium Tablet] 1 tab PO DAILY PRN [History] Timolol Maleate [Timoptic 0.5% Ophth Soln] 1 drop EYELF DAILY 10/22/17 [History] Past Medical History HEENT History: Reports: Cataract, Impaired Vision, Other (See Below) Other HEENT History: Vertigo, recent hearing loss L ear started October 2016 Cardiovascular History: Reports: Heart Failure, Hypertension, OR, PTCA, Stents Respiratory History: Reports: Pneumonia, Recurrent Genitourinary History: Reports: Other (See Below) Other Genitourinary History: kidney stent and hematoma to kidney. Musculoskeletal History: Reports: Arthritis Neurological History: Reports: Vertigo, Other (See Below) Other Neuro History: tremors Psychiatric History: Reports: Depression Endocrine/Metabolic History: Reports: Diabetes, Type II Hematologic History: Reports: Anticoagulation Therapy Oncologic (Cancer) History: Reports: Colon - Infectious Disease History Infectious Disease History: Reports: VRE - Past Surgical History HEENT Surgical History: Reports: Cataract Surgery, Tonsillectomy GI Surgical History: Reports: Colonoscopy Social & Family History - Family History Family Medical History: Noncontributory - Tobacco Use Smoking Status *Q: Never Smoker Second Hand Smoke Exposure: No - Caffeine Use Caffeine Use: Reports: Coffee - Alcohol Use Days Per Week of Alcohol Use: 0 - Recreational Drug Use Recreational Drug Use: No - Living Situation & Occupation Living situation: Reports: , Alone, Other Occupation: Retired ED ROS GENERAL - Review of Systems Review Of Systems: See Below Constitutional: Reports: Weakness. Denies: Fever, Chills HEENT: Reports: Hearing Loss. Denies: Ear Pain, Nosebleed, Vision Change Respiratory: Denies: Shortness of Breath, Cough Cardiovascular: Denies: Chest Pain, Dyspnea on Exertion, Lightheadedness GI/Abdominal: Reports: No Symptoms : Reports: No Symptoms Musculoskeletal: Denies: Neck Pain Neurological: Reports: Headache, Pre-Existing Deficit (disequilibrium). Denies : Confusion, Seizure, Syncope, Trouble Speaking, Change in Speech Psychiatric: Reports: Anxiety ED EXAM, HEAD INJURY - Physical Exam Exam: See Below Exam Limited By: No Limitations General Appearance: Alert, WD/WN, Anxious Head: Facial Ecchymosis (right periorbital area, moderate swelling noted to upper and lower eye lid on right), Facial Swelling, Facial Tenderness. No: Active Bleeding, Brown's Sign Nexus Criteria: No: Posterior, Midline Cervical Tenderness, Altered Level of Consciousness Eyes: Right Eye: Abnormal Pupil, Periorbital Changes, Bilateral Eye: EOMI Ears: Normal External Exam, Normal Canal, Normal TMs Nose: Normal Inspection, No Blood Throat/Mouth: Normal Inspection, Normal Oropharynx, Normal Voice, No Airway Compromise, Other (mild right sided lip droop, chronic) Neck: Non-Tender, Normal Alignment, Normal Inspection Respiratory: No Respiratory Distress, Lungs Clear, Normal Breath Sounds, No Accessory Muscle Use Cardiovascular: Regular Rate, Rhythm, No Murmur, Other (mild edema bilaterally) GI/Abdominal Exam: Normal Bowel Sounds, Soft, No Organomegaly, No Abnormal Bruit , No Mass Extremities: Normal Inspection, Pedal Edema Neurologic: No Motor/Sensory Deficits, Alert, Oriented x 3, Abnormal title assistant II-XII (oculomotor nerve on right disrupted with no constriction, all other CN's intact ), Facial Droop. No: EOM Palsy, Motor Weakness Skin: Normal Color, Warm/Dry - [place] Coma Score Best Eye Response ([place]): (4) Open Spontaneously Best Verbal Response ([place]): (5) Oriented Best Motor Response ([place]): (6) Obeys Commands EKG INTERPRETATION EKG Date: 10/22/17 Time: 15:10 Rhythm: NSR Rate (Beats/Min): 64 Course - Vital Signs Last Recorded V/S: Last Vital Signs Temp 97.4 F 10/22/17 15:10 Pulse 66 10/22/17 15:10 Resp 20 10/22/17 15:10 BP 161/76 H 10/22/17 15:10 Pulse Ox 95 10/22/17 15:10 - Orders/Labs/Meds Orders: Active Orders 24 hr Category Date Time Status Head wo Cont [CT] Stat Exams 10/22/17 15:00 Taken Max Facial Sinus wo Cont [CT] Stat Exams 10/22/17 15:08 Taken UA W/MICROSCOPIC [URIN] Stat Lab 10/22/17 16:23 Ordered Labs: Laboratory Tests 10/22/17 10/22/17 10/22/17 Range/Units 15:19 15:19 15:19 WBC 13.6 H (5.0-10.0) 10^3/uL RBC 5.17 (4.00-5.50) 10^6/uL Hgb 12.5 (12.0-16.0) g/dL Hct 41.2 (37.0-47.0) % MCV 79.7 L (82.0-94.0) fL MCH 24.2 L (27.0-32.0) pg MCHC 30.3 L (33.0-38.0) g/dL RDW Coeff of Shahzad 20.2 H (11.0-15.0) % Plt Count 469 H (150-400) 10^3/uL Neut % (Auto) 85.1 H (35-85) % Lymph % (Auto) 8.0 L (10-55) % [place] % (Auto) 6.2 (0-16) % Eos % (Auto) 0.4 (0-5) % Baso % (Auto) 0.3 (0-3) % Neut # (Auto) 11.52 H (1.80-7.00) 10^3/uL Lymph # (Auto) 1.09 (1.00-4.80) 10^3/uL [place] # (Auto) 0.84 H (0.00-0.80) 10^3/uL Eos # (Auto) 0.06 (0.00-0.45) 10^3/uL Baso # (Auto) 0.04 10^3/uL PT 23.0 H (9.7-12.3) SEC INR 2.08 H (0.92-1.18) APTT 36.3 (20.0-45.0) SEC Sodium 138 (136-145) mEq/L Potassium 5.2 H (3.5-5.0) mEq/L Chloride 101 (98-106) mEq/L Carbon Dioxide 30 (21-32) mmol/L BUN 32 H (7-18) mg/dL Creatinine 1.5 H (0.6-1.0) mg/dL Est Cr Clr Drug Dosing 24.33 mL/min Estimated GFR (MDRD) 33 L (>=60) mL/min Glucose 308 H* D (75-99) mg/dL Calcium 8.5 (8.4-10.1) mg/dL Creatine Kinase 35 (21-215) U/L - Radiology Interpretation Free Text/Narrative:: Consulted radiology in regards to right orbit blow out fracture. Radiology confirmed no entrapment. CT of the brain was negative for any acute changes. CT Results Date: 10/22/17 Departure - Departure Time of Disposition: 14:25 Disposition: Admitted As Inpatient 67 Condition: Fair Clinical Impression: Fracture of orbital floor, blow-out, right, closed Qualifiers: Encounter type: initial encounter Qualified Code(s): S02.31XA - Fracture of orbital floor, right side, initial encounter for closed fracture Fall as cause of accidental injury at home as place of occurrence Qualifiers: Encounter type: initial encounter Qualified Code(s): W19.XXXA - Unspecified fall, initial encounter; Y92.009 - Unspecified place in unspecified non- institutional (private) residence as the place of occurrence of the external cause; Y92.009 - Unspecified place in unspecified non-institutional (private) residence as the place of occurrence of the external cause - Discharge Information - Problem List & Annotations (1) Fall as cause of accidental injury at home as place of occurrence SNOMED Code(s): 42678366 Code(s): W19.XXXA - UNSPECIFIED FALL, INITIAL ENCOUNTER; Y92.009 - UNSP PLACE IN UNSP NON-INSTITUT (PRIVATE) RESIDENCE PLACE Status: Acute Current Visit: Yes Qualifiers: Encounter type: initial encounter Qualified Code(s): W19.XXXA - Unspecified fall, initial encounter; Y92.009 - Unspecified place in unspecified non-institutional (private) residence as the place of occurrence of the external cause; Y92.009 - Unspecified place in unspecified non-institutional ( private) residence as the place of occurrence of the external cause (2) Fracture of orbital floor, blow-out, right, closed SNOMED Code(s): 59354058 Code(s): S02.31XA - FRACTURE OF ORBITAL FLOOR, RIGHT SIDE, INIT Status: Acute Current Visit: Yes Qualifiers: Encounter type: initial encounter Qualified Code(s): S02.31XA - Fracture of orbital floor, right side, initial encounter for closed fracture - Problem List Review Problem List Initiated/Reviewed/Updated: Yes - My Orders Last 24 Hours: My Active Orders 10/22/17 15:00 Head wo Cont [CT] Stat 10/22/17 15:08 Max Facial Sinus wo Cont [CT] Stat 10/22/17 16:23 UA W/MICROSCOPIC [URIN] Stat - Assessment/Plan Admission H&P: Please use this note as an admission H&P Last 24 Hours: My Active Orders 10/22/17 15:00 Head wo Cont [CT] Stat 10/22/17 15:08 Max Facial Sinus wo Cont [CT] Stat 10/22/17 16:23 UA W/MICROSCOPIC [URIN] Stat Plan: After consultation with radiology and confirmed no entrapment in regards to the right optic nerve/orbit we proceeded to discuss La's condition with Dr. Guo, ophthalmology. He felt she needed to be on antibiotic therapy for prophylaxis in regards to orbital cellulitis and sinusitis. She is scheduled to see Dr Guo on the 04 of November in [place]. He felt her pupil was secondary to recent cataract surgery. Discussed findings with La and her daughter. We will proceed to admit to Dr. Dukes's services under acute care. La has a known history of falls with previous left blow out fracture. Discussed anticoagulation, which we will hold her Coumadin for the next few days. I did discuss my concern of falls with La in the future and not convinced she is safe living in an apartment by herself. I did discuss into detail the increased risk of hemorrhage with recurrent falls and on anticoagulation for hypercoagulable state. She does have a known IVC filter in place as well. Dr. Dukes was consulted immediately as well and did review La's condition with myself. He did feel admission was appropriate.
[2017-10-22] MEDS ORDERED: Ondansetron 4 MG/2 ML SDV IV PRN (17:48)
[2017-10-22] MEDS ORDERED: Polyethylene Glycol 3350 Powder 17 GM Packet PO PRN (17:48)
[2017-10-22] MEDS ORDERED: Sodium Chloride 0.9% 10 ML Syringe FLUSH PRN (17:48)
[2017-10-22] MEDS: cefTRIAXone 1 GM Vial IVPUSH SCH (18:16)
[2017-10-22] MEDS: BRIMONIDINE TARTRATE EYEBOTH SCH (20:03)
[2017-10-22] MEDS: Metoprolol Tartrate 50 MG Tab PO SCH (20:04)
[2017-10-22] MEDS: TIMOLOL EYERT SCH (20:04)
[2017-10-22] MEDS: DORZOLAMIDE HCL EYERT SCH (20:04)
[2017-10-22] MEDS: amLODIPine 10 MG Tab PO SCH (20:05)
[2017-10-22] MEDS: Sertraline 25 MG Tab PO SCH (20:05)
[2017-10-22] MEDS: Latanoprost 0.005% Ophth Soln 2.5 ML Bottle EYEBOTH SCH (20:11)
[2017-10-22] MEDS: Insulin Aspart 100 Units/ML 3 ML Pen SUBCUT SCH (20:16)
[2017-10-22] MEDS: fentaNYL 100 MCG/2 ML SDV IVPUSH PRN (20:36)
[2017-10-23] MEDS: Furosemide 40 MG Tab PO SCH (08:21)
[2017-10-23] MEDS: Allopurinol 300 MG Tab PO SCH (08:21)
[2017-10-23] MEDS: Pantoprazole 40 MG Tab.CR PO SCH (08:21)
[2017-10-23] MEDS: Isosorbide Mononitrate 30 MG Tab.ER PO SCH (08:22)
[2017-10-23] MEDS: Gabapentin 100 MG Cap PO SCH ×2 (08:22→11:33)
[2017-10-23] MEDS: Metoprolol Tartrate 50 MG Tab PO SCH ×2 (08:22→19:51)
[2017-10-23] MEDS: Aspirin 81 MG Tab.EC PO SCH (08:22)
[2017-10-23] MEDS: Potassium Chloride 10 MEQ Tab.ER PO SCH (08:23)
[2017-10-23] MEDS: Insulin Aspart 100 Units/ML 3 ML Pen SUBCUT SCH ×4 (08:25→21:10)
[2017-10-23] MEDS: DORZOLAMIDE HCL EYERT SCH ×2 (08:27→19:53)
[2017-10-23] MEDS: BRIMONIDINE TARTRATE EYEBOTH SCH ×2 (08:27→19:51)
[2017-10-23] MEDS: TIMOLOL EYERT SCH ×2 (08:27→19:53)
[2017-10-23] MEDS: Insulin Detemir 100 Units/ML 3 ML Pen SUBCUT SCH (08:28)
[2017-10-23] MEDS: Timolol Maleate 0.5% Ophth Soln 5 ML Bottle EYELF SCH (08:29)
[2017-10-23] MEDS: Losartan 100 MG Tab PO SCH (11:15)
[2017-10-23] MEDS: fentaNYL 100 MCG/2 ML SDV IVPUSH PRN ×2 (11:33→21:05)
--- NOTE | 2017-10-23 12:24 | PN ---
DATE: 10/23/2017 S: La is an 82-year-old female who presents to the ER yesterday and was determined to have an orbital blowout fracture of the right orbit. She is on Coumadin as well. CT of the head was negative. I did consult with Neuroradiology, Ophthalmology, and also Dr. Dukes, her primary provider, in regard to her condition. We did elect to admit her to the hospital for IV antibiotics per recommendation of Dr. Guo, bar host/hostess. She states that she was able to get some sleep last night. She was given fentanyl which she said it did help her sleep. She did admit that she is scared with her recent falls. She does currently have a walker in her room as well now presently. She is up and states that she again does have a little bit of headache, still behind that right eye. She admits that she still has good vision of the right eye. She has not had any other setbacks through the night. O: VITAL SIGNS: Blood pressure 156/54, O2 is 94%, respiratory rate 18, temp 98.1 with a pulse of 60. GENERAL: Pleasant, cooperative female. She is sitting in the recliner, having normal conversation with me. Does appear to be in a little bit better spirits today. HEENT: Moderate amount of ecchymosis is noted around the periorbital area of the right eye. She has full extraocular movements that are intact. Peripheral vision is intact. No other facial trauma is noted at this point in time. Speech is fluent. HEENT is otherwise grossly unremarkable. LUNGS: Clear to auscultation. I did not hear any adventitious sounds. CARDIAC: Regular. No murmurs noted. ABDOMEN: Soft. Bowel sounds present. Normoactive. NEUROVASCULAR: Cranial nerves 2 through 12 are grossly intact as tested. No focal deficits were noted. Sensory and motor functions are intact. She continues to have some mild facial droop of the right lip. This does appear to be chronic in nature for her. Pedal pulses were present and equal bilaterally. ASSESSMENT: 1. RIGHT ORBITAL BLOWOUT FRACTURE. 2. CHRONIC ANTICOAGULATION. P: We will continue to give her IV Rocephin daily. She will also receive IV fentanyl due to her discomfort. She has not had any since last night which is why she is requesting some at this point in time. Again, we will closely monitor her. She verbalized complete understanding of this. If there are any concerns throughout the day, I did advise just to let me know. Otherwise again, we will re-evaluate in morning. DEE DEE/LALO /[id number]
[2017-10-23] MEDS: Gabapentin 300 MG Cap PO SCH (17:05)
[2017-10-23] MEDS: cefTRIAXone 1 GM Vial IVPUSH SCH (17:05)
[2017-10-23] MEDS: Acetaminophen 325 MG Tab PO PRN (17:17)
[2017-10-23] MEDS: Sertraline 25 MG Tab PO SCH (19:52)
[2017-10-23] MEDS: amLODIPine 10 MG Tab PO SCH (19:52)
[2017-10-23] MEDS: Latanoprost 0.005% Ophth Soln 2.5 ML Bottle EYEBOTH SCH (19:54)
[2017-10-24] MEDS: Pantoprazole 40 MG Tab.CR PO SCH (06:30)
[2017-10-24] MEDS: Aspirin 81 MG Tab.EC PO SCH (07:55)
[2017-10-24] MEDS: Gabapentin 100 MG Cap PO SCH ×2 (07:55→11:23)
[2017-10-24] MEDS: Isosorbide Mononitrate 30 MG Tab.ER PO SCH (07:55)
[2017-10-24] MEDS: Metoprolol Tartrate 50 MG Tab PO SCH ×2 (07:55→19:53)
[2017-10-24] MEDS: Furosemide 40 MG Tab PO SCH (07:56)
[2017-10-24] MEDS: Losartan 100 MG Tab PO SCH (07:57)
[2017-10-24] MEDS: Potassium Chloride 10 MEQ Tab.ER PO SCH (07:57)
[2017-10-24] MEDS: Insulin Detemir 100 Units/ML 3 ML Pen SUBCUT SCH (07:58)
[2017-10-24] MEDS: Insulin Aspart 100 Units/ML 3 ML Pen SUBCUT SCH ×4 (08:00→20:00)
[2017-10-24] MEDS: BRIMONIDINE TARTRATE EYEBOTH SCH ×2 (08:02→19:52)
[2017-10-24] MEDS: Timolol Maleate 0.5% Ophth Soln 5 ML Bottle EYELF SCH (08:06)
[2017-10-24] MEDS: TIMOLOL EYERT SCH ×2 (08:06→19:55)
[2017-10-24] MEDS: DORZOLAMIDE HCL EYERT SCH ×2 (08:06→19:55)
[2017-10-24] MEDS: Allopurinol 300 MG Tab PO SCH (08:14)
--- NOTE | 2017-10-24 10:31 | PCM.PN ---
- General Info Date of Service: 10/24/17 Admission Dx/Problem (Free Text): Right Orbital blowout fracture Fall Subjective Update: La is an 82 year old female who was admitted on 10/22/2017 after suffering a fall in her home. She was found to have a left orbital blowout fracture. She has remained in the hospital for IV antibiotics and IV pain medications. She does complain of an intermittent headache, but reports her pain has been well controlled. She reports her vision has remained intact. She does complain of some fatigue. She does not have any other complaints today. She has been up ambulating with nursing staff. Functional Status: Reports: Pain Controlled, Tolerating Diet, Ambulating, Urinating. Denies: New Symptoms - Review of Systems General: Reports: Weakness, Fatigue. Denies: Fever, Chills HEENT: Reports: Headaches. Denies: Sinus Congestion, Sore Throat, Visual Changes (reports her vision is at baseline in affected eye) Pulmonary: Reports: Cough, Sputum Cardiovascular: Reports: No Symptoms Gastrointestinal: Reports: No Symptoms Genitourinary: Reports: No Symptoms Musculoskeletal: Reports: No Symptoms Skin: Reports: Bruising (right periorbital) Neurological: Reports: Headache - Patient Data Vitals - Most Recent: Last Vital Signs Temp 97.6 F 10/24/17 07:41 Pulse 67 10/24/17 07:55 Resp 20 10/24/17 07:41 BP 180/70 H 10/24/17 07:57 Pulse Ox 94 L 10/24/17 07:41 Weight - Most Recent: 171 lb 12.8 oz Lab Results Last 24 Hours: Laboratory Results - last 24 hr 10/23/17 10/23/17 10/23/17 Range/Units 11:56 17:24 20:18 WBC (5.0-10.0) 10^3/uL RBC (4.00-5.50) 10^6/uL Hgb (12.0-16.0) g/dL Hct (37.0-47.0) % MCV (82.0-94.0) fL MCH (27.0-32.0) pg MCHC (33.0-38.0) g/dL RDW Coeff of Shahzad (11.0-15.0) % Plt Count (150-400) 10^3/uL Neut % (Auto) (35-85) % Lymph % (Auto) (10-55) % [facility] % (Auto) (0-16) % Eos % (Auto) (0-5) % Baso % (Auto) (0-3) % Neut # (Auto) (1.80-7.00) 10^3/uL Lymph # (Auto) (1.00-4.80) 10^3/uL [facility] # (Auto) (0.00-0.80) 10^3/uL Eos # (Auto) (0.00-0.45) 10^3/uL Baso # (Auto) 10^3/uL PT (9.7-12.3) SEC INR (0.92-1.18) Sodium (136-145) mEq/L Potassium (3.5-5.0) mEq/L Chloride (98-106) mEq/L Carbon Dioxide (21-32) mmol/L BUN (7-18) mg/dL Creatinine (0.6-1.0) mg/dL Est Cr Clr Drug Dosing mL/min Estimated GFR (MDRD) (>=60) mL/min Glucose (75-99) mg/dL POC Glucose 136 H 189 H 283 H (75-105) mg/dl Calcium (8.4-10.1) mg/dL 10/24/17 10/24/17 10/24/17 Range/Units 06:55 06:55 06:55 WBC 8.7 (5.0-10.0) 10^3/uL RBC 4.79 (4.00-5.50) 10^6/uL Hgb 11.7 L (12.0-16.0) g/dL Hct 38.1 (37.0-47.0) % MCV 79.5 L (82.0-94.0) fL MCH 24.4 L (27.0-32.0) pg MCHC 30.7 L (33.0-38.0) g/dL RDW Coeff of Shahzad 19.6 H (11.0-15.0) % Plt Count 362 (150-400) 10^3/uL Neut % (Auto) 75.7 (35-85) % Lymph % (Auto) 14.5 (10-55) % [facility] % (Auto) 8.7 (0-16) % Eos % (Auto) 0.8 (0-5) % Baso % (Auto) 0.3 (0-3) % Neut # (Auto) 6.59 (1.80-7.00) 10^3/uL Lymph # (Auto) 1.26 (1.00-4.80) 10^3/uL [facility] # (Auto) 0.76 (0.00-0.80) 10^3/uL Eos # (Auto) 0.07 (0.00-0.45) 10^3/uL Baso # (Auto) 0.03 10^3/uL PT 16.4 H (9.7-12.3) SEC INR 1.50 H (0.92-1.18) Sodium 141 (136-145) mEq/L Potassium 4.1 (3.5-5.0) mEq/L Chloride 104 (98-106) mEq/L Carbon Dioxide 30 (21-32) mmol/L BUN 30 H (7-18) mg/dL Creatinine 1.2 H (0.6-1.0) mg/dL Est Cr Clr Drug Dosing 30.41 mL/min Estimated GFR (MDRD) 43 L (>=60) mL/min Glucose 179 H D (75-99) mg/dL POC Glucose (75-105) mg/dl Calcium 8.4 (8.4-10.1) mg/dL 10/24/17 Range/Units 07:40 WBC (5.0-10.0) 10^3/uL RBC (4.00-5.50) 10^6/uL Hgb (12.0-16.0) g/dL Hct (37.0-47.0) % MCV (82.0-94.0) fL MCH (27.0-32.0) pg MCHC (33.0-38.0) g/dL RDW Coeff of Shahzad (11.0-15.0) % Plt Count (150-400) 10^3/uL Neut % (Auto) (35-85) % Lymph % (Auto) (10-55) % [facility] % (Auto) (0-16) % Eos % (Auto) (0-5) % Baso % (Auto) (0-3) % Neut # (Auto) (1.80-7.00) 10^3/uL Lymph # (Auto) (1.00-4.80) 10^3/uL [facility] # (Auto) (0.00-0.80) 10^3/uL Eos # (Auto) (0.00-0.45) 10^3/uL Baso # (Auto) 10^3/uL PT (9.7-12.3) SEC INR (0.92-1.18) Sodium (136-145) mEq/L Potassium (3.5-5.0) mEq/L Chloride (98-106) mEq/L Carbon Dioxide (21-32) mmol/L BUN (7-18) mg/dL Creatinine (0.6-1.0) mg/dL Est Cr Clr Drug Dosing mL/min Estimated GFR (MDRD) (>=60) mL/min Glucose (75-99) mg/dL POC Glucose 181 H (75-105) mg/dl Calcium (8.4-10.1) mg/dL Med Orders - Current: Current Medications Acetaminophen (Tylenol) 650 mg PO Q4H PRN PRN Reason: Pain (Mild 1-3)/fever Last Admin: 10/23/17 17:17 Dose: 650 mg Allopurinol (Zyloprim) 300 mg PO DAILY [facility] Last Admin: 10/24/17 08:14 Dose: 300 mg Amlodipine Besylate (Norvasc) 10 mg PO BEDTIME [facility] Last Admin: 10/23/17 19:52 Dose: 10 mg Aspirin (Halfprin) 81 mg PO DAILY [facility] Last Admin: 10/24/17 07:55 Dose: 81 mg Ceftriaxone Sodium (Rocephin) 1 gm IVPUSH Q24H [facility] Last Admin: 10/23/17 17:05 Dose: 1 gm Fentanyl (Sublimaze) 25 mcg IVPUSH Q4H PRN PRN Reason: Pain Last Admin: 10/23/17 21:05 Dose: 25 mcg Furosemide (Lasix) 80 mg PO DAILY [facility] Last Admin: 10/24/17 07:56 Dose: 80 mg Gabapentin (Neurontin) 100 mg PO BID@0800,1200 [facility] Last Admin: 10/24/17 07:55 Dose: 100 mg Gabapentin (Neurontin) 300 mg PO DAILY@1730 [facility] Last Admin: 10/23/17 17:05 Dose: 300 mg Insulin Aspart (Novolog) 0 unit SUBCUT WITHMEALSANDBED [facility] PRN Reason: Protocol Last Admin: 10/24/17 08:00 Dose: Not Given Insulin Detemir (Levemir) 30 unit SUBCUT QAM [facility] Last Admin: 10/24/17 07:58 Dose: 30 units Isosorbide Mononitrate (Imdur) 60 mg PO DAILY [facility] Last Admin: 10/24/17 07:55 Dose: 60 mg Latanoprost (Xalatan 0.005% Ophth Soln) 0 ml EYEBOTH BEDTIME [facility] Last Admin: 10/23/17 19:54 Dose: 1 drop Losartan Potassium (Cozaar) 100 mg PO DAILY [facility] Last Admin: 10/24/17 07:57 Dose: 100 mg Metoprolol Tartrate (Lopressor) 50 mg PO BID [facility] Last Admin: 10/24/17 07:55 Dose: 50 mg Brimonidine Tartrate P 0.1% Ophth Own Med 1 drop EYEBOTH BID [facility] Last Admin: 10/24/17 08:02 Dose: 1 drop Dorzolamide Hcl/Timolol Maleat Oph Own Med 1 drop EYERT BID [facility] Last Admin: 10/24/17 08:06 Dose: 1 drop Ondansetron HCl (Zofran) 4 mg IV Q4H PRN PRN Reason: Nausea/Vomiting Pantoprazole Sodium (Protonix) 40 mg PO DAILY@0700 [facility] Last Admin: 10/24/17 06:30 Dose: 40 mg Polyethylene Glycol (Miralax) 17 gm PO DAILY PRN PRN Reason: Constipation Potassium Chloride (Klor-Con 10) 20 meq PO DAILY [facility] Last Admin: 10/24/17 07:57 Dose: 20 meq Senna/Docusate Sodium (Senna Plus) 1 tab PO DAILY PRN PRN Reason: Constipation Sertraline HCl (Zoloft) 75 mg PO BEDTIME [facility] Last Admin: 10/23/17 19:52 Dose: 75 mg Sodium Chloride (Saline Flush) 10 ml FLUSH ASDIRECTED PRN PRN Reason: Keep Vein Open Timolol Maleate (Timoptic 0.5% Ophth Soln) 0 ml EYELF DAILY [facility] Last Admin: 10/24/17 08:06 Dose: 1 drop - Exam General: Alert, Oriented, No Acute Distress HEENT: Pupils Equal, Pupils Reactive, EOMI, Mucous Membr. Moist/[place], Other ( right lateral sclera reddened, ecchymosis to right periorbital area) Neck: Supple Lungs: Normal Respiratory Effort, Decreased Breath Sounds (RLL) Cardiovascular: Regular Rate, Regular Rhythm, Murmurs (systolic) GI/Abdominal Exam: Normal Bowel Sounds, Soft, Non-Tender, No Organomegaly, No Distention, No Abnormal Bruit, No Mass Extremities: Normal Inspection, Normal Range of Motion, Non-Tender, Normal Capillary Refill, Pedal Edema Skin: Warm, Dry, Intact Neurological: No New Focal Deficit, Normal Speech, Strength Equal Bilateral Psy/Mental Status: Alert, Normal Affect, Normal Mood - Problem List & Annotations (1) Fracture of orbital floor, blow-out, right, closed SNOMED Code(s): 37144642 Code(s): S02.31XA - FRACTURE OF ORBITAL FLOOR, RIGHT SIDE, INIT Status: Acute Priority: High Qualifiers: Encounter type: initial encounter Qualified Code(s): S02.31XA - Fracture of orbital floor, right side, initial encounter for closed fracture (2) Fall as cause of accidental injury at home as place of occurrence SNOMED Code(s): 99931442 Code(s): W19.XXXA - UNSPECIFIED FALL, INITIAL ENCOUNTER; Y92.009 - UNSP PLACE IN UNSP NON-INSTITUT (PRIVATE) RESIDENCE PLACE Status: Acute Priority: High Qualifiers: Encounter type: initial encounter Qualified Code(s): W19.XXXA - Unspecified fall, initial encounter; Y92.009 - Unspecified place in unspecified non-institutional (private) residence as the place of occurrence of the external cause; Y92.009 - Unspecified place in unspecified non-institutional ( private) residence as the place of occurrence of the external cause (3) Diabetes SNOMED Code(s): 08866753 Code(s): E11.9 - TYPE 2 DIABETES MELLITUS WITHOUT COMPLICATIONS Status: Chronic Priority: Medium Qualifiers: Diabetes mellitus type: type 2 Diabetes mellitus complication status: with kidney complications Diabetes mellitus complication detail: with chronic kidney disease Diabetes mellitus technician terminal and repeater insulin use: with technician terminal and repeater use (4) Chronic kidney disease SNOMED Code(s): 717266472 Code(s): N18.9 - CHRONIC KIDNEY DISEASE, UNSPECIFIED Status: Chronic (5) Anticoagulation adequate with anticoagulant therapy SNOMED Code(s): 600069503 Code(s): Z79.01 - DETENTION (CURRENT) USE OF ANTICOAGULANTS Status: Chronic (6) CHF (congestive heart failure) SNOMED Code(s): 96619697 Code(s): I50.9 - HEART FAILURE, UNSPECIFIED Status: Chronic Priority: High Qualifiers: Congestive heart failure type: systolic Congestive heart failure chronicity : chronic Qualified Code(s): I50.22 - Chronic systolic (congestive) heart failure (7) Hypertension SNOMED Code(s): 61120589 Code(s): I10 - ESSENTIAL (PRIMARY) HYPERTENSION Status: Chronic - Problem List Review Problem List Initiated/Reviewed/Updated: Yes - Plan Plan:: Patient will remain acute care. We will continue IV antibiotics and pain medication. It was discussed that she may not be able to return back to her assisted living due to her being unstable on her feet and frequent falls. Assisted living facility reported they will need to evaluate her prior to being discharge back. She may require a jail stay prior to returning. Will add oral pain medication Tramadol. May continue to use IV fentanyl as needed for breakthrough pain. Her INR is subtherapeutic. Will dose 5 mg Coumadin today.
[2017-10-24] MEDS ORDERED: traMADol 50 MG Tab PO PRN (10:48)
[2017-10-24] MEDS ORDERED: Warfarin 5 MG Tab PO ONE (12:00)
[2017-10-24] MEDS: Gabapentin 300 MG Cap PO SCH (16:50)
[2017-10-24] MEDS: cefTRIAXone 1 GM Vial IVPUSH SCH (17:37)
[2017-10-24] MEDS: amLODIPine 10 MG Tab PO SCH (19:54)
[2017-10-24] MEDS: Sertraline 25 MG Tab PO SCH (19:54)
[2017-10-24] MEDS: Latanoprost 0.005% Ophth Soln 2.5 ML Bottle EYEBOTH SCH (19:59)
[2017-10-24] MEDS: fentaNYL 100 MCG/2 ML SDV IVPUSH PRN (21:30)
[2017-10-25] MEDS: Pantoprazole 40 MG Tab.CR PO SCH (06:05)
[2017-10-25] MEDS: BRIMONIDINE TARTRATE EYEBOTH SCH ×2 (07:44→19:30)
[2017-10-25] MEDS: Aspirin 81 MG Tab.EC PO SCH (07:45)
[2017-10-25] MEDS: Allopurinol 300 MG Tab PO SCH (07:45)
[2017-10-25] MEDS: Potassium Chloride 10 MEQ Tab.ER PO SCH (07:46)
[2017-10-25] MEDS: Gabapentin 100 MG Cap PO SCH ×2 (07:46→12:23)
[2017-10-25] MEDS: Furosemide 40 MG Tab PO SCH (07:46)
[2017-10-25] MEDS: DORZOLAMIDE HCL EYERT SCH ×2 (07:47→20:08)
[2017-10-25] MEDS: TIMOLOL EYERT SCH ×2 (07:47→20:08)
[2017-10-25] MEDS: Isosorbide Mononitrate 30 MG Tab.ER PO SCH (07:51)
[2017-10-25] MEDS: Metoprolol Tartrate 50 MG Tab PO SCH ×2 (07:52→19:52)
[2017-10-25] MEDS: Losartan 100 MG Tab PO SCH (07:52)
[2017-10-25] MEDS: Insulin Aspart 100 Units/ML 3 ML Pen SUBCUT SCH ×4 (07:53→20:09)
[2017-10-25] MEDS: Insulin Detemir 100 Units/ML 3 ML Pen SUBCUT SCH (07:55)
[2017-10-25] MEDS: Timolol Maleate 0.5% Ophth Soln 5 ML Bottle EYELF SCH (07:56)
[2017-10-25] MEDS ORDERED: Menthol/Zinc Oxide Ointment 113 GM Tube TOP PRN (10:01)
--- NOTE | 2017-10-25 10:13 | PN ---
DATE: 10/25/2017 S: La is an 82-year-old female who was admitted on secondary to a recent fall. She sustained orbital blow-out fracture of the right orbit. She was started on IV antibiotics and IV pain medications. She has had a fairly uneventful stay. She does admit that her pain is well controlled. She is tolerating her diet and ambulating. She was up walking around the nursing area yesterday. She denies any new symptoms. Lavonne Beckman, nurse practitioner, did evaluate her yesterday. I did give her dose of Coumadin as her INR was 1.5. Today, it is 1.37. White blood count did go up slightly from 8.7-11.8 today. Creatinine has been stable from 1.2-1.1. O: VITAL SIGNS: Blood pressure is 161/68, O2 saturation is 93% on room air, respiratory rate is 20, pulse is 67 with a temperature of 98.4. GENERAL: Pleasant, cooperative female. She is sitting up in the hospital bed and does not appear to be in any acute distress nor acutely ill. HEENT: Exam of the face does show some healing ecchymosis noted under the right orbit. The bruising does extend down into the right cheek area. Nasal mucosa is pink and moist. No epistaxis is noted. Extraocular movements are intact. No visual changes. LUNGS: Clear to auscultation. No adventitious sounds. CARDIAC: Regular. ABDOMEN: Soft. Bowel sounds are present and normoactive. EXTREMITIES: No pedal edema is noted. ASSESSMENT: RIGHT ORBITAL RIM BLOW-OUT FRACTURE. P: We will continue to keep her acute care today. Look at bringing her for swing bed admission for IV antibiotics and IV pain medications tomorrow. We will continue to give her oral pain medications during the day and IV pain medication at night to help with her rest. We will start her back up on her Coumadin 3 mg daily today and see how she responds. Again, we will look at swing bed admission tomorrow, which she did verbalize complete understanding. Her daughter is present as well. All questions were answered in detail. BRYANT /[id number]
[2017-10-25] MEDS ORDERED: Menthol/Zinc Oxide Ointment 113 GM Tube TOP ONE (10:24)
[2017-10-25] MEDS: Gabapentin 300 MG Cap PO SCH (17:38)
[2017-10-25] MEDS: cefTRIAXone 1 GM Vial IVPUSH SCH (17:45)
[2017-10-25] MEDS: amLODIPine 10 MG Tab PO SCH (19:52)
[2017-10-25] MEDS: Sertraline 25 MG Tab PO SCH (19:52)
[2017-10-25] MEDS: Latanoprost 0.005% Ophth Soln 2.5 ML Bottle EYEBOTH SCH (19:52)
[2017-10-25] MEDS: fentaNYL 100 MCG/2 ML SDV IVPUSH PRN (20:10)
[2017-10-26] MEDS: Acetaminophen 325 MG Tab PO PRN (02:23)
[2017-10-26] MEDS: Pantoprazole 40 MG Tab.CR PO SCH (06:59)
[2017-10-26] MEDS: Isosorbide Mononitrate 30 MG Tab.ER PO SCH (07:41)
[2017-10-26] MEDS: Aspirin 81 MG Tab.EC PO SCH (07:41)
[2017-10-26] MEDS: Furosemide 40 MG Tab PO SCH (07:41)
[2017-10-26] MEDS: Gabapentin 100 MG Cap PO SCH (07:42)
[2017-10-26] MEDS: Losartan 100 MG Tab PO SCH (07:42)
[2017-10-26] MEDS: Potassium Chloride 10 MEQ Tab.ER PO SCH (07:42)
[2017-10-26 07:43] VITALS: BP 172/56
[2017-10-26] MEDS: Metoprolol Tartrate 50 MG Tab PO SCH (07:43)
[2017-10-26] MEDS: Allopurinol 300 MG Tab PO SCH (07:43)
[2017-10-26] MEDS: TIMOLOL EYERT SCH (07:46)
[2017-10-26] MEDS: DORZOLAMIDE HCL EYERT SCH (07:46)
[2017-10-26] MEDS: BRIMONIDINE TARTRATE EYEBOTH SCH (07:54)
[2017-10-26] MEDS: Insulin Detemir 100 Units/ML 3 ML Pen SUBCUT SCH (07:55)
[2017-10-26] MEDS: Timolol Maleate 0.5% Ophth Soln 5 ML Bottle EYELF SCH (07:55)
[2017-10-26] MEDS: Insulin Aspart 100 Units/ML 3 ML Pen SUBCUT SCH (07:57)
--- NOTE | 2017-10-26 11:56 | DISCH ---
DISPOSITION: Discharge transfer within hospital to swing bed. FINAL DIAGNOSES: 1. Fracture of orbital floor blow out on the right. 2. Risk of falls. HISTORY OF PRESENT ILLNESS: La is an 82-year-old female who had fallen on the in which she was up trying to go to the bathroom and ended up falling face down onto her right eye onto the toilet. She ended up sustaining a right blowout fracture. I did consult Ophthalmology, Dr. Bush, in regard to her condition along with Neuroradiology. She was to be admitted at that point in time for IV antibiotics and pain control. She is at risk of a fall, so she was to be up with assistance. LABORATORY WORK: White blood count today is 10,700. INR is 1.53. Panel 8 done yesterday did show a creatinine of 1.1 with a BUN of 25. Urinalysis done on the was negative. HOSPITAL COURSE: La is progressing slowly. She continues to have some discomfort with headaches in the middle of the night in which she has been getting up and getting further medications for her discomfort. She is getting IV fentanyl at bedtime to help with the discomfort. She has been fairly stable on her feet. She states that her vision has been okay. She is otherwise progressing as expected. Bowel movements have been normal without any complication. She has no further concerns. PLAN: We will go ahead and discharge La from acute care today and transfer her to swing bed care secondary to IV antibiotics and IV pain medications. I did discuss with her into detail about returning home by herself in regard to her condition with her recurrent falls. We should have Physical Therapy work with her as well for strengthening. She verbalized complete understanding. Again, we will gradually wean her off the pain medications at this time. DEE DEE/LALO /[id number]
== END 2017-10-26 09:18 | disposition swing bed (61) | DRG 125 ==
LOC: CC.ED 14:55 → CC.MS 16:24 → UNDOADMIN 16:24 → CC.MS 17:48
PROVIDERS: ADMIT Physician Assistant Medical; ATTEND Family Medicine
DX: S02.31XA Fracture of orbital floor, right side, initial encounter for closed fracture (principal); I13.0 Hypertensive heart and chronic kidney disease with heart failure and stage 1 through stage 4 chronic kidney disease, or unspecified chronic kidney disease; W18.30XA Fall on same level, unspecified, initial encounter; H91.92 Unspecified hearing loss, left ear; H54.7 Unspecified visual loss; I11.0 Hypertensive heart disease with heart failure; Y92.121 Bathroom in nursing home as the place of occurrence of the external cause; I50.9 Heart failure, unspecified; I25.2 Old myocardial infarction; M19.90 Unspecified osteoarthritis, unspecified site; E11.9 Type 2 diabetes mellitus without complications; R25.1 Tremor, unspecified; F32.9 Major depressive disorder, single episode, unspecified; Z85.038 Personal history of other malignant neoplasm of large intestine; Z79.01 Long term (current) use of anticoagulants; Z79.82 Long term (current) use of aspirin; Z79.4 Long term (current) use of insulin; Z79.899 Other long term (current) drug therapy; Z88.5 Allergy status to narcotic agent; N18.9 Chronic kidney disease, unspecified; E11.22 Type 2 diabetes mellitus with diabetic chronic kidney disease; Z91.81 History of falling
CPT/HCPCS: 36415; 70450; 70486; 80048; 81001; 82550; 82962; 85025; 85610; 85730; 93005; 93010; 99284; A9270-GY; J0696; J1815-GY; J3010

== ENCOUNTER 2017-10-26 09:18 | Inpatient (IN) | payer MEDICARE, BC ==
[2017-10-26] MEDS ORDERED: fentaNYL 100 MCG/2 ML SDV IVPUSH PRN ×2 (09:21→09:28)
[2017-10-26] MEDS ORDERED: Polyethylene Glycol 3350 Powder 17 GM Packet PO PRN (09:21)
[2017-10-26] MEDS ORDERED: Acetaminophen 325 MG Tab PO PRN (09:21)
[2017-10-26] MEDS ORDERED: Menthol/Zinc Oxide Ointment 113 GM Tube TOP PRN (09:21)
[2017-10-26] MEDS ORDERED: Sodium Chloride 0.9% 10 ML Syringe FLUSH PRN ×2 (09:21)
[2017-10-26] MEDS ORDERED: Ondansetron 4 MG/2 ML SDV IV PRN (09:21)
[2017-10-26] MEDS: Insulin Aspart 100 Units/ML 3 ML Pen SUBCUT SCH ×3 (12:00→20:18)
[2017-10-26] MEDS: Gabapentin 100 MG Cap PO SCH (12:00)
[2017-10-26] MEDS: Gabapentin 300 MG Cap PO SCH (17:30)
[2017-10-26] MEDS ORDERED: cefTRIAXone 1 GM Vial IVPUSH SCH (18:00)
[2017-10-26] MEDS: BRIMONIDINE EYEBOTH SCH ×2 (19:21→19:53)
[2017-10-26] MEDS: Metoprolol Tartrate 50 MG Tab PO SCH (19:53)
[2017-10-26] MEDS: amLODIPine 10 MG Tab PO SCH (19:54)
[2017-10-26] MEDS: Sertraline 25 MG Tab PO SCH (19:54)
[2017-10-26] MEDS: Latanoprost 0.005% Ophth Soln 2.5 ML Bottle EYEBOTH SCH (19:56)
[2017-10-26] MEDS: TIMOLOL MALEAT EYERT SCH (19:57)
[2017-10-26] MEDS: DORZOLAMIDE HCL EYERT SCH (19:57)
[2017-10-27] MEDS: Pantoprazole 40 MG Tab.CR PO SCH (06:06)
[2017-10-27] MEDS: traMADol 50 MG Tab PO PRN ×2 (06:07→23:02)
[2017-10-27] MEDS: Metoprolol Tartrate 50 MG Tab PO SCH ×2 (07:40→19:58)
[2017-10-27] MEDS: Losartan 100 MG Tab PO SCH (07:40)
[2017-10-27] MEDS: Furosemide 40 MG Tab PO SCH (07:41)
[2017-10-27] MEDS: Isosorbide Mononitrate 30 MG Tab.ER PO SCH (07:41)
[2017-10-27] MEDS: Aspirin 81 MG Tab.EC PO SCH (07:41)
[2017-10-27] MEDS: Gabapentin 100 MG Cap PO SCH ×2 (07:41→12:19)
[2017-10-27] MEDS: Potassium Chloride 10 MEQ Tab.ER PO SCH (07:41)
[2017-10-27] MEDS: Allopurinol 300 MG Tab PO SCH (07:41)
[2017-10-27] MEDS: BRIMONIDINE EYEBOTH SCH ×2 (07:42→19:59)
[2017-10-27] MEDS: DORZOLAMIDE HCL EYERT SCH ×2 (07:42→20:39)
[2017-10-27] MEDS: Insulin Aspart 100 Units/ML 3 ML Pen SUBCUT SCH ×6 (07:42→20:40)
[2017-10-27] MEDS: TIMOLOL MALEAT EYERT SCH ×2 (07:42→20:39)
[2017-10-27] MEDS: Timolol Maleate 0.5% Ophth Soln 5 ML Bottle EYELF SCH ×2 (07:44→07:51)
[2017-10-27] MEDS: Insulin Detemir 100 Units/ML 3 ML Pen SUBCUT SCH (07:45)
[2017-10-27] MEDS: Gabapentin 300 MG Cap PO SCH (17:22)
[2017-10-27] MEDS: cefTRIAXone 1 GM Vial IVPUSH SCH (19:30)
[2017-10-27] MEDS: Latanoprost 0.005% Ophth Soln 2.5 ML Bottle EYEBOTH SCH (19:37)
[2017-10-27] MEDS: amLODIPine 10 MG Tab PO SCH (19:58)
[2017-10-27] MEDS: Sertraline 25 MG Tab PO SCH (19:59)
[2017-10-28] MEDS: Pantoprazole 40 MG Tab.CR PO SCH (06:58)
[2017-10-28] MEDS: Losartan 100 MG Tab PO SCH (08:07)
[2017-10-28] MEDS: Aspirin 81 MG Tab.EC PO SCH (08:07)
[2017-10-28] MEDS: Gabapentin 100 MG Cap PO SCH ×2 (08:07→11:47)
[2017-10-28] MEDS: BRIMONIDINE EYEBOTH SCH ×2 (08:07→19:27)
[2017-10-28] MEDS: Furosemide 40 MG Tab PO SCH (08:08)
[2017-10-28] MEDS: Metoprolol Tartrate 50 MG Tab PO SCH ×2 (08:08→19:34)
[2017-10-28] MEDS: Isosorbide Mononitrate 30 MG Tab.ER PO SCH (08:09)
[2017-10-28] MEDS: Potassium Chloride 10 MEQ Tab.ER PO SCH (08:09)
[2017-10-28] MEDS: Allopurinol 300 MG Tab PO SCH (08:09)
[2017-10-28] MEDS: TIMOLOL MALEAT EYERT SCH ×2 (08:12→19:28)
[2017-10-28] MEDS: DORZOLAMIDE HCL EYERT SCH ×2 (08:12→19:28)
[2017-10-28] MEDS: Timolol Maleate 0.5% Ophth Soln 5 ML Bottle EYELF SCH (08:12)
[2017-10-28] MEDS: Insulin Detemir 100 Units/ML 3 ML Pen SUBCUT SCH (08:13)
[2017-10-28] MEDS: Insulin Aspart 100 Units/ML 3 ML Pen SUBCUT SCH ×6 (08:14→20:37)
[2017-10-28] MEDS: traMADol 50 MG Tab PO PRN (08:30)
[2017-10-28] MEDS: Gabapentin 300 MG Cap PO SCH (17:30)
[2017-10-28] MEDS: cefTRIAXone 1 GM Vial IVPUSH SCH (19:29)
[2017-10-28] MEDS: amLODIPine 10 MG Tab PO SCH (19:34)
[2017-10-28] MEDS: Sertraline 25 MG Tab PO SCH (19:35)
[2017-10-28] MEDS: Latanoprost 0.005% Ophth Soln 2.5 ML Bottle EYEBOTH SCH (19:37)
[2017-10-29] MEDS: Pantoprazole 40 MG Tab.CR PO SCH (06:31)
[2017-10-29] MEDS: TIMOLOL MALEAT EYERT SCH ×2 (07:44→20:01)
[2017-10-29] MEDS: DORZOLAMIDE HCL EYERT SCH ×2 (07:44→20:01)
[2017-10-29] MEDS: BRIMONIDINE EYEBOTH SCH ×2 (07:44→20:01)
[2017-10-29] MEDS: Timolol Maleate 0.5% Ophth Soln 5 ML Bottle EYELF SCH (07:44)
[2017-10-29] MEDS: Furosemide 40 MG Tab PO SCH (07:45)
[2017-10-29] MEDS: Gabapentin 100 MG Cap PO SCH ×2 (07:45→12:00)
[2017-10-29] MEDS: Insulin Detemir 100 Units/ML 3 ML Pen SUBCUT SCH (07:46)
[2017-10-29] MEDS: Aspirin 81 MG Tab.EC PO SCH (07:46)
[2017-10-29] MEDS: Metoprolol Tartrate 50 MG Tab PO SCH ×2 (07:46→20:02)
[2017-10-29] MEDS: Losartan 100 MG Tab PO SCH (07:46)
[2017-10-29] MEDS: Potassium Chloride 10 MEQ Tab.ER PO SCH (07:46)
[2017-10-29] MEDS: Isosorbide Mononitrate 30 MG Tab.ER PO SCH (07:46)
[2017-10-29] MEDS: Allopurinol 300 MG Tab PO SCH (07:46)
[2017-10-29] MEDS: Insulin Aspart 100 Units/ML 3 ML Pen SUBCUT SCH ×6 (07:48→20:06)
[2017-10-29] MEDS: Gabapentin 300 MG Cap PO SCH (17:24)
[2017-10-29] MEDS: Latanoprost 0.005% Ophth Soln 2.5 ML Bottle EYEBOTH SCH (20:01)
[2017-10-29] MEDS: Sertraline 25 MG Tab PO SCH (20:02)
[2017-10-29] MEDS: amLODIPine 10 MG Tab PO SCH (20:02)
[2017-10-29] MEDS: cefTRIAXone 1 GM Vial IVPUSH SCH (20:06)
[2017-10-29] MEDS: traMADol 50 MG Tab PO PRN (20:14)
[2017-10-30] MEDS: Pantoprazole 40 MG Tab.CR PO SCH (06:33)
[2017-10-30] MEDS: Timolol Maleate 0.5% Ophth Soln 5 ML Bottle EYELF SCH (08:07)
[2017-10-30] MEDS: TIMOLOL MALEAT EYERT SCH ×2 (08:07→19:53)
[2017-10-30] MEDS: DORZOLAMIDE HCL EYERT SCH ×2 (08:07→19:53)
[2017-10-30] MEDS: Metoprolol Tartrate 50 MG Tab PO SCH ×2 (08:08→19:57)
[2017-10-30] MEDS: Potassium Chloride 10 MEQ Tab.ER PO SCH (08:08)
[2017-10-30] MEDS: Furosemide 40 MG Tab PO SCH (08:08)
[2017-10-30] MEDS: Isosorbide Mononitrate 30 MG Tab.ER PO SCH (08:08)
[2017-10-30] MEDS: Gabapentin 100 MG Cap PO SCH ×2 (08:09→12:13)
[2017-10-30] MEDS: Aspirin 81 MG Tab.EC PO SCH (08:09)
[2017-10-30] MEDS: Losartan 100 MG Tab PO SCH (08:09)
[2017-10-30] MEDS: Allopurinol 300 MG Tab PO SCH (08:09)
[2017-10-30] MEDS: Insulin Detemir 100 Units/ML 3 ML Pen SUBCUT SCH (08:10)
[2017-10-30] MEDS: Insulin Aspart 100 Units/ML 3 ML Pen SUBCUT SCH ×6 (08:10→20:52)
[2017-10-30] MEDS: BRIMONIDINE EYEBOTH SCH ×2 (08:53→19:55)
[2017-10-30] MEDS: Gabapentin 300 MG Cap PO SCH (17:30)
[2017-10-30] MEDS: cefTRIAXone 1 GM Vial IVPUSH SCH (19:52)
[2017-10-30] MEDS: Sertraline 25 MG Tab PO SCH (19:52)
[2017-10-30] MEDS: amLODIPine 10 MG Tab PO SCH (19:52)
[2017-10-30] MEDS: Latanoprost 0.005% Ophth Soln 2.5 ML Bottle EYEBOTH SCH (19:54)
[2017-10-31] MEDS: Pantoprazole 40 MG Tab.CR PO SCH (06:27)
[2017-10-31] MEDS: DORZOLAMIDE HCL EYERT SCH ×2 (07:43→19:04)
[2017-10-31] MEDS: TIMOLOL MALEAT EYERT SCH ×2 (07:43→19:04)
[2017-10-31] MEDS: Timolol Maleate 0.5% Ophth Soln 5 ML Bottle EYELF SCH (07:43)
[2017-10-31] MEDS: BRIMONIDINE EYEBOTH SCH ×2 (08:26→19:04)
[2017-10-31] MEDS: Insulin Detemir 100 Units/ML 3 ML Pen SUBCUT SCH (08:26)
[2017-10-31] MEDS: Allopurinol 300 MG Tab PO SCH (08:27)
[2017-10-31] MEDS: Losartan 100 MG Tab PO SCH (08:27)
[2017-10-31] MEDS: Isosorbide Mononitrate 30 MG Tab.ER PO SCH (08:28)
[2017-10-31] MEDS: Gabapentin 100 MG Cap PO SCH ×2 (08:28→12:00)
[2017-10-31] MEDS: Potassium Chloride 10 MEQ Tab.ER PO SCH (08:28)
[2017-10-31] MEDS: Furosemide 40 MG Tab PO SCH (08:28)
[2017-10-31] MEDS: Aspirin 81 MG Tab.EC PO SCH (08:29)
[2017-10-31] MEDS: Metoprolol Tartrate 50 MG Tab PO SCH ×2 (08:29→19:09)
[2017-10-31] MEDS: Insulin Aspart 100 Units/ML 3 ML Pen SUBCUT SCH ×6 (08:30→20:19)
[2017-10-31] MEDS: traMADol 50 MG Tab PO PRN ×2 (08:52→20:23)
[2017-10-31] MEDS: Gabapentin 300 MG Cap PO SCH (17:28)
[2017-10-31] MEDS: cefTRIAXone 1 GM Vial IVPUSH SCH (19:00)
[2017-10-31] MEDS: Sertraline 25 MG Tab PO SCH (19:05)
[2017-10-31] MEDS: Latanoprost 0.005% Ophth Soln 2.5 ML Bottle EYEBOTH SCH (19:06)
[2017-10-31] MEDS: amLODIPine 10 MG Tab PO SCH (19:09)
[2017-10-31] MEDS ORDERED: Zolpidem 5 MG Tab PO SCH (20:00)
[2017-11-01] MEDS: Pantoprazole 40 MG Tab.CR PO SCH (06:23)
[2017-11-01] MEDS: Isosorbide Mononitrate 30 MG Tab.ER PO SCH (08:22)
[2017-11-01] MEDS: Metoprolol Tartrate 50 MG Tab PO SCH ×2 (08:22→19:45)
[2017-11-01] MEDS: Furosemide 40 MG Tab PO SCH (08:22)
[2017-11-01] MEDS: Allopurinol 300 MG Tab PO SCH (08:22)
[2017-11-01] MEDS: Gabapentin 100 MG Cap PO SCH ×2 (08:22→11:58)
[2017-11-01] MEDS: Potassium Chloride 10 MEQ Tab.ER PO SCH (08:22)
[2017-11-01] MEDS: Losartan 100 MG Tab PO SCH (08:22)
[2017-11-01] MEDS: Aspirin 81 MG Tab.EC PO SCH (08:22)
[2017-11-01] MEDS: BRIMONIDINE EYEBOTH SCH ×2 (08:23→19:43)
[2017-11-01] MEDS: Insulin Aspart 100 Units/ML 3 ML Pen SUBCUT SCH ×6 (08:23→20:54)
[2017-11-01] MEDS: Timolol Maleate 0.5% Ophth Soln 5 ML Bottle EYELF SCH (08:23)
[2017-11-01] MEDS: DORZOLAMIDE HCL EYERT SCH ×2 (08:23→19:44)
[2017-11-01] MEDS: TIMOLOL MALEAT EYERT SCH ×2 (08:23→19:44)
[2017-11-01] MEDS: Insulin Detemir 100 Units/ML 3 ML Pen SUBCUT SCH (08:23)
[2017-11-01] MEDS ORDERED: Zolpidem 5 MG Tab PO PRN (13:38)
[2017-11-01] MEDS: Gabapentin 300 MG Cap PO SCH (17:33)
[2017-11-01] MEDS: amLODIPine 10 MG Tab PO SCH (19:45)
[2017-11-01] MEDS: Sertraline 25 MG Tab PO SCH (19:46)
[2017-11-01] MEDS: Latanoprost 0.005% Ophth Soln 2.5 ML Bottle EYEBOTH SCH (19:47)
[2017-11-01] MEDS: cefTRIAXone 1 GM Vial IVPUSH SCH (19:47)
[2017-11-01] MEDS: traMADol 50 MG Tab PO PRN (19:56)
[2017-11-02] MEDS: Pantoprazole 40 MG Tab.CR PO SCH (06:01)
[2017-11-02] MEDS: Gabapentin 100 MG Cap PO SCH ×2 (08:20→12:06)
[2017-11-02] MEDS: Aspirin 81 MG Tab.EC PO SCH (08:20)
[2017-11-02] MEDS: Furosemide 40 MG Tab PO SCH (08:21)
[2017-11-02] MEDS: Allopurinol 300 MG Tab PO SCH (08:21)
[2017-11-02] MEDS: Metoprolol Tartrate 50 MG Tab PO SCH ×2 (08:21→19:37)
[2017-11-02] MEDS: Potassium Chloride 10 MEQ Tab.ER PO SCH (08:21)
[2017-11-02] MEDS: BRIMONIDINE EYEBOTH SCH ×2 (08:21→19:36)
[2017-11-02] MEDS: Isosorbide Mononitrate 30 MG Tab.ER PO SCH (08:21)
[2017-11-02] MEDS: TIMOLOL MALEAT EYERT SCH ×2 (08:21→19:39)
[2017-11-02] MEDS: DORZOLAMIDE HCL EYERT SCH ×2 (08:21→19:39)
[2017-11-02] MEDS: Losartan 100 MG Tab PO SCH (08:21)
[2017-11-02] MEDS: Insulin Aspart 100 Units/ML 3 ML Pen SUBCUT SCH ×6 (08:21→20:22)
[2017-11-02] MEDS: Timolol Maleate 0.5% Ophth Soln 5 ML Bottle EYELF SCH (08:22)
[2017-11-02] MEDS: Insulin Detemir 100 Units/ML 3 ML Pen SUBCUT SCH (08:59)
[2017-11-02] MEDS: Gabapentin 300 MG Cap PO SCH (17:07)
[2017-11-02] MEDS: Sertraline 25 MG Tab PO SCH (19:38)
[2017-11-02] MEDS: amLODIPine 10 MG Tab PO SCH (19:38)
[2017-11-02] MEDS: cefTRIAXone 1 GM Vial IVPUSH SCH (19:39)
[2017-11-02] MEDS: Latanoprost 0.005% Ophth Soln 2.5 ML Bottle EYEBOTH SCH (19:43)
[2017-11-02] MEDS: traMADol 50 MG Tab PO PRN (20:48)
[2017-11-03] MEDS: Pantoprazole 40 MG Tab.CR PO SCH (06:00)
[2017-11-03] MEDS: Losartan 100 MG Tab PO SCH (07:33)
[2017-11-03] MEDS: Metoprolol Tartrate 50 MG Tab PO SCH ×2 (07:33→20:06)
[2017-11-03] MEDS: Furosemide 40 MG Tab PO SCH (07:33)
[2017-11-03] MEDS: Aspirin 81 MG Tab.EC PO SCH (07:33)
[2017-11-03] MEDS: Isosorbide Mononitrate 30 MG Tab.ER PO SCH (07:33)
[2017-11-03] MEDS: Potassium Chloride 10 MEQ Tab.ER PO SCH (07:33)
[2017-11-03] MEDS: Gabapentin 100 MG Cap PO SCH ×2 (07:33→11:48)
[2017-11-03] MEDS: Allopurinol 300 MG Tab PO SCH (07:33)
[2017-11-03] MEDS: Insulin Aspart 100 Units/ML 3 ML Pen SUBCUT SCH ×6 (07:34→20:04)
[2017-11-03] MEDS: Timolol Maleate 0.5% Ophth Soln 5 ML Bottle EYELF SCH (07:34)
[2017-11-03] MEDS: Insulin Detemir 100 Units/ML 3 ML Pen SUBCUT SCH (07:34)
[2017-11-03] MEDS: DORZOLAMIDE HCL EYERT SCH ×2 (07:35→20:24)
[2017-11-03] MEDS: BRIMONIDINE EYEBOTH SCH ×2 (07:35→19:36)
[2017-11-03] MEDS: TIMOLOL MALEAT EYERT SCH ×2 (07:35→20:24)
[2017-11-03] MEDS: Gabapentin 300 MG Cap PO SCH (17:27)
[2017-11-03] MEDS: Latanoprost 0.005% Ophth Soln 2.5 ML Bottle EYEBOTH SCH (20:05)
[2017-11-03] MEDS: amLODIPine 10 MG Tab PO SCH (20:06)
[2017-11-03] MEDS: Sertraline 25 MG Tab PO SCH (20:06)
[2017-11-04] MEDS: Pantoprazole 40 MG Tab.CR PO SCH (06:28)
[2017-11-04] MEDS: Losartan 100 MG Tab PO SCH (07:41)
[2017-11-04] MEDS: Furosemide 40 MG Tab PO SCH (07:41)
[2017-11-04] MEDS: Aspirin 81 MG Tab.EC PO SCH (07:41)
[2017-11-04] MEDS: Gabapentin 100 MG Cap PO SCH (07:41)
[2017-11-04] MEDS: Allopurinol 300 MG Tab PO SCH (07:41)
[2017-11-04] MEDS: Metoprolol Tartrate 50 MG Tab PO SCH (07:42)
[2017-11-04] MEDS: Potassium Chloride 10 MEQ Tab.ER PO SCH (07:42)
[2017-11-04] MEDS: Isosorbide Mononitrate 30 MG Tab.ER PO SCH (07:42)
[2017-11-04 07:44] VITALS: BP 168/78
[2017-11-04] MEDS: TIMOLOL MALEAT EYERT SCH (08:02)
[2017-11-04] MEDS: DORZOLAMIDE HCL EYERT SCH (08:02)
[2017-11-04] MEDS: BRIMONIDINE EYEBOTH SCH (08:03)
[2017-11-04] MEDS: Timolol Maleate 0.5% Ophth Soln 5 ML Bottle EYELF SCH (08:04)
[2017-11-04] MEDS: Insulin Detemir 100 Units/ML 3 ML Pen SUBCUT SCH (08:07)
[2017-11-04] MEDS: Insulin Aspart 100 Units/ML 3 ML Pen SUBCUT SCH (08:07)
[2017-11-04] MEDS ORDERED: Pneumococcal Polyvalent-23 Vaccine 0.5 ML SDV IM ONE (08:39)
--- NOTE | 2017-11-04 12:03 | PCM.DCSUM1 ---
Discharge Summary - Hospital Course Free Text/Narrative:: Patient presented to ED on 10-22-2017 with concerns of stroke like symptoms. Had been evaluated by nursing staff at the [facility] and noted facial drooping. She had sustained a fall and hit the right side of her face on the toilet. Per daughter as noted in record, patient had a known right sided facial droop and had been oriented since the fall. History of frequent falls where she will lose her balance or her legs will just give out on her and she will fall to the floor. Did not lose consciousness with this fall. Was a question of her right pupil not reacting at the home. She had a complete neurological work up in the ER and was found to have a fracture of the floor of her right orbit. Brandon Arnold did discuss the case with ophthalmology who felt she needed to be on prophylaxis for cellulitis. Admitted and started on Rocephin. She had her coumadin held. Concerns of her safety were discussed due to frequent falls. Transferred to swing bed status for ongoing antibiotics and physical therapy to regain strength with hopes of returning back to the [facility]. Patient did have some issues with headaches during her acute stay, was controlled with IV Fentanyl. Vision has remained stable during acute stay. - Discharge Data Discharge Date: 11/04/17 Discharge Disposition: DC/Tfer to [facility] Condition: Fair - Patient Summary/Data Complications: none Consults: Consultations 10/27/17 11:55 PT Evaluation and Treatment [CONS] Routine Hospital Course: Patient has had slow progression of her ability to ambulate with walker and PT. Does still have balance issues and has stabilized. She did have her full 10 day course of IV Rocephin. Had episode of increased confusion on Friday and labs were drawn, all stable. 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 Blood pressure stable. Patient's blood sugars have varied throughout her stay, not consistent each day. Insulin has been adjusted. Does have increased sedation during the day. Has taken Ambien periodically through her stay which does help her sleep. Patient will be transferred to the correction, daughter will be gone over the next few weeks and unable to provide any assistance to the patient. Continue with 30 units of Lantus in the evening. Humalog 4 units with each meal as she has average about 12 additional units each day. Will stop Gabapentin due to sedation during the day and see if that improves. - Patient Instructions Diet: Diabetic Diet Activity: As Tolerated - Discharge Plan Prescriptions/Med Rec: Insulin Aspart [NovoLOG] 4 unit SUBCUT TIDMEALS #1 pen Menthol/Zinc Oxide [Calmoseptine] 1 gm TOP QID PRN #1 tube PRN Reason: Perineal Comfort Measure traMADol [Ultram] 50 mg PO Q6H PRN #30 tablet PRN Reason: Pain Zolpidem [Ambien] 5 mg PO BEDTIME PRN #30 tablet PRN Reason: Sleep Home Medications: Home Meds Furosemide 80 mg PO DAILY 02/13/15 [History] Latanoprost [Xalatan 0.005% Ophth Soln] 1 drop EYEBOTH BEDTIME 02/13/15 [History ] Losartan [Cozaar] 100 mg PO DAILY 02/13/15 [History] Metoprolol Tartrate 50 mg PO BID 02/13/15 [History] Omeprazole 20 mg PO DAILY 02/13/15 [History] amLODIPine [Norvasc] 10 mg PO BEDTIME 02/13/15 [History] Allopurinol [Zyloprim] 300 mg PO DAILY tablet 02/17/15 [Rx] Aspirin [Halfprin] 81 mg PO DAILY 09/22/15 [History] Sertraline [Zoloft] 75 mg PO BEDTIME 12/07/16 [History] Brimonidine Tartrate [Alphagan P 0.1% Ophth Soln] 1 drop EYEBOTH BID 04/04/17 [ History] Isosorbide Mononitrate [Imdur] 60 mg PO DAILY 05/21/17 [History] Insulin Detemir [Levemir] 30 unit SUBCUT QAM #1 pen 06/16/17 [Rx] Warfarin Sodium 3 mg PO DAILY #30 tablet 06/16/17 [Rx] Acetaminophen 500 mg PO Q6H PRN 10/06/17 [History] Potassium Chloride [Klor-Con 10] 20 meq PO DAILY 10/06/17 [History] Calcium Carb &Cit/Magnesium Ox [Calmag Thins Tablet] 1 tab PO DAILY 10/22/17 [ History] Dorzolamide HCl/Timolol Maleat [Cosopt Eye Drops] 1 drop EYERT BID 10/22/17 [ History] Metolazone 5 mg PO DAILY PRN 10/22/17 [History] Multivitamin [Multi-Day Vitamins] 1 tab PO DAILY 10/22/17 [History] Polyethylene Glycol 3350 [MiraLAX] 17 gm PO DAILY PRN 10/22/17 [History] Sennosides/Docusate Sodium [Senna-Docusate Sodium Tablet] 1 tab PO DAILY PRN [History] Timolol Maleate [Timoptic 0.5% Ophth Soln] 1 drop EYELF DAILY 10/22/17 [History] Insulin Aspart [NovoLOG] 4 unit SUBCUT TIDMEALS #1 pen 11/04/17 [Rx] Menthol/Zinc Oxide [Calmoseptine] 1 gm TOP QID PRN #1 tube 11/04/17 [Rx] Zolpidem [Ambien] 5 mg PO BEDTIME PRN #30 tablet 11/04/17 [Rx] traMADol [Ultram] 50 mg PO Q6H PRN #30 tablet 11/04/17 [Rx] - Discharge Summary/Plan Comment DC Time >30 min.: Yes Discharge Summary/Plan Comment: Discharge to [facility] Time with exam 10 minutes Time for orders 15 minutes Time for documentation 15 minutes. - General Info Date of Service: 11/04/17 Admission Dx/Problem (Free Text: Fracture of orbital floor Functional Status: Reports: Pain Controlled, Tolerating Diet, Ambulating - Review of Systems General: Reports: Weakness, Other (drowsy at times). Denies: Fever, Fatigue, Malaise HEENT: Reports: Rhinitis. Denies: Sinus Congestion Pulmonary: Denies: Shortness of Breath, Cough Cardiovascular: Denies: Chest Pain, Edema, Lightheadedness Gastrointestinal: Denies: Abdominal Pain, Nausea, Vomiting Genitourinary: Reports: No Symptoms Musculoskeletal: Reports: Back Pain - Patient Data Vitals - Most Recent: Last Vital Signs Temp 98 F 11/04/17 08:00 Pulse 65 11/04/17 08:00 Resp 16 11/04/17 08:00 BP 168/78 H 11/04/17 08:00 Pulse Ox 91 L 11/04/17 08:00 Weight - Most Recent: 172 lb 8 oz Lab Results - Last 24 hrs: Laboratory Results - last 24 hr 11/03/17 11/03/17 11/03/17 Range/Units 11:22 17:28 19:52 POC Glucose 140 H 277 H 203 H (75-105) mg/dl 11/04/17 Range/Units 07:29 POC Glucose 106 H (75-105) mg/dl Med Orders - Current: Current Medications Discontinued Medications Acetaminophen (Tylenol) 650 mg PO Q4H PRN PRN Reason: Pain (Mild 1-3)/fever Last Admin: 10/26/17 20:18 Dose: 650 mg Allopurinol (Zyloprim) 300 mg PO DAILY [facility] Last Admin: 11/04/17 07:41 Dose: 300 mg Amlodipine Besylate (Norvasc) 10 mg PO BEDTIME [facility] Last Admin: 11/03/17 20:06 Dose: 10 mg Aspirin (Halfprin) 81 mg PO DAILY [facility] Last Admin: 11/04/17 07:41 Dose: 81 mg Calamine/Phenol (Calmoseptine) 0 gm TOP QID PRN PRN Reason: Perineal Comfort Measure Ceftriaxone Sodium (Rocephin) 1 gm IVPUSH Q24H [facility] Last Admin: 10/26/17 17:31 Dose: 1 gm Ceftriaxone Sodium (Rocephin) 1 gm IVPUSH Q24H [facility] Last Admin: 11/02/17 19:39 Dose: 1 gm Fentanyl (Sublimaze) 25 mcg IVPUSH Q4H PRN PRN Reason: Pain Fentanyl (Sublimaze) 25 mcg IVPUSH Q8H PRN PRN Reason: Pain Furosemide (Lasix) 80 mg PO DAILY [facility] Last Admin: 11/04/17 07:41 Dose: 80 mg Gabapentin (Neurontin) 100 mg PO BID@0800,1200 [facility] Last Admin: 11/04/17 07:41 Dose: 100 mg Gabapentin (Neurontin) 300 mg PO DAILY@1730 [facility] Last Admin: 11/03/17 17:27 Dose: 300 mg Insulin Aspart (Novolog) 0 unit SUBCUT WITHMEALSANDBED [facility] PRN Reason: Protocol Last Admin: 11/04/17 08:07 Dose: Not Given Insulin Aspart (Novolog) 4 unit SUBCUT 1200,1730 [facility] Last Admin: 10/27/17 17:22 Dose: 4 units Insulin Aspart (Novolog) 6 unit SUBCUT 1200,1730 [facility] Last Admin: 11/03/17 17:27 Dose: 6 units Insulin Detemir (Levemir) 30 unit SUBCUT QAM [facility] Last Admin: 11/04/17 08:07 Dose: 30 unit Isosorbide Mononitrate (Imdur) 60 mg PO DAILY [facility] Last Admin: 11/04/17 07:42 Dose: 60 mg Latanoprost (Xalatan 0.005% Ophth Soln) 0 ml EYEBOTH BEDTIME [facility] Last Admin: 11/03/17 20:05 Dose: 1 drop Losartan Potassium (Cozaar) 100 mg PO DAILY [facility] Last Admin: 11/04/17 07:41 Dose: 100 mg Metoprolol Tartrate (Lopressor) 50 mg PO BID [facility] Last Admin: 11/04/17 07:42 Dose: 50 mg Brimonidine Tar P 0. 1% Ophth Soln Own Med 1 drop EYEBOTH BID [facility] Last Admin: 11/04/17 08:03 Dose: 1 drop Dorzolamide Hcl/Timolol Maleat [ Cosopt Eye Drops] Own Med 1 drop EYERT BID [facility] Last Admin: 11/04/17 08:02 Dose: 1 drop Ondansetron HCl (Zofran) 4 mg IV Q4H PRN PRN Reason: Nausea/Vomiting Pantoprazole Sodium (Protonix) 40 mg PO DAILY@0700 [facility] Last Admin: 11/04/17 06:28 Dose: 40 mg Pneumococcal Polyvalent Vaccine (Pneumovax 23) 0.5 ml IM .ONCE ONE Stop: 11/04/17 08:40 Last Admin: 11/04/17 09:15 Dose: 0.5 ml Polyethylene Glycol (Miralax) 17 gm PO DAILY PRN PRN Reason: Constipation Potassium Chloride (Klor-Con 10) 20 meq PO DAILY [facility] Last Admin: 11/04/17 07:42 Dose: 20 meq Senna/Docusate Sodium (Senna Plus) 1 tab PO DAILY PRN PRN Reason: Constipation Sertraline HCl (Zoloft) 75 mg PO BEDTIME [facility] Last Admin: 11/03/17 20:06 Dose: 75 mg Sodium Chloride (Saline Flush) 10 ml FLUSH ASDIRECTED PRN PRN Reason: Keep Vein Open Sodium Chloride (Saline Flush) 10 ml FLUSH ASDIRECTED PRN PRN Reason: Keep Vein Open Timolol Maleate (Timoptic 0.5% Ophth Soln) 0 ml EYELF DAILY [facility] Last Admin: 11/04/17 08:04 Dose: 1 drop Tramadol HCl (Ultram) 50 mg PO Q6H PRN PRN Reason: Pain Last Admin: 11/02/17 20:48 Dose: 50 mg Warfarin Sodium (Coumadin) 3 mg PO DAILY@1200 [facility] Last Admin: 11/03/17 11:47 Dose: 3 mg Zolpidem Tartrate (Ambien) 5 mg PO BEDTIME [facility] Last Admin: 11/01/17 03:49 Dose: Not Given Zolpidem Tartrate (Ambien) 5 mg PO BEDTIME PRN PRN Reason: Sleep Last Admin: 11/03/17 20:06 Dose: 5 mg - Exam General: Reports: Alert, Oriented HEENT: Reports: Mucous Membr. Moist/[place] Neck: Reports: Supple Lungs: Reports: Decreased Breath Sounds Cardiovascular: Reports: Irregular Rhythm GI/Abdominal Exam: Normal Bowel Sounds, Soft, Non-Tender Extremities: Normal Inspection, No Pedal Edema Skin: Reports: Warm, Dry Neurological: Reports: No New Focal Deficit *Q Meaningful Use (DIS) - VTE *Q VTE Criteria *Q: - Stroke *Q Stroke Criteria *Q: - AMI *Q AMI Criteria *Q:
== END 2017-11-04 10:23 | DRG 561 ==
LOC: CC.MS 09:18 → UNDOADMIN 09:18 → CC.MS 09:21
PROVIDERS: ADMIT Family Medicine; ATTEND Family Medicine
DX: S02.31XD Fracture of orbital floor, right side, subsequent encounter for fracture with routine healing (principal); W19.XXXD Unspecified fall, subsequent encounter; Z91.81 History of falling; R51 Headache; E11.9 Type 2 diabetes mellitus without complications; Z79.4 Long term (current) use of insulin; I50.9 Heart failure, unspecified; I11.0 Hypertensive heart disease with heart failure; I25.2 Old myocardial infarction; Z95.1 Presence of aortocoronary bypass graft; F32.9 Major depressive disorder, single episode, unspecified; Z79.01 Long term (current) use of anticoagulants; Z85.038 Personal history of other malignant neoplasm of large intestine; Z23 Encounter for immunization
CPT/HCPCS: 36415; 80048; 81001; 82962; 85025; 85610; 86140; 87500; 90732; 97110-GP; 97161-GP; A9270-GY; G0009; J0696; J1815-GY

== ENCOUNTER 2018-02-07 09:15 | Inpatient (IN) | payer MEDICARE, BC ==
--- NOTE | 2018-02-07 09:36 | EDM.PDOC ---
ED HPI GENERAL MEDICAL PROBLEM - General Chief Complaint: Neurological Problem Stated Complaint: Altered mental status Time Seen by Provider: 02/07/18 09:15 Source of Information: Reports: Patient, Family, Residential Records, RN History Limitations: Reports: Altered Mental Status - History of Present Illness INITIAL COMMENTS - FREE TEXT/NARRATIVE: This patient is an 82 year old female that presents to the ER. Patient arrives via private vehicle. [facility]. RN from jail reports while doing morning rounds found the patient to be more weak than usual. She reports the patient seemed to be more confused, not acting herself. She reports she took the patient blood sugar, which was normal. Patient was also complaining of a headache. Patient is scheduled on Friday for a RBKA on Friday. Patient has been taking coumadin and also Lovenox 80mg SQ BID for surgery prep per jail. The patient arrives to the ER. Her speech is slurred, she is crying, she moans with transitioning her or movement. The patient has her left arm in a sling position, her left eye is more drooped than right. Patient is not able to distinguish where her head hurts, but does raise her right hand to the right side of head. Patient was immediately upon arrival, taken to CT. Patient patent does know her name, she does now her location of [facility]. She does not know the year. The patient is appears drowsy and not alert. But, she is arousable when I talk to her, move, or touch her. Daughter reports patient has had "respiratory stuff", the last few days. Patient reports neck pain. Daughter reports her neck pain is chronic. prison denies patient have n, v, d, f. Patient does have necrosis wound to the right foot near 4th. 5th digits that is visible and odorous. No surrounding redness, heat. Pulses +2, cap refill < 2 sec. Stroke Score 16. Srouses to minor stimulation +1, Ask month and age 0 questions right +2, Facial palsy mionor left eye closure +1, Left arm some effort against gravity +2, Right arm some effort against gravity +2, left leg motor no effort against gravity +3, Right leg motor no effort against gravity +3, Language mild aphasia +1, Dysarthria mild +1 = 16. Oliver Comas Scale 13. Eye opening to speech 3, verbal response confused 4, motor response obeys commands 6 = 13. Onset: Unknown/Unsure Onset Date: 02/07/18 Location: Reports: Head Quality: Reports: Other (hurts) Severity: Moderate Improves with: Reports: None Worsens with: Reports: None Associated Symptoms: Reports: Confusion, Cough, cough w sputum, Headaches, Loss of Appetite, Malaise, Weakness. Denies: Chest Pain, Diaphoresis, Fever/Chills, Nausea/Vomiting, Rash, Seizure, Shortness of Breath, Syncope Headache Pain Score (Numeric/FACES): 10 - Related Data Allergies Allergy/AdvReac Type Severity Reaction Status Date / Time codeine Allergy Severe Anaphylactic Verified 02/07/18 09:49 Shock Home Meds: Home Meds Furosemide 80 mg PO DAILY 02/13/15 [History] Latanoprost [Xalatan 0.005% Ophth Soln] 1 drop EYEBOTH BEDTIME 02/13/15 [History ] Losartan [Cozaar] 100 mg PO DAILY 02/13/15 [History] Metoprolol Tartrate 50 mg PO BID 02/13/15 [History] Omeprazole 20 mg PO DAILY 02/13/15 [History] amLODIPine [Norvasc] 10 mg PO BEDTIME 02/13/15 [History] Allopurinol [Zyloprim] 300 mg PO DAILY tablet 02/17/15 [Rx] Aspirin [Halfprin] 81 mg PO DAILY 09/22/15 [History] Sertraline [Zoloft] 75 mg PO BEDTIME 12/07/16 [History] Brimonidine Tartrate [Alphagan P 0.1% Ophth Soln] 1 drop EYEBOTH BID 04/04/17 [ History] Isosorbide Mononitrate [Imdur] 60 mg PO DAILY 05/21/17 [History] Warfarin Sodium 3 mg PO DAILY #30 tablet 06/16/17 [Rx] Acetaminophen 500 mg PO Q6H PRN 10/06/17 [History] Potassium Chloride [Klor-Con 10] 20 meq PO DAILY 10/06/17 [History] Dorzolamide HCl/Timolol Maleat [Cosopt Eye Drops] 1 drop EYERT BID 10/22/17 [ History] Metolazone 5 mg PO DAILY PRN 10/22/17 [History] Multivitamin [Multi-Day Vitamins] 1 tab PO DAILY 10/22/17 [History] Polyethylene Glycol 3350 [MiraLAX] 17 gm PO DAILY PRN 10/22/17 [History] Sennosides/Docusate Sodium [Senna-Docusate Sodium Tablet] 1 tab PO DAILY PRN [History] Timolol Maleate [Timoptic 0.5% Ophth Soln] 1 drop EYELF DAILY 10/22/17 [History] Menthol/Zinc Oxide [Calmoseptine] 1 gm TOP QID PRN #1 tube 11/04/17 [Rx] traMADol [Ultram] 50 mg PO Q6H PRN #30 tablet 11/04/17 [Rx] Baclofen 5 mg PO TID 02/07/18 [History] Cholecalciferol (Vitamin D3) [Vitamin D3] 2,000 unit PO DAILY 02/07/18 [History] Enoxaparin Sodium [Lovenox] 80 mg SUBCUT BID 02/07/18 [History] Insulin Detemir [Levemir] 36 unit SUBCUT QAM 02/07/18 [History] Melatonin 5 mg PO BEDTIME PRN 02/07/18 [History] Menthol [Biofreeze] 1 applic TOP QID PRN 02/07/18 [History] Vitamin B Complex 1 tab PO DAILY 02/07/18 [History] guaiFENesin [Mucinex] 600 mg PO BID 02/07/18 [History] guaiFENesin/Dextromethorphan [Tussin Dm Syrup] 10 ml PO Q4H PRN 02/07/18 [ History] risperiDONE [Risperdal] 0.25 mg PO BID 02/07/18 [History] Past Medical History HEENT History: Reports: Cataract, Impaired Vision, Other (See Below) Other HEENT History: Vertigo, recent hearing loss L ear started October 2016 Cardiovascular History: Reports: Heart Failure, Hypertension, ND, PTCA, Stents Respiratory History: Reports: Pneumonia, Recurrent Genitourinary History: Reports: Other (See Below) Other Genitourinary History: kidney stent and hematoma to kidney. Musculoskeletal History: Reports: Arthritis Neurological History: Reports: Vertigo, Other (See Below) Other Neuro History: tremors, occipital fracture bilateral Psychiatric History: Reports: Depression Endocrine/Metabolic History: Reports: Diabetes, Type II Hematologic History: Reports: Anticoagulation Therapy Oncologic (Cancer) History: Reports: Colon - Infectious Disease History Infectious Disease History: Reports: VRE - Past Surgical History HEENT Surgical History: Reports: Cataract Surgery, Tonsillectomy GI Surgical History: Reports: Colonoscopy Musculoskeletal Surgical History: Reports: Knee Replacement Social & Family History - Family History Family Medical History: Noncontributory - Tobacco Use Smoking Status *Q: Never Smoker Used Tobacco, but Quit: Yes Month Tobacco Last Used: UNK Second Hand Smoke Exposure: No - Caffeine Use Caffeine Use: Reports: Coffee - Alcohol Use Days Per Week of Alcohol Use: 0 - Recreational Drug Use Recreational Drug Use: No - Living Situation & Occupation Living situation: Reports: , Alone, Other Occupation: Retired ED ROS GENERAL - Review of Systems Review Of Systems: See Below Constitutional: Reports: Malaise, Weakness, Fatigue, Decreased Appetite HEENT: Reports: Rhinitis, Sinus Problem Respiratory: Reports: Cough. Denies: Shortness of Breath, Wheezing, Pleuritic Chest Pain, Sputum Cardiovascular: Reports: No Symptoms Endocrine: Reports: No Symptoms GI/Abdominal: Reports: No Symptoms. Denies: Abdominal Pain, Nausea, Vomiting : Reports: No Symptoms Musculoskeletal: Reports: Neck Pain (chronic), Other (Right foot necrosis) Skin: Reports: Wound (Right foot 4th, 5th toes necoris wound. No redness, heat. Due for RBKA. ) Neurological: Reports: Confusion, Headache, Trouble Speaking, Weakness ( generally) Psychiatric: Reports: No Symptoms Hematologic/Lymphatic: Reports: No Symptoms Immunologic: Reports: No Symptoms - Physical Exam Exam: See Below Exam Limited By: Altered Mental Status General Appearance: Other (arousable with speech and touch. ) Eye Exam: Left Eye: Other (left eye drooping, partially closed. ), Bilateral Eye : PERRL Ears: Normal External Exam, Normal Canal, Hearing Grossly Normal, Normal TMs Nose: Normal Inspection, Normal Mucosa, No Blood Throat/Mouth: Normal Inspection, Normal Lips, Normal Teeth, Normal Gums, Normal Oropharynx, Normal Voice, No Airway Compromise, Other (top dentures in place) Head Exam: Atraumatic, Normocephalic. No: Scalp Lacerations, Scalp Swelling, Scalp Abrasions, Scalp Ecchymosis, Scalp Hematoma, Scalp Tenderness, Facial Abrasions, Facial Ecchymosis, Facial Lacerations, Facial Swelling, Facial Tenderness, Sinus Tenderness Neck: Normal Inspection, Supple, Full Range of Motion, Tender Lateral ( bialterally. ) Respiratory/Chest: No Respiratory Distress, Lungs Clear, Normal Breath Sounds, No Accessory Muscle Use, Chest Non-Tender Cardiovascular: Normal Peripheral Pulses, Regular Rate, Rhythm, No Edema, No Gallop, No JVD, No Murmur, No Rub. No: JVD GI/Abdominal: Normal Bowel Sounds, Soft, Non-Tender, No Organomegaly, No Distention, No Abnormal Bruit, No Mass, Pelvis Stable (Female) Exam: Deferred Rectal (Female) Exam: Deferred Neuro Exam (Abbreviated): Confused, Disoriented, Slow to Respond, Sensory/Motor Deficit (bilaterally weak. ), Other (slurred speech. Generally weak. Left eye not opening completely compared to right. Stroke Score 16, [place] 13. ) Back Exam: Full Range of Motion, Other (left upper near bra strap skin breakdown stage 2. ). No: CVA Tenderness (L), CVA Tenderness (R) Extremities: Non-Tender, No Pedal Edema, Normal Capillary Refill, Other (wound right foot. Pulses +2, cap refil <2 sec All extremeties. ) Skin Exam: Warm, Dry, Normal Color, No Rash, Other (right foot necrotic wound, left back upper breakdown. ) Course - Vital Signs Last Recorded V/S: Last Vital Signs Temp 98.0 F 02/07/18 09:15 Pulse 75 02/07/18 11:59 Resp 20 02/07/18 11:59 BP 171/69 H 02/07/18 11:59 Pulse Ox 92 L 02/07/18 11:59 - Orders/Labs/Meds Orders: Active Orders 24 hr Category Date Time Status Chest 1V Frontal [CR] Stat Exams 02/07/18 09:36 Taken Head wo Cont [CT] Stat Exams 02/07/18 09:00 Taken CULTURE BLOOD [BC] Stat Lab 02/07/18 10:20 Received CULTURE BLOOD [BC] Stat Lab 02/07/18 10:30 Received Blood Culture x2 Reflex Set [OM.PC] Stat Oth 02/07/18 09:36 Ordered Labs: Laboratory Tests 03/10/18 03/10/18 03/10/18 Range/Units 09:35 09:35 09:35 WBC 16.2 H (5.0-10.0) 10^3/uL RBC 5.44 (4.00-5.50) 10^6/uL Hgb 14.6 (12.0-16.0) g/dL Hct 45.6 (37.0-47.0) % MCV 83.8 (82.0-94.0) fL MCH 26.8 L (27.0-32.0) pg MCHC 32.0 L (33.0-38.0) g/dL RDW Coeff of Shahzad 18.3 H (11.0-15.0) % Plt Count 751 H (150-400) 10^3/uL Neut % (Auto) 83.6 (35-85) % Lymph % (Auto) 7.8 L (10-55) % Lucas % (Auto) 6.9 (0-16) % Eos % (Auto) 1.5 (0-5) % Baso % (Auto) 0.2 (0-3) % Neut # (Auto) 13.48 H (1.80-7.00) 10^3/uL Lymph # (Auto) 1.26 (1.00-4.80) 10^3/uL Lucas # (Auto) 1.12 H (0.00-0.80) 10^3/uL Eos # (Auto) 0.25 (0.00-0.45) 10^3/uL Baso # (Auto) 0.04 10^3/uL PT 13.4 H (9.7-12.3) SEC INR 1.31 H (0.92-1.18) APTT 45.2 H (20.0-45.0) SEC Sodium 139 (136-145) mEq/L Potassium 3.9 (3.5-5.0) mEq/L Chloride 100 (98-106) mEq/L Carbon Dioxide 28 (21-32) mmol/L BUN 60 H D (7-18) mg/dL Creatinine 1.6 H (0.6-1.0) mg/dL Est Cr Clr Drug Dosing TNP Estimated GFR (MDRD) 31 L (>=60) mL/min Glucose 74 L D (75-99) mg/dL Lactic Acid (0.4-2.0) mmol/L Calcium 9.0 (8.4-10.1) mg/dL Total Bilirubin 0.4 (0.0-1.0) mg/dL AST 18 (15-37) U/L ALT 20 (12-78) U/L Alkaline Phosphatase 102 (46-116) U/L Creatine Kinase 28 (21-215) U/L Troponin I < 0.017 (0.00-0.06) ng/mL C-Reactive Protein (0.2-0.8) mg/dL NT-Pro-B Natriuret Pep (0-1000) pg/mL Total Protein 8.1 (6.4-8.2) g/dL Albumin 2.9 L (3.4-5.0) g/dL Urine Color (YELLOW) Urine Appearance (CLEAR) Urine pH (4.5-8.0) Ur Specific [place] (1.003-1.020) Urine Protein (NEGATIVE) mg/dL Urine Glucose (UA) (NEGATIVE) mg/dL Urine Ketones (NEGATIVE) mg/dL Urine Occult Blood (NEGATIVE) Urine Nitrite (NEGATIVE) Urine Bilirubin (NEGATIVE) Urine Urobilinogen (0.2-1.0) EU/dL Ur Leukocyte Esterase (NEGATIVE) Urine RBC (0-5) /HPF Urine WBC (0-5) /HPF Ur Squamous Epith Cells (NOT SEEN) /HPF Amorphous Sediment (NOT SEEN) /HPF Urine Bacteria (NOT SEEN) /HPF 02/07/18 02/07/18 02/07/18 Range/Units 09:35 09:35 10:30 WBC (5.0-10.0) 10^3/uL RBC (4.00-5.50) 10^6/uL Hgb (12.0-16.0) g/dL Hct (37.0-47.0) % MCV (82.0-94.0) fL MCH (27.0-32.0) pg MCHC (33.0-38.0) g/dL RDW Coeff of Shahazd (11.0-15.0) % Plt Count (150-400) 10^3/uL Neut % (Auto) (35-85) % Lymph % (Auto) (10-55) % Lucas % (Auto) (0-16) % Eos % (Auto) (0-5) % Baso % (Auto) (0-3) % Neut # (Auto) (1.80-7.00) 10^3/uL Lymph # (Auto) (1.00-4.80) 10^3/uL Lucas # (Auto) (0.00-0.80) 10^3/uL Eos # (Auto) (0.00-0.45) 10^3/uL Baso # (Auto) 10^3/uL PT (9.7-12.3) SEC INR (0.92-1.18) APTT (20.0-45.0) SEC Sodium (136-145) mEq/L Potassium (3.5-5.0) mEq/L Chloride (98-106) mEq/L Carbon Dioxide (21-32) mmol/L BUN (7-18) mg/dL Creatinine (0.6-1.0) mg/dL Est Cr Clr Drug Dosing Estimated GFR (MDRD) (>=60) mL/min Glucose (75-99) mg/dL Lactic Acid 1.0 (0.4-2.0) mmol/L Calcium (8.4-10.1) mg/dL Total Bilirubin (0.0-1.0) mg/dL AST (15-37) U/L ALT (12-78) U/L Alkaline Phosphatase (46-116) U/L Creatine Kinase (21-215) U/L Troponin I (0.00-0.06) ng/mL C-Reactive Protein 15.0 H (0.2-0.8) mg/dL NT-Pro-B Natriuret Pep 1816 H (0-1000) pg/mL Total Protein (6.4-8.2) g/dL Albumin (3.4-5.0) g/dL Urine Color (YELLOW) Urine Appearance (CLEAR) Urine pH (4.5-8.0) Ur Specific [place] (1.003-1.020) Urine Protein (NEGATIVE) mg/dL Urine Glucose (UA) (NEGATIVE) mg/dL Urine Ketones (NEGATIVE) mg/dL Urine Occult Blood (NEGATIVE) Urine Nitrite (NEGATIVE) Urine Bilirubin (NEGATIVE) Urine Urobilinogen (0.2-1.0) EU/dL Ur Leukocyte Esterase (NEGATIVE) Urine RBC (0-5) /HPF Urine WBC (0-5) /HPF Ur Squamous Epith Cells (NOT SEEN) /HPF Amorphous Sediment (NOT SEEN) /HPF Urine Bacteria (NOT SEEN) /HPF 02/07/18 Range/Units 11:15 WBC (5.0-10.0) 10^3/uL RBC (4.00-5.50) 10^6/uL Hgb (12.0-16.0) g/dL Hct (37.0-47.0) % MCV (82.0-94.0) fL MCH (27.0-32.0) pg MCHC (33.0-38.0) g/dL RDW Coeff of Shahzad (11.0-15.0) % Plt Count (150-400) 10^3/uL Neut % (Auto) (35-85) % Lymph % (Auto) (10-55) % Lucas % (Auto) (0-16) % Eos % (Auto) (0-5) % Baso % (Auto) (0-3) % Neut # (Auto) (1.80-7.00) 10^3/uL Lymph # (Auto) (1.00-4.80) 10^3/uL Lucas # (Auto) (0.00-0.80) 10^3/uL Eos # (Auto) (0.00-0.45) 10^3/uL Baso # (Auto) 10^3/uL PT (9.7-12.3) SEC INR (0.92-1.18) APTT (20.0-45.0) SEC Sodium (136-145) mEq/L Potassium (3.5-5.0) mEq/L Chloride (98-106) mEq/L Carbon Dioxide (21-32) mmol/L BUN (7-18) mg/dL Creatinine (0.6-1.0) mg/dL Est Cr Clr Drug Dosing Estimated GFR (MDRD) (>=60) mL/min Glucose (75-99) mg/dL Lactic Acid (0.4-2.0) mmol/L Calcium (8.4-10.1) mg/dL Total Bilirubin (0.0-1.0) mg/dL AST (15-37) U/L ALT (12-78) U/L Alkaline Phosphatase (46-116) U/L Creatine Kinase (21-215) U/L Troponin I (0.00-0.06) ng/mL C-Reactive Protein (0.2-0.8) mg/dL NT-Pro-B Natriuret Pep (0-1000) pg/mL Total Protein (6.4-8.2) g/dL Albumin (3.4-5.0) g/dL Urine Color Yellow (YELLOW) Urine Appearance Slightly cloudy (CLEAR) Urine pH 5.0 (4.5-8.0) Ur Specific [place] 1.015 (1.003-1.020) Urine Protein 100 H (NEGATIVE) mg/dL Urine Glucose (UA) Negative (NEGATIVE) mg/dL Urine Ketones Negative (NEGATIVE) mg/dL Urine Occult Blood Negative (NEGATIVE) Urine Nitrite Negative (NEGATIVE) Urine Bilirubin Negative (NEGATIVE) Urine Urobilinogen 0.2 (0.2-1.0) EU/dL Ur Leukocyte Esterase Trace H (NEGATIVE) Urine RBC Not seen (0-5) /HPF Urine WBC 0-5 (0-5) /HPF Ur Squamous Epith Cells Few H (NOT SEEN) /HPF Amorphous Sediment Few H (NOT SEEN) /HPF Urine Bacteria Few H (NOT SEEN) /HPF Meds: Medications Discontinued Medications Generic Name Dose Route Start Last Admin Trade Name Freq PRN Reason Stop Dose Admin Glucagon 1 mg 02/07/18 11:27 02/07/18 11:33 Glucagen IVPUSH 02/07/18 11:28 1 mg ONETIME ONE Administration Sodium Chloride 1,000 mls @ 500 mls/hr 02/07/18 10:10 02/07/18 11:35 Normal Saline IV 02/07/18 12:09 500 mls/hr .BOLUS ONE Administration - Radiology Interpretation Free Text/Narrative:: Head CT: Radiologist report: "probabaly minimal small vessel ischemic change and an old lacunar infarct. No clear evidence of acute abnormalities. CT Results Date: 02/07/18 CT Results Time: 09:39 - Re-Assessments/Exams Free Text/Narrative Re-Assessment/Exam: 02/07/18 11:52 Patient blood sugar on initial presentation was 63 and remained stable while in ER, until now is 47. She was given 1mg glucagon. Since being in the ER, prior to this administration of glucagon, has been much more alert and oriented. Patient is sitting up in the bed and more alert. She is having productive cough , but not in distress. Patient has renal insufficiency, elevated wbc. Will admit. Departure - Departure Time of Disposition: 12:56 Disposition: Admitted As Inpatient 67 Condition: Fair Clinical Impression: Acute on chronic renal insufficiency Altered mental status, unspecified Qualifiers: Altered mental status type: unspecified Qualified Code(s): R41.82 - Altered mental status, unspecified Leukocytosis Qualifiers: Leukocytosis type: other Qualified Code(s): D72.828 - Other elevated white blood cell count Acute bronchitis Qualifiers: Bronchitis organism: unspecified organism Qualified Code(s): J20.9 - Acute bronchitis, unspecified - Discharge Information - My Orders Last 24 Hours: My Active Orders 02/07/18 09:00 Head wo Cont [CT] Stat 02/07/18 09:36 Chest 1V Frontal [CR] Stat Blood Culture x2 Reflex Set [OM.PC] Stat 02/07/18 10:20 CULTURE BLOOD [BC] Stat 02/07/18 10:30 CULTURE BLOOD [BC] Stat - Assessment/Plan Last 24 Hours: My Active Orders 02/07/18 09:00 Head wo Cont [CT] Stat 02/07/18 09:36 Chest 1V Frontal [CR] Stat Blood Culture x2 Reflex Set [OM.PC] Stat 02/07/18 10:20 CULTURE BLOOD [BC] Stat 02/07/18 10:30 CULTURE BLOOD [BC] Stat Plan: PLEASE SEE RN NOTE FOR PFSH. PLEASE USE ER H&P ADMIT H&P.
[2018-02-07 10:05] LABS: CHLORIDE,CL 100 mEq/L (98-106); SODIUM,NA 139 mEq/L (136-145)
[2018-02-07] MEDS ORDERED: Sodium Chloride 0.9% 1,000 ML IV ONE (10:10)
[2018-02-07] MEDS ORDERED: Glucagon,Human Recombinant 1 MG Vial IVPUSH ONE ×2 (11:27→17:18)
[2018-02-07] MEDS ORDERED: Metolazone 5 MG Tab PO PRN (13:05)
[2018-02-07] MEDS ORDERED: MENTHOL TOP PRN (13:05)
[2018-02-07] MEDS ORDERED: cefTRIAXone 1 GM Vial IVPUSH SCH (13:05)
[2018-02-07] MEDS ORDERED: Polyethylene Glycol 3350 Powder 17 GM Packet PO PRN (13:05)
[2018-02-07] MEDS ORDERED: Azithromycin 250 MG Tab PO ONE (13:05)
[2018-02-07] MEDS ORDERED: Menthol/Zinc Oxide Ointment 113 GM Tube TOP PRN (13:05)
[2018-02-07] MEDS ORDERED: guaiFENesin/Dextromethorphan 100-10 MG/5 ML Soln 5 ML Cup PO PRN (13:05)
[2018-02-07] MEDS ORDERED: Acetaminophen 500 MG Tab PO PRN (13:05)
[2018-02-07] MEDS ORDERED: traMADol 50 MG Tab PO PRN (13:05)
[2018-02-07] MEDS ORDERED: Sodium Chloride 0.9% 1,000 ML IV SCH (13:05)
[2018-02-07] MEDS ORDERED: Baclofen 10 MG Tab PO SCH (14:00)
[2018-02-07] MEDS ORDERED: cefTRIAXone 1 GM Vial ONE (14:11)
--- NOTE | 2018-02-07 17:21 | PCM.SN ---
- Free Text/Narrative Note: 02/07/18 1535 Patient is now drowsy again. She is now sweaty. Patient blood sugar checked, it is 37. I ordered 1mg Glucagon. Patient is now more awake. She has a food tray, I encouraged RN to feed her to ensure that she eats. 5 minutes after this medication, patient BS is now 79. She is more responsive. This is now twice the patient has had drop in BS while here. Patient has been encouraged to eat while here, but she is refusing to eat even after telling the ER nurse she is hungry. Patient is clinching her teeth together when nurse attempts to feed her. She is not clinched when nurse does not attempt to feed her. Patient is refusing to eat or drink. Therefore, I will start her on D10 with sugar. 02/07/18 1800 Patient BS is 114. She is resting with mouth open, easily aroused. Still refuses to eat per staff. She is now started on D10 and will have hourly BS taken. 02/07/181999 Patient is more difficult to arouse. Patient is resting quietly. I am able to speak loudly, shake her hand, she does open her eyes and says she feels good. She reports that she is feeling better. But, she will not answer me or respond when now asked orientation questions. At this time I did discuss with the daughter possibility of transfer. Daughter reports that she will talk to other family members. At this time it was decided to keep patient here. If she worsens or does not improve tomorrow, will transfer patient. I have discontinued her muscle relaxer medication. Did discuss with the daughter that the patient does not seem to have a desire to improve, a failure to thrive. I do feel this patient has a risk of during this admission. This was explained to the daughter. Palliative Care may be consideration for this patient. 02/07/182039 The patient is less verbally responsive. She is staring with eyes open to the right at the ceiling. Her left pupil is larger than right. I will ct again, it has been 12 hours from previous. Now more altered. Have talked with daughter who has also talked to patient son. They would like to wait on ct results before making decision to transfer patient. 02/07/182109 BS is now 101. Temperature is 98.6. Patient vomited x1 after family attempted to give patient a drink of water. Waiting on head ct results. 02/07/182139 Head ct results show no bleed no ischemic stroke. This patient may be septic with sources of infection from lung or from right foot. I will change medications to Vanc and Zosyn. Patient continues altered mental status. She is not capable to make her own medical decision at this time. I have spoke to the son via phone Bahman who is the patients POA. Denice PROCTOR has also talked with him to confirm medical decision making. The patient continues DNR with treatment. We will continue abx treatment, keep comfortable. He would like to keep the patient here in [place] and we can evaluate again tomorrow morning. I did explain to him that may result and the patient condition may worsen. He is aware and understands. Will continue current plan of D10 to keep BS elevated and abx tx.
[2018-02-07] MEDS ORDERED: 50% Dextrose in Water 50 ML Syringe ONE ×2 (18:10→18:18)
[2018-02-07] MEDS ORDERED: Dextrose 5% in Water 1,000 ML ONE (18:18)
[2018-02-07] MEDS: WATER IV SCH ×2 (18:27)
[2018-02-07] MEDS: DEXTROSE IV SCH ×2 (18:27)
[2018-02-07] MEDS: Enoxaparin 80 MG/0.8 ML Syringe SUBCUT SCH (20:15)
[2018-02-07] MEDS: Metoprolol Tartrate 50 MG Tab PO SCH (20:17)
[2018-02-07] MEDS: amLODIPine 10 MG Tab PO SCH (20:17)
[2018-02-07] MEDS: Sertraline 25 MG Tab PO SCH ×2 (20:18→21:57)
[2018-02-07] MEDS: risperiDONE 0.25 MG Tab PO SCH (20:18)
[2018-02-07] MEDS: Latanoprost 0.005% Ophth Soln 2.5 ML Bottle EYEBOTH SCH (20:18)
[2018-02-07] MEDS: guaiFENesin 200 MG Tab PO SCH (20:18)
[2018-02-07] MEDS: Brimonidine 0.2% Ophth Soln 5 ML Bottle EYEBOTH SCH (20:19)
[2018-02-07] MEDS ORDERED: MELATONIN 5 MG PO PRN (21:00)
[2018-02-07] MEDS ORDERED: Piperacillin/Tazobactam 3.375 GM in Sodium Chloride 0.9% 50 ML IV SCH (21:45)
[2018-02-07] MEDS ORDERED: Ondansetron 4 MG/2 ML SDV IVPUSH PRN (21:57)
[2018-02-07] MEDS ORDERED: Piperacillin/Tazobactam 3.375 GM in Sodium Chloride 0.9% 100 ML IV SCH ×2 (22:49→23:14)
[2018-02-07] MEDS ORDERED: Sodium Chloride 0.9% 250 ML ONE (23:33)
[2018-02-08] MEDS: Acetaminophen 650 MG Supp RECTAL PRN (01:07)
[2018-02-08] MEDS: Piperacillin/Tazobactam 3.375 GM in Sodium Chloride 0.9% 100 ML IV SCH ×4 (03:04→21:43)
--- NOTE | 2018-02-08 05:22 | PCM.PN ---
- General Info Date of Service: 02/08/18 Functional Status: Reports: Other (Pain, holding head.) - Review of Systems General: Reports: Fever, Weakness, Fatigue, Malaise, Night Sweats, Appetite (no appetite) HEENT: Reports: No Symptoms Pulmonary: Reports: No Symptoms Cardiovascular: Reports: No Symptoms Gastrointestinal: Reports: Nausea, Vomiting (x1 yesterday) Genitourinary: Reports: No Symptoms Musculoskeletal: Reports: No Symptoms Skin: Reports: Other (Right foot necrosis) Neurological: Reports: Confusion, Headache Psychiatric: Reports: Confusion - Patient Data Vitals - Most Recent: Last Vital Signs Temp 99.7 F 02/08/18 03:12 Pulse 67 02/08/18 00:00 Resp 20 02/08/18 00:00 BP 146/49 H 02/08/18 00:00 Pulse Ox 90 L 02/08/18 00:00 Weight - Most Recent: 170 lb 1.6 oz I&O - Last 24 Hours: Intake & Output 02/07/18 02/07/18 02/08/18 14:59 22:59 07:59 Output Total 400 250 Balance -400 -250 Lab Results Last 24 Hours: Laboratory Results - last 24 hr 02/07/18 02/07/18 02/07/18 Range/Units 13:14 17:16 17:38 POC Glucose 68 L 37 L* 79 (75-105) mg/dl 02/07/18 02/07/18 02/07/18 Range/Units 18:01 19:02 20:01 POC Glucose 114 H 140 H 150 H (75-105) mg/dl 02/07/18 02/07/18 02/07/18 Range/Units 21:09 22:01 22:59 POC Glucose 101 137 H 153 H (75-105) mg/dl 02/08/18 02/08/18 02/08/18 Range/Units 00:09 00:58 03:02 POC Glucose 116 H 95 141 H (75-105) mg/dl Med Orders - Current: Current Medications Acetaminophen (Tylenol Extra Strength) 500 mg PO Q6H PRN PRN Reason: Pain Acetaminophen (Tylenol) 650 mg RECTAL Q6H PRN PRN Reason: Fever Last Admin: 02/08/18 01:07 Dose: 650 mg Albuterol/Ipratropium (Duoneb 3.0-0.5 Mg/3 Ml) 3 ml NEB Q4H PRN PRN Reason: Dyspnea Allopurinol (Zyloprim) 300 mg PO DAILY PENDING SALE TO [facility] Amlodipine Besylate (Norvasc) 10 mg PO BEDTIME PENDING SALE TO [facility] Last Admin: 02/07/18 20:17 Dose: Not Given Aspirin (Halfprin) 81 mg PO DAILY PENDING SALE TO [facility] Azithromycin (Zithromax) 250 mg PO DAILY PENDING SALE TO [facility] Brimonidine Tartrate (Alphagan 0.2% Oph Soln) 0 ml EYEBOTH BID PENDING SALE TO [facility] Last Admin: 02/07/18 20:19 Dose: 1 drop Calamine/Phenol (Calmoseptine) 0 gm TOP QID PRN PRN Reason: Perineal Comfort Measure Ceftriaxone Sodium (Rocephin) 1 gm IVPUSH DAILY@1300 PENDING SALE TO [facility] Cholecalciferol (Vitamin D3) 2,000 units PO DAILY PENDING SALE TO [facility] Enoxaparin Sodium (Lovenox) 80 mg SUBCUT DAILY@2000 PENDING SALE TO [facility] Last Admin: 02/07/18 20:15 Dose: 80 mg Furosemide (Lasix) 80 mg PO DAILY PENDING SALE TO [facility] Guaifenesin (Organ-I Nr) 600 mg PO BID PENDING SALE TO [facility] Last Admin: 02/07/18 20:18 Dose: Not Given Dextrose/Water 100 ml/ (Dextrose/Water) 1,100 mls @ 125 mls/hr IV ASDIRECTED PENDING SALE TO [facility] Last Admin: 02/07/18 18:27 Dose: 125 mls/hr Vancomycin HCl 1 gm/ Sodium (Chloride) 250 mls @ 167 mls/hr IV Q24H PENDING SALE TO [facility] Last Admin: 02/07/18 23:27 Dose: 167 mls/hr Piperacillin Sod/Tazobactam (Sod 3.375 gm/ Sodium Chloride) 100 mls @ 200 mls/ hr IV Q6H PENDING SALE TO [facility] Last Admin: 02/08/18 03:04 Dose: 200 mls/hr Insulin Detemir (Levemir) 36 unit SUBCUT QAM PENDING SALE TO [facility] Isosorbide Mononitrate (Imdur) 60 mg PO DAILY PENDING SALE TO [facility] Latanoprost (Xalatan 0.005% Oph Soln) 0 ml EYEBOTH BEDTIME PENDING SALE TO [facility] Last Admin: 02/07/18 20:18 Dose: 1 drop Losartan Potassium (Cozaar) 100 mg PO DAILY PENDING SALE TO [facility] Metolazone (Zaroxolyn) 5 mg PO DAILY PRN PRN Reason: Edema Metoprolol Tartrate (Lopressor) 50 mg PO BID PENDING SALE TO [facility] Last Admin: 02/07/18 20:17 Dose: Not Given Morphine Sulfate (Morphine) 2 mg IVPUSH Q2H PRN PRN Reason: Pain Dorzolamide Hcl/Timolol Maleat [ Cosopt Eye Drops] 1 drop EYERT BID PENDING SALE TO [facility] Menthol [Biofreeze] (Topical Gel) 0 applic TOP QID PRN PRN Reason: muscle spasms Ondansetron HCl (Zofran) 4 mg IVPUSH Q6H PRN PRN Reason: Nausea/Vomiting Pantoprazole Sodium (Protonix) 40 mg PO DAILY PENDING SALE TO [facility] Polyethylene Glycol (Miralax) 17 gm PO DAILY PRN PRN Reason: Constipation Potassium Chloride (Klor-Con 10) 20 meq PO DAILY PENDING SALE TO [facility] Risperidone (Risperidal) 0.25 mg PO BID PENDING SALE TO [facility] Last Admin: 02/07/18 20:18 Dose: Not Given Senna/Docusate Sodium (Senna Plus) 1 tab PO DAILY PRN PRN Reason: Constipation Sertraline HCl (Zoloft) 75 mg PO BEDTIME PENDING SALE TO [facility] Last Admin: 02/07/18 21:57 Dose: Not Given Timolol Maleate (Timoptic 0.5% Ophth Soln) 0 ml EYELF DAILY PENDING SALE TO [facility] Tramadol HCl (Ultram) 50 mg PO Q6H PRN PRN Reason: Pain Last Admin: 02/07/18 14:00 Dose: 50 mg Vancomycin HCl (Pharmacy To Dose - Vancomycin) 1 dose .XX ASDIRECTED PENDING SALE TO [facility] Vitamin B Complex (Vitamin B Complex) 1 each PO DAILY PENDING SALE TO [facility] Discontinued Medications Azithromycin (Zithromax) 500 mg PO ONETIME ONE Stop: 02/07/18 13:06 Last Admin: 02/07/18 14:00 Dose: 500 mg Baclofen (Lioresal) 5 mg PO TID PENDING SALE TO [facility] Last Admin: 02/07/18 14:01 Dose: 5 mg Ceftriaxone Sodium (Rocephin) 1 gm IVPUSH Q24H PENDING SALE TO [facility] Last Admin: 02/07/18 14:00 Dose: 1 gm Ceftriaxone Sodium (Rocephin) Confirm Administered Dose 1 gm .ROUTE .STK-MED ONE Stop: 02/07/18 14:12 Last Admin: 02/07/18 14:01 Dose: Not Given Dextrose/Water (Dextrose 50% In Water) Confirm Administered Dose 50 ml .ROUTE .STK-MED ONE Stop: 02/07/18 18:11 Last Admin: 02/07/18 18:27 Dose: Not Given Dextrose/Water (Dextrose 50% In Water) Confirm Administered Dose 50 ml .ROUTE .STK-MED ONE Stop: 02/07/18 18:19 Last Admin: 02/07/18 18:27 Dose: Not Given Glucagon (Glucagen) 1 mg IVPUSH ONETIME ONE Stop: 02/07/18 11:28 Last Admin: 02/07/18 11:33 Dose: 1 mg Glucagon (Glucagen) 1 mg IVPUSH ONETIME ONE Stop: 02/07/18 17:19 Last Admin: 02/07/18 17:24 Dose: 1 mg Guaifenesin/Phenylephrine HCl (Robitussin Dm) 10 ml PO Q4H PRN PRN Reason: Cough Sodium Chloride (Normal Saline) 1,000 mls @ 500 mls/hr IV .BOLUS ONE Stop: 02/07/18 12:09 Last Admin: 02/07/18 11:35 Dose: 500 mls/hr Sodium Chloride (Normal Saline) 1,000 mls @ 75 mls/hr IV ASDIRECTED PENDING SALE TO [facility] Dextrose/Water (Dextrose 5% In Water) Confirm Administered Dose 1,000 mls @ as directed .ROUTE .STK-MED ONE Stop: 02/07/18 18:19 Last Admin: 02/07/18 18:27 Dose: Not Given Piperacillin Sod/Tazobactam (Sod 3.375 gm/ Sodium Chloride) 50 mls @ 100 mls/ hr IV Q6H PENDING SALE TO [facility] Last Admin: 02/07/18 22:59 Dose: Not Given Piperacillin Sod/Tazobactam (Sod 3.375 gm/ Sodium Chloride) 100 mls @ 200 mls/ hr IV Q6H PENDING SALE TO [facility] Last Admin: 02/07/18 23:25 Dose: Not Given Piperacillin Sod/Tazobactam (Sod 3.375 gm/ Sodium Chloride) 100 mls @ 200 mls/ hr IV Q6H PENDING SALE TO [facility] Last Admin: 02/08/18 01:42 Dose: Not Given Sodium Chloride (Normal Saline) Confirm Administered Dose 250 mls @ as directed .ROUTE .STK-MED ONE Stop: 02/07/18 23:34 Last Admin: 02/07/18 23:31 Dose: Not Given Melatonin [Melatonin (] 5mg) 5 mg PO BEDTIME PRN PRN Reason: Insomnia Piperacillin Sod/Tazobactam Sod (Zosyn) Confirm Administered Dose 3.375 gm .ROUTE .STK-MED ONE Stop: 02/07/18 23:29 Last Admin: 02/07/18 23:31 Dose: Not Given - Exam Quality Assessment: Supplemental Oxygen (86% RA. Patient placed on 2L NC. 94% on NC 2L. ) General: Alert (at times she is alert. Mostly stares at ceiling, wont answer at times. ), Cooperative, Moderate Distress (holding head, crying. voices "I am dying") HEENT: Mucous Membr. Moist/[place] Neck: Trachea Midline Lungs: Clear to Auscultation, Normal Respiratory Effort Cardiovascular: Regular Rate, Regular Rhythm, Murmurs GI/Abdominal Exam: Soft, Non-Tender Back Exam: Normal Inspection, Full Range of Motion Extremities: Normal Capillary Refill, Other (Right foot 4th, 5th digits necrotic , black in color. No surrounding redness, heat. ) Peripheral Pulses: 2+: Brachial (L), Brachial (R), Posterior Tibial (R), 3+: Posterior Tibial (L) Skin: Warm, Dry Wound/Incisions: Dressing Dry and Intact (right foot) Neurological: Strength Equal Bilateral Psy/Mental Status: Other (delirium, tearful. ) - Problem List Review Problem List Initiated/Reviewed/Updated: Yes - My Orders Last 24 Hours: My Active Orders 02/07/18 13:05 Acetaminophen [Tylenol Extra Strength] 500 mg PO Q6H PRN Docusate Sodium/Sennosides [Senna Plus] 1 tab PO DAILY PRN Menthol [Biofreeze] 0 applic TOP QID PRN Menthol/Zinc Oxide [Calmoseptine] 0 gm TOP QID PRN Metolazone [Zaroxolyn] 5 mg PO DAILY PRN Polyethylene Glycol 3350 [MiraLAX] 17 gm PO DAILY PRN traMADol [Ultram] 50 mg PO Q6H PRN 02/07/18 14:33 Albuterol/Ipratropium [DuoNeb 3.0-0.5 MG/3 ML] 3 ml NEB Q4H PRN 02/07/18 14:36 RT Aerosol Therapy [RC] .PRN 02/07/18 17:03 Blood Glucose Check, Bedside [RC] Q1H 02/07/18 17:45 Dextrose 50% in Water 100 ml Dextrose 5% in Water 1,000 ml IV ASDIRECTED 02/07/18 20:00 Brimonidine [Alphagan 0.2% Ophth Soln] 0 ml EYEBOTH BID Dorzolamide HCl/Timolol Maleat [Cosopt Eye Drops] 1 drop EYERT BID Enoxaparin [Lovenox] 80 mg SUBCUT DAILY@1999 Latanoprost [Xalatan 0.005% Ophth Soln] 0 ml EYEBOTH BEDTIME Metoprolol Tartrate [Lopressor] 50 mg PO BID Sertraline [Zoloft] 75 mg PO BEDTIME amLODIPine [Norvasc] 10 mg PO BEDTIME guaiFENesin [Organ-I NR] 600 mg PO BID risperiDONE [RisperiDAL] 0.25 mg PO BID 02/07/18 20:05 Communication Order [RC] [id number]/07/18 20:29 Head wo Cont [CT] Stat 02/07/18 21:45 Vancomycin Pharmacy to Dose [Pharmacy to Dose - Vancomycin] 1 dose .XX ASDIRECTED 02/07/18 21:56 Acetaminophen [Tylenol] 650 mg RECTAL Q6H PRN 02/07/18 21:57 Ondansetron [Zofran] 4 mg IVPUSH Q6H PRN 02/07/18 22:15 Vancomycin 1 gm Sodium Chloride 0.9% [Normal Saline] 250 ml IV Q24H 02/08/18 03:00 Piperacillin/Tazobactam [Zosyn] 3.375 gm Sodium Chloride 0.9% [Normal Saline] 100 ml IV Q6H 02/08/18 04:07 Morphine 2 mg IVPUSH Q2H PRN 02/08/18 05:00 BASIC METABOLIC PANEL,BMP [CHEM] DAILY CBC WITH AUTO DIFF [HEME] DAILY CRP [C-REACTIVE PROTEIN] [CHEM] DAILY PRO B-TYPE NATRIUR PEPT,BNPPRO [CHEM] DAILY 02/08/18 08:00 Allopurinol [Zyloprim] 300 mg PO DAILY Aspirin [Halfprin] 81 mg PO DAILY Azithromycin [Zithromax] 250 mg PO DAILY Cholecalciferol (Vitamin D3) [Vitamin D3] 2,000 units PO DAILY Furosemide [Lasix] 80 mg PO DAILY Insulin Detemir [Levemir] 36 unit SUBCUT QAM Isosorbide Mononitrate [Imdur] 60 mg PO DAILY Losartan [Cozaar] 100 mg PO DAILY Pantoprazole [ProTONIX] 40 mg PO DAILY Potassium Chloride [Klor-Con 10] 20 meq PO DAILY Timolol Maleate [Timoptic 0.5% Ophth Soln] 0 ml EYELF DAILY Vitamin B Complex 1 each PO DAILY 02/08/18 13:00 cefTRIAXone [Rocephin] 1 gm IVPUSH DAILY@1300 02/09/18 05:00 BASIC METABOLIC PANEL,BMP [CHEM] DAILY CBC WITH AUTO DIFF [HEME] DAILY CRP [C-REACTIVE PROTEIN] [CHEM] DAILY PRO B-TYPE NATRIUR PEPT,BNPPRO [CHEM] DAILY 02/10/18 05:00 BASIC METABOLIC PANEL,BMP [CHEM] DAILY CBC WITH AUTO DIFF [HEME] DAILY CRP [C-REACTIVE PROTEIN] [CHEM] DAILY PRO B-TYPE NATRIUR PEPT,BNPPRO [CHEM] DAILY - Plan Plan:: Please see notes from yesterday progress note for updates. I got called by ESTHELA Galdamez saying the patient is holding a towel over her head is is moaning in pain. I have come to see this patient. This patient is on D10, her sugars are maintaining, but not climbing. She has developed a temperature. She is diaphoretic. She has periods of delirium. Her oxygen saturation has decreased to 86%. She was placed on oxygen at RA 2L NC to 94% now. I believe patient is septic due to right foot. She is currently on Van and Zosyn for this. I have called and spoke to Dr. Dubois hospitalist at [facility]. She reports that she would not change any treatment that we are doing at this time. She reports to continue the D10 gtt, abx tx. She reports she would also give Morphine for comfort. Some things she has suggested is an MRI, procalcitonin, but we do not have these capabilities. Although, she said neither will change her treatment. She also believes that she is septic due to her right foot. She reports this is probably the reason for her hypoglycemia, delirium, hypoxia. She reports to continue current treatment. I have called and talked to Bahman COLBY about the patient condition and tx. I have again discussed this patient is very sick and may result. Discussed this patient is ICU patient and exceed our level of care in [place]. At this time, he would like to continue current tx and keep patient comfortable. He does not want the patient transferred to higher level of care. He understands that not transferring may result in . Daughter Grecia is at bedside with patient. Bahman is going to come in to see his mother this morning.
[2018-02-08] MEDS: Morphine 2 MG/ML Syringe IVPUSH PRN ×5 (05:33→21:40)
[2018-02-08] MEDS ORDERED: 50% Dextrose in Water 50 ML Syringe ONE ×2 (07:10→07:30)
[2018-02-08] MEDS ORDERED: Sodium Chloride 0.9% 200 ML ONE (07:11)
[2018-02-08] MEDS ORDERED: Dextrose 5% in Water 1,000 ML ONE ×2 (07:31→17:46)
[2018-02-08] MEDS: Brimonidine 0.2% Ophth Soln 5 ML Bottle EYEBOTH SCH ×2 (07:40→21:37)
[2018-02-08] MEDS: WATER IV SCH ×4 (07:53→17:38)
[2018-02-08] MEDS: DEXTROSE IV SCH ×4 (07:53→17:38)
[2018-02-08] MEDS ORDERED: Furosemide 40 MG Tab PO SCH (08:00)
[2018-02-08] MEDS ORDERED: Azithromycin 250 MG Tab PO SCH (08:00)
[2018-02-08] MEDS ORDERED: Cholecalciferol (Vitamin D3) 1,000 Unit Tab PO SCH (08:00)
[2018-02-08] MEDS ORDERED: Insulin Detemir 100 Units/ML 3 ML Pen SUBCUT SCH (08:00)
[2018-02-08] MEDS: Timolol Maleate 0.5% Ophth Soln 5 ML Bottle EYELF SCH (08:05)
[2018-02-08] MEDS: Albuterol/Ipratropium 3.0-0.5 MG/3 ML Neb Soln NEB PRN (08:54)
[2018-02-08] MEDS: Losartan 100 MG Tab PO SCH (12:45)
[2018-02-08] MEDS: Potassium Chloride 10 MEQ Tab.ER PO SCH (12:46)
[2018-02-08] MEDS: Aspirin 81 MG Tab.EC PO SCH (12:46)
[2018-02-08] MEDS: Isosorbide Mononitrate 60 MG Tab.ER PO SCH (12:46)
[2018-02-08] MEDS: Metoprolol Tartrate 50 MG Tab PO SCH ×2 (12:47→21:38)
[2018-02-08] MEDS: Pantoprazole 40 MG Tab.CR PO SCH (12:48)
[2018-02-08] MEDS: Vitamin B Complex Cap PO SCH (12:48)
[2018-02-08] MEDS: risperiDONE 0.25 MG Tab PO SCH ×2 (12:48→21:39)
[2018-02-08] MEDS: Allopurinol 300 MG Tab PO SCH (12:49)
[2018-02-08] MEDS: Furosemide 40 MG/4 ML VIAL IVPUSH SCH (12:52)
[2018-02-08] MEDS: guaiFENesin 200 MG Tab PO SCH (12:58)
[2018-02-08] MEDS ORDERED: cefTRIAXone 1 GM Vial IVPUSH SCH (13:00)
[2018-02-08] MEDS: Enoxaparin 80 MG/0.8 ML Syringe SUBCUT SCH (21:38)
[2018-02-08] MEDS: amLODIPine 10 MG Tab PO SCH (21:39)
[2018-02-08] MEDS: Latanoprost 0.005% Ophth Soln 2.5 ML Bottle EYEBOTH SCH (21:42)
[2018-02-08] MEDS: Sertraline 25 MG Tab PO SCH (21:42)
[2018-02-09] MEDS: Piperacillin/Tazobactam 3.375 GM in Sodium Chloride 0.9% 100 ML IV SCH ×4 (02:38→21:25)
[2018-02-09] MEDS: Morphine 2 MG/ML Syringe IVPUSH PRN ×6 (02:38→18:48)
[2018-02-09] MEDS: Albuterol/Ipratropium 3.0-0.5 MG/3 ML Neb Soln NEB PRN ×2 (03:05→08:14)
[2018-02-09] MEDS: risperiDONE 0.25 MG Tab PO SCH ×2 (09:08→21:27)
[2018-02-09] MEDS: Isosorbide Mononitrate 60 MG Tab.ER PO SCH (09:08)
[2018-02-09] MEDS: Pantoprazole 40 MG Tab.CR PO SCH (09:09)
[2018-02-09] MEDS: Metoprolol Tartrate 50 MG Tab PO SCH ×2 (09:09→21:27)
[2018-02-09] MEDS: Allopurinol 300 MG Tab PO SCH (09:09)
[2018-02-09] MEDS: Vitamin B Complex Cap PO SCH (09:09)
[2018-02-09] MEDS: Potassium Chloride 10 MEQ Tab.ER PO SCH (09:09)
[2018-02-09] MEDS: Losartan 100 MG Tab PO SCH (09:10)
[2018-02-09] MEDS: Aspirin 81 MG Tab.EC PO SCH (09:10)
[2018-02-09] MEDS: Timolol Maleate 0.5% Ophth Soln 5 ML Bottle EYELF SCH (09:15)
[2018-02-09] MEDS: Brimonidine 0.2% Ophth Soln 5 ML Bottle EYEBOTH SCH ×2 (09:16→21:26)
[2018-02-09] MEDS ORDERED: Acetaminophen 500 MG Tab PO PRN (11:36)
[2018-02-09] MEDS: Furosemide 40 MG/4 ML VIAL IVPUSH SCH (12:02)
[2018-02-09] MEDS ORDERED: LORazepam 2 MG/ML Syringe IVPUSH PRN (12:45)
[2018-02-09] MEDS ORDERED: Polyvinyl Alcohol 1.4% Ophth Soln 15 ML Bottle EYEBOTH PRN (12:53)
[2018-02-09] MEDS: WATER IV SCH ×2 (13:26)
[2018-02-09] MEDS: DEXTROSE IV SCH ×2 (13:26)
[2018-02-09] MEDS ORDERED: Dextrose 5% in Water 1,000 ML ONE (13:31)
[2018-02-09] MEDS: Dorzolamide Hcl/Timolol Maleat [Cosopt Eye Drops] EYERT SCH ×2 (15:32→15:33)
[2018-02-09] MEDS: Latanoprost 0.005% Ophth Soln 2.5 ML Bottle EYEBOTH SCH (21:26)
[2018-02-09] MEDS: Sertraline 25 MG Tab PO SCH (21:27)
[2018-02-09] MEDS: amLODIPine 10 MG Tab PO SCH (21:27)
[2018-02-09] MEDS: Enoxaparin 80 MG/0.8 ML Syringe SUBCUT SCH (21:28)
--- NOTE | 2018-02-09 22:17 | PCM.PN ---
- General Info Date of Service: 02/09/18 Admission Dx/Problem (Free Text): Sepsis Functional Status: Reports: Urinating. Denies: Pain Controlled, Tolerating Diet (minimal oral intake), Ambulating - Review of Systems General: Reports: Weakness, Fatigue, Malaise. Denies: Fever HEENT: Denies: Ear Pain, Sinus Congestion, Sore Throat Pulmonary: Denies: Shortness of Breath, Cough, Wheezing Cardiovascular: Denies: Chest Pain, Edema, Lightheadedness Gastrointestinal: Reports: Decreased Appetite. Denies: Abdominal Pain, Nausea, Vomiting Genitourinary: Reports: Incontinence Musculoskeletal: Reports: Leg Pain Neurological: Reports: Weakness, Other (pain to RLE) - Patient Data Vitals - Most Recent: Last Vital Signs Temp 97.2 F 02/09/18 16:00 Pulse 63 02/09/18 21:27 Resp 16 02/09/18 16:00 BP 135/51 L 02/09/18 21:27 Pulse Ox 93 L 02/09/18 16:00 Weight - Most Recent: 178 lb 4.8 oz I&O - Last 24 Hours: Intake & Output 02/09/18 02/09/18 02/09/18 06:59 14:59 22:59 Intake Total 1100 Balance 1100 Lab Results Last 24 Hours: Laboratory Results - last 24 hr 02/08/18 02/09/18 02/09/18 Range/Units 23:56 01:52 04:04 WBC (5.0-10.0) 10^3/uL RBC (4.00-5.50) 10^6/uL Hgb (12.0-16.0) g/dL Hct (37.0-47.0) % MCV (82.0-94.0) fL MCH (27.0-32.0) pg MCHC (33.0-38.0) g/dL RDW Coeff of Shahzad (11.0-15.0) % Plt Count (150-400) 10^3/uL Neut % (Auto) (35-85) % Lymph % (Auto) (10-55) % [place] % (Auto) (0-16) % Eos % (Auto) (0-5) % Baso % (Auto) (0-3) % Neut # (Auto) (1.80-7.00) 10^3/uL Lymph # (Auto) (1.00-4.80) 10^3/uL [place] # (Auto) (0.00-0.80) 10^3/uL Eos # (Auto) (0.00-0.45) 10^3/uL Baso # (Auto) 10^3/uL Sodium (136-145) mEq/L Potassium (3.5-5.0) mEq/L Chloride (98-106) mEq/L Carbon Dioxide (21-32) mmol/L BUN (7-18) mg/dL Creatinine (0.6-1.0) mg/dL Est Cr Clr Drug Dosing mL/min Estimated GFR (MDRD) (>=60) mL/min Glucose (75-99) mg/dL POC Glucose 182 H 149 H 134 H (75-105) mg/dl Calcium (8.4-10.1) mg/dL C-Reactive Protein (0.2-0.8) mg/dL NT-Pro-B Natriuret Pep (0-1000) pg/mL 02/09/18 02/09/18 02/09/18 Range/Units 05:58 07:12 07:12 WBC 10.0 (5.0-10.0) 10^3/uL RBC 4.49 (4.00-5.50) 10^6/uL Hgb 11.9 L (12.0-16.0) g/dL Hct 38.8 (37.0-47.0) % MCV 86.4 (82.0-94.0) fL MCH 26.5 L (27.0-32.0) pg MCHC 30.7 L (33.0-38.0) g/dL RDW Coeff of Shahzad 17.7 H (11.0-15.0) % Plt Count 562 H (150-400) 10^3/uL Neut % (Auto) 69.8 (35-85) % Lymph % (Auto) 14.9 (10-55) % [place] % (Auto) 11.4 (0-16) % Eos % (Auto) 3.6 (0-5) % Baso % (Auto) 0.3 (0-3) % Neut # (Auto) 6.95 (1.80-7.00) 10^3/uL Lymph # (Auto) 1.48 (1.00-4.80) 10^3/uL [place] # (Auto) 1.13 H (0.00-0.80) 10^3/uL Eos # (Auto) 0.36 (0.00-0.45) 10^3/uL Baso # (Auto) 0.03 10^3/uL Sodium 134 L (136-145) mEq/L Potassium 3.6 (3.5-5.0) mEq/L Chloride 98 (98-106) mEq/L Carbon Dioxide 26 (21-32) mmol/L BUN 44 H (7-18) mg/dL Creatinine 1.7 H (0.6-1.0) mg/dL Est Cr Clr Drug Dosing 21.47 mL/min Estimated GFR (MDRD) 29 L (>=60) mL/min Glucose 144 H (75-99) mg/dL POC Glucose 145 H (75-105) mg/dl Calcium 8.2 L (8.4-10.1) mg/dL C-Reactive Protein 7.5 H (0.2-0.8) mg/dL NT-Pro-B Natriuret Pep 1566 H (0-1000) pg/mL 18 18 02/09/18 Range/Units 08:05 10:13 12:07 WBC (5.0-10.0) 10^3/uL RBC (4.00-5.50) 10^6/uL Hgb (12.0-16.0) g/dL Hct (37.0-47.0) % MCV (82.0-94.0) fL MCH (27.0-32.0) pg MCHC (33.0-38.0) g/dL RDW Coeff of Shahzad (11.0-15.0) % Plt Count (150-400) 10^3/uL Neut % (Auto) (35-85) % Lymph % (Auto) (10-55) % [place] % (Auto) (0-16) % Eos % (Auto) (0-5) % Baso % (Auto) (0-3) % Neut # (Auto) (1.80-7.00) 10^3/uL Lymph # (Auto) (1.00-4.80) 10^3/uL [place] # (Auto) (0.00-0.80) 10^3/uL Eos # (Auto) (0.00-0.45) 10^3/uL Baso # (Auto) 10^3/uL Sodium (136-145) mEq/L Potassium (3.5-5.0) mEq/L Chloride (98-106) mEq/L Carbon Dioxide (21-32) mmol/L BUN (7-18) mg/dL Creatinine (0.6-1.0) mg/dL Est Cr Clr Drug Dosing mL/min Estimated GFR (MDRD) (>=60) mL/min Glucose (75-99) mg/dL POC Glucose 132 H 161 H 162 H (75-105) mg/dl Calcium (8.4-10.1) mg/dL C-Reactive Protein (0.2-0.8) mg/dL NT-Pro-B Natriuret Pep (0-1000) pg/mL 02/09/18 02/09/18 02/09/18 Range/Units 14:08 16:19 20:26 WBC (5.0-10.0) 10^3/uL RBC (4.00-5.50) 10^6/uL Hgb (12.0-16.0) g/dL Hct (37.0-47.0) % MCV (82.0-94.0) fL MCH (27.0-32.0) pg MCHC (33.0-38.0) g/dL RDW Coeff of Shahzad (11.0-15.0) % Plt Count (150-400) 10^3/uL Neut % (Auto) (35-85) % Lymph % (Auto) (10-55) % [place] % (Auto) (0-16) % Eos % (Auto) (0-5) % Baso % (Auto) (0-3) % Neut # (Auto) (1.80-7.00) 10^3/uL Lymph # (Auto) (1.00-4.80) 10^3/uL [place] # (Auto) (0.00-0.80) 10^3/uL Eos # (Auto) (0.00-0.45) 10^3/uL Baso # (Auto) 10^3/uL Sodium (136-145) mEq/L Potassium (3.5-5.0) mEq/L Chloride (98-106) mEq/L Carbon Dioxide (21-32) mmol/L BUN (7-18) mg/dL Creatinine (0.6-1.0) mg/dL Est Cr Clr Drug Dosing mL/min Estimated GFR (MDRD) (>=60) mL/min Glucose (75-99) mg/dL POC Glucose 158 H 146 H 168 H (75-105) mg/dl Calcium (8.4-10.1) mg/dL C-Reactive Protein (0.2-0.8) mg/dL NT-Pro-B Natriuret Pep (0-1000) pg/mL Med Orders - Current: Current Medications Acetaminophen (Tylenol) 650 mg RECTAL Q6H PRN PRN Reason: Fever Last Admin: 02/08/18 01:07 Dose: 650 mg Acetaminophen (Tylenol Extra Strength) 1,000 mg PO Q6H PRN PRN Reason: Fever Last Admin: 02/09/18 12:02 Dose: 1,000 mg Albuterol/Ipratropium (Duoneb 3.0-0.5 Mg/3 Ml) 3 ml NEB Q4H PRN PRN Reason: Dyspnea Last Admin: 02/09/18 08:14 Dose: 3 ml Allopurinol (Zyloprim) 300 mg PO DAILY [facility] Last Admin: 02/09/18 09:09 Dose: 300 mg Amlodipine Besylate (Norvasc) 10 mg PO BEDTIME [facility] Last Admin: 02/09/18 21:27 Dose: 10 mg Artificial Tears (Liquitears 1.4% Ophth Soln) 0 ml EYEBOTH Q1H PRN PRN Reason: Dry Eyes Aspirin (Halfprin) 81 mg PO DAILY [facility] Last Admin: 02/09/18 09:10 Dose: 81 mg Brimonidine Tartrate (Alphagan 0.2% Ophth Soln) 0 ml EYEBOTH BID [facility] Last Admin: 02/09/18 21:26 Dose: 1 drop Calamine/Phenol (Calmoseptine) 0 gm TOP QID PRN PRN Reason: Perineal Comfort Measure Enoxaparin Sodium (Lovenox) 80 mg SUBCUT DAILY@2000 [facility] Last Admin: 02/09/18 21:28 Dose: 80 mg Furosemide (Lasix) 40 mg IVPUSH Q24H [facility] Last Admin: 02/09/18 12:02 Dose: 40 mg Vancomycin HCl 1 gm/ Sodium (Chloride) 250 mls @ 167 mls/hr IV Q24H [facility] Last Admin: 02/09/18 21:25 Dose: 167 mls/hr Piperacillin Sod/Tazobactam (Sod 3.375 gm/ Sodium Chloride) 100 mls @ 200 mls/ hr IV Q6H [facility] Last Admin: 02/09/18 21:25 Dose: 200 mls/hr Dextrose/Sodium Chloride (Dextrose 5%-1/2 Ns) 1,000 mls @ 75 mls/hr IV ASDIRECTED [facility] Insulin Detemir (Levemir) 36 unit SUBCUT QAM [facility] Last Admin: 02/08/18 12:47 Dose: Not Given Isosorbide Mononitrate (Imdur) 60 mg PO DAILY [facility] Last Admin: 02/09/18 09:08 Dose: 60 mg Latanoprost (Xalatan 0.005% Ophth Soln) 0 ml EYEBOTH BEDTIME [facility] Last Admin: 02/09/18 21:26 Dose: 1 drop Lorazepam (Ativan) 1 - 2 mg IVPUSH Q2H PRN PRN Reason: Agitation Losartan Potassium (Cozaar) 100 mg PO DAILY [facility] Last Admin: 02/09/18 09:10 Dose: 100 mg Metolazone (Zaroxolyn) 5 mg PO DAILY PRN PRN Reason: Edema Metoprolol Tartrate (Lopressor) 50 mg PO BID [facility] Last Admin: 02/09/18 21:27 Dose: 50 mg Morphine Sulfate (Morphine) 2 - 5 mg IVPUSH Q2H PRN PRN Reason: Pain Last Admin: 02/09/18 18:48 Dose: 4 mg Morphine Sulfate (Morphine) 2 - 5 mg IVPUSH Q2H PRN PRN Reason: Pain Ondansetron HCl (Zofran) 4 mg IVPUSH Q6H PRN PRN Reason: Nausea/Vomiting Last Admin: 02/08/18 05:38 Dose: 4 mg Pantoprazole Sodium (Protonix Iv) 40 mg IVPUSH Q24H [facility] Polyethylene Glycol (Miralax) 17 gm PO DAILY PRN PRN Reason: Constipation Potassium Chloride (Klor-Con 10) 20 meq PO DAILY [facility] Last Admin: 02/09/18 09:09 Dose: 20 meq Risperidone (Risperidal) 0.25 mg PO BID [facility] Last Admin: 02/09/18 21:27 Dose: 0.25 mg Sertraline HCl (Zoloft) 75 mg PO BEDTIME [facility] Last Admin: 02/09/18 21:27 Dose: 75 mg Timolol Maleate (Timoptic 0.5% Ophth Soln) 0 ml EYELF DAILY [facility] Last Admin: 02/09/18 09:15 Dose: 1 drop Vancomycin HCl (Pharmacy To Dose - Vancomycin) 1 dose .XX ASDIRECTED [facility] Vitamin B Complex (Vitamin B Complex) 1 each PO DAILY [facility] Last Admin: 02/09/18 09:09 Dose: 1 each Discontinued Medications Acetaminophen (Tylenol Extra Strength) 500 mg PO Q6H PRN PRN Reason: Pain Azithromycin (Zithromax) 500 mg PO ONETIME ONE Stop: 02/07/18 13:06 Last Admin: 02/07/18 14:00 Dose: 500 mg Azithromycin (Zithromax) 250 mg PO DAILY [facility] Baclofen (Lioresal) 5 mg PO TID [facility] Last Admin: 02/07/18 14:01 Dose: 5 mg Ceftriaxone Sodium (Rocephin) 1 gm IVPUSH Q24H [facility] Last Admin: 02/07/18 14:00 Dose: 1 gm Ceftriaxone Sodium (Rocephin) 1 gm IVPUSH DAILY@1300 [facility] Ceftriaxone Sodium (Rocephin) Confirm Administered Dose 1 gm .ROUTE .STK-MED ONE Stop: 02/07/18 14:12 Last Admin: 02/07/18 14:01 Dose: Not Given Cholecalciferol (Vitamin D3) 2,000 units PO DAILY [facility] Last Admin: 02/08/18 12:58 Dose: Not Given Dextrose/Water (Dextrose 50% In Water) Confirm Administered Dose 50 ml .ROUTE .STK-MED ONE Stop: 02/07/18 18:11 Last Admin: 02/07/18 18:27 Dose: Not Given Dextrose/Water (Dextrose 50% In Water) Confirm Administered Dose 50 ml .ROUTE .STK-MED ONE Stop: 02/07/18 18:19 Last Admin: 02/07/18 18:27 Dose: Not Given Dextrose/Water (Dextrose 50% In Water) Confirm Administered Dose 50 ml .ROUTE .STK-MED ONE Stop: 02/08/18 07:31 Last Admin: 02/08/18 07:54 Dose: Not Given Dextrose/Water (Dextrose 50% In Water) Confirm Administered Dose 50 ml .ROUTE .[facility]-MED ONE Stop: 02/08/18 07:11 Last Admin: 02/08/18 07:54 Dose: Not Given Furosemide (Lasix) 80 mg PO DAILY [facility] Last Admin: 02/08/18 12:58 Dose: Not Given Glucagon (Glucagen) 1 mg IVPUSH ONETIME ONE Stop: 02/07/18 11:28 Last Admin: 02/07/18 11:33 Dose: 1 mg Glucagon (Glucagen) 1 mg IVPUSH ONETIME ONE Stop: 02/07/18 17:19 Last Admin: 02/07/18 17:24 Dose: 1 mg Guaifenesin (Organ-I Nr) 600 mg PO BID [facility] Last Admin: 02/08/18 12:58 Dose: Not Given Guaifenesin/Phenylephrine HCl (Robitussin Dm) 10 ml PO Q4H PRN PRN Reason: Cough Sodium Chloride (Normal Saline) 1,000 mls @ 500 mls/hr IV .BOLUS ONE Stop: 02/07/18 12:09 Last Admin: 02/07/18 11:35 Dose: 500 mls/hr Sodium Chloride (Normal Saline) 1,000 mls @ 75 mls/hr IV ASDIRECTED [facility] Dextrose/Water 100 ml/ (Dextrose/Water) 1,100 mls @ 125 mls/hr IV ASDIRECTED [facility] Last Admin: 02/09/18 13:26 Dose: 125 mls/hr Dextrose/Water (Dextrose 5% In Water) Confirm Administered Dose 1,000 mls @ as directed .ROUTE .[facility]-MED ONE Stop: 02/07/18 18:19 Last Admin: 02/07/18 18:27 Dose: Not Given Piperacillin Sod/Tazobactam (Sod 3.375 gm/ Sodium Chloride) 50 mls @ 100 mls/ hr IV Q6H [facility] Last Admin: 02/07/18 22:59 Dose: Not Given Piperacillin Sod/Tazobactam (Sod 3.375 gm/ Sodium Chloride) 100 mls @ 200 mls/ hr IV Q6H [facility] Last Admin: 02/07/18 23:25 Dose: Not Given Piperacillin Sod/Tazobactam (Sod 3.375 gm/ Sodium Chloride) 100 mls @ 200 mls/ hr IV Q6H [facility] Last Admin: 02/08/18 01:42 Dose: Not Given Sodium Chloride (Normal Saline) Confirm Administered Dose 250 mls @ as directed .ROUTE .STK-MED ONE Stop: 02/07/18 23:34 Last Admin: 02/07/18 23:31 Dose: Not Given Dextrose/Water (Dextrose 5% In Water) Confirm Administered Dose 1,000 mls @ as directed .ROUTE .STK-MED ONE Stop: 02/08/18 07:32 Last Admin: 02/08/18 07:54 Dose: Not Given Sodium Chloride (Normal Saline) Confirm Administered Dose 200 mls @ as directed .ROUTE .STK-MED ONE Stop: 02/08/18 07:12 Last Admin: 02/08/18 07:54 Dose: Not Given Dextrose/Water (Dextrose 5% In Water) Confirm Administered Dose 1,000 mls @ as directed .ROUTE .STK-MED ONE Stop: 02/08/18 17:47 Last Admin: 02/08/18 17:37 Dose: Not Given Dextrose/Water (Dextrose 5% In Water) Confirm Administered Dose 1,000 mls @ as directed .ROUTE .STK-MED ONE Stop: 02/09/18 13:32 Last Admin: 02/09/18 13:28 Dose: Not Given Morphine Sulfate (Morphine) 2 mg IVPUSH Q2H PRN PRN Reason: Pain Last Admin: 02/09/18 10:31 Dose: 2 mg Dorzolamide Hcl/Timolol Maleat [ Cosopt Eye Drops] 1 drop EYERT BID [facility] Last Admin: 02/09/18 15:33 Dose: Not Given Melatonin [Melatonin (] 5mg) 5 mg PO BEDTIME PRN PRN Reason: Insomnia Menthol [Biofreeze] (Topical Gel) 0 applic TOP QID PRN PRN Reason: muscle spasms Pantoprazole Sodium (Protonix) 40 mg PO DAILY [facility] Last Admin: 02/09/18 09:09 Dose: 40 mg Piperacillin Sod/Tazobactam Sod (Zosyn) Confirm Administered Dose 3.375 gm .ROUTE .STK-MED ONE Stop: 02/07/18 23:29 Last Admin: 02/07/18 23:31 Dose: Not Given Piperacillin Sod/Tazobactam Sod (Zosyn) Confirm Administered Dose 3.375 gm .ROUTE .STK-MED ONE Stop: 02/08/18 07:38 Last Admin: 02/08/18 08:17 Dose: Not Given Piperacillin Sod/Tazobactam Sod (Zosyn) Confirm Administered Dose 3.375 gm .ROUTE .STK-MED ONE Stop: 02/09/18 21:39 Last Admin: 02/09/18 21:29 Dose: Not Given Senna/Docusate Sodium (Senna Plus) 1 tab PO DAILY PRN PRN Reason: Constipation Tramadol HCl (Ultram) 50 mg PO Q6H PRN PRN Reason: Pain Last Admin: 02/07/18 14:00 Dose: 50 mg - Exam Quality Assessment: Supplemental Oxygen General: Alert, Oriented, Mild Distress HEENT: Mucous Membr. Moist/[place] Neck: Supple Lungs: Decreased Breath Sounds Cardiovascular: Regular Rate, Regular Rhythm GI/Abdominal Exam: Normal Bowel Sounds, Soft, Non-Tender Extremities: Slow Capillary Refill, Leg Pain, Limited Range of Motion, Redness, Other (no palpable pulse noted to right foot). No: Pedal Edema Neurological: No New Focal Deficit - Problem List & Annotations (1) Sepsis SNOMED Code(s): 45274658 Code(s): A41.9 - SEPSIS, UNSPECIFIED ORGANISM Status: Acute Priority: High Current Visit: Yes - Problem List Review Problem List Initiated/Reviewed/Updated: Yes - My Orders Last 24 Hours: My Active Orders 02/09/18 11:36 Acetaminophen [Tylenol Extra Strength] 1,000 mg PO Q6H PRN 02/09/18 17:45 Dextrose 5%-0.45% NaCl [Dextrose 5%-1/2 NS] 1,000 ml IV ASDIRECTED - Plan Plan:: Please see notes from yesterday progress note for updates. I got called by RN Denice saying the patient is holding a towel over her head is is moaning in pain. I have come to see this patient. This patient is on D10, her sugars are maintaining, but not climbing. She has developed a temperature. She is diaphoretic. She has periods of delirium. Her oxygen saturation has decreased to 86%. She was placed on oxygen at RA 2L NC to 94% now. I believe patient is septic due to right foot. She is currently on Van and Zosyn for this. I have called and spoke to Dr. Dubois hospitalist at [facility]. She reports that she would not change any treatment that we are doing at this time. She reports to continue the D10 gtt, abx tx. She reports she would also give Morphine for comfort. Some things she has suggested is an MRI, procalcitonin, but we do not have these capabilities. Although, she said neither will change her treatment. She also believes that she is septic due to her right foot. She reports this is probably the reason for her hypoglycemia, delirium, hypoxia. She reports to continue current treatment. I have called and talked to Bahman LASHA about the patient condition and tx. I have again discussed this patient is very sick and may result. Discussed this patient is ICU patient and exceed our level of care in [place]. At this time, he would like to continue current tx and keep patient comfortable. He does not want the patient transferred to higher level of care. He understands that not transferring may result in . Lul Paige is at bedside with patient. Bahman is going to come in to see his mother this morning. 02-09-2018 Patient is alert this am, recognizes this staff member yet some comments are inappropriate. Admits to a great deal of pain in her leg which worsens with minimal touch. No palpable pulse in RLE, wrapped with gauze. Daughter relates she is scheduled to have a AKA on the right due to sepsis and blockage. She has been running low grade temps. has periods of confusion. Blood sugars have been greater than 130 on the D10 drip. Only taking minimal bites of her breakfast this am as fed by daughter. WBC 10.0, CRP 7.54. Creatinine 1.7. ProBNP 1566. Sats maintaining, blood pressure stable. Daughter at bedside and expresses much concern about surgery/status and how to proceed. Requesting family consult with Dr. Dukes due to hypoglycemia, infection, confusion, hypoxia and ability to survive surgery. Patient does herself discuss "dying" and admits she is uncomfortable. Family consult held with Dr. Dukes, daughter Grecia and son Bahman. Options of care given of surgery with transfer as family does not want surgery to be done in [place], continuing IV antibiotics knowing may not improve status without surgical correction of the blockage, or keeping comfortable. Morphine was increased for better pain control until family decides further plan.
[2018-02-10] MEDS: Morphine 4 MG/ML Syringe IVPUSH PRN ×6 (00:48→15:06)
[2018-02-10] MEDS: Piperacillin/Tazobactam 3.375 GM in Sodium Chloride 0.9% 100 ML IV SCH ×4 (02:18→20:00)
[2018-02-10] MEDS: Albuterol/Ipratropium 3.0-0.5 MG/3 ML Neb Soln NEB PRN (08:54)
[2018-02-10] MEDS ORDERED: Pantoprazole 40 MG Vial IVPUSH SCH (09:00)
[2018-02-10] MEDS: Dextrose 5%-0.45% NaCl 1,000 ML IV SCH (11:42)
[2018-02-10] MEDS: Furosemide 40 MG/4 ML VIAL IVPUSH SCH (12:21)
[2018-02-10] MEDS: Losartan 100 MG Tab PO SCH (13:37)
[2018-02-10] MEDS: Brimonidine 0.2% Ophth Soln 5 ML Bottle EYEBOTH SCH ×2 (13:37→20:06)
[2018-02-10] MEDS: Isosorbide Mononitrate 60 MG Tab.ER PO SCH (13:38)
[2018-02-10] MEDS: Aspirin 81 MG Tab.EC PO SCH (13:38)
[2018-02-10] MEDS: Potassium Chloride 10 MEQ Tab.ER PO SCH (13:38)
[2018-02-10] MEDS: risperiDONE 0.25 MG Tab PO SCH ×2 (13:39→20:07)
[2018-02-10] MEDS: Metoprolol Tartrate 50 MG Tab PO SCH ×2 (13:39→20:07)
[2018-02-10] MEDS: Timolol Maleate 0.5% Ophth Soln 5 ML Bottle EYELF SCH (13:40)
[2018-02-10] MEDS: Vitamin B Complex Cap PO SCH (13:40)
[2018-02-10] MEDS: Allopurinol 300 MG Tab PO SCH (13:41)
[2018-02-10] MEDS ORDERED: Morphine PF 30 MG/30 ML PCA Vial IV SCH (16:45)
[2018-02-10] MEDS: Enoxaparin 80 MG/0.8 ML Syringe SUBCUT SCH (20:05)
[2018-02-10] MEDS: amLODIPine 10 MG Tab PO SCH (20:07)
[2018-02-10] MEDS: Sertraline 25 MG Tab PO SCH (20:07)
[2018-02-10] MEDS: Latanoprost 0.005% Ophth Soln 2.5 ML Bottle EYEBOTH SCH (20:07)
[2018-02-11] MEDS: Acetaminophen 650 MG Supp RECTAL PRN ×2 (00:07→08:11)
[2018-02-11] MEDS: Dextrose 5%-0.45% NaCl 1,000 ML IV SCH (00:16)
[2018-02-11] MEDS: Piperacillin/Tazobactam 3.375 GM in Sodium Chloride 0.9% 100 ML IV SCH ×2 (01:49→08:21)
[2018-02-11] MEDS ORDERED: Pantoprazole 40 MG Vial IVPUSH SCH (08:00)
[2018-02-11] MEDS: Aspirin 81 MG Tab.EC PO SCH (08:40)
[2018-02-11] MEDS: Isosorbide Mononitrate 60 MG Tab.ER PO SCH (08:40)
[2018-02-11] MEDS: Brimonidine 0.2% Ophth Soln 5 ML Bottle EYEBOTH SCH (08:40)
[2018-02-11] MEDS: Losartan 100 MG Tab PO SCH (08:40)
[2018-02-11] MEDS: Timolol Maleate 0.5% Ophth Soln 5 ML Bottle EYELF SCH (08:41)
[2018-02-11] MEDS: Metoprolol Tartrate 50 MG Tab PO SCH (08:41)
[2018-02-11] MEDS: risperiDONE 0.25 MG Tab PO SCH (08:41)
[2018-02-11] MEDS: Potassium Chloride 10 MEQ Tab.ER PO SCH (08:41)
[2018-02-11] MEDS: Allopurinol 300 MG Tab PO SCH (08:42)
[2018-02-11] MEDS: Vitamin B Complex Cap PO SCH (08:42)
[2018-02-11 09:24] VITALS: BP 145/99
--- NOTE | 2018-02-11 10:35 | PN ---
DATE: 02/10/2018 S: La is a pleasant 82-year-old female who was admitted for sepsis, likely secondary to wound infection. She has nonhealing diabetic foot ulcer associated with severe peripheral vascular disease. The patient has been having a lot of pain, recently put on elevated dose of morphine. Family has been present for her entire stay and has been having difficulty with the patient's status. Essentially they are concerned about the surgery putting her through that. She has been on defense whether or not she wants to do it. Family does not want her to do it as they feel it would just cause more pain and suffering and they are leaning toward comfort cares. I did talk to the patient as well, she is a little lethargic from her medication which she is really not exact as far as her wishes. I did talk to the surgeon at [facility] in [place] Dr. Shields and he feels patient requires surgery for a cure and that any antibiotic use will be temporizing measure and she will continue to decline. The patient has run a T- max of only 100 since yesterday. She is having adequate urine output. We have got her normal on just D5 half-normal saline. Her sugars are staying up above 120 regularly at this point where every 4 hours Accu-Cheks. The patient's pain has slightly improved with the elevated dose of morphine. She is requiring it every 2-4 hours and family now today has had an appointment. They do not want surgical cares. They understand the risk and all of patient's children are in agreement. O: GENERAL: La does have her eyes open. She is very lethargic to answer questions but cannot be stimulated. HEENT: Otherwise grossly benign. NECK: Her neck vein does not appear distended. RESPIRATORY: Lung sounds are clear. CARDIAC: Tones are irregular but controlled. ABDOMEN: Soft, present bowel sounds. EXTREMITIES: Left lower extremity unchanged. Right lower extremity from the knee down is wrapped. ASSESSMENT: 1. SEPSIS SYNDROME SECONDARY TO INFECTED DIABETIC FOOT ULCER. 2. 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 3. TYPE 2 DIABETES. 4. CHRONIC ATRIAL FIBRILLATION. 5. DEBILITATED STATE. P: I talked at length again with the family today. They reaffirmed the desire for no surgical intervention at this point. We will try to get a hold of Dr. Shields and let him know the families wishes. They want comfort measures and they understand that IV antibiotics alone will not resolve this problem with her infected foot ulcer. For now they do not want to discontinue IV antibiotics. We will continue her on IV fluids, IV antibiotics and pain control and we will have further discussion with family as the day goes on. TEETEE/LALO /[id number]
[2018-02-11] MEDS ORDERED: Furosemide 40 MG/4 ML VIAL IVPUSH SCH (12:00)
--- NOTE | 2018-02-11 15:32 | PCM.DCSUM1 ---
Discharge Summary - Hospital Course Free Text/Narrative:: Patient was admitted by Maynor Jason over the weekend for sepsis likely related to a wound infection of her right foot. Patient is known to have severe peripheral vascular disease with occlusion and had been set up for an above the knee amputation. Patient was hypolycemic on admit and required several doses of glucose and was admitted on a glucose infusion. REsponsiveness associated with blood sugar. She was started on Zosyn and Vancomycin for the infection. Blood cultures were ordered. Routine labs done. Patient did require oxygen due to hypoxia. - Discharge Data Discharge Date: 02/11/18 Discharge Disposition: DC/Tfer to SNF 03 Condition: Poor - Discharge Diagnosis/Problem(s) (1) Sepsis SNOMED Code(s): 91799766 ICD Code: A41.9 - SEPSIS, UNSPECIFIED ORGANISM Status: Acute Priority: High - Patient Summary/Data Complications: none Hospital Course: Patient's hospital course has shown decline in her overall status. She has been on Zosyn and Vancomycin for sepsis related to wound infection with no improvement in her status. She does have severe peripheral vascular disease and would require the amputation in order to correct this. She has been in significant pain. Blood sugars have remained in the 120s while on the glucose drip and now D51/2 NS. Family has been present and having difficulty with patient status. Do not feel they want to put the patient through any invasive measures, ie. the surgery but are well aware that her status will continuing to decline, resulting likely in her . She has been getting increasing doses of IV morphine, [employer] pump started yesterday which has significantly decreased her pain, now rests comfortably. Due to her extensive health history and now requiring an amputation, family has opted to keep her in swing bed on comfort cares only awaiting her . We will continue the [employer]ER morphine, oxygen and IV fluids but hold all other meds, labs and glucose monitoring. - Patient Instructions Diet: NPO Activity: Bedrest Wound/Incision Care: Change Dressing Daily - Discharge Plan Home Medications: Home Meds Furosemide 80 mg PO DAILY 02/13/15 [History] Latanoprost [Xalatan 0.005% Ophth Soln] 1 drop EYEBOTH BEDTIME 02/13/15 [History ] Losartan [Cozaar] 100 mg PO DAILY 02/13/15 [History] Metoprolol Tartrate 50 mg PO BID 02/13/15 [History] Omeprazole 20 mg PO DAILY 02/13/15 [History] amLODIPine [Norvasc] 10 mg PO BEDTIME 02/13/15 [History] Allopurinol [Zyloprim] 300 mg PO DAILY tablet 02/17/15 [Rx] Aspirin [Halfprin] 81 mg PO DAILY 09/22/15 [History] Sertraline [Zoloft] 75 mg PO BEDTIME 12/07/16 [History] Brimonidine Tartrate [Alphagan P 0.1% Ophth Soln] 1 drop EYEBOTH BID 04/04/17 [ History] Isosorbide Mononitrate [Imdur] 60 mg PO DAILY 05/21/17 [History] Warfarin Sodium 3 mg PO DAILY #30 tablet 06/16/17 [Rx] Acetaminophen 500 mg PO Q6H PRN 10/06/17 [History] Potassium Chloride [Klor-Con 10] 20 meq PO DAILY 10/06/17 [History] Dorzolamide HCl/Timolol Maleat [Cosopt Eye Drops] 1 drop EYERT BID 10/22/17 [ History] Metolazone 5 mg PO DAILY PRN 10/22/17 [History] Multivitamin [Multi-Day Vitamins] 1 tab PO DAILY 10/22/17 [History] Polyethylene Glycol 3350 [MiraLAX] 17 gm PO DAILY PRN 10/22/17 [History] Sennosides/Docusate Sodium [Senna-Docusate Sodium Tablet] 1 tab PO DAILY PRN [History] Timolol Maleate [Timoptic 0.5% Oph Soln] 1 drop EYELF DAILY 10/22/17 [History] Menthol/Zinc Oxide [Calmoseptine] 1 gm TOP QID PRN #1 tube 11/04/17 [Rx] traMADol [Ultram] 50 mg PO Q6H PRN #30 tablet 11/04/17 [Rx] Baclofen 5 mg PO TID 02/07/18 [History] Cholecalciferol (Vitamin D3) [Vitamin D3] 2,000 unit PO DAILY 02/07/18 [History] Enoxaparin Sodium [Lovenox] 80 mg SUBCUT BID 02/07/18 [History] Insulin Detemir [Levemir] 36 unit SUBCUT QAM 02/07/18 [History] Melatonin 5 mg PO BEDTIME PRN 02/07/18 [History] Menthol [Biofreeze] 1 applic TOP QID PRN 02/07/18 [History] Vitamin B Complex 1 tab PO DAILY 02/07/18 [History] guaiFENesin [Mucinex] 600 mg PO BID 02/07/18 [History] guaiFENesin/Dextromethorphan [Tussin Dm Syrup] 10 ml PO Q4H PRN 02/07/18 [ History] risperiDONE [Risperdal] 0.25 mg PO BID 02/07/18 [History] Forms: ED Department Discharge Referrals: Samuel Dukes MD [Primary Care Provider] - - Discharge Summary/Plan Comment DC Time >30 min.: No Discharge Summary/Plan Comment: Transfer to swing bed on comfort cares only - General Info Date of Service: 02/11/18 Admission Dx/Problem (Free Text: Sepsis Functional Status: Reports: Pain Controlled. Denies: Tolerating Diet, Ambulating - Review of Systems General: Reports: Weakness, Fatigue, Other (review of symptoms unable to obtain other than information provided by staff and family) Pulmonary: Reports: Cough Musculoskeletal: Reports: Leg Pain - Patient Data Vitals - Most Recent: Last Vital Signs Temp 99.2 F 02/11/18 08:00 Pulse 85 02/11/18 08:00 Resp 11 L 02/11/18 08:00 BP 145/99 H 02/11/18 08:00 Pulse Ox 93 L 02/11/18 08:00 Weight - Most Recent: 184 lb 8 oz I&O - Last 24 hours: Intake & Output 02/11/18 02/11/18 02/11/18 06:59 14:59 22:59 Intake Total 943 Output Total 250 Balance 693 Lab Results - Last 24 hrs: Laboratory Results - last 24 hr 02/10/18 02/10/18 02/10/18 Range/Units 16:12 19:56 21:30 POC Glucose 137 H 132 H (75-105) mg/dl Vancomycin Trough 17.2 (10-20) ug/mL 02/11/18 02/11/18 02/11/18 Range/Units 00:03 04:14 07:31 POC Glucose 136 H 155 H 159 H (75-105) mg/dl Vancomycin Trough (10-20) ug/mL Med Orders - Current: Current Medications Discontinued Medications Acetaminophen (Tylenol Extra Strength) 500 mg PO Q6H PRN PRN Reason: Pain Acetaminophen (Tylenol) 650 mg RECTAL Q6H PRN PRN Reason: Fever Last Admin: 02/11/18 08:11 Dose: 650 mg Acetaminophen (Tylenol Extra Strength) 1,000 mg PO Q6H PRN PRN Reason: Fever Last Admin: 02/09/18 12:02 Dose: 1,000 mg Albuterol/Ipratropium (Duoneb 3.0-0.5 Mg/3 Ml) 3 ml NEB Q4H PRN PRN Reason: Dyspnea Last Admin: 02/10/18 08:54 Dose: 3 ml Allopurinol (Zyloprim) 300 mg PO DAILY [facility] Last Admin: 02/11/18 08:42 Dose: Not Given Amlodipine Besylate (Norvasc) 10 mg PO BEDTIME [facility] Last Admin: 02/10/18 20:07 Dose: Not Given Artificial Tears (Liquitears 1.4% Ophth Soln) 0 ml EYEBOTH Q1H PRN PRN Reason: Dry Eyes Aspirin (Halfprin) 81 mg PO DAILY [facility] Last Admin: 02/11/18 08:40 Dose: Not Given Azithromycin (Zithromax) 500 mg PO ONETIME ONE Stop: 02/07/18 13:06 Last Admin: 02/07/18 14:00 Dose: 500 mg Azithromycin (Zithromax) 250 mg PO DAILY [facility] Baclofen (Lioresal) 5 mg PO TID [facility] Last Admin: 02/07/18 14:01 Dose: 5 mg Brimonidine Tartrate (Alphagan 0.2% Ophth Soln) 0 ml EYEBOTH BID [facility] Last Admin: 02/11/18 08:40 Dose: Not Given Calamine/Phenol (Calmoseptine) 0 gm TOP QID PRN PRN Reason: Perineal Comfort Measure Ceftriaxone Sodium (Rocephin) 1 gm IVPUSH Q24H [facility] Last Admin: 02/07/18 14:00 Dose: 1 gm Ceftriaxone Sodium (Rocephin) 1 gm IVPUSH DAILY@1300 [facility] Ceftriaxone Sodium (Rocephin) Confirm Administered Dose 1 gm .ROUTE .STK-MED ONE Stop: 02/07/18 14:12 Last Admin: 02/07/18 14:01 Dose: Not Given Cholecalciferol (Vitamin D3) 2,000 units PO DAILY [facility] Last Admin: 02/08/18 12:58 Dose: Not Given Dextrose/Water (Dextrose 50% In Water) Confirm Administered Dose 50 ml .ROUTE .STK-MED ONE Stop: 02/07/18 18:11 Last Admin: 02/07/18 18:27 Dose: Not Given Dextrose/Water (Dextrose 50% In Water) Confirm Administered Dose 50 ml .ROUTE .STK-MED ONE Stop: 02/07/18 18:19 Last Admin: 02/07/18 18:27 Dose: Not Given Dextrose/Water (Dextrose 50% In Water) Confirm Administered Dose 50 ml .ROUTE .STK-MED ONE Stop: 02/08/18 07:31 Last Admin: 02/08/18 07:54 Dose: Not Given Dextrose/Water (Dextrose 50% In Water) Confirm Administered Dose 50 ml .ROUTE .STK-MED ONE Stop: 02/08/18 07:11 Last Admin: 02/08/18 07:54 Dose: Not Given Enoxaparin Sodium (Lovenox) 80 mg SUBCUT DAILY@2000 [facility] Last Admin: 02/10/18 20:05 Dose: 80 mg Furosemide (Lasix) 80 mg PO DAILY [facility] Last Admin: 02/08/18 12:58 Dose: Not Given Furosemide (Lasix) 40 mg IVPUSH Q24H [facility] Last Admin: 02/10/18 12:21 Dose: 40 mg Furosemide (Lasix) 40 mg IVPUSH DAILY@1200 [facility] Glucagon (Glucagen) 1 mg IVPUSH ONETIME ONE Stop: 02/07/18 11:28 Last Admin: 02/07/18 11:33 Dose: 1 mg Glucagon (Glucagen) 1 mg IVPUSH ONETIME ONE Stop: 02/07/18 17:19 Last Admin: 02/07/18 17:24 Dose: 1 mg Guaifenesin (Organ-I Nr) 600 mg PO BID [facility] Last Admin: 02/08/18 12:58 Dose: Not Given Guaifenesin/Phenylephrine HCl (Robitussin Dm) 10 ml PO Q4H PRN PRN Reason: Cough Sodium Chloride (Normal Saline) 1,000 mls @ 500 mls/hr IV .BOLUS ONE Stop: 02/07/18 12:09 Last Admin: 02/07/18 11:35 Dose: 500 mls/hr Sodium Chloride (Normal Saline) 1,000 mls @ 75 mls/hr IV ASDIRECTED [facility] Dextrose/Water 100 ml/ (Dextrose/Water) 1,100 mls @ 125 mls/hr IV ASDIRECTED [facility] Last Admin: 02/09/18 13:26 Dose: 125 mls/hr Dextrose/Water (Dextrose 5% In Water) Confirm Administered Dose 1,000 mls @ as directed .ROUTE .STK-MED ONE Stop: 02/07/18 18:19 Last Admin: 02/07/18 18:27 Dose: Not Given Piperacillin Sod/Tazobactam (Sod 3.375 gm/ Sodium Chloride) 50 mls @ 100 mls/ hr IV Q6H [facility] Last Admin: 02/07/18 22:59 Dose: Not Given Vancomycin HCl 1 gm/ Sodium (Chloride) 250 mls @ 167 mls/hr IV Q24H [facility] Last Admin: 02/10/18 23:54 Dose: 167 mls/hr Piperacillin Sod/Tazobactam (Sod 3.375 gm/ Sodium Chloride) 100 mls @ 200 mls/ hr IV Q6H [facility] Last Admin: 02/07/18 23:25 Dose: Not Given Piperacillin Sod/Tazobactam (Sod 3.375 gm/ Sodium Chloride) 100 mls @ 200 mls/ hr IV Q6H [facility] Last Admin: 02/08/18 01:42 Dose: Not Given Sodium Chloride (Normal Saline) Confirm Administered Dose 250 mls @ as directed .ROUTE .STK-MED ONE Stop: 02/07/18 23:34 Last Admin: 02/07/18 23:31 Dose: Not Given Piperacillin Sod/Tazobactam (Sod 3.375 gm/ Sodium Chloride) 100 mls @ 200 mls/ hr IV Q6H [facility] Last Admin: 02/11/18 08:21 Dose: 200 mls/hr Dextrose/Water (Dextrose 5% In Water) Confirm Administered Dose 1,000 mls @ as directed .ROUTE .STK-MED ONE Stop: 02/08/18 07:32 Last Admin: 02/08/18 07:54 Dose: Not Given Sodium Chloride (Normal Saline) Confirm Administered Dose 200 mls @ as directed .ROUTE .STK-MED ONE Stop: 02/08/18 07:12 Last Admin: 02/08/18 07:54 Dose: Not Given Dextrose/Water (Dextrose 5% In Water) Confirm Administered Dose 1,000 mls @ as directed .ROUTE .[facility] ONE Stop: 02/08/18 17:47 Last Admin: 02/08/18 17:37 Dose: Not Given Dextrose/Water (Dextrose 5% In Water) Confirm Administered Dose 1,000 mls @ as directed .ROUTE .[facility] ONE Stop: 02/09/18 13:32 Last Admin: 02/09/18 13:28 Dose: Not Given Dextrose/Sodium Chloride (Dextrose 5%-1/2 Ns) 1,000 mls @ 75 mls/hr IV ASDIRECTED [facility] Last Admin: 02/11/18 00:16 Dose: 75 mls/hr Insulin Detemir (Levemir) [facility] unit [facility]UT [facility] Last Admin: 02/08/18 12:47 Dose: Not Given Isosorbide Mononitrate (Imdur) 60 mg PO DAILY [facility] Last Admin: 02/11/18 08:40 Dose: Not Given Latanoprost (Xalatan 0.005% Ophth Soln) 0 ml EYEBOTH BEDTIME [facility] Last Admin: 02/10/18 20:07 Dose: Not Given Lorazepam (Ativan) 1 - 2 mg IVPUSH Q2H PRN PRN Reason: Agitation Last Admin: 02/10/18 17:18 Dose: 2 mg Losartan Potassium (Cozaar) 100 mg PO DAILY [facility] Last Admin: 02/11/18 08:40 Dose: Not Given Metolazone (Zaroxolyn) 5 mg PO DAILY PRN PRN Reason: Edema Metoprolol Tartrate (Lopressor) 50 mg PO BID [facility] Last Admin: 02/11/18 08:41 Dose: Not Given Morphine Sulfate (Morphine) 2 mg IVPUSH Q2H PRN PRN Reason: Pain Last Admin: 02/09/18 10:31 Dose: 2 mg Morphine Sulfate (Morphine) 2 - 5 mg IVPUSH Q2H PRN PRN Reason: Pain Last Admin: 02/09/18 18:48 Dose: 4 mg Morphine Sulfate (Morphine) 2 - 5 mg IVPUSH Q2H PRN PRN Reason: Pain Last Admin: 02/10/18 15:06 Dose: 4 mg Morphine Sulfate (Morphine Turn Supervisor 30 Mg In 30 Ml) 30 mg IV ASDIRECTED [facility] PRN Reason: Protocol Last Admin: 02/10/18 17:18 Dose: 30 mg Dorzolamide Hcl/Timolol Maleat [ Cosopt Eye Drops] 1 drop EYERT BID [facility] Last Admin: 02/09/18 15:33 Dose: Not Given Melatonin [Melatonin (] 5mg) 5 mg PO BEDTIME PRN PRN Reason: Insomnia Menthol [Biofreeze] (Topical Gel) 0 applic TOP QID PRN PRN Reason: muscle spasms Ondansetron HCl (Zofran) 4 mg IVPUSH Q6H PRN PRN Reason: Nausea/Vomiting Last Admin: 02/08/18 05:38 Dose: 4 mg Pantoprazole Sodium (Protonix) 40 mg PO DAILY [facility] Last Admin: 02/09/18 09:09 Dose: 40 mg Pantoprazole Sodium (Protonix Iv) 40 mg IVPUSH Q24H [facility] Last Admin: 02/10/18 08:32 Dose: 40 mg Pantoprazole Sodium (Protonix Iv) 40 mg IVPUSH DAILY [facility] Last Admin: 02/11/18 08:41 Dose: Not Given Piperacillin Sod/Tazobactam Sod (Zosyn) Confirm Administered Dose 3.375 gm .ROUTE .STK-MED ONE Stop: 02/07/18 23:29 Last Admin: 02/07/18 23:31 Dose: Not Given Piperacillin Sod/Tazobactam Sod (Zosyn) Confirm Administered Dose 3.375 gm .ROUTE .STK-MED ONE Stop: 02/08/18 07:38 Last Admin: 02/08/18 08:17 Dose: Not Given Piperacillin Sod/Tazobactam Sod (Zosyn) Confirm Administered Dose 3.375 gm .ROUTE .STK-MED ONE Stop: 02/09/18 21:39 Last Admin: 02/09/18 21:29 Dose: Not Given Polyethylene Glycol (Miralax) 17 gm PO DAILY PRN PRN Reason: Constipation Potassium Chloride (Klor-Con 10) 20 meq PO DAILY [facility] Last Admin: 02/11/18 08:41 Dose: Not Given Risperidone (Risperidal) 0.25 mg PO BID [facility] Last Admin: 02/11/18 08:41 Dose: Not Given Senna/Docusate Sodium (Senna Plus) 1 tab PO DAILY PRN PRN Reason: Constipation Sertraline HCl (Zoloft) 75 mg PO BEDTIME [facility] Last Admin: 02/10/18 20:07 Dose: Not Given Timolol Maleate (Timoptic 0.5% Ophth Soln) 0 ml EYELF DAILY [facility] Last Admin: 02/11/18 08:41 Dose: Not Given Tramadol HCl (Ultram) 50 mg PO Q6H PRN PRN Reason: Pain Last Admin: 02/07/18 14:00 Dose: 50 mg Vancomycin HCl (Pharmacy To Dose - Vancomycin) 1 dose .XX ASDIRECTED [facility] Vitamin B Complex (Vitamin B Complex) 1 each PO DAILY [facility] Last Admin: 02/11/18 08:42 Dose: Not Given - Exam Quality Assessment: Reports: Supplemental Oxygen General: Reports: Sedated Neck: Reports: Supple Lungs: Reports: Rhonchi Cardiovascular: Reports: Regular Rate, Regular Rhythm GI/Abdominal Exam: Normal Bowel Sounds, Soft, Non-Tender Extremities: Other (bandage to right lower foot/ankle. Foot is warm, discolored.) Wound/Incisions: Reports: Dressing Dry and Intact *Q Meaningful Use (DIS) - VTE *Q VTE Criteria *Q: - Stroke *Q Stroke Criteria *Q: - AMI *Q AMI Criteria *Q:
== END 2018-02-11 09:26 | DRG 872 ==
LOC: CC.ED 09:15 → CC.MS 12:32 → UNDOADMIN 12:32 → CC.MS 12:34 → UNDOADMIN 12:34 → CC.MS 13:05
PROVIDERS: ADMIT Nurse Practitioner; ATTEND Family Medicine
DX: R41.82 Altered mental status, unspecified (principal); J20.9 Acute bronchitis, unspecified; N17.9 Acute kidney failure, unspecified; D72.828 Other elevated white blood cell count; A41.9 Sepsis, unspecified organism; E11.621 Type 2 diabetes mellitus with foot ulcer; L97.519 Non-pressure chronic ulcer of other part of right foot with unspecified severity; I73.9 Peripheral vascular disease, unspecified; E11.649 Type 2 diabetes mellitus with hypoglycemia without coma; E11.9 Type 2 diabetes mellitus without complications; Z79.4 Long term (current) use of insulin; R09.02 Hypoxemia; Z51.5 Encounter for palliative care; I11.0 Hypertensive heart disease with heart failure; I50.9 Heart failure, unspecified; I25.2 Old myocardial infarction; Z95.5 Presence of coronary angioplasty implant and graft; M19.90 Unspecified osteoarthritis, unspecified site; F32.9 Major depressive disorder, single episode, unspecified; H54.7 Unspecified visual loss; H91.92 Unspecified hearing loss, left ear; Z96.659 Presence of unspecified artificial knee joint; Z88.5 Allergy status to narcotic agent; Z79.01 Long term (current) use of anticoagulants; Z79.82 Long term (current) use of aspirin; Z79.899 Other long term (current) drug therapy
CPT/HCPCS: 36415; 51702; 70450; 71045; 80053; 81001; 82550; 83605; 83880; 84484; 85025; 85610; 85730; 86140; 87040 ×2; 87804 ×2; 93005; 96361; 96374; 99285; J1610; J7030; 80048; 80202; 82962; 94640; A9270-GY; C9113; J0696; J1650; J1940; J2060; J2270; J2274; J2405; J2543; J3370; J7042; J7050; J7060

== ENCOUNTER 2018-02-11 09:17 | Inpatient (IN) | payer MEDICARE, BC ==
[2018-02-11] MEDS ORDERED: Atropine 0.4 MG/ML SDV IV ONE (10:15)
[2018-02-11] MEDS ORDERED: Atropine 1% Ophth Soln 5 ML BOTTLE SL PRN (10:26)
[2018-02-11] MEDS ORDERED: Ondansetron 4 MG/2 ML SDV IVPUSH PRN (14:47)
[2018-02-11] MEDS ORDERED: Menthol/Zinc Oxide Ointment 113 GM Tube TOP PRN (14:47)
[2018-02-11] MEDS ORDERED: Albuterol/Ipratropium 3.0-0.5 MG/3 ML Neb Soln NEB PRN (14:47)
[2018-02-11] MEDS ORDERED: LORazepam 2 MG/ML Syringe IVPUSH PRN (14:47)
[2018-02-11] MEDS: Dextrose 5%-0.45% NaCl 1,000 ML IV SCH ×2 (15:19→21:05)
[2018-02-11] MEDS: Acetaminophen 650 MG Supp RECTAL PRN (21:05)
[2018-02-11] MEDS: Morphine PF 30 MG/30 ML PCA Vial IV SCH (21:24)
[2018-02-12] MEDS: Acetaminophen 650 MG Supp RECTAL PRN (15:52)
[2018-02-12] MEDS: Dextrose 5%-0.45% NaCl 1,000 ML IV SCH (17:38)
[2018-02-12] MEDS: Morphine PF 30 MG/30 ML PCA Vial IV SCH (21:43)
[2018-02-13] MEDS: Dextrose 5%-0.45% NaCl 1,000 ML IV SCH (08:52)
--- NOTE | 2018-02-20 07:07 | DISCH ---
DATE OF : 02/13/2018. ADMISSION DIAGNOSES: 1. Nonhealing diabetic foot ulcer with associated sepsis. 2. Severe peripheral vascular disease. 3. Chronic atrial fibrillation. DISCHARGE DIAGNOSIS: 1. NONHEALING DIABETIC FOOT ULCER WITH ASSOCIATED SEPSIS. 2. SEVERE PERIPHERAL VASCULAR DISEASE. 3. CHRONIC ATRIAL FIBRILLATION. HISTORY: La was a very pleasant 82-year-old female who had been in acute care for sepsis. She has a documented and nonhealing foot ulcer that was nonhealing due to the patient's diabetes and severe peripheral vascular disease. She had been scheduled for an [id number] amputation by Vascular Surgery in [place] and family elected not to proceed with that and elected for palliative care while she was in acute care status. The patient's [id number], family and children elected to proceed with comfort cares only and stop all antibiotics for her sepsis, blood monitoring, etc. She was placed in swing bed. SWING BED COURSE: The patient was comfortable while she was in swing bed. She had a morphine drip started at 1 mg/hour with a family controlled or patient- controlled anesthesia of 0.5 mg every half hour as needed. She was given IV Ativan on a p.r.n. basis for any agitation. She succumbed to her illnesses on 02/13/2018 with family present at bedside, and the patient in a very pleasant state. home was notified and family was ultimately very happy with her overall cares. COMPLICATIONS: During stay, none. CONSULTATIONS: None. DISPOSITION: The patient's body transferred to home per protocol. TEETEE/LALO /[id number]
== END 2018-02-13 12:20 | disposition expired | DRG 872 ==
LOC: CC.MS 09:17 → UNDOADMIN 09:33 → CC.MS 09:33 → UNDOADMIN 14:47 → CC.MS 14:47
PROVIDERS: ADMIT Family Medicine; ATTEND Family Medicine
DX: A41.9 Sepsis, unspecified organism (principal); I13.0 Hypertensive heart and chronic kidney disease with heart failure and stage 1 through stage 4 chronic kidney disease, or unspecified chronic kidney disease; E11.621 Type 2 diabetes mellitus with foot ulcer; L97.519 Non-pressure chronic ulcer of other part of right foot with unspecified severity; I48.2 Chronic atrial fibrillation; Z51.5 Encounter for palliative care; R41.82 Altered mental status, unspecified; J20.9 Acute bronchitis, unspecified; I73.9 Peripheral vascular disease, unspecified; R09.02 Hypoxemia; H91.92 Unspecified hearing loss, left ear; I50.9 Heart failure, unspecified; I25.2 Old myocardial infarction; F32.9 Major depressive disorder, single episode, unspecified; S91.301A Unspecified open wound, right foot, initial encounter; E11.22 Type 2 diabetes mellitus with diabetic chronic kidney disease; N18.9 Chronic kidney disease, unspecified; Z96.659 Presence of unspecified artificial knee joint; Z95.5 Presence of coronary angioplasty implant and graft; Z85.038 Personal history of other malignant neoplasm of large intestine; Z88.8 Allergy status to other drugs, medicaments and biological substances; Z79.01 Long term (current) use of anticoagulants; Z79.82 Long term (current) use of aspirin; Z79.4 Long term (current) use of insulin; Z79.899 Other long term (current) drug therapy
CPT/HCPCS: A9270-GY; J2274; J7042